=== PATIENT | male | born 1965 | race Hispanic/Latino ===

== ENCOUNTER 2018-01-07 04:36 | Emergency (ER) | payer OTHER ==
[2018-01-07] MEDS ORDERED: cloNIDine HCl 0.1 MG TAB ONE (05:15)
[2018-01-07 05:29] LABS: Absolute Monocytes 0.7 K/uL (0.1-1.3); Absolute Neutrophil 6.5 K/uL (1.8-8.0); Basophils % 0.4 % (0-1.3); Eosinophils % 0.8 % (0-4.4); Hematocrit 39.6 % (39.6-49.0); Lymphocytes % 29.4 % (15.3-44.8); MCH 31.1 pg (27.0-35.0); MPV 8.5 fL (7.6-11.3); Monocytes % 6.7 % (3.3-12.3); RBC Red Blood Cell Count 4.45 M/uL (4.33-5.43)
[2018-01-07 05:45] LABS: ALT/SGPT 35 U/L (12-78); AST/SGOT 26 U/L (15-37); Albumin 2.8 g/dL (3.4-5.0); Alkaline Phosphatase 91 U/L (45-117); BUN Blood Urea Nitrogen 24 mg/dL (7-18); Bicarbonate 29 mmol/L (21-32); Bilirubin Direct < 0.1 mg/dL (0-0.2); Bilirubin Total 0.2 mg/dL (0.2-1.0); CKMB Creatine Kinase MB < 1.0 ng/mL (0.3-3.6); Creatine Phosphokinase 56 U/L (39-308); Glucose Level 140 mg/dL (74-106); Magnesium 1.7 mg/dL (1.8-2.4); NT PRO-BNP 391 pg/mL (<125); Potassium 3.5 mmol/L (3.5-5.1); Protein, Total 7.1 g/dL (6.4-8.2); Sodium Level 140 mmol/L (136-145)
[2018-01-07] MEDS ORDERED: METOPROLOL TARTRATE 5 MG/5 ML INJ IV ONE (06:45)
--- NOTE | 2018-01-07 07:11 | EKG ---
Test Date: 2018-01-07 Test Time: 04:48:27 Whizzer Hand: MEASUREMENT RESULTS: Intervals: Rate: 103 PA: 158 QRSD: 72 QT: 342 QTc: 448 [place]: P: 40 PA: 158 QRS: 4 T: 115 INTERPRETIVE STATEMENTS: Sinus tachycardia Possible Left atrial enlargement T wave abnormality, consider lateral ischemia Abnormal ECG Compared to ECG 10/31/2016 04:30:15 T-wave abnormality now present Possible ischemia now present Sinus rhythm no longer present Electronically Signed On 01-07-18 07:11:11 CDT by Nino Gonzalez
[2018-01-07] MEDS ORDERED: ENALAPRILAT 1.25 MG/ML VIAL IV ONE (07:43)
[2018-01-07 08:23] LABS: Urine Blood TRACE (NEG); Urine Glucose 2+ (NEG); Urine Protein 3+ (NEG); Urine Specific Gravity >1.030 (1.005-1.030)
--- NOTE | 2018-01-07 08:48 | EDPHYS ---
Physician Documentation [facility] Name: Ben Muir Age: 52 yrs Sex: Male : 1965 Arrival Date: 01/07/2018 Time: 04:37 Bed 6 Private MD: ONIEL MALDONADO ED Physician Camilo Mccollum HPI: 01/07 06:58 This 52 yrs old Male presents to ER via Ambulatory with complaints of Chest kdr Pain, Headache. 06:58 The patient or guardian reports chest pain that is located primarily in the anterior kdr chest wall, left. Onset: suddenly, just prior to arrival, Awoke him from sleep. The pain radiates to the left arm. Associated signs and symptoms: Pertinent positives: diaphoresis, nausea, shortness of breath, Pertinent negatives: syncope, vomiting. The chest pain is described as aching, dull, a heaviness, a pressure. Duration: The patient or guardian reports a single episode, that is still ongoing, but improving. Modifying factors: The symptoms are alleviated by nothing. the symptoms are aggravated by emotionally stressful situations, movement. Severity of pain: At its worst the pain was moderate just prior to arrival, in the emergency department the pain has improved moderately. The patient has experienced similar episodes in the past, multiple times. The patient has not recently seen a physician. Historical: - Allergies: 04:51 No Known Allergies; tl2 - Home Meds: 04:51 pravastatin 20 mg oral tab 1 tab once daily [Active]; carvedilol 25 mg oral tab 1 tab 2 tl2 times per day [Active]; Cozaar 25 mg Oral tab 1 tab once daily [Active]; amitriptyline 25 mg Oral tab 1 tab once daily [Active]; tamsulosin 0.4 mg oral cp24 1 cap once daily [Active]; buspirone 10 mg Oral tab 1 tab 2 times per day [Active]; clonidine HCl 0.1 mg Oral tab 1 tab 2 times per day [Active]; Lantus 100 unit/mL Sub-Q soln [Active]; - PMHx: 04:51 Diabetes - IDDM; Hypertension; testicular cancer; stage 3 kidney disease; tl2 - Immunization history:: Adult Immunizations up to date. - Social history:: Smoking status: Patient uses tobacco products, smokes one-half pack cigarettes per day. - Ebola Screening: : No symptoms or risks identified at this time. ROS: 06:58 Constitutional: Negative for fever, chills, and weight loss, Eyes: Negative for injury, kdr pain, redness, and discharge, Neck: Negative for injury, pain, and swelling, Respiratory: Negative for shortness of breath, cough, wheezing, and pleuritic chest pain, Abdomen/GI: Negative for abdominal pain, nausea, vomiting, diarrhea, and constipation, Back: Negative for injury and pain, : Negative for injury, bleeding, discharge, and swelling, MS/Extremity: Negative for injury and deformity, Skin: Negative for injury, rash, and discoloration, Neuro: Negative for headache, weakness, numbness, tingling, and seizure activity. Psych: Negative for depression, anxiety, suicide ideation, homicidal ideation, and hallucinations, Allergy/Immunology: Negative for hives, rash, and allergies, Endocrine: Negative for neck swelling, polydipsia, polyuria, polyphagia, and marked weight changes, Hematologic/Lymphatic: Negative for swollen nodes, abnormal bleeding, and unusual bruising. 06:58 Cardiovascular: Positive for chest pain, Negative for edema, orthopnea, palpitations, paroxysmal nocturnal dyspnea. 06:58 Respiratory: Positive for shortness of breath, With chest pain. 06:58 Abdomen/GI: Positive for nausea, With chest pain. Exam: 04:53 ECG was reviewed by the Attending Physician. kdr 06:58 Constitutional: This is a well developed, well nourished patient who is awake, alert, kdr and in no acute distress. Head/Face: Normocephalic, atraumatic. Eyes: Pupils equal round and reactive to light, extra-ocular motions intact. Lids and lashes normal. Conjunctiva and sclera are non-icteric and not injected. Cornea within normal limits. Periorbital areas with no swelling, redness, or edema. Neck: Trachea midline, no thyromegaly or masses palpated, and no cervical lymphadenopathy. Supple, full range of motion without nuchal rigidity, or vertebral point tenderness. No Meningismus. Chest/axilla: Normal chest wall appearance and motion. Nontender with no deformity. No lesions are appreciated. Cardiovascular: Regular rate and rhythm with a normal S1 and S2. No gallops, murmurs, or rubs. Normal PMI, no JVD. No pulse deficits. Respiratory: Lungs have equal breath sounds bilaterally, clear to auscultation and percussion. No rales, rhonchi or wheezes noted. No increased work of breathing, no retractions or nasal flaring. Abdomen/GI: Soft, non-tender, with normal bowel sounds. No distension or tympany. No guarding or rebound. No evidence of tenderness throughout. Back: No spinal tenderness. No costovertebral tenderness. Full range of motion. Skin: Warm, dry with normal turgor. Normal color with no rashes, no lesions, and no evidence of cellulitis. MS/ Extremity: Pulses equal, no cyanosis. Neurovascular intact. Full, normal range of motion. Neuro: Awake and alert, GCS 15, oriented to person, place, time, and situation. Cranial nerves II-XII grossly intact. Motor strength 5/5 in all extremities. Sensory grossly intact. Cerebellar exam normal. Normal gait. Psych: Awake, alert, with orientation to person, place and time. Behavior, mood, and affect are within normal limits. Vital Signs: 04:53 BP 215 / 135; Pulse 100; Resp 20; Temp 97.6; Pulse Ox 97% on R/A; Weight 80.74 kg; tl2 Height 5 ft. 7 in. (170.18 cm); Pain 8/10; 05:15 BP 197 / 136; Pulse 100; Resp 16; Pulse Ox 100% on R/A; tl1 05:44 BP 182 / 123; Pulse 95; Resp 18; Pulse Ox 97% on R/A; tl1 05:58 BP 183 / 120; Pulse 93; Resp 20; Pulse Ox 98% on R/A; tl2 06:42 BP 184 / 123; Pulse 96; Resp 18; Pulse Ox 97% on R/A; tl2 06:48 BP 174 / 108; Pulse 92; Resp 16; Pulse Ox 99% ; tl1 06:58 BP 171 / 111; Pulse 97; Resp 18; Pulse Ox 98% on R/A; tl1 07:03 BP 165 / 106; Pulse 97; Resp 17; Pulse Ox 100% ; Pain 0/10; tl1 07:56 BP 212 / 126; Pulse 88; Resp 16; Pulse Ox 99% on R/A; ae1 08:05 BP 184 / 116; Pulse 89; Resp 16; Pulse Ox 99% on R/A; ae1 08:13 BP 175 / 113; Pulse 96; Resp 18; Pulse Ox 100% on R/A; ae1 08:31 BP 160 / 107; Pulse 81; Resp 16; Pulse Ox 99% on R/A; ae1 08:55 BP 164 / 107; Pulse 91; Resp 12; Pulse Ox 99% on R/A; tw2 04:53 Body Mass Index 27.88 (80.74 kg, 170.18 cm) tl2 MDM: 06:56 HEART Score: History: Slightly Suspicious (0), ECG: Non specific repolarization kdr disturbance / LBTB / PM (1), Age: > or = 65 years (2), Risk Factors: > or = 3 Risk factors for atherosclerotic disease (2), Troponin: < or = 1 x Normal Limit (0), Total Score =. The patient was given aspirin in the Emergency Department. BETH Risk Score: 1 - patient's age is greater or equal to 65 years, 1 - Three or more CAD risk factors, [Family Hx], [HTN], [Elevated Cholesterol], [Active Smoker], TOTAL SCORE = 2. Data reviewed: vital signs, nurses notes, lab test result(s), EKG, radiologic studies. 08:48 Patient medically screened. kdr 01/07 04:52 Order name: Basic Metabolic Panel; Complete Time: 06:22 tl2 01/07 04:52 Order name: CBC with Diff; Complete Time: 06:22 01/07 04:52 Order name: Ckmb; Complete Time: 06:22 tl2 01/07 04:52 Order name: CPK; Complete Time: 06:22 tl2 01/07 04:52 Order name: LFT's; Complete Time: 06:22 2 01/07 04:52 Order name: Magnesium; Complete Time: 06:22 tl2 01/07 04:52 Order name: NT PRO-BNP; Complete Time: 06:22 tl2 01/07 04:52 Order name: PT-INR; Complete Time: 06:22 tl2 01/07 04:52 Order name: Ptt, Activated; Complete Time: 06:22 tl2 01/07 04:52 Order name: Troponin (emerg Dept Use Only); Complete Time: 06:22 tl2 01/07 04:52 Order name: XRAY Chest (1 view); Complete Time: 10:05 tl2 01/07 05:09 Order name: Troponin (emerg Dept Use Only): 2 hrs from the first; Complete Time: 07:15 kdr 01/07 08:15 Order name: Urine Dipstick--Ancillary (enter results); Complete Time: 10:05 ag 01/07 04:52 Order name: EKG; Complete Time: 04:53 tl2 01/07 04:52 Order name: Cardiac monitoring; Complete Time: 04:56 tl2 01/07 04:52 Order name: EKG - Nurse/Tech; Complete Time: 04:56 tl2 01/07 04:52 Order name: IV Saline Lock; Complete Time: 04:56 tl2 01/07 04:52 Order name: Labs collected and sent; Complete Time: 04:56 tl2 01/07 04:52 Order name: O2 Per Protocol; Complete Time: 04:56 tl2 01/07 04:52 Order name: O2 Sat Monitoring; Complete Time: 04:56 tl2 01/07 04:52 Order name: Urine Dipstick-Ancillary (obtain specimen); Complete Time: 08:13 tl2 01/07 05:09 Order name: EKG Strip: 2 hrs from the first; Complete Time: 06:43 kdr EC:53 Rate is 103 beats/min. Rhythm is regular. QRS is positive in lead I and negative in kdr lead aVF. Q waves are Present in lead I. Clinical impression: NSR w/ Non-specific ST/T Changes. Administered Medications: 05:13 Drug: cloNIDine 0.2 mg Route: PO; tl2 06:43 Follow up: Response: Blood pressure is lowered tl2 06:44 Drug: Lopressor 5 mg Route: IVP; Site: right antecubital; tl2 06:48 Follow up: BP 174 / 108; Pulse 92 bpm; Resp 16 bpm; Pulse Ox 99% tl1 06:49 Drug: Lopressor 5 mg Route: IVP; Site: right antecubital; tl2 07:48 Follow up: Response: Blood pressure is lowered ae1 07:57 Drug: Enalaprilat 1.25 mg Route: IV; Rate: calculated rate; Site: right forearm; ae1 08:56 Follow up: IV Status: Completed infusion ae1 Disposition: 01/07/18 08:48 Discharged to Home. Impression: Chest pain on breathing, Hypertensive heart disease. - Condition is Stable. - Discharge Instructions: Nonspecific Chest Pain, [id number], Hypertension, Ztfc-in-[id number]. - Medication Reconciliation Form, Thank You Letter form. - Follow up: ONIEL MALDONADO; When: 2 - 3 days; Reason: If symptoms return, Further diagnostic work-up, Recheck today's complaints, Continuance of care, Re-evaluation by your physician. - Problem is an acute exacerbation. - Symptoms are resolved. Signatures: Dispatcher [employer] EDMS Camilo Mccollum MD MD kdr Shani Sapp RN RN tl2 Toby Friend RN RN ae1 Beronica Benitez RN tl1 Corrections: (The following items were deleted from the chart) 08:50 08:48 01/07/2018 08:48 Discharged to Home. Impression: Chest pain on breathing. kdr Condition is Stable. Forms are Medication Reconciliation Form, Thank You Letter, Antibiotic Education, Prescription Opioid Use. Follow up: ONIEL MALDONADO; When: 2 - 3 days; Reason: If symptoms return, Further diagnostic work-up, Recheck today's complaints, Continuance of care, Re-evaluation by your physician. Problem is an acute exacerbation. Symptoms are resolved. kdr 09:03 08:50 01/07/2018 08:48 Discharged to Home. Impression: Chest pain on breathing; ae1 Hypertensive heart disease. Condition is Stable. Discharge Instructions: Nonspecific Chest Pain, Yian-kq-Ahec, Hypertension, Zpeq-yl-Rdyk. Forms are Medication Reconciliation Form, Thank You Letter. Follow up: ONIEL MALDONADO; When: 2 - 3 days; Reason: If symptoms return, Further diagnostic work-up, Recheck today's complaints, Continuance of care, Re-evaluation by your physician. Problem is an acute exacerbation. Symptoms are resolved. kdr
--- NOTE | 2018-01-07 08:48 | ER ---
Nurse's Notes [facility] Name: Ben Muir Age: 52 yrs Sex: Male : 1965 Arrival Date: 01/07/2018 Time: 04:37 Bed 6 Private MD: ONIEL MALDONADO Diagnosis: Chest pain on breathing;Hypertensive heart disease Presentation: 01/07 04:45 Presenting complaint: Patient states: chest pain since 1700 yesterday. Intermittent on tl2 right and left side. Reports vomiting x 1. Elevated BP and headache. Transition of care: patient was not received from another setting of care. Onset of symptoms was January 06, 2018. Risk Assessment: Do you want to hurt yourself or someone else? Patient reports no desire to harm self or others. Initial Sepsis Screen: Does the patient meet any 2 criteria? No. Patient's initial sepsis screen is negative. Does the patient have a suspected source of infection? No. Patient's initial sepsis screen is negative. Care prior to arrival: None. 04:45 Method Of Arrival: Ambulatory tl2 04:45 Acuity: KUSUM 2 tl2 Triage Assessment: 04:51 General: Appears in no apparent distress. uncomfortable, Behavior is calm, cooperative, tl2 appropriate for age. Pain: Complains of pain in anterior aspect of left upper chest Pain does not radiate. Pain currently is 8 out of 10 on a pain scale. Quality of pain is described as sharp. Neuro: Level of Consciousness is awake, alert, obeys commands, Oriented to person, place, time, situation. Cardiovascular: Chest pain is described as diffuse, quality is sharp, is located in anterior episodes are intermittent. Respiratory: Airway is patent Respiratory effort is even, unlabored, Respiratory pattern is regular, symmetrical. GI: Reports vomiting. : No signs and/or symptoms were reported regarding the genitourinary system. Derm: Skin is normal. Historical: - Allergies: 04:51 No Known Allergies; tl2 - Home Meds: 04:51 pravastatin 20 mg oral tab 1 tab once daily [Active]; carvedilol 25 mg oral tab 1 tab 2 tl2 times per day [Active]; Cozaar 25 mg Oral tab 1 tab once daily [Active]; amitriptyline 25 mg Oral tab 1 tab once daily [Active]; tamsulosin 0.4 mg oral cp24 1 cap once daily [Active]; buspirone 10 mg Oral tab 1 tab 2 times per day [Active]; clonidine HCl 0.1 mg Oral tab 1 tab 2 times per day [Active]; Lantus 100 unit/mL Sub-Q soln [Active]; - PMHx: 04:51 Diabetes - IDDM; Hypertension; testicular cancer; stage 3 kidney disease; tl2 - Immunization history:: Adult Immunizations up to date. - Social history:: Smoking status: Patient uses tobacco products, smokes one-half pack cigarettes per day. - Ebola Screening: : No symptoms or risks identified at this time. Screenin:54 Abuse screen: Denies threats or abuse. Nutritional screening: No deficits noted. tl2 Tuberculosis screening: No symptoms or risk factors identified. Fall Risk None identified. Assessment: 04:55 Pain: Pain began 1 day ago. tl2 05:58 Reassessment: Patient appears in no apparent distress at this time. Patient and/or tl2 family updated on plan of care and expected duration. Pain level reassessed. Patient is alert, oriented x 3, equal unlabored respirations, skin warm/dry/pink. 06:42 Reassessment: Patient appears in no apparent distress at this time. Patient and/or tl2 family updated on plan of care and expected duration. Pain level reassessed. Patient is alert, oriented x 3, equal unlabored respirations, skin warm/dry/pink. Repeat troponin and EKG sent. notified of pt's continued elevated BP. New orders see SEP. 07:17 Reassessment: Patient appears in no apparent distress at this time. Patient is lying ae1 with eyes closed, respirations even and unlabored. at bedside. 09:02 Reassessment: Patient states feeling better. Patient states symptoms have improved. ae1 Vital Signs: 04:53 BP 215 / 135; Pulse 100; Resp 20; Temp 97.6; Pulse Ox 97% on R/A; Weight 80.74 kg; tl2 Height 5 ft. 7 in. (170.18 cm); Pain 8/10; 05:15 BP 197 / 136; Pulse 100; Resp 16; Pulse Ox 100% on R/A; tl1 05:44 BP 182 / 123; Pulse 95; Resp 18; Pulse Ox 97% on R/A; tl1 05:58 BP 183 / 120; Pulse 93; Resp 20; Pulse Ox 98% on R/A; tl2 06:42 BP 184 / 123; Pulse 96; Resp 18; Pulse Ox 97% on R/A; tl2 06:48 BP 174 / 108; Pulse 92; Resp 16; Pulse Ox 99% ; tl1 06:58 BP 171 / 111; Pulse 97; Resp 18; Pulse Ox 98% on R/A; tl1 07:03 BP 165 / 106; Pulse 97; Resp 17; Pulse Ox 100% ; Pain 0/10; tl1 07:56 BP 212 / 126; Pulse 88; Resp 16; Pulse Ox 99% on R/A; ae1 08:05 BP 184 / 116; Pulse 89; Resp 16; Pulse Ox 99% on R/A; ae1 08:13 BP 175 / 113; Pulse 96; Resp 18; Pulse Ox 100% on R/A; ae1 08:31 BP 160 / 107; Pulse 81; Resp 16; Pulse Ox 99% on R/A; ae1 08:55 BP 164 / 107; Pulse 91; Resp 12; Pulse Ox 99% on R/A; tw2 04:53 Body Mass Index 27.88 (80.74 kg, 170.18 cm) tl2 ED Course: 04:37 Patient arrived in ED. al2 04:37 ONIEL MALDONADO is Private Physician. al2 04:41 Camilo Mccollum MD is Attending Physician. kdr 04:46 Triage completed. tl2 04:53 Arm band placed on right wrist. tl2 04:54 Patient has correct armband on for positive identification. Bed in low position. Call tl2 light in reach. Side rails up X 1. Adult w/ patient. tile layer on. Pulse ox on. NIBP on. 04:54 Inserted saline lock: 20 gauge in right antecubital area, using aseptic technique. tl2 Blood collected. placed by JEIMY Loco. 04:55 Patient maintains SpO2 saturation greater than 95% on room air. tl2 04:58 X-ray completed. Portable x-ray completed in exam room. Patient tolerated procedure jw2 well. 04:59 XRAY Chest (1 view) In Process Unspecified. EDMS 05:14 Beronica Benitez RN is Primary Nurse. tl1 06:43 Troponin (emerg Dept Use Only): 2 hrs from the first Sent. tl2 08:14 Warm blanket given. ae1 08:48 ONIEL MALDONADO is Referral Physician. kdr 09:02 No provider procedures requiring assistance completed. IV discontinued, intact, ae1 bleeding controlled, No redness/swelling at site. Pressure dressing applied. Administered Medications: 05:13 Drug: cloNIDine 0.2 mg Route: PO; tl2 06:43 Follow up: Response: Blood pressure is lowered tl2 06:44 Drug: Lopressor 5 mg Route: IVP; Site: right antecubital; tl2 06:48 Follow up: BP 174 / 108; Pulse 92 bpm; Resp 16 bpm; Pulse Ox 99% tl1 06:49 Drug: Lopressor 5 mg Route: IVP; Site: right antecubital; tl2 07:48 Follow up: Response: Blood pressure is lowered ae1 07:57 Drug: Enalaprilat 1.25 mg Route: IV; Rate: calculated rate; Site: right forearm; ae1 08:56 Follow up: IV Status: Completed infusion ae1 Outcome: 08:48 Discharge ordered by . kdr 09:02 Discharged to home ambulatory, with significant other. ae1 09:02 Condition: stable 09:02 Discharge instructions given to patient, significant other, Instructed on discharge instructions, follow up and referral plans. Demonstrated understanding of instructions. 09:03 Patient left the ED. ae1 Signatures: Dispatcher [employer] EDMS Camilo Mccollum MD MD kdr Beronica Benitez RN RN tl1 Olya Cardona jw2 Hayley Willams RN RN tw2 Shani Sapp RN RN tl2 Toby Friend RN RN ae1 Roxanne Tolbert2 Corrections: (The following items were deleted from the chart) 08:03 08:03 Enalaprilat 1.25 mg IV at calculated rate in right forearm ae1 ae1
--- NOTE | 2018-01-07 08:52 | RAD REPORT ---
EXAM DESCRIPTION: Mary Kay Single View01/07/2018 4:59 am CLINICAL HISTORY: Chest pain COMPARISON: 2013 FINDINGS: The lungs appear clear of acute infiltrate. The heart is normal size IMPRESSION: No acute abnormalities displayed
[2018-01-07 09:22] VITALS: TEMP 97.6
[2018-01-07 09:34] VITALS: O2SAT 99
[2018-01-07 09:35] VITALS: BP 164/107
--- NOTE | 2018-01-08 10:57 | EKG ---
Test Date: 2018-01-07 Test Time: 06:40:12 Telescope Repairer: CARLOS EDUARDO MEASUREMENT RESULTS: Intervals: Rate: 94 MT: 162 QRSD: 74 QT: 346 QTc: 432 [place]: P: 23 MT: 162 QRS: -1 T: 133 INTERPRETIVE STATEMENTS: Normal sinus rhythm Possible Left atrial enlargement ST & T wave abnormality, consider lateral ischemia Abnormal ECG Compared to ECG 01/07/2018 04:48:27 ST (T wave) deviation now present Sinus tachycardia no longer present T-wave abnormality no longer present Possible ischemia still present Electronically Signed On 01-08-18 10:56:35 CDT by Nino Gonzalez
== END 2018-01-07 09:03 | disposition home or self-care (01) ==
LOC: ER 04:36
DX: I13.10 Hypertensive heart and chronic kidney disease without heart failure, with stage 1 through stage 4 chronic kidney disease, or unspecified chronic kidney disease (principal); N18.3 Chronic kidney disease, stage 3 (moderate); E11.9 Type 2 diabetes mellitus without complications; F17.210 Nicotine dependence, cigarettes, uncomplicated; Z79.4 Long term (current) use of insulin; Z85.47 Personal history of malignant neoplasm of testis
CPT/HCPCS: 36415; 71045; 80048; 80076; 81003; 82550; 82553; 83735; 83880; 84484; 85025; 85610; 85730; 93005; 96365; 96375; 99285

== ENCOUNTER 2020-01-28 09:22 | Inpatient (IN) | payer SELFPAY, OTHER ==
[2020-01-28] MEDS ORDERED: ONDANSETRON 4 MG/2 ML VIAL ONE (10:24)
[2020-01-28] MEDS ORDERED: NA CHLORIDE 0.9% 0 ML ONE (10:24)
[2020-01-28] MEDS ORDERED: MORPHINE 4 MG/ML SYR ONE (10:24)
[2020-01-28 10:45] LABS: Hematocrit 25.9 % (39.6-49.0); RBC Red Blood Cell Count 2.97 M/uL (4.33-5.43)
[2020-01-28 10:46] LABS: Absolute Lymphocytes (CBC) 1.2 K/uL (0.7-4.9); Basophils % 0.4 % (0-1.3); Lymphocytes % 8.9 % (15.3-44.8); MPV 8.3 fL (7.6-11.3)
[2020-01-28 10:51] LABS: Protime INR 1.01
--- OUTSIDE RECORDS SUMMARY | 2020-01-28 10:57 | XMS REPORT | Continuity of Care Document ---
:1965 Author Organization [facility] t Address [address] [place] [address] [address] [place] [address] Care Team Providers Name Role Phone Pob1, Acute Care Clinic Attending Clinician Unavailable Pattie Padilla Attending Clinician Jose Francisco RN, G Attending Clinician Unavailable Lab, Fam Pob I Attending Clinician Unavailable Problems This patient has no known problems. Allergies, Adverse Reactions, Alerts This patient has no known allergies or adverse reactions. Medications This patient has no known medications. Procedures This patient has no known procedures. Encounters Start End Encounter Admission Attending Care Care Encounter Source Date/Time Date/Time Type Type Clinicians Facility Department ID 2019-12-13 2019-12-13 Telephone Pojanette, Acute [facility] [id number] 00:00:00 00:00:00 [facility] [id number] [place] [id number] [facility] [id number] [place] [address] [address] 2019-12-09 2019-12-09 Telephone WILMAN Padilla [id number] 00:00:00 00:00:00 Shilpa MIRANDA [id number] 2019-12-08 2019-12-08 Telephone Eloina STOVALL [id number] 00:00:00 00:00:00 Anastasia jamison [id number] 2019-12-07 2019-12-07 Evaluator Lab, [facility] [id number] 15:00:09 15:10:09 Visit [facility] [id number] [place] [id number] Raf[place] [id number] [address] [address] Results This patient has no known results.
--- OUTSIDE RECORDS SUMMARY | 2020-01-28 10:58 | XMS REPORT | Summary of Care ---
:1965 Author Organization [facility] Address [address] [place] [address] Care Team Providers Name Role Phone Shilpa Padilla Primary Care Provider Reason for Visit Reason Comments LAB covid 19 Encounter Details Date Type Department Care Team Description 12/07/2019 Refinisher Visit [facility] Tejas Lopez, PA [address] [place] [address] Suspected 2019 [facility], Ad[facility] Fam Pob I Coronavirus [address] [place] [address] [place] [address] Allergies No Known Allergiesdocumented as of this encounter (statuses as of 12/07/2019) Medications Medication Sig Dispensed Refills Start Date End Date Status phenazopyridine (PYRIDIUM) Take 200 mg by 0 01/16/20 14 Active 200 mg tablet mouth 3 (three) times daily as needed. pravastatin (PRAVACHOL) 20 Take 20 mg by 0 4 Active mg tablet mouth daily. carvedilol (COREG) 12.5 mg Take 1 Tab by 60 Tab 2 4 Active tablet mouth 2 (two) times daily with meals. insulin glargine (LANTUS inject 20 10 mL 2 04/06/2014 Active U-100) 100 unit/mL Units under injection the skin daily. insulin regular human inject 10 10 mL 2 04/06/2014 Active (HUMULIN R) injection Units under the skin before meals. Insulin Syringe-Needle 0 04/06/2014 Active U-100 (SURE COMFORT INSULIN SYRINGE) 1/2 mL 30 x 5/16" Syrg ondansetron (ZOFRAN-ODT) 4 Take 1 Tab by 9 Tab 3 4 Active mg disintegrating tablet mouth every 8 (eight) hours as needed for Nausea and Vomiting (N/V). acetaminophen (TYLENOL) Take 2 Tabs by 60 Tab 0 05/19/2014 Active 325 mg tablet mouth every 6 (six) hours as needed for Pain (scale 1-3) or Temp > 38.5 C. hydrochlorothiazide 0 06/03/2014 Active (ESIDRIX) 25 mg tablet hydralAZINE (APRESOLINE) Take 10 mg by 0 Active 10 mg tabletIndications: mouth every 8 As needed if BP is over (eight) hours. 180/110 Indications: As needed if BP is over 180/110 LANTUS SOLOSTAR 100 0 12/11/2014 Active unit/mL (3 mL) InPn NOVOFINE 32 32 x 1/4 " 0 12/11/2014 Active Ndle tamsulosin (FLOMAX) 0.4 mg Take 1 Cap by 30 Cap 11 5 Active 24 hr capsule mouth daily. potassium citrate Take 1 Tab by 60 Tab 12 02/11/2015 Active (UROCIT-K 10) 10 mEq mouth 2 (two) (1,080 mg) SR tablet times daily with meals. citalopram (CELEXA) 20 mg 0 02/12/2015 Active tablet doxazosin (CARDURA) 4 mg 0 02/12/2015 Active tablet minocycline (MINOCIN) 100 0 02/12/2015 Active mg capsule documented as of this encounter (statuses as of 12/07/2019) Active Problems Problem Noted Date Febrile neutropenia 05/08/2014 Cancer 04/29/2014 Maintenance chemotherapy 04/01/2014 Abdominal pain 03/19/2014 Testicular cancer 03/05/2014 Edema of right lower extremity 03/05/2014 documented as of this encounter (statuses as of 12/07/2019) Immunizations Name Administration Dates Next Due Influenza Virus Vaccine Quad IM 3+ YRS 05/04/2014 documented as of this encounter Social History Tobacco Use Types Packs/Day Years Used Date Former Smoker Cigarettes 0.3 30 Quit: 07/31/19 14 Alcohol Use Drinks/Week oz/Week Comments No History of alcho lism Sex Assigned at Date Recorded Not on file Job Start Date Occupation Industry Not on file Not on file Not on file Travel History Travel Start Travel End No recent travel history available. COVID-19 Exposure Response Date Recorded In the last month, have you been in contact with Yes 12/07/2019 3:01 PM CDT someone who was confirmed or suspected to have Coronavirus / COVID-19? documented as of this encounter Last Filed Vital Signs Not on filedocumented in this encounter Plan of Treatment Date Type Specialty Care Team Description 12/08/2019 Urgent Care Family Medicine Pob1, Acute Care Clinic Name Type Priority Associated Diagnoses Order S brayden COVID-19 (PCR MOLECULAR LAB Routine Suspected 2019 No jermaine Ordered: 12/07/2019 TESTING) Coronavirus Infection documented as of this encounter Implants Implanted Type Area Evp Managing Director Device Shelf Model / Identifier Expiration Serial / Date Lot Stent, Ureteral Bard Inlay [place] 4.7fr 24cm #[id number] - [id number] STENT Right: Bard 07/14/2018 [id number] / Implanted: Qty: 1 on 02/11/2015 by Darinel Shipman MD at [facility] Ureter / [id number] Stent, Ureteral Polaris Ultra 5f X 26cm [employer] #192-123[[id number]] - [id number] Right: [place] 06/02/2017 192-123 / Implanted: Qty: 1 on 08/13/2014 by Darinel Shipman MD at [facility] [employer] / [id number] documented as of this encounter Results Not on filedocumented in this encounter Visit Diagnoses Diagnosis Suspected 2018 Novel Coronavirus Infecti on documented in this encounter
--- OUTSIDE RECORDS SUMMARY | 2020-01-28 10:58 | XMS REPORT | Summary of Care ---
:1965 Author Organization [facility] Address [address] [place] [address] Care Team Providers Name Role Phone Shilpa Padilla Primary Care Provider Reason for Visit Reason Comments Results Encounter Details Date Type Department Care Team Description 12/09/2019 Telephone ACCESS CENTER Shilpa Padilla Results [address] [place] [address] [place], [place] [phone] Allergies No Known Allergiesdocumented as of this encounter (statuses as of 12/09/2019) Medications Medication Sig Dispensed Refills Start Date [...] as of this encounter (statuses as of 12/09/2019) Active Problems Problem Noted Date Febrile neutropenia 05/08/2014 Cancer 04/29/2014 Maintenance chemotherapy 04/01/2014 Abdominal pain 03/19/2014 Testicular cancer 03/05/2014 Edema of right lower extremity 03/05/2014 documented as of this encounter (statuses as of 12/09/2019) Immunizations Name Administration Dates Next Due Influenza [...] filedocumented in this encounter Plan of Treatment Health Maintenance Due Date Last Done Comments PNEUMOCOCCAL 0-64 YEARS COMBINED SERIES (1 of 3 - 10/25/1971 PCV13) DTaP,Tdap,and Td Vaccines (1 - Tdap) 1976 Depression Screening 1977 COLONOSCOPY 10/25/2015 Zoster Recombinant Vaccine (SHINGRIX) (1 of 2) 10/25/2015 INFLUENZA VACCINE (Season Ended) 2020 05/04/2014 documented as of this encounter Implants Implanted Type Area Real Estate Appraiser Supervisor Device Shelf Model / Identifier Expiration Serial / Date Lot Stent, Ureteral Bard Inlay [place] 4.7fr 24cm #[id number] - [id number] STENT Right: Bard 07/14/2018 [id number] / Implanted: Qty: 1 on 02/11/2015 by Darinel Shipman MD at [facility] Ureter / [id number] Stent, Ureteral Polaris Ultra 5f X 26cm [place] [employer] #192-123[[id number]] - [id number] Right: [place] 06/02/2017 192-123 / Implanted: Qty: 1 on 08/13/2014 by Darinel Shipman MD at [facility] [employer] / [id number] documented as of this encounter Results Not on filedocumented in this encounter
--- OUTSIDE RECORDS SUMMARY | 2020-01-28 10:58 | XMS REPORT | Summary of Care ---
:1965 Author Organization [facility] Address [address] [place] [address] Care Team Providers Name Role Phone Shilpa Padilla Primary Care Provider Reason for Visit Reason Comments Results Encounter Details Date Type Department Care Team Description 12/08/2019 Telephone ACCESS CENTER Anastasia Felton RN Results [address] [phone] [place] [address] Allergies No Known Allergiesdocumented as of this encounter (statuses as of 12/08/2019) Medications Medication Sig Dispensed Refills Start Date [...] as of this encounter (statuses as of 12/08/2019) Active Problems Problem Noted Date Febrile neutropenia 05/08/2014 Cancer 04/29/2014 Maintenance chemotherapy 04/01/2014 Abdominal pain 03/19/2014 Testicular cancer 03/05/2014 Edema of right lower extremity 03/05/2014 documented as of this encounter (statuses as of 12/08/2019) Immunizations Name Administration Dates Next Due Influenza [...] of this encounter Implants Implanted Type Area Medical Researcher Device Shelf Model / Identifier Expiration Serial / Date Lot Stent, Ureteral Bard Inlay [place] 4.7fr 24cm #[id number] - [id number] STENT Right: Bard 07/14/2018 [id number] / Implanted: Qty: 1 on 02/11/2015 by Darinel Shipman MD at [facility] Ureter / [id number] Stent, Ureteral Polaris Ultra 5f X 26cm [place] [employer] #192-123[[id number]] - [id number] Right: [place] 06/02/2017 192-123 / Implanted: Qty: 1 on 08/13/2014 by Darinel Shipman MD at [facility] [employer]ter [employer] / [id number] documented as of this encounter Results Not on filedocumented in this encounter
--- OUTSIDE RECORDS SUMMARY | 2020-01-28 10:58 | XMS REPORT | Summary of Care ---
:1965 Author Organization [facility] Address [address] [place] [address] Care Team Providers Name Role Phone Shilpa Padilla Primary Care Provider Reason for Visit Reason Comments Results Encounter Details Date Type Department Care Team Description 12/13/2019 Telephone [facility] Pob1, Acute C are Clinic Results - [address] [place] [address] Allergies No Known Allergiesdocumented as of this encounter (statuses as of 12/14/2019) Medications Medication Sig Dispensed Refills Start Date [...] as of this encounter (statuses as of 12/14/2019) Active Problems Problem Noted Date Febrile neutropenia 05/08/2014 Cancer 04/29/2014 Maintenance chemotherapy 04/01/2014 Abdominal pain 03/19/2014 Testicular cancer 03/05/2014 Edema of right lower extremity 03/05/2014 documented as of this encounter (statuses as of 12/14/2019) Immunizations Name Administration Dates Next Due Influenza [...] Health Maintenance Due Date Last Done Comments DTaP,Tdap,and Td Vaccines (1 - 1976 Tdap) Depression Screening 1977 COLONOSCOPY 10/25/2015 Zoster Recombinant Vaccine 10/25/2015 (SHINGRIX) (1 of 2) INFLUENZA VACCINE (Season Ended) 2020 05/04/2014 PNEUMOCOCCAL 0-64 YEARS COMBINED Aged Out No longer eligible based on SERIES patient's age to complete this topic documented as of this encounter Implants Implanted Type Area Semiconductor Processor Device Shelf Model / Identifier Expiration Serial / Date Lot Stent, Ureteral Bard Inlay [place] 4.7fr 24cm #[id number] - [id number] STENT Right: Bard 07/14/2018 [id number] / Implanted: Qty: 1 on 02/11/2015 by Darinel Shipman MD at [facility] Ureter / [id number] Stent, Ureteral Polaris Ultra 5f X 26cm [place] [employer] #192-123[[id number]] - [id number] Right: [place] 06/02/2017 192-123 / Implanted: Qty: 1 on 08/13/2014 by Darinel Shipman MD at [facility] [employer] / [id number] documented as of this encounter Results Not on filedocumented in this encounter
[2020-01-28 11:15] LABS: Blood Morphology Comment NOT SEEN (NOT SEEN); Platelet Estimate ADEQ
[2020-01-28 11:21] LABS: Albumin 3.1 g/dL (3.4-5.0); Bilirubin Direct 0.1 mg/dL (0-0.2); Bilirubin Total 0.4 mg/dL (0.2-1.0); Magnesium 1.9 mg/dL (1.8-2.4); Potassium 3.6 mmol/L (3.5-5.1); Protein, Total 6.6 g/dL (6.4-8.2); Troponin (Emerg Dept Use Only) 0.29 ng/mL (0.0-0.045)
--- NOTE | 2020-01-28 11:35 | RAD REPORT ---
EXAM DESCRIPTION: CT - Chest Abd Pelvis Wo Con - 01/28/2020 11:10 am CLINICAL HISTORY: ABD PAIN COMPARISON: CT HEAD SPINE CAP W CONTRAST dated 05/07/2012 TECHNIQUE: During dynamic enhancement using 100 milliliters nonionic IV contrast, axial 5 millimeter thick images of the chest, abdomen and pelvis were obtained. Biphasic technique was utilized through the abdomen. No oral contrast was administered. All CT scans are performed using dose optimization technique as appropriate and may include automated exposure control or mA/KV adjustment according to patient size. FINDINGS: Small to moderate bilateral pleural effusions are present. A few small scattered areas margarita und-glass opacification are present in the right upper lobe and minimally in the bilateral lower lobe s. There is partial atelectasis of each lower lobe. The ground-glass opacities are more central than peripheral. No dense consolidation or worrisome mass. No endobronchial lesion. No pneumothorax. No ch est wall mass or abnormal axillary lymphadenopathy seen. Small nonspecific mediastinal and hilar lym ph nodes are present largest measuring 12 mm. No significant cardiac finding. No pericardial effusion . The liver, spleen and pancreas show no significant findings. A single 7 mm gallstone is present. No acute gallbladder finding. No biliary tree dilatation. No hydronephrosis. Renal function cannot be assessed on noncontrast imaging. Pyelonephritis and isode nse masses are not excluded. A 6.5 centimeter round low-density fluid attenuation mass is present upp er pole left kidney. This is almost certainly a benign cyst. No adrenal abnormalities. No bladder ca lculus seen. Guy of the urinary bladder are mildly prominent for the amount of distention. No focal area of greater bladder wall thickening or mass. No prostate gland abnormality. No dilated bowel. No stomach or small bowel acute finding. Moderate stool volume in the colon. Append ix is normal. Moderate diverticulosis. Hyperdense material in the left side colon is probably ingeste d medication. No free air, free fluid or inflammatory stranding. No mass or bulky lymphadenopathy. N o defined hernia. No significant bone or vascular finding. Prominent lower lumbar degenerative changes are present. IMPRESSION: Small to moderate bilateral pleural effusions with scattered ground-glass opacification in the lung moyer. Small nonspecific probable reactive mediastinal and hilar lymph nodes seen. Lung parenchymal findings are not in a typical pattern for COVID-19 pneumonia. This could be mild non specific alveolar pneumonia or edema. Guy of the urinary bladder are mildly prominent. The thickening is uniform with no defined mass or bladder calculus. This is nonspecific. Cystitis is doubtful given the provided clinical history. Remainder the CT abdomen and pelvis study, as detailed above, without acute or worrisome finding. .
[2020-01-28 11:43] LABS: Arterial Blood Carboxyhemoglob 1.8 % (0-1.5); Blood Gas Oxyhemoglobin 91.4 % (94-97); Blood O2 Saturation 94.4 % (92-98.5)
[2020-01-28] MEDS ORDERED: METOPROLOL TARTRATE 5 MG/5 ML INJ IV ONE (12:08)
[2020-01-28] MEDS ORDERED: HYDRALAZINE HCL 20 MG/ML VIAL ONE (12:08)
--- NOTE | 2020-01-28 12:22 | EDPHYS ---
Physician Documentation [facility] Name: Ben Muir Age: 54 yrs Sex: Male : 1965 Arrival Date: 01/28/2020 Time: 09:28 Bed 14 Private MD: ED Physician Delroy Mcintyre HPI: 01/27 09:59 This 54 yrs old Male presents to ER via Ambulatory with complaints of pm1 Vomiting, Breathing Difficulty. 09:59 The patient has shortness of breath at rest. Onset: The symptoms/episode began/occurred pm1 2 day(s) ago. Duration: The symptoms are continuous. The patient's shortness of breath is aggravated by Lying down, is alleviated by nothing. Associated signs and symptoms: Pertinent positives: Cough. Vomiting x 1 that resolved yesterday, Pertinent negatives: chest pain, fever. Severity of symptoms: in the emergency department the symptoms are worse. The patient has not recently seen a physician, Patient ran out of insulin 1 week ago and has stopped taking his blood pressure medications multiple months ago. Historical: - Allergies: 09:51 No Known Allergies; ss - PMHx: 09:51 Diabetes - IDDM; Hypertension; Stage 3 Kidney Disease; testicular cancer; ss - Immunization history:: Adult Immunizations unknown. - Social history:: Smoking status: Patient reports the use of cigarette tobacco products, denies chronic smoking, but will smoke occasionally. ROS: 09:59 Constitutional: Negative for fever, chills, and weight loss, Eyes: Negative for injury, pm1 pain, redness, and discharge, ENT: Negative for injury, pain, and discharge, Neck: Negative for injury, pain, and swelling, Cardiovascular: Negative for chest pain, palpitations, and edema. 09:59 Back: Negative for injury and pain, : Negative for injury, bleeding, discharge, and swelling, MS/Extremity: Negative for injury and deformity, Skin: Negative for injury, rash, and discoloration, Neuro: Negative for headache, weakness, numbness, tingling, and seizure. 09:59 Respiratory: Positive for cough, shortness of breath. 09:59 Abdomen/GI: Positive for abdominal pain, vomiting, Negative for diarrhea, constipation. Exam: 09:59 Constitutional: This is a well developed, well nourished patient who is awake, alert, pm1 and in no acute distress. Head/Face: Normocephalic, atraumatic. Chest/axilla: Normal chest wall appearance and motion. Nontender with no deformity. No lesions are appreciated. 09:59 Back: No spinal tenderness. No costovertebral tenderness. Full range of motion. 09:59 Skin: Warm, dry with normal turgor. Normal color with no rashes, no lesions, and no evidence of cellulitis. MS/ Extremity: Pulses equal, no cyanosis. Neurovascular intact. Full, normal range of motion. 09:59 Cardiovascular: Rate: tachycardic, Rhythm: regular, Pulses: no pulse deficits are appreciated. 09:59 Respiratory: Respirations: tachypnea. 09:59 Abdomen/GI: Inspection: abdomen appears normal, Palpation: soft, in all quadrants, mild abdominal tenderness, in the epigastric area. 09:59 : Male external genitalia: normal, right testicle absent. Spragger: Gwen MUNSON. 09:59 Neuro: Exam negative for acute changes, Orientation: is normal, Mentation: is normal, Motor: is normal, moves all fours. Vital Signs: 09:49 BP 239 / 141; Pulse 123; Resp 26; Temp 97.6(O); Pulse Ox 99% on R/A; Weight 63.5 kg; ss Height 5 ft. 6 in. (167.64 cm); Pain 0/10; 10:30 BP 234 / 138; Pulse 119; Resp 26; Pulse Ox 96% on R/A; jr10 11:00 BP 234 / 138; Pulse 120; Resp 26; Pulse Ox 97% on R/A; jr10 11:00 BP 223 / 135; Pulse 119; Resp 28; Pulse Ox 96% on R/A; jr10 11:15 BP 230 / 137; Pulse 120; Resp 28; Pulse Ox 97% on R/A; jr10 11:30 BP 229 / 135; Pulse 121; Resp 30; Pulse Ox 97% ; jr10 12:11 BP 235 / 151; Pulse 104; Resp 29; Pulse Ox 97% on R/A; jr10 12:25 BP 218 / 135; Pulse 108; Resp 27; Pulse Ox 96% on R/A; jr10 12:30 BP 209 / 133; Pulse 107; Resp 27; Pulse Ox 95% on R/A; jr10 12:40 BP 188 / 110; Pulse 106; Resp 24; Pulse Ox 97% on R/A; jr10 12:50 BP 173 / 100; Pulse 104; Resp 27; Pulse Ox 96% on R/A; jr10 13:00 BP 173 / 104; Pulse 105; Resp 27; Pulse Ox 96% on R/A; jr10 13:10 BP 169 / 98; Pulse 104; Resp 27; Pulse Ox 97% on R/A; jr10 13:45 BP 173 / 104; Pulse 106; Resp 28; Pulse Ox 97% on R/A; jr10 14:28 BP 187 / 108; Pulse 105; Resp 28; Pulse Ox 97% on R/A; jr10 14:50 BP 170 / 99; Pulse 102; Resp 23; Pulse Ox 97% on R/A; jr10 09:49 Body Mass Index 22.60 (63.50 kg, 167.64 cm) ss MDM: 09:46 Patient medically screened. pm1 11:50 Data reviewed: vital signs. Data interpreted: Pulse oximetry: on room air is 97 %. pm1 Interpretation: normal. Counseling: I had a detailed discussion with the patient and/or guardian regarding: the historical points, exam findings, and any diagnostic results supporting the discharge/admit diagnosis, lab results, radiology results, the need for further work-up and treatment in the hospital. 01/27 09:51 Order name: Basic Metabolic Panel; Complete Time: 11:25 pm01/27 09:51 Order name: CBC with Diff; Complete Time: 11:24 pm01/27 09:51 Order name: LFT's; Complete Time: 11:25 pm01/27 09:51 Order name: Magnesium; Complete Time: 11:25 pm01/27 09:51 Order name: NT PRO-BNP; Complete Time: 11:25 pm01/27 09:51 Order name: PT-INR; Complete Time: 10:56 pm1 01/27 09:51 Order name: Troponin (emerg Dept Use Only); Complete Time: 11:25 pm01/27 11:00 Order name: Chest Abd Pelvis Wo Con; Complete Time: 11:40 EDMS 01/27 11:15 Order name: Manual Differential; Complete Time: 11:24 EDMS 01/27 11:29 Order name: ABG; Complete Time: 12:03 pm1 01/27 13:44 Order name: CREATININE WHOLE BLOOD; Complete Time: 14:15 EDMS 01/27 14:13 Order name: Creatine Phosphokinase; Complete Time: 14:15 EDMS 01/27 09:51 Order name: EKG; Complete Time: 09:52 pm1 01/27 09:51 Order name: Cardiac monitoring; Complete Time: 10:52 pm1 01/27 09:51 Order name: EKG - Nurse/Tech; Complete Time: 10:52 pm01/27 09:51 Order name: IV Saline Lock; Complete Time: 10:53 pm01/27 09:51 Order name: Labs collected and sent; Complete Time: 10:53 pm01/27 09:51 Order name: O2 Per Protocol; Complete Time: 10:53 pm01/27 09:51 Order name: O2 Sat Monitoring; Complete Time: 10:53 pm1 01/27 11:37 Order name: [place]; Complete Time: 12:16 pm1 Administered Medications: 10:51 Drug: NS 0.9% 1000 ml Route: IV; Rate: 1000 ml; Site: right forearm; jr10 11:30 Follow up: Response: No adverse reaction; IV Status: Order to discontinue infusion; IV jr10 Intake: 500ml 10:51 Drug: Zofran (Ondansetron) 4 mg Route: IVP; Site: right forearm; jr10 12:00 Follow up: Response: No adverse reaction; Nausea is decreased jr10 10:52 Not Given (Patient Refused; pt denies any pain this time, does not want morphine for jr10 pain control): morphine 4 mg IVP once; RASS on ADMIN: Combtv4, Very Agttd3, Agttd2, Rstlss1, AlertClm0, Drwsy-1, Lt Sdtn-2, Mod Sdtn-3, Dp Sdtn-4, UnArsble-5 12:03 Drug: Lopressor 5 mg Route: IVP; Site: right forearm; jr10 12:25 Follow up: Response: No adverse reaction jr10 12:25 Drug: niCARdipine (25mg/250ml) 5 mg/hr Route: IV; Rate: 50 ml/hr; Site: right forearm; jr10 12:54 Follow up: Response: No adverse reaction; Blood pressure is lowered; Rate change 2.5 jr10 mg/hr 12:41 Not Given (hold, cardene drip ordered instead): hydrALAZINE 10 mg IV at calculated rate jr10 once Disposition: 16:19 Co-signature as Attending Physician, Delroy Mcintyre MD. rn Disposition: 01/28/20 12:21 Hospitalization ordered by Shelton Albrecht for Inpatient Admission. Preliminary diagnosis are Malignant Hypertension, Acute renal failure, Pulmonary edema. - Bed requested for Intensive Care Unit. - Status is Inpatient Admission. ss - Condition is Fair. - Problem is new. - Symptoms have improved. Signatures: Dispatcher [employer] EDMS Delroy Mcintyre MD MD rn Candace Wright RN RN ss Angel Recio, MANAGER COMPANY-[employer] Salas Foreman, RETAIL CLERK RETAIL CLERK pm1 Gwen Gil RN RN jr10 Corrections: (The following items were deleted from the chart) 10:59 09:52 Chest For PE Angio+CT.RAD.BRZ ordered. EDMS EDMS 11:00 09:52 Abdomen Pelvis W Con+CT.RAD.BRZ ordered. EDOH EDMS 15:15 12:21 Hospitalization Ordered by Shelton Albrecht MD for Inpatient Admission. Preliminary ss diagnosis is Malignant Hypertension; Acute renal failure; Pulmonary edema. Bed requested for Intensive Care Unit. Status is Inpatient Admission. Condition is Fair. Problem is new. Symptoms have improved. pm1 17:31 09:51 This 54 yrs old Male presents to ER via Ambulatory with complaints of pm1 Vomiting, Breathing Difficulty. pm1
--- NOTE | 2020-01-28 12:22 | ER ---
Nurse's Notes [facility] Name: Ben Muir Age: 54 yrs Sex: Male : 1965 Arrival Date: 01/28/2020 Time: 09:28 Bed 14 Private MD: Diagnosis: Malignant Hypertension;Acute renal failure;Pulmonary edema Presentation: 01/27 09:49 Chief complaint: Patient states: cough x 2 days, N/V and shortness of breath when ss laying down. Pt reports he has been out of his insulin and blood pressure medication for over a week now. Coronavirus screen: Patient reports a cough. Patient reports shortness of breath or difficulty breathing. Patient denies measured and/or subjective temperature greater than 100.4F prior to today's visit. Patient denies travel on a cruise ship or to a country the [facility] currently lists as an affected area. Patient denies contact with known and/or suspected case of COVID-19. Ebola Screen: Patient denies exposure to infectious person. Patient denies travel to an Ebola-affected area in the 21 days before illness onset. Initial Sepsis Screen: Does the patient meet any 2 criteria? No. Patient's initial sepsis screen is negative. Does the patient have a suspected source of infection? No. Patient's initial sepsis screen is negative. Risk Assessment: Do you want to hurt yourself or someone else? Patient reports no desire to harm self or others. Onset of symptoms is unknown. 09:49 Method Of Arrival: Ambulatory ss 09:49 Acuity: KUSUM 2 ss Historical: - Allergies: 09:51 No Known Allergies; ss - PMHx: 09:51 Diabetes - IDDM; Hypertension; Stage 3 Kidney Disease; testicular cancer; ss - Immunization history:: Adult Immunizations unknown. - Social history:: Smoking status: Patient reports the use of cigarette tobacco products, denies chronic smoking, but will smoke occasionally. Screenin:50 Abuse screen: Denies threats or abuse. Denies injuries from another. Nutritional jr10 screening: No deficits noted. Tuberculosis screening: No symptoms or risk factors identified. Fall Risk No fall in past 12 months (0 pts). No secondary diagnosis (0 pts). IV access (20 points). Ambulatory Aid- None/Bed Rest/Nurse Assist (0 pts). Gait- Normal/Bed Rest/Wheelchair (0 pts) Mental Status- Oriented to own ability (0 pts). Assessment: 09:50 General: Appears in no apparent distress. Behavior is calm, cooperative, appropriate jr10 for age. Pain: Complains of pain in c/o generalized RODGERS secondary to HTN Pain currently is 4 out of 10 on a pain scale. Quality of pain is described as aching. Neuro: No deficits noted. Level of Consciousness is awake, alert, obeys commands, Oriented to person, place, time, situation, Appropriate for age Plugger are equal bilaterally Moves all extremities. Gait is steady, Speech is normal, Facial symmetry appears normal, Pupils are PERRLA, Intact Reports headache "sometimes I see spots"; pt denies any visual changes at this time. Denies weakness dizziness, difficulty swallowing, paresthesias numbness. Cardiovascular: Denies chest pain, diaphoresis, lightheadedness, palpitations, Capillary refill < 3 seconds Pulses are all present. Edema is absent. Rhythm is sinus tachycardia Chest pain is denied. Respiratory: Reports shortness of breath at rest on exertion Airway is patent Respiratory effort is even, unlabored, Respiratory pattern is symmetrical, tachypnea Breath sounds are diminished in left posterior upper lobe, right posterior upper lobe, left posterior lower lobe, right posterior middle lobe and right posterior lower lobe the patient has moderate shortness of breath. GI: Abdomen is non-distended, Bowel sounds present X 4 quads. Abd is soft and non tender X 4 quads. Reports nausea, pt reports one episode of epigastric pain earlier today that was resolved after an episode of vomiting, denies any pain at present\\E\\. : No signs and/or symptoms were reported regarding the genitourinary system. EENT: No deficits noted. Derm: No deficits noted. Musculoskeletal: No deficits noted. 14:27 Reassessment: MD at bedside for catheter insertion for emergent dialysis. Consents jr10 signed and placed in chart. . Vital Signs: 09:49 BP 239 / 141; Pulse 123; Resp 26; Temp 97.6(O); Pulse Ox 99% on R/A; Weight 63.5 kg; ss Height 5 ft. 6 in. (167.64 cm); Pain 0/10; 10:30 BP 234 / 138; Pulse 119; Resp 26; Pulse Ox 96% on R/A; jr10 11:00 BP 234 / 138; Pulse 120; Resp 26; Pulse Ox 97% on R/A; jr10 11:00 BP 223 / 135; Pulse 119; Resp 28; Pulse Ox 96% on R/A; jr10 11:15 BP 230 / 137; Pulse 120; Resp 28; Pulse Ox 97% on R/A; jr10 11:30 BP 229 / 135; Pulse 121; Resp 30; Pulse Ox 97% ; jr10 12:11 BP 235 / 151; Pulse 104; Resp 29; Pulse Ox 97% on R/A; jr10 12:25 BP 218 / 135; Pulse 108; Resp 27; Pulse Ox 96% on R/A; jr10 12:30 BP 209 / 133; Pulse 107; Resp 27; Pulse Ox 95% on R/A; jr10 12:40 BP 188 / 110; Pulse 106; Resp 24; Pulse Ox 97% on R/A; jr10 12:50 BP 173 / 100; Pulse 104; Resp 27; Pulse Ox 96% on R/A; jr10 13:00 BP 173 / 104; Pulse 105; Resp 27; Pulse Ox 96% on R/A; jr10 13:10 BP 169 / 98; Pulse 104; Resp 27; Pulse Ox 97% on R/A; jr10 13:45 BP 173 / 104; Pulse 106; Resp 28; Pulse Ox 97% on R/A; jr10 14:28 BP 187 / 108; Pulse 105; Resp 28; Pulse Ox 97% on R/A; jr10 14:50 BP 170 / 99; Pulse 102; Resp 23; Pulse Ox 97% on R/A; jr10 09:49 Body Mass Index 22.60 (63.50 kg, 167.64 cm) ED Course: 09:28 Patient arrived in ED. mr 09:41 Salas Foreman NP is PHCP. pm1 09:41 Delroy Mcintyre MD is Attending Physician. pm1 09:50 Patient has correct armband on for positive identification. Placed in gown. Bed in low jr10 position. Call light in reach. Side rails up X2. athletic monitor on. Pulse ox on. NIBP on. 09:51 Triage completed. 09:51 Arm band placed on right wrist. ss 10:00 Inserted saline lock: 20 gauge in right forearm, using aseptic technique. IV is patent, jr10 is intact, Flushed. 10:12 Gil, Gwen, RN is Primary Nurse. jr10 11:10 Chest Abd Pelvis Wo Con In Process Unspecified. EDMS 11:22 Notified Nurse Practitioner and/or Physician Planner Intern of a critical lab result(s), sv CO2-12, Creatinine-11.2. 12:19 Shelton Albrecht MD is Hospitalizing Provider. pm1 12:30 Franklin cath inserted, using sterile technique, 16 Fr., by ri, balloon inflated, to jr10 gravity drainage, returned clear yellow urine. Patient tolerated well. 12:40 EKG done, by ED staff, reviewed by Delroy Mcintyre MD. mh5 12:40 Inserted saline lock: 20 gauge in left antecubital area, using aseptic technique. IV is jr10 patent, is intact, Flushed Converted IV to saline lock on. 12:53 witness for testicular exam. jr10 15:14 Patient admitted, IV remains in place. intact, No redness/swelling at site. jr10 Administered Medications: 10:51 Drug: NS 0.9% 1000 ml Route: IV; Rate: 1000 ml; Site: right forearm; jr10 11:30 Follow up: Response: No adverse reaction; IV Status: Order to discontinue infusion; IV jr10 Intake: 500ml 10:51 Drug: Zofran (Ondansetron) 4 mg Route: IVP; Site: right forearm; jr10 12:00 Follow up: Response: No adverse reaction; Nausea is decreased jr10 10:52 Not Given (Patient Refused; pt denies any pain this time, does not want morphine for jr10 pain control): morphine 4 mg IVP once; RASS on ADMIN: Combtv4, Very Agttd3, Agttd2, Rstlss1, AlertClm0, Drwsy-1, Lt Sdtn-2, Mod Sdtn-3, Dp Sdtn-4, UnArsble-5 12:03 Drug: Lopressor 5 mg Route: IVP; Site: right forearm; jr10 12:25 Follow up: Response: No adverse reaction jr10 12:25 Drug: niCARdipine (25mg/250ml) 5 mg/hr Route: IV; Rate: 50 ml/hr; Site: right forearm; jr10 12:54 Follow up: Response: No adverse reaction; Blood pressure is lowered; Rate change 2.5 jr10 mg/hr 12:41 Not Given (hold, cardene drip ordered instead): hydrALAZINE 10 mg IV at calculated rate jr10 once Intake: 11:30 IV: 500ml; Total: 500ml. jr10 Outcome: 12:21 Decision to Hospitalize by Provider. pm1 15:13 Admitted to ICU accompanied by nurse, via stretcher, on monitor, Report called to mackenzie Hall RN 15:13 Condition: improved 15:13 Instructed on the need for admit, Demonstrated understanding of instructions. 15:15 Patient left the ED. Signatures: Dispatcher [employer] EDMS Shilpa Montiel, JEIMY RN Eugenie Kerr Shelby, RN RN ss Salas Foreman, PARTS COORDINATOR PARTS COORDINATOR pm1 Sofya [address] [facility] Gwen Gil RN RN jr10
[2020-01-28] MEDS ORDERED: Nicardipine/NS 25 MG/250 ML KIT IV ONE (12:26)
--- NOTE | 2020-01-28 12:53 | P.HP ---
Certification for Inpatient Patient admitted to: Inpatient With expected LOS: >2 Midnights Patient will require the following post-hospital care: None Practitioner: I am a practitioner with admitting privileges, knowledge of patient current condition, hospital course, and medical plan of care. Services: Services provided to patient in accordance with Admission requirements found in Title 42 Section 412.3 of the Code of Federal Regulations <Angel Recio - Last Filed: 01/28/20 12:47> Patient History Date of Service: 01/28/20 Primary Care Provider: Randy Reason for admission: ARF, malignant HTN, volume overload History of Present Illness: 54-year-old male with medical history of chronic kidney disease, insulin-dependent diabetes, hypertension presents the emergency department for shortness of breath. Patient reports that he has not been taking any these medications for Awhile now. Patient reports that he has not been afford medications. Patient denies any recent antibiotic use but does admit to taking NSAIDs only for 1 day for headache last week. During his evaluation in the emergency department patient is found to be in acute renal failure with a creatinine of 11. Blood pressure was 230/130. Patient's potassium within normal limits. CO2 was 12, pH 7.33. ED provider wishes to admit patient for further evaluation management. When I saw the patient in the emergency department he was awake, alert, oriented x3. Patient denies any pain, reports shortness of breath. Patient was still hypertensive, tachycardic, bibasilar crackles. Called nephrology while patient was in the emergency department who recommended patient will need dialysis access placement and dialysis this evening. Will admit patient for further evaluation management. Patient patient on Cardene drip will be due to the ICU. - Past Medical/Surgical History Diabetic: Yes -: DM -: HTN -: high cholesterol -: Right ankle -: Left wrist - Social History Alcohol use: No CD- Drugs: No Caffeine use: No Place of Residence: Home <Angel Recio - Last Filed: 01/28/20 12:47> Date of Service: 01/28/20 <Merrick Albrecht - Last Filed: 01/28/20 15:18> Allergies No Known Drug Allergies Allergy (Verified 07/29/17 11:37) Unknown No Known Allergies Allergy (Uncoded 01/07/18 09:08) Unknown Home Medications: Carvedilol [Coreg] 1 tab PO BID 01/11/14 Pravastatin Sodium [Pravachol] 1 tab PO DAILY 01/11/14 Tamsulosin [Flomax*] 0.4 mg PO DAILY #30 cap 01/15/14 Amitriptyline [Elavil] 25 mg PO BEDTIME 07/29/17 Amlodipine [Norvasc] 10 mg PO DAILY 07/29/17 Buspirone HCl 15 mg PO BID 07/29/17 Insulin Glargine,Hum.rec.anlog [Lantus] 50 unit SQ BID 07/29/17 cloNIDine HCL [Catapres] 0.1 mg PO BID 07/29/17 Review of Systems Respiratory: Cough, Shortness of Breath <Angel Recio - Last Filed: 01/28/20 12:47> Physical Examination - Physical Exam General: Alert, In no apparent distress HEENT: Atraumatic, PERRLA, Mucous membr. moist/pink, EOMI, Sclerae nonicteric Neck: Supple, 2+ carotid pulse no bruit, No LAD, Without JVD or thyroid abnormality Respiratory: Normal air movement, Crackles/rales Cardiovascular: Regular rate/rhythm, Normal S1 S2 Gastrointestinal: Normal bowel sounds, No tenderness Musculoskeletal: No tenderness Integumentary: No rashes Neurological: Normal gait, Normal speech, Normal strength at 5/5 x4 extr, Normal tone, Normal affect - Studies Laboratory Data (last 24 hrs) 01/28/20 10:25: PT 11.9, INR 1.01 01/28/20 10:25: WBC 13.0 H, Hgb 8.8 L, Hct 25.9 L, Plt Count 150 L 01/28/20 10:25: Sodium 138, Potassium 3.6, BUN 123 H, Creatinine 11.20 H*, Glucose 194 H, Magnesium 1.9, Total Bilirubin 0.4, AST 36, ALT 56, Alkaline Phosphatase 92 <Angel Recio - Last Filed: 01/28/20 12:47> - Studies Laboratory Data (last 24 hrs) 01/28/20 10:25: PT 11.9, INR 1.01 01/28/20 10:25: WBC 13.0 H, Hgb 8.8 L, Hct 25.9 L, Plt Count 150 L 01/28/20 10:25: Sodium 138, Potassium 3.6, BUN 123 H, Creatinine 11.20 H*, Glucose 194 H, Magnesium 1.9, Total Bilirubin 0.4, AST 36, ALT 56, Alkaline Phosphatase 92 <Merrick Albrecht - Last Filed: 01/28/20 15:18> Assessment and Plan - Plan Assessment Acute on chronic kidney disease with shortness of breath, volume overload, will likely require the hemodialysis Malignant hypertension likely secondary to acute on chronic kidney disease, history of hypertension Diabetes mellitus type 2-insulin dependent The plan Acute on chronic kidney disease with volume overload, will likely require the hemodialysis: Discuss case with nephrology who recommended patient have dialysis catheter placement with General Surgery. Patient will likely get dialysis this evening. Discussed case with General Surgery, patient's last meal was early this morning at 7:00 a.m. just a small amount. Coags within normal. Patient amendable to plan for dialysis. Patient was started on Cardene drip due to refractory hypertension and volume overload. I have ordered renal ultrasound, CK levels. Appreciate further input from nephrology. Malignant hypertension with elevated troponin likely secondary to acute on chronic kidney disease with volume overload, history : Patient started on Cardene drip while in the emergency department. Patient be admitted to the ICU. Patient requiring dialysis, this will be the definitive treatment for his volume overload and hypertension. Patient unsure of home medications, await further recommendations from nephrology. Cardiology consult also in place as patient had elevated troponin and malignant hypertension. Diabetes mellitus type 2-insulin dependent: A.c. HS Accu-Cheks, sliding scale insulin therapy. Will adjust as needed. Discharge Plan: Home Plan to discharge in: 48 Hours - Advance Directives Does patient have a Living Will: No Does patient have a Durable POA for Healthcare: No - Code Status/Comfort Care Code Status Assessed: Yes (Patient is full code) Critical Care: No Time Spent Managing Pts Care (In Minutes): 55 <Angel Recio - Last Filed: 01/28/20 12:47> Physician Review Additional Text: Patient was seen and examined and findings were discussed Agree with the assessment and plan as documented by the TARIQ <Merrick Albrecht - Last Filed: 01/28/20 15:18>
[2020-01-28] MEDS ORDERED: NA CHLORIDE 0.9% IV PRN (13:23)
[2020-01-28] MEDS ORDERED: DILTIAZEM HCL IV PRN (13:23)
[2020-01-28] MEDS ORDERED: ONDANSETRON 4 MG/2 ML VIAL IV PRN (13:23)
[2020-01-28] MEDS: NACHLORIDE 0.45% 1,000 ML with NA BICARB 8.4% 100 MEQ IV SCH ×2 (14:00)
[2020-01-28] MEDS ORDERED: LIDOCAINE 2% MPF 5 ML VIAL ONE (14:29)
[2020-01-28] MEDS ORDERED: NA CHLORIDE 0.9% 1,000 ML ONE (14:40)
[2020-01-28] MEDS: FUROSEMIDE 40 MG/4 ML VIAL IV SCH ×2 (16:03→16:45)
[2020-01-28] MEDS ORDERED: FUROSEMIDE 40 MG/4 ML VIAL ONE (16:10)
[2020-01-28 16:22] VITALS: BMI 25.2
[2020-01-28] MEDS: INSULIN -REGULAR HUMAN 50 UNIT/0.5 ML ML SQ SCH ×2 (17:07→22:06)
[2020-01-28] MEDS ORDERED: INSULIN -REGULAR HUMAN 50 UNIT/0.5 ML ML ONE ×2 (17:11→22:14)
[2020-01-28] MEDS ORDERED: Nicardipine in Saline, Iso-Osm 20 MG/200 ML IV.SOLN. IV PRN (17:56)
[2020-01-28 20:25] LABS: Urine Appearance CLOUDY; Urine Bilirubin NEGATIVE (NEG); Urine Blood 3+ (NEG); Urine Color YELLOW; Urine Glucose 2+ (NEG); Urine Protein 3+ (NEG); Urine Specific Gravity 1.015 (1.005-1.030); Urine Urobilinogen 0.2 mg/dL (0.2-1.0)
[2020-01-28 20:33] LABS: Urine Bacteria <20 /HPF (NONE SEEN); Urine Culture Reflex Order NOT NEEDED; Urine Mucus 1+ /HPF (NONE SEEN)
[2020-01-28] MEDS ORDERED: cloNIDine HCL 0.1 MG TAB PO SCH (21:00)
[2020-01-28] MEDS ORDERED: INSULIN GLARGINE 100 UNITS/ML SQ SCH (21:00)
[2020-01-28] MEDS ORDERED: carvediloL 12.5 MG TAB PO SCH (21:00)
[2020-01-28] MEDS ORDERED: BUSPIRONE HCL 5 MG TABLET ONE (21:19)
[2020-01-28] MEDS ORDERED: CLONIDINE HCL 0.3 MG TAB ONE (21:19)
--- NOTE | 2020-01-28 22:48 | RAD REPORT ---
EXAM DESCRIPTION: RAD - Chest Single View - 01/28/2020 10:20 pm CLINICAL HISTORY: PORT PLACEMENT Chest pain. COMPARISON: Chest Single View dated 01/07/2018; CHEST SINGLE VIEW dated 01/10/2014; CHEST SINGLE VIEW d ated 08/29/2013; CHEST SINGLE VIEW dated 08/28/2013 FINDINGS: Portable technique limits examination quality. Left-sided port catheter has tip in the SVC. No pneumothorax present. Mild CHF/ volume overload patte rn is seen. No displaced fractures. IMPRESSION: No postprocedure pneumothorax.
[2020-01-29] MEDS ORDERED: TEMAZEPAM 15 MG CAP PO PRN (00:29)
--- NOTE | 2020-01-29 01:16 | CON ---
Date of Consultation: 01/28/2020 Chief Complaint: Severe acute on chronic kidney injury, hyperazotemia, fluid overload, hypertensive emergency. History Of Present Illness: The patient is a 54-year-old man with history of chronic kidney disease stage 3, advanced to stage 4. The patient has history of noncompliance, has not come to scheduled [facility] appointment in outpatient setting for at least several months. He has history of diabetes silvana litus and previous biopsy showed diabetic kidney disease. He presented to Emergency Department with shortness of breath. Systolic blood pressure was over 200. He was started on IV blood pressure medi cation and Cardene drip was started to gradually control blood pressure. The patient was found to benavides ve metabolic acidosis. His pCO2 was 12, pH 7.33, and bicarbonate drip was started to control metabol ic acidosis. The patient is to have dialysis as long as he has functioning dialysis catheter. Blood pressure is 230/130 and he will need to have gradual control of blood pressure, treatment for hypert ensive emergency. The patient will have diuretics to control volemia and dialysis will be started wh en his blood pressure is 180 systolic range. Review of Systems: Constitutional: The patient denies fever or chills. Eyes: Denies vision changes. Ears, Nose, Mouth, and Throat: Denies sore throat or earache. Respiratory: Complains of shortness of breath. Denies wheezing or hemoptysis. Cardiovascular: Denies palpitation or syncope. GI: Denies nausea or vomiting. : Denies dysuria or hematuria. Musculoskeletal: Denies muscle aches or joint swelling. No gout. All the other systems reviewed and all are negative. Past Medical History: Diabetes mellitus, hypertension, hypercholesterolemia, osteoarthritis of the r ight ankle, left wrist osteoarthritis, and history of biopsy and it showed diabetic kidney disease. Social History: Denies tobacco, alcohol, or illicit drugs. Family History: No kidney disease in the family. Physical Examination: General: Not in acute distress. Conversant. Eyes: Anicteric sclerae. EOMI. Ears, Nose, Mouth, and Throat: Oral mucosa moist. No pallor. Neck: Supple. No bruits. Lungs: Crackles bilaterally at bases. Heart: S1, S2. No pericardial friction rub. Abdomen: Soft, benign, nontender. No rebound. No guarding. Extremities: Some edema in both legs. No clubbing. No cyanosis. Neurologic: Moving extremities. Cranial nerves intact. Psychiatric: Normal. Follows commands. Blood Work: Hemoglobin is 8.8, WBC is 13,000, platelet count 150,000. PT 11.9, INR 1.01. Sodium 13 8, potassium 3.6, BUN 123, creatinine 11.2, glucose 194, magnesium 1.9, AP 92. Impression And Plan: 1.Acute on chronic kidney injury, severe; hyperazotemia; metabolic acidosis; fluid overload. The pa leticia will need dialysis in near future and the patient will have dialysis catheter and dialysis acce ss. 2.Malignant hypertension, likely secondary to fluid overload and accelerated acute on chronic kidney injury. Continue drip with Cardene and adjust medication accordingly. 3.Anemia. GWYN currently on hold. Plan is to start GWYN when blood pressure is stable. 4.Renal osteodystrophy. Monitor phosphorus level and advance binders. 5.Fluid overload. The patient will need to be admitted to ICU because of hypertensive emergency. 6.Acute on chronic kidney injury, likely due to advancement of underlying disease, although there is a possibility of superimposed disease. Plan is to check vasculitis panel and check renal ultrasound to rule out obstructive uropat hy. EB/MODL Voice ID: [id number] Report ID: [id number]
[2020-01-29] MEDS: FUROSEMIDE 40 MG/4 ML VIAL IV SCH ×3 (01:59→17:45)
[2020-01-29] MEDS ORDERED: FUROSEMIDE 40 MG/4 ML VIAL ONE ×3 (02:05→17:54)
[2020-01-29] MEDS: cloNIDine HCL 0.1 MG TAB PO SCH ×4 (03:28→20:43)
[2020-01-29] MEDS ORDERED: cloNIDine HCL 0.1 MG TAB ONE ×3 (03:35→20:16)
[2020-01-29] MEDS: NACHLORIDE 0.45% 1,000 ML with NA BICARB 8.4% 100 MEQ IV SCH ×4 (04:40→19:20)
[2020-01-29 05:00] LABS: Absolute Lymphocytes (CBC) 2.4 K/uL (0.7-4.9); Basophils % 0.3 % (0-1.3); Lymphocytes % 19.3 % (15.3-44.8); MPV 7.7 fL (7.6-11.3)
[2020-01-29 05:05] LABS: Hematocrit 19.2 % (39.6-49.0)
[2020-01-29 05:22] LABS: Magnesium 1.8 mg/dL (1.8-2.4); Potassium 3.6 mmol/L (3.5-5.1)
[2020-01-29 06:59] LABS: Hematocrit 20.1 % (39.6-49.0)
[2020-01-29] MEDS: INSULIN -REGULAR HUMAN 50 UNIT/0.5 ML ML SQ SCH ×4 (07:30→21:00)
[2020-01-29] MEDS ORDERED: D50W 25 GM/50 ML SYRINGE/VIAL IV ONE ×4 (07:39→14:33)
[2020-01-29] MEDS ORDERED: D50W 25 GM/50 ML SYRINGE/VIAL IV PRN (07:40)
[2020-01-29] MEDS ORDERED: NA CHLORIDE 0.9% 250 ML IV SCH (08:00)
[2020-01-29] MEDS ORDERED: CALCIUM GLUC 10% INJ 4.65 MEQ in NA CHLORIDE 0.9% 100 ML IV ONE (08:01)
--- NOTE | 2020-01-29 08:29 | RAD REPORT ---
EXAM DESCRIPTION: RAD - Chest Single View - 01/29/2020 6:58 am CLINICAL HISTORY: volums status Chest pain. COMPARISON: Chest Single View dated 01/28/2020; Chest Single View dated 01/07/2018; CHEST SINGLE VIEW d ated 01/10/2014; CHEST SINGLE VIEW dated 08/29/2013 FINDINGS: Portable technique limits examination quality. Mild interstitial pulmonary edema noted with small bilateral pleural effusions. This appears unchange d since comparative study. The heart is normal in size. No displaced fractures.Left-sided venous cath eter tip in the SVC. IMPRESSION: Mild CHF versus volume overload pattern, unchanged.
[2020-01-29] MEDS: BUSPIRONE HCL 5 MG TABLET PO SCH ×2 (08:57→23:08)
[2020-01-29] MEDS: TAMSULOSIN 0.4 MG SR CAP PO SCH (08:57)
[2020-01-29] MEDS: carvediloL 6.25 MG TAB PO SCH ×2 (08:57→20:44)
[2020-01-29] MEDS ORDERED: cloNIDine HCL 0.1 MG TAB PO SCH (09:00)
--- NOTE | 2020-01-29 09:02 | P.CNS ---
Date of Consult: 01/28/20 PC: I was asked to see this patient in regards to placement of a temporary dialysis catheter. HPC: Patient presented to the ER. It was felt he required emergent dialysis. He has lack of vascular access at the moment. PMH: Testicular cancer PSHx: Previous insertion of a Port-A-Cath on the right side SOC: No known drug allergies SYS REVIEW: No cough, wheeze, shortness of breath. No chest pain at the moment. Never had any fractured clavicles. O/E awake alert stable HEENT: Within normal limits Chest: Chest movement equal bilaterally ABD: NAD LOCO: Intact DATA: Reviewed IMPRESSION: Patient has need for a temporary dialysis catheter. PLAN: I will place a temporary dialysis catheter is is patient requires emergent dialysis for his renal failure and hypertension. The risks of procedure were explained. He understands and wants us to proceed.
[2020-01-29] MEDS ORDERED: carvediloL 6.25 MG TAB ONE ×2 (09:05→20:17)
[2020-01-29] MEDS ORDERED: TAMSULOSIN 0.4 MG SR CAP ONE (09:05)
--- NOTE | 2020-01-29 09:07 | P.OP ---
Date of Service: 01/28/20 Preoperative diagnosis: Acute renal failure Postoperative diagnosis: The same Procedure performed: Insertion of left subclavian dialysis catheter Findings and Operative Technique The patient was positioned on the ER stretcher with a IV bag between the shoulders. There of the left chest was now prepped with a chlorhexidine solution. He was then draped in usual manner. Adequate analgesia was provided by infiltrating the subclavicular area with 1% lidocaine. After placing the patient in kindra Trendelenburg position, a finder needle was used to cannulate the left subclavian vein. The guidewire was passed down through this. The needle was removed, and using the dilators we were able enter into subclavian vein. The dialysis catheter was then passed over our guidewire went easily. The guidewire was removed. Werner catheter was then flushed with saline, and sutured in place. At the end of the procedure the patient was in a stable condition. A chest x-ray is pending.
--- NOTE | 2020-01-29 09:46 | P.PN ---
Subjective Date of Service: 01/29/20 Primary Care Provider: Randy Chief Complaint: ARF, malignant HTN, volume overload Subjective: No new changes, Improving Review of Systems 10-point ROS is otherwise unremarkable Physical Examination - Vital Signs Temperature: 98.4 F Blood Pressure: 130/73 Pulse: 89 Respirations: 23 Pulse Ox (%): 98 - Physical Exam General: Alert, In no apparent distress HEENT: Atraumatic, Normocephalic Neck: Supple Respiratory: Diminished, Crackles/rales Cardiovascular: Regular rate/rhythm, Normal S1 S2 Capillary refill: <2 Seconds Gastrointestinal: Soft and benign, W/out hepatosplenomegaly Musculoskeletal: No clubbing, No swelling Integumentary: No rashes Neurological: Normal speech, Normal strength at 5/5 x4 extr Lymphatics: No axilla or inguinal lymphadenopathy - Studies Laboratory Data (last 24 hrs) 01/28/20 10:25: PT 11.9, INR 1.01 01/28/20 10:25: WBC 13.0 H, Hgb 8.8 L, Hct 25.9 L, Plt Count 150 L 01/28/20 10:25: Sodium 138, Potassium 3.6, BUN 123 H, Creatinine 11.20 H*, Glucose 194 H, Magnesium 1.9, Total Bilirubin 0.4, AST 36, ALT 56, Alkaline Phosphatase 92 Assessment & Plan Physician Review Additional Text: Assessment Acute on chronic kidney disease with shortness of breath, volume overload, will likely require the hemodialysis Malignant hypertension likely secondary to acute on chronic kidney disease, history of hypertension Diabetes mellitus type 2-insulin dependent Plan Acute on chronic kidney disease with volume overload, will likely require the hemodialysis: Appreciate help from nephrology Status post dialysis catheter placement with General Surgery. Getting dialysis today as well Will monitor renal parameters May need placement for outpatient dialysis chair time Malignant hypertension with elevated troponin likely secondary to acute on chronic kidney disease with volume overload, history : Patient was on Cardene drip Will try to wean off Cardene Continue home medications and titrate as needed NSTEMI versus type 2 Cardiac enzymes trended appreciate help from cardiology Recommended conservative management Will continue aspirin and statin Diabetes mellitus type 2-insulin dependent: A.c. HS Accu-Cheks, sliding scale insulin therapy. Anemia possibly due to chronic disease Will transfuse PRBCs Monitor CBC daily Transfuse p.r.n. No overt bleeding noted . Time Spent Managing Pts Care (In Minutes): 42
[2020-01-29] MEDS ORDERED: PNEUMOCOCCAL VACCINE 0.5 ML IMVAC ONE (10:00)
[2020-01-29] MEDS: ACETAMINOPHEN 500 MG TAB PO PRN (16:04)
[2020-01-29] MEDS ORDERED: ACETAMINOPHEN 500 MG TAB ONE (16:13)
[2020-01-29 20:53] LABS: Hematocrit 24.7 % (39.6-49.0)
[2020-01-29] MEDS ORDERED: BUSPIRONE HCL 5 MG TABLET ONE (23:06)
[2020-01-29] MEDS ORDERED: ATORVASTATIN 10 MG TAB ONE (23:07)
[2020-01-29] MEDS: ATORVASTATIN 10 MG TAB PO SCH (23:08)
--- NOTE | 2020-01-30 01:05 | PN ---
Date of Progress Note: 01/29/2020 Subjective: The patient was admitted with the progression of his kidney disease. The patient is nonoliguric. The patient had severe hyperkalemia and anemia with acidosis. The patient was initiated on dialysis. The patient today seen on dialysis. Physical Examination: Vital Signs: When I saw the patient, blood pressure of 145/77, pulse of 85, afebrile. Chest: Clear to auscultation. Heart: S1, S2 regular. Abdomen: Soft, nontender. Extremities: No edema. Neurological: Alert. Nonfocal. Laboratory Data: Hemoglobin 6.5, hematocrit 19.2. Sodium 142, potassium 3.6, bicarb 15, BUN 128, creatinine 11, calcium 6.9, magnesium 1.8. BNP 26,000. P/C ratio +3 protein. Serology still pending. Current Medications: The patient on include Flomax, carvedilol 6.25, clonidine, Lasix, bicarb drip, insulin. Assessment And Plan: 1. Chronic kidney disease, progression to end-stage renal disease, dialysis dependent. I am going to go ahead and continue dialysis. We will arrange for another session of dialysis tomorrow and we will monitor the patient. 2. Hypertension. We will follow up blood pressure after dialysis. 3. Over volume. We will continue to challenge the patient. 4. Hyperkalemia. The patient is going to be dialyzed on low-potassium bath. 5. Hypocalcemia secondary to secondary hyperparathyroidism. The patient is going to be dialyzed on high calcium bath. TOBIN Voice ID: [id number] Report ID: [id number] MTDD
[2020-01-30 01:37] LABS: Urine Protein/Creatinine Ratio 6.08 ratio (<0.15)
[2020-01-30] MEDS: FUROSEMIDE 40 MG/4 ML VIAL IV SCH ×3 (02:11→16:14)
[2020-01-30] MEDS ORDERED: FUROSEMIDE 40 MG/4 ML VIAL ONE ×3 (02:19→16:22)
--- NOTE | 2020-01-30 02:22 | CON ---
Date of Consultation: 01/29/2020 Reason For Consultation: Volume overload. History Of Present Illness: The patient is 54. He has a past medical history of diabetes, hypertens ion, stage 3 kidney disease, and testicular cancer. He came in basically with shortness of breath, n o chest pain, no nausea, no vomiting or diaphoresis, but he does have PND, orthopnea and pedal edema, was found to have a creatinine of 11.1. Now, he has a hemodialysis catheter in place and the plan i s to do a hemodialysis on him today. Past Medical History: As stated above. Allergies: NONE. Review of Systems: Negative. Social History: Negative. Family History: Noncontributory. Medications: Include Lipitor, BuSpar, Coreg, clonidine, Lasix 40 mg IV q.8 hours, he is also on insu thu and Flomax. Physical Examination: General: He was pleasant, no acute distress. Vital Signs: Stable. He was afebrile. He was in sinus rhythm. Blood pressure is 145/77. HEENT: Negative. Neck: Supple, with no bruit. Chest: Reveals rales bilaterally. Cardiac: Reveals regular rhythm and rate with an S4 gallops. No murmurs or rubs. Abdomen: Benign. Extremities: Revealed no clubbing, cyanosis, or edema. Diagnostic Data: His creatinine is 11, hemoglobin was 8.8, PO2 was 80 with a pH of 7.34, PCO2 was 23 , his carbon dioxide was 12, his calcium was 6.9, his glucose was 193, potassium was normal. His tro ponin was 0.28 and 0.29, with a BNP of 62,120. Impression And Plan: 1.Elevated troponin and BNP secondary to acute renal failure. 2.Volume overload secondary to acute renal failure. 3.Hypertension. 4.Diabetes. 5.Dyslipidemia. The patient is getting ready to be dialyzed today which I believe will help him. We will continue hi s other present regimen including the IV Lasix. I would like to have him get a 2D echocardiogram toyaquelin cardoso. We will re-evaluate his heart down the road with an outpatient stress test. I will continue to follow him along. KATHLEEN/RAE Voice ID: [id number] Report ID: [id number]
[2020-01-30 03:51] LABS: Absolute Lymphocytes (CBC) 1.5 K/uL (0.7-4.9); Basophils % 0.5 % (0-1.3); Hematocrit 24.2 % (39.6-49.0); Lymphocytes % 15.3 % (15.3-44.8); MPV 8.6 fL (7.6-11.3); RBC Red Blood Cell Count 2.75 M/uL (4.33-5.43)
[2020-01-30 04:56] LABS: Albumin 2.1 g/dL (3.4-5.0); Folic Acid, (Folate) 5.5 ng/mL (3.1-17.5); Magnesium 1.7 mg/dL (1.8-2.4); Phosphorus 6.6 mg/dL (2.5-4.9); Thyroid Stimulating Hormone 1.52 uIU/mL (0.360-3.740)
[2020-01-30] MEDS: INSULIN -REGULAR HUMAN 50 UNIT/0.5 ML ML SQ SCH ×4 (07:30→21:00)
[2020-01-30] MEDS: carvediloL 6.25 MG TAB PO SCH ×2 (09:00→20:47)
[2020-01-30] MEDS: cloNIDine HCL 0.1 MG TAB PO SCH ×3 (09:00→20:46)
[2020-01-30] MEDS: TAMSULOSIN 0.4 MG SR CAP PO SCH (09:58)
[2020-01-30] MEDS ORDERED: TAMSULOSIN 0.4 MG SR CAP ONE (10:03)
[2020-01-30] MEDS: BUSPIRONE HCL 5 MG TABLET PO SCH ×2 (10:12→20:47)
--- NOTE | 2020-01-30 12:12 | P.PN ---
Subjective Date of Service: 01/30/20 Primary Care Provider: Randy Chief Complaint: ARF, malignant HTN, volume overload Subjective: No new changes, Improving, Other (Feeling better Denies any chest pain or shortness of breath) Review of Systems 10-point ROS is otherwise unremarkable Physical Examination - Vital Signs Temperature: 98.8 F Blood Pressure: 137/81 Pulse: 87 Respirations: 21 Pulse Ox (%): 96 - Physical Exam General: Alert, In no apparent distress, Oriented x3 HEENT: Atraumatic, Normocephalic Neck: Supple, 2+ carotid pulse no bruit Respiratory: Normal air movement, Crackles/rales Cardiovascular: Regular rate/rhythm, Normal S1 S2 Capillary refill: <2 Seconds Gastrointestinal: Soft and benign, W/out hepatosplenomegaly Musculoskeletal: No clubbing, No swelling Integumentary: No rashes Neurological: Normal speech, Normal strength at 5/5 x4 extr Lymphatics: No axilla or inguinal lymphadenopathy Assessment & Plan Physician Review Additional Text: Assessment Acute on chronic kidney disease with shortness of breath, volume overload, will likely require the hemodialysis Malignant hypertension likely secondary to acute on chronic kidney disease, history of hypertension Diabetes mellitus type 2-insulin dependent Plan Acute on chronic kidney disease with volume overload, on hemodialysis: Appreciate help from nephrology & General Surgery. 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 HS Accu-Cheks, sliding scale insulin therapy. Anemia possibly due to chronic disease Will transfuse PRBCs Monitor CBC daily Transfuse p.r.n. No overt bleeding noted Disposition : Will transfer to [employer] railroad emergency services manager consult for outpatient dialysis Possible Dc in a.m. . Time Spent Managing Pts Care (In Minutes): 42
--- NOTE | 2020-01-30 12:18 | RAD REPORT ---
CLINICAL HISTORY: ARF Renal failure COMPARISON: Renal Ultrasound-Complete dated 08/24/2017 FINDINGS: Both kidneys are echogenic. The right kidney measures 7.3 x 4.4 x 3.0 cm . No hydronephrosis. The left kidney measures 10.1 x 4.8 x 4.1 cm . No hydronephrosis. 5 cm benign appearing renal cyst. The urinary bladder is incompletely distended without gross abnormality seen. IMPRESSION: Echogenic kidneys are seen bilaterally compatible with medical renal disease No hydronephrosis.
[2020-01-30] MEDS ORDERED: cloNIDine HCL 0.1 MG TAB ONE (15:09)
[2020-01-30] MEDS ORDERED: SOD FERRIC GLUC COMPLX/SUCROSE 250 MG in NA CHLORIDE 0.9% 250 ML IV SCH (18:00)
[2020-01-30] MEDS: ATORVASTATIN 10 MG TAB PO SCH (20:47)
[2020-01-30] MEDS: CALCITROL 0.25 MCG CAP PO SCH (20:47)
[2020-01-30] MEDS: SOD FERRIC GLUC COMPLX/SUCROSE 250 MG in NA CHLORIDE 0.9% 250 ML IV SCH (21:02)
--- NOTE | 2020-01-30 22:25 | PN ---
Date of Progress Note: 01/30/2020 Subjective: The patient was admitted with progression of disease. The patient was started on dialys is yesterday, tolerated dialysis very well today. Physical Examination: Vital Signs: Blood pressure 146/62, pulse of 84, afebrile. Chest: Clear to auscultation. Heart: S1, S2. Regular. Abdomen: Soft, nontender. Extremities: No edema. Neurologic: Alert, oriented x3. No focal. Laboratory Data: H and H 8.6/24.2. Sodium 141, potassium 4, bicarb 24, BUN 74, creatinine 7, calciu m 7.3, phos 6.6, iron saturation 14. Ferritin 327. Current Medications: Include: 1.Flomax. 2.Atorvastatin. 3.Carvedilol. 4.Clonidine 0.2 b.i.d. 5.Temazepam. 6.Lasix 40 t.i.d. 7.Insulin. 8.Normal saline. Assessment And Plan: 1.End-stage renal disease. We will continue the patient on dialysis Tuesday, Tuesday, Tuesday 3 claudette es a week. I am going to arrange for dialysis tomorrow. 2.Hypertension, controlled, optimal. Continue current medications. 3.Iron deficiency anemia. Start the patient on IV iron. 4.Secondary hyperparathyroidism. The patient was started on calcitriol and we will continue on Tums and we will follow up. TOBIN Voice ID: [id number] Report ID: [id number]
[2020-01-31] MEDS: FUROSEMIDE 40 MG/4 ML VIAL IV SCH ×3 (00:32→17:36)
[2020-01-31 05:15] LABS: Absolute Lymphocytes (CBC) 1.5 K/uL (0.7-4.9); Basophils % 0.5 % (0-1.3); Hematocrit 23.6 % (39.6-49.0); MPV 8.6 fL (7.6-11.3); RBC Red Blood Cell Count 2.66 M/uL (4.33-5.43)
[2020-01-31 05:41] LABS: Magnesium 1.8 mg/dL (1.8-2.4); Phosphorus 7.6 mg/dL (2.5-4.9); Potassium 3.9 mmol/L (3.5-5.1)
--- NOTE | 2020-01-31 06:54 | PN ---
Date of Progress Note: 01/30/2020 Mr. Muir was admitted on 01/28/2020. I saw him on 01/29/2020 for diabetes, hypertension, renal pranay lure that was acute, elevated troponin, and volume overload secondary to acute renal failure. He had an echocardiogram done today that is still pending. His blood pressure today was 152/89, remains in sinus rhythm. He is afebrile. Hemodialysis was performed. His O2 saturation is 99% on room air. His creatinine is 8.77 from 11.1. His hemoglobin is 8.1. He is presently on Lipitor, Lasix, insulin , carvedilol, and clonidine. We will see what the echocardiogram shows. Otherwise, I agree with his present regimen. KATHLEEN/MODL Voice ID: [id number] Report ID: [id number]
[2020-01-31] MEDS: INSULIN -REGULAR HUMAN 50 UNIT/0.5 ML ML SQ SCH ×4 (07:30→21:00)
[2020-01-31] MEDS: carvediloL 6.25 MG TAB PO SCH ×2 (09:00→21:58)
[2020-01-31] MEDS ORDERED: MAGNESIUM SULFATE 1 gm IVPB 1 GM/100 ML BAG IV ONE (09:00)
[2020-01-31] MEDS: cloNIDine HCL 0.1 MG TAB PO SCH ×3 (09:00→21:59)
[2020-01-31] MEDS: CALCIUM CARBONATE CHEW 500MG TAB PO SCH ×3 (09:28→17:36)
[2020-01-31] MEDS: TAMSULOSIN 0.4 MG SR CAP PO SCH (09:28)
[2020-01-31] MEDS: BUSPIRONE HCL 5 MG TABLET PO SCH ×2 (09:29→21:59)
--- NOTE | 2020-01-31 09:46 | P.PN ---
Subjective Date of Service: 01/31/20 Primary Care Provider: Randy Chief Complaint: ARF, malignant HTN, volume overload Subjective: No new changes, Improving Review of Systems 10-point ROS is otherwise unremarkable Physical Examination - Vital Signs Temperature: 97.7 F Blood Pressure: 152/86 Pulse: 85 Respirations: 16 Pulse Ox (%): 96 - Physical Exam General: Alert, In no apparent distress, Oriented x3 HEENT: Atraumatic, Normocephalic Neck: Supple Respiratory: Clear to auscultation bilaterally Cardiovascular: Regular rate/rhythm, Normal S1 S2 Capillary refill: <2 Seconds Gastrointestinal: Soft and benign, W/out hepatosplenomegaly Musculoskeletal: No clubbing, No swelling Integumentary: No rashes Neurological: Normal speech, Normal strength at 5/5 x4 extr Lymphatics: No axilla or inguinal lymphadenopathy Assessment & Plan - Problems (Diagnosis) (1) ESRD (end stage renal disease) on dialysis Current Visit: Yes Status: Acute (2) Malignant hypertension Current Visit: Yes Status: Acute Physician Review Additional Text: Assessment Acute on chronic kidney disease with shortness of breath, volume overload, on hemodialysis Malignant hypertension likely secondary to acute on chronic kidney disease, history of hypertension Diabetes mellitus type 2-insulin dependent Plan Acute on chronic kidney disease with volume overload, on hemodialysis: Appreciate help from nephrology & General Surgery. s/p Dialysis Monitor renal parameters agricultural services director consult for placement for outpatient dialysis chair time Malignant hypertension with elevated troponin likely secondary to acute on chronic kidney disease with volume overload, history : Patient was on Cardene drip Weaned off Cardene Continue home medications and titrate as needed NSTEMI versus type 2 Cardiac enzymes trended appreciate help from cardiology Recommended conservative management Will continue aspirin and statin Diabetes mellitus type 2-insulin dependent: A.c. HS Accu-Cheks, sliding scale insulin therapy. Anemia possibly due to chronic disease Will transfuse PRBCs Monitor CBC daily Transfuse p.r.n. No overt bleeding noted Disposition : agricultural services director consult for outpatient dialysis Possible Dc once dialysis is setup . Time Spent Managing Pts Care (In Minutes): 42
--- NOTE | 2020-01-31 10:20 | ECHO ---
HEIGHT: 5 ft 6 in WEIGHT: 156 lb 3.2 oz DATE OF STUDY: 01/29/[address]: Lloyd Perkins MD 2-DIMENSIONAL: YES M.MODE: YES DOPPLER: YES COLOR FLOW: YES TDS: NO PORTABLE: YES DEFINITY: NO BUBBLE STUDY: NO DIAGNOSIS: CHEST PAIN CARDIAC HISTORY: CATHERIZATION: NO SURGERY: NO PROSTHETIC VALVE: NO PACEMAKER: NO MEASUREMENTS (cm) DIASTOLIC (NORMALS) SYSTOLIC (NORMALS) IVSd 1.3 (0.6-1.2) LA Diam 3.0 (1.9-4.0) LVEF 51% LVIDd 4.0 (3.5-5.7) LVIDs 3.0 (2.0-3.5) %FS 25% LVPWd 1.4 (0.6-1.2) Ao Diam 2.8 (2.0-3.7) 2 DIMENSIONAL ASSESSMENT: RIGHT ATRIUM: NORMAL LEFT ATRIUM: NORMAL RIGHT VENTRICLE: NORMAL LEFT VENTRICLE: LEFT VENTRICULAR HYPERTROPHY TRICUSPID VALVE: NORMAL MITRAL VALVE: NORMAL PULMONIC VALVE: NORMAL AORTIC VALVE: NORMAL PERICARDIAL EFFUSION: NONE AORTIC ROOT: NORMAL LEFT VENTRICULAR WALL MOTION: NORMAL LEFT VENTRICULAR EJECTION FRACTION. DECREASED LEFT VENTRICULAR COMPLIANCE. DOPPLER/COLOR FLOW: MILD MITRAL AND TRICUSPID REGURGITATION. COMMENTS: MILD MITRAL AND TRICUSPID REGURGITATION. NORMAL LEFT VENTRICULAR EJECTION FRACTION. DECREASED LEFT VENTRICULAR COMPLIANCE, CONSISTENT WITH DIASTOLIC DYSFUNCTION. LEFT VENTRICULAR HYPERTROPHY. TECHNOLOGIST: Anton YIP
[2020-01-31] MEDS ORDERED: MANNITOL 25% 12.5 GM/50 ML VIAL IV SCH (13:00)
[2020-01-31] MEDS ORDERED: lisinopriL 20 MG TAB PO ONE (13:08)
[2020-01-31] MEDS: ALTEPLASE 2 MG/VIAL IV SCH ×4 (14:15→15:00)
[2020-01-31] MEDS ORDERED: WATER FOR INJ,STERILE 10 ML IV SCH ×2 (15:00)
[2020-01-31] MEDS ORDERED: ALTEPLASE 2 MG/VIAL IV SCH (15:00)
[2020-01-31] MEDS: ACETAMINOPHEN 500 MG TAB PO PRN (15:05)
--- NOTE | 2020-01-31 16:41 | PN ---
Date of Progress Note: 01/31/2020 Subjective: The patient was admitted with progression of chronic kidney disease to end-stage renal d isease. The patient was started on dialysis. The patient tolerated the dialysis through a temporary hemodialysis catheter. Objective: Vital signs: Blood pressure 152/86, pulse of 85, afebrile. Chest: Clear to auscultation. Heart: S1, S2, regular. Abdomen: Soft, nontender. Extremities: No edema. Neurological: Alert, oriented x3. No focal. Laboratory Data: H and H 8.1/23.6. Sodium 139, potassium 3.9, bicarb 22, BUN 88, creatinine 8.7, ca lcium 7.3, phosphorus 7.6, magnesium 1.8, albumin of 2. PTH of 917. Current Medications: Include: 1.Flomax. 2.IV iron. 3.Tums 500 q. meal. 4.Atorvastatin. 5.Carvedilol 6.25. 6.Clonidine 0.2 b.i.d. 7.Temazepam. 8.Lasix. 9.Zofran. Assessment And Plan: 1.End-stage renal disease. We will continue the patient on dialysis at 3 times a week. The patient is scheduled for dialysis today. We will follow up. We will consult the Surgery for placement of a tunneled dialysis catheter and we will follow up with older adult social work specialist for placement as outpatient. 2.Hypertension, controlled. Given the nephrotic range of proteinuria and the diabetes, I am going t o go ahead and start the patient on lisinopril. We will decrease clonidine to 0.1 and we will follow up. 3.Secondary hyperparathyroidism. I am going to go ahead and add Renvela and we will follow up the p atient. Continue calcitriol. 4.Anemia of chronic kidney disease, Iron-deficiency anemia. Continue GWYN. Continue IV iron. KELLIE/RAE Voice ID: [id number] Report ID: [id number]
[2020-01-31] MEDS: SEVELAMER CARBONATE 800 MG TABLET PO SCH (17:37)
[2020-01-31] MEDS: ATORVASTATIN 10 MG TAB PO SCH (21:59)
[2020-02-01] MEDS: FUROSEMIDE 40 MG/4 ML VIAL IV SCH ×3 (01:04→17:41)
--- NOTE | 2020-02-01 01:22 | CON ---
Date of Consultation: 01/31/2020 Reason For Service: Placement of a tunneled hemodialysis catheter. History Of Present Illness: This is the case of a 54 years old patient with history of renal failure , needing hemodialysis catheter. He had placed a temporary catheter recently by another surgeon on t he left side just temporary, now they want a tunneled catheter and they asked me to do that. The pat dana agreed with that. Review of Systems: No shortness of breath. No chest pain. No fever. Allergies: NONE. Past Medical History: Diabetes, hypertension, and osteoarthritis. Social History: He does not smoke. He does not drink alcohol. Family History: Noncontributory. Physical Examination: General: The patient is awake and alert. HEENT: Pupils are equal and reactive, anicteric. Neck: Supple. Chest: Clear. The patient has a left subclavian hemodialysis temporary catheter. Bilateral breath sounds. Abdomen: Soft and depressible. No guarding or rebound. Extremities: Good capillary refill. Laboratory Data: Blood work shows WBC count of 9.8, hemoglobin of 8.1. INR of 1.1 and chemistry jennifer ws creatinine is 8.77. Assessment: A 54 years old patient, needing hemodialysis catheter. The patient was fully explained placement of hemodialysis catheter with benefits, alternatives, and risks including, but not limited to infection, bleeding, damage to adjacent structures, anesthesia complication, hemothorax, pneumotho rax, cardiac arrhythmias, pulmonary emboli, endocarditis, [place] and even , that this may not reliev e any symptoms, he might need more than one surgical intervention. He understands that even though t his is tunneled catheter, it is still temporary. If he continues with hemodialysis treatment, we rec ommend him to go to vascular service where they provide a peripheral access. He understood and he wi ll sign a consent, the patient then will be placed n.p.o. after midnight. YVONNE/RAE Voice ID: [id number] Report ID: [id number]
[2020-02-01 05:36] LABS: Absolute Lymphocytes (CBC) 1.4 K/uL (0.7-4.9); Basophils % 0.4 % (0-1.3); Hematocrit 25.1 % (39.6-49.0); MPV 8.4 fL (7.6-11.3); RBC Red Blood Cell Count 2.78 M/uL (4.33-5.43)
[2020-02-01 05:55] LABS: Albumin 2.1 g/dL (3.4-5.0); Phosphorus 7.2 mg/dL (2.5-4.9); Potassium 4.3 mmol/L (3.5-5.1)
[2020-02-01] MEDS: INSULIN -REGULAR HUMAN 50 UNIT/0.5 ML ML SQ SCH ×4 (07:25→21:00)
[2020-02-01] MEDS: SEVELAMER CARBONATE 800 MG TABLET PO SCH ×3 (07:25→17:39)
[2020-02-01] MEDS: CALCIUM CARBONATE CHEW 500MG TAB PO SCH ×3 (07:30→17:40)
[2020-02-01] MEDS: BUSPIRONE HCL 5 MG TABLET PO SCH ×2 (07:51→21:44)
[2020-02-01] MEDS: cloNIDine HCL 0.1 MG TAB PO SCH ×4 (07:52→21:43)
[2020-02-01] MEDS: carvediloL 6.25 MG TAB PO SCH (07:52)
[2020-02-01] MEDS: TAMSULOSIN 0.4 MG SR CAP PO SCH (07:52)
[2020-02-01] MEDS ORDERED: METOPROLOL TARTRATE 5 MG/5 ML INJ IV STA (08:14)
[2020-02-01] MEDS: carvediloL 25 MG TAB PO SCH ×2 (09:00→21:44)
[2020-02-01] MEDS: ACETAMINOPHEN 500 MG TAB PO PRN ×2 (09:15→17:41)
[2020-02-01] MEDS ORDERED: METOPROLOL TARTRATE 5 MG/5 ML INJ IV SCH (10:00)
--- NOTE | 2020-02-01 10:42 | P.PN ---
Subjective Date of Service: 02/01/20 Primary Care Provider: Randy Chief Complaint: ARF, malignant HTN, volume overload Subjective: No new changes, Improving Review of Systems 10-point ROS is otherwise unremarkable Physical Examination - Vital Signs Temperature: 97.7 F Blood Pressure: 160/89 Pulse: 83 Respirations: 17 Pulse Ox (%): 97 - Physical Exam General: Alert, In no apparent distress HEENT: Atraumatic, Normocephalic Neck: Supple Respiratory: Clear to auscultation bilaterally Cardiovascular: Regular rate/rhythm, Normal S1 S2 Capillary refill: <2 Seconds Gastrointestinal: Soft and benign, W/out hepatosplenomegaly Musculoskeletal: No clubbing, No swelling Integumentary: No rashes, No breakdown Neurological: Normal speech, Normal strength at 5/5 x4 extr Lymphatics: No axilla or inguinal lymphadenopathy Assessment & Plan - Problems (Diagnosis) (1) ESRD (end stage renal disease) on dialysis Current Visit: Yes Status: Acute (2) Malignant hypertension Current Visit: Yes Status: Acute Physician Review Additional Text: Assessment Acute on chronic kidney disease with shortness of breath, volume overload, on hemodialysis Malignant hypertension likely secondary to acute on chronic kidney disease, history of hypertension Diabetes mellitus type 2-insulin dependent Plan Acute on chronic kidney disease with volume overload, on hemodialysis: Appreciate help from nephrology & General Surgery. s/p Dialysis Monitor renal parameters food services manager consult for placement for outpatient dialysis chair time Malignant hypertension Continue home medications and titrate as needed NSTEMI type 2 Cardiac enzymes trended Appreciate help from cardiology Recommended conservative management Will continue aspirin and statin Diabetes mellitus type 2-insulin dependent: A.c. HS Accu-Cheks, sliding scale insulin therapy. Anemia possibly due to chronic disease Monitor CBC daily Transfuse p.r.n. No overt bleeding noted Disposition : food services manager consult for outpatient dialysis Possible Dc once dialysis is setup . Time Spent Managing Pts Care (In Minutes): 42
[2020-02-01] MEDS ORDERED: NS 0.9% VIAL 10 ML ONE (12:12)
[2020-02-01] MEDS ORDERED: HEPARIN 5000 UNIT/ML 1 ML VIAL ONE (12:13)
[2020-02-01] MEDS ORDERED: LIDOCAINE 1% MPF 30 ML VIAL ONE (12:14)
[2020-02-01] MEDS ORDERED: NA CHLORIDE 0.9% 100 ML IV ONE (12:14)
[2020-02-01] MEDS ORDERED: NA CHLORIDE 0.9% 500 ML ONE (13:02)
[2020-02-01] MEDS ORDERED: CEFAZOLIN/SWI 1gm 1 GM/10 ML SYR ONE (13:30)
[2020-02-01] MEDS ORDERED: FENTANYL CITR 100 MCG/2 ML ONE (14:07)
[2020-02-01] MEDS ORDERED: propofoL 200 MG/20 ML VIAL IV ONE (14:08)
[2020-02-01] MEDS ORDERED: MIDAZOLAM HCL 2 MG/2 ML INJ ONE (14:08)
[2020-02-01] MEDS ORDERED: LIDOCAINE 1% MPF 5 ML VIAL ONE (14:08)
--- NOTE | 2020-02-01 16:01 | P.BOP ---
Preoperative diagnosis: ESRD, Postoperative diagnosis: same Primary procedure: 1. Placement of hemosplit HD tunneled catheter right IJ vein Secondary procedure: 2. Right neck ultrasound Other procedure(s): 3. removal of old left subclavian tamia catheter Paper Folding Machine Operator: 4, fluoroscopy Estimated blood loss: <10cc Specimen: old intact tamia Findings: as above Anesthesia: MAC Complications: None Transferred to: Recovery Room Condition: Good
--- NOTE | 2020-02-01 16:39 | RAD REPORT ---
EXAM DESCRIPTION: RAD - Chest Single View - 02/01/2020 4:29 pm CLINICAL HISTORY: s/p hemodialysis catheter COMPARISON: Portable January 28 TECHNIQUE: AP portable chest image was obtained 02/01/2020 4:29 pm . FINDINGS: Right jugular double-lumen hemodialysis catheter has been placed. Catheter is in the proxi mal SVC. There is no pneumothorax. Focal right upper lobe opacification is present similar or slightly worse than the January 28 comparison . Right upper lobe was previously partially obscured by cardiac leads. Lung volumes overall are decre ased from comparison. Retrocardiac medial left base assessment is substantially limited. Heart size normal for shallow inspiration portable imaging. Vasculature accentuated by exam limitatio ns. No new or enlarging pleural effusion. IMPRESSION: Right jugular hemodialysis catheter placement in good position. No pneumothorax. Right upper lobe airspace opacification suspicious for right upper lobe pneumonia.
--- NOTE | 2020-02-01 21:06 | RAD REPORT ---
EXAM DESCRIPTION: RAD - Fluoroscopy <1 Hour - 02/01/2020 5:56 pm FINDINGS: There were 8 portable C-arm view images obtained during fluoroscopic assisted placement of a vascular access catheter. No suspicious or unexpected finding. Fluoro time was 0.3 minutes. Cumulative dose was 8.65 mGy.
[2020-02-01] MEDS: CALCITROL 0.25 MCG CAP PO SCH (21:43)
[2020-02-01] MEDS: ATORVASTATIN 10 MG TAB PO SCH (21:44)
[2020-02-02] MEDS: FUROSEMIDE 40 MG/4 ML VIAL IV SCH ×2 (01:29→09:00)
--- NOTE | 2020-02-02 01:49 | PN ---
Date of Progress Note: 02/01/2020 Chief Complaint: End-stage renal disease. Subjective: The patient was initiated on dialysis. He received dialysis yesterday. The patient coreen cardoso is undergoing tunneled dialysis catheter placement. The patient has history of hypertension, diabetes mellitus, diabetic kidney disease, and nephrotic ra nge proteinuria. The patient was resumed on lisinopril for diabetic kidney disease with proteinuria. Review of Systems: Denies PND or orthopnea. Physical Examination: Lungs: Diminished breath sounds at bases. Heart: S1, S2. Abdomen: Soft, benign. Extremities: No edema. Laboratory Data: Sodium 139, potassium 3.9, bicarbonate 22, BUN 88, creatinine 8.7, calcium 7.3, delicia sphorus 7.6, albumin 2. PTH 917. Impression And Plan: 1.End-stage renal disease. Next dialysis tomorrow. The patient has tunneled dialysis catheter plac ed today and he had dialysis via the tunneled dialysis catheter tomorrow. 2.Hypertension. Continue medication and continue lisinopril for blood pressure control and antiprot einuric effect. 3.Secondary hyperparathyroidism. The patient was started on Renvela. Continue low phosphorus diet and binders. 4.Anemia due to chronic kidney disease, iron deficiency. The patient was started on IV iron. Continue GWYN and IV iron. Adjust treatment according to hemoglobin level an d iron test. ESTELITA/RAE Voice ID: [id number] Report ID: [id number]
--- NOTE | 2020-02-02 03:08 | OP ---
Date of Procedure: 02/01/2020 Surgeon: Almas Keenan MD Preoperative Diagnosis: End-stage renal disease, malfunctioning left subclavian hemodialysis cathete r. Postoperative Diagnosis: End-stage renal disease, malfunctioning left subclavian hemodialysis cathet er. Procedures: 1.Placement of a new HemoSplit hemodialysis tunneled catheter on the right internal jugular vein. 2.Right neck ultrasound. 3.Removal of old left subclavian Reagan catheter. 4.Interpretation of fluoroscopy. Estimated Blood Loss: Less than 10 cc. Specimen: Old Reagan catheter intact. Anesthesia: MAC plus local. Indications: This is a case of a 54-year-old patient in need of hemodialysis. He has a catheter bart kimberly in the opposite side, but they claimed that it is not working properly, so they called me to see if I can put a tunneled catheter on the right side. Benefits, alternatives, and risks fully explaine d to the patient which include, but not limited to infection, bleeding, damage to adjacent structures , anesthesia complication, pneumothorax, hemothorax, pericardiac tamponade, DVT, pulmonary emboli, pn eumothorax, VT, and even . He also understands this may not relieve symptoms. He might need mo re than one surgical intervention. He understands this is a temporary catheter, and if he is going t o continue dialysis, he has to look for a vascular surgeon, who has a peripheral access placed on him . He understood and signed a consent. Description Of Procedure: The patient was brought to the operating room, placed in supine position. Anesthesia was done without complication. The patient was placed in Trendelenburg position. Right neck and also right chest and left prepped. After that, I proceeded to do a right neck ultrasound id entifying the right carotid and right internal jugular vein, which is compressible, the vein. At jose t moment, I proceeded then to, after time-out, place an 18-gauge needle in the right internal jugular vein at the first attempt. Guidewire was passed through, got into superior vena cava using fluorosc opy. At that moment, I proceeded then to make an incision in the right upper chest, tunneled a HemoS plit hemodialysis catheter underneath the skin to meet the new incision in the right upper neck. Ser ial dilators were placed over the guidewire under direct visualization with fluoroscopy and also the introducer kit. Once we put the catheter on it, we proceeded to remove the guidewire and then placed the catheter through and the introducer catheter was peeled off. This was done under fluoroscopy. Excellent backflow and inflow. It looks well positioned. At that moment, I proceeded to heparinize the catheter. Then closed the subcutaneous tissue with 3-0 chromic and secured the catheter with 3-0 nylon. The patient tolerated the procedure well. The patient was brought back to normal position f rom Trendelenburg and sent in his way to recovery in stable condition. The patient will be having a chest x-ray stat in recovery. YVONNE/RAE Voice ID: [id number] Report ID: [id number]
[2020-02-02] MEDS: INSULIN -REGULAR HUMAN 50 UNIT/0.5 ML ML SQ SCH ×4 (07:30→21:00)
[2020-02-02] MEDS: SEVELAMER CARBONATE 800 MG TABLET PO SCH ×3 (08:58→16:35)
[2020-02-02] MEDS: TAMSULOSIN 0.4 MG SR CAP PO SCH (08:58)
[2020-02-02] MEDS: CALCIUM CARBONATE CHEW 500MG TAB PO SCH ×3 (08:58→16:35)
[2020-02-02] MEDS: BUSPIRONE HCL 5 MG TABLET PO SCH ×2 (08:58→21:33)
[2020-02-02] MEDS: carvediloL 25 MG TAB PO SCH ×3 (09:00→21:33)
[2020-02-02] MEDS: cloNIDine HCL 0.1 MG TAB PO SCH ×3 (09:00→21:32)
--- NOTE | 2020-02-02 14:44 | P.PN ---
Subjective Date of Service: 02/02/20 Primary Care Provider: Randy Chief Complaint: ARF, malignant HTN, volume overload Subjective: Doing well Physical Examination - Vital Signs Temperature: 97.3 F Blood Pressure: 187/106 Pulse: 86 Respirations: 17 Pulse Ox (%): 99 - Physical Exam General: Alert HEENT: Atraumatic Neck: Supple Respiratory: Clear to auscultation bilaterally, Normal air movement Cardiovascular: Normal pulses, Regular rate/rhythm Gastrointestinal: Normal bowel sounds Neurological: Normal speech, Normal strength at 5/5 x4 extr, Normal tone, Normal affect Assessment & Plan Discharge Plan: Home Plan to discharge in: 72 Hours Physician Review Additional Text: Assessment Acute on chronic kidney disease stage 5 now end-stage renal disease on hemodialysis Malignant hypertension likely secondary to acute on chronic kidney disease, history of hypertension Diabetes mellitus type 2-insulin dependent NSTEMI suspect underlying CAD Anemia likely of chronic disease Plan Acute on chronic kidney disease stage 5 now end-stage renal disease on hemodialysis: Patient had dialysis catheter placed. Continue dialysis as directed by nephrology. Continue to monitor and adjust. Medications reviewed. Social work working to provide an set up hemodialysis as an outpatient. Anticipate this will be arranged early next week. Malignant hypertension likely secondary to acute on chronic kidney disease, history of hypertension: Blood pressure still elevated. Will add hydralazine. Will continue to adjust appropriately. Diabetes mellitus type 2-insulin dependent: Continue to monitor closely. Accu- Cheks in place. Will check A1c. Will consider basal insulin. NSTEMI suspect underlying CAD: Continue to monitor closely. Will discuss with cardiology. Continue statin and aspirin medication. Continue conservative management at this time. This can be further addressed as an outpatient. Anemia likely of chronic disease: Continue monitor closely Time Spent Managing Pts Care (In Minutes): 55
[2020-02-02] MEDS: HYDRALAZINE HCL 25 MG TABLET PO SCH ×2 (15:57→21:32)
[2020-02-02] MEDS: FUROSEMIDE 40 MG TABLET PO SCH (16:35)
[2020-02-02] MEDS: ATORVASTATIN 10 MG TAB PO SCH (21:33)
[2020-02-02] MEDS: SOD FERRIC GLUC COMPLX/SUCROSE 250 MG in NA CHLORIDE 0.9% 250 ML IV SCH (21:34)
--- NOTE | 2020-02-02 23:49 | PN ---
Date of Progress Note: 02/02/2020 Chief Complaint: End-stage renal disease. History Of Present Illness: The patient is undergoing dialysis. He had tunneled dialysis catheter replaced yesterday. Procedure was well tolerated. Today, he underwent dialysis for metabolic clearance and to obtain ultrafiltration. The patient is feeling better after dialysis. Review of Systems: Denies PND or orthopnea. Physical Examination: Lungs: Few crackles at bases. Heart: S1, S2. Abdomen: Soft, benign. Extremities: No edema. Laboratory Data: Sodium 139, potassium 3.9, bicarbonate 22, BUN 88, creatinine 8.7, calcium 7.3. Impression And Plan: 1. End-stage renal disease. Next dialysis on Tuesday. The patient is awaiting placement of dialysis in [facility] unit. 2. Hypertension. Continue medication and continue lisinopril for blood pressure control and antiproteinuric effect. 3. Secondary hyperparathyroidism. The patient was started on Renvela. Continue to monitor phosphorus level and adjust treatment accordingly. Continue renal diet. 4. Anemia due to chronic kidney disease, iron deficiency anemia. The patient is started on IV iron along with GWYN. ESTELITA/RAE Voice ID: [id number] Report ID: [id number] LAI
[2020-02-03] MEDS: INSULIN -REGULAR HUMAN 50 UNIT/0.5 ML ML SQ SCH ×4 (07:30→20:26)
[2020-02-03] MEDS: CALCIUM CARBONATE CHEW 500MG TAB PO SCH ×3 (09:02→16:43)
[2020-02-03] MEDS: BUSPIRONE HCL 5 MG TABLET PO SCH ×2 (09:03→20:26)
[2020-02-03] MEDS: SEVELAMER CARBONATE 800 MG TABLET PO SCH ×3 (09:03→16:44)
[2020-02-03] MEDS: TAMSULOSIN 0.4 MG SR CAP PO SCH (09:03)
[2020-02-03] MEDS: ASPIRIN EC 81 MG TAB PO SCH (09:03)
[2020-02-03] MEDS: HYDRALAZINE HCL 25 MG TABLET PO SCH ×2 (09:04→20:26)
[2020-02-03] MEDS: cloNIDine HCL 0.1 MG TAB PO SCH ×3 (09:04→20:25)
[2020-02-03] MEDS: carvediloL 25 MG TAB PO SCH ×2 (09:04→20:26)
[2020-02-03] MEDS: FUROSEMIDE 40 MG TABLET PO SCH ×2 (09:05→16:44)
--- NOTE | 2020-02-03 12:47 | P.PN ---
Subjective Date of Service: 02/03/20 Primary Care Provider: Randy Chief Complaint: ARF, malignant HTN, volume overload Subjective: Improving, Doing well Physical Examination - Vital Signs Temperature: 97.4 F Blood Pressure: 131/71 Pulse: 81 Respirations: 18 Pulse Ox (%): 98 - Physical Exam General: Alert HEENT: Atraumatic Neck: Supple Respiratory: Clear to auscultation bilaterally, Normal air movement Cardiovascular: Normal pulses, Regular rate/rhythm Neurological: Normal speech, Normal strength at 5/5 x4 extr, Normal tone, Normal affect - Studies Medications List Reviewed: Yes Assessment & Plan Discharge Plan: Home Plan to discharge in: 24 Hours Physician Review Additional Text: Assessment Acute on chronic kidney disease stage 5 now end-stage renal disease on hemodialysis Malignant hypertension likely secondary to acute on chronic kidney disease, history of hypertension Diabetes mellitus type 2-insulin dependent NSTEMI suspect underlying CAD Anemia likely of chronic disease Plan Acute on chronic kidney disease stage 5 now end-stage renal disease on hemodialysis: Patient had dialysis catheter in place. Continue dialysis as directed by nephrology. Continue to monitor and adjust. Medications reviewed. Social work working to provide and set up hemodialysis as an outpatient. Hopefully this can be arranged as early as tomorrow. Possible discharge tomorrow if this is set up. I will turn the service over to the hospitalist team tomorrow. I will go over the plan of care with him. Malignant hypertension likely secondary to acute on chronic kidney disease, history of hypertension: Hydralazine added. Blood pressure better controlled. Will continue to monitor and adjust appropriately. Diabetes mellitus type 2-insulin dependent: Continue to monitor closely. Accu- Cheks in place. Will check A1c. Will consider basal insulin. NSTEMI suspect underlying CAD: Continue to monitor closely. Will discuss with cardiology. Continue statin and aspirin medication. Continue conservative management at this time. This can be further addressed as an outpatient. Anemia likely of chronic disease: Continue monitor closely Time Spent Managing Pts Care (In Minutes): 55
[2020-02-03 15:28] LABS: HIV AG/AB 4TH GEN Non-reactive (Non-reactive)
[2020-02-03] MEDS: ATORVASTATIN 10 MG TAB PO SCH (20:26)
[2020-02-03] MEDS: CALCITROL 0.25 MCG CAP PO SCH (23:04)
--- NOTE | 2020-02-04 00:06 | PN ---
Date of Progress Note: 02/03/2020 Chief Complaint: End-stage renal disease, on hemodialysis. Subjective: The patient is undergoing dialysis 3 times per week. The patient is initiated on dialys is during this admission. He presented to the hospital with fluid overload, severe azotemia. GFR wa s extremely diminished. BUN was up to 88, creatinine 8.7. The patient received dialysis yesterday a nd tolerated the procedure very well. The patient tolerated ultrafiltration. Volemia status is impr oving. Review of Systems: Denies PND or orthopnea. Physical Examination: Lungs: Clear to auscultation bilaterally. Heart: S1, S2. Abdomen: Soft, benign. Extremities: No edema. Laboratory Data: BUN 88, creatinine 8.7, calcium 7.3, sodium 139, potassium 3.9. Impression And Plan: 1.End-stage renal disease. Next dialysis will be done on Tuesday. The patient is awaiting placement for dialysis in [facility] unit. 2.Hypertension. Continue blood pressure medication. Lisinopril was started for blood pressure cont rol and to control proteinuria. The patient has diabetic kidney disease with proteinuria. 3.Secondary hyperparathyroidism. Renvela was started to control hyperphosphatemia. Monitor calcium level and add calcium based binders as needed. 4.Anemia due to chronic kidney disease and iron deficiency. Continue IV iron along with GWYN. EB/MODL Voice ID: [id number] Report ID: [id number]
[2020-02-04 06:05] LABS: Magnesium 2.1 mg/dL (1.8-2.4); Potassium 4.7 mmol/L (3.5-5.1)
[2020-02-04] MEDS: INSULIN -REGULAR HUMAN 50 UNIT/0.5 ML ML SQ SCH ×4 (07:30→21:00)
[2020-02-04] MEDS: HYDRALAZINE HCL 25 MG TABLET PO SCH ×2 (09:01→21:29)
[2020-02-04] MEDS: carvediloL 25 MG TAB PO SCH ×2 (09:01→21:30)
[2020-02-04] MEDS: cloNIDine HCL 0.1 MG TAB PO SCH ×3 (09:01→21:29)
[2020-02-04] MEDS: ASPIRIN EC 81 MG TAB PO SCH (09:01)
[2020-02-04] MEDS: CALCIUM CARBONATE CHEW 500MG TAB PO SCH ×3 (09:02→16:30)
[2020-02-04] MEDS: TAMSULOSIN 0.4 MG SR CAP PO SCH (09:03)
[2020-02-04] MEDS: SEVELAMER CARBONATE 800 MG TABLET PO SCH ×3 (09:03→17:21)
[2020-02-04] MEDS: FUROSEMIDE 40 MG TABLET PO SCH ×2 (09:04→17:22)
[2020-02-04] MEDS: BUSPIRONE HCL 5 MG TABLET PO SCH ×2 (09:04→21:30)
[2020-02-04 12:03] LABS: HBsAG Nonreactive (Nonreactive)
--- NOTE | 2020-02-04 15:32 | P.PN ---
Subjective Date of Service: 02/04/20 Primary Care Provider: Randy Chief Complaint: ARF, malignant HTN, volume overload Subjective: No new changes (No acute events Overnite. Patient has been medically cleared pending discharge after arrangements have been made for outpa tient hemodialysis.), Improving Physical Examination - Vital Signs Temperature: 97 F Blood Pressure: 142/77 Pulse: 78 Respirations: 18 Pulse Ox (%): 97 - Physical Exam General: Alert, In no apparent distress, Cooperative HEENT: Atraumatic, Normocephalic, EOMI Neck: Supple, Other (Right-sided tunneled hemodialysis catheter) Respiratory: Clear to auscultation bilaterally, Normal air movement Cardiovascular: No edema, Normal pulses, Regular rate/rhythm, Normal S1 S2 Musculoskeletal: No clubbing, No swelling, No contractures, No erythema, No tenderness, No warmth Integumentary: No rashes, No breakdown, No significant lesion, No tenderness/sw elling, No erythema, No warmth, No cyanosis Neurological: Normal speech, Sensation intact, Normal affect - Studies Medications List Reviewed: Yes Assessment & Plan Physician Review Additional Text: Assessment Patient is a 54-year-old male with a known past medical history of 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 Was found to have worsening renal function and required dialysis during this stay. He currently has a tunneled hemodialysis catheter Acute on chronic kidney disease stage 5 now end-stage renal disease on hemodialy sis Malignant hypertension likely secondary to acute on chronic kidney disease, history of hypertension Diabetes mellitus type 2-insulin dependent NSTEMI suspect underlying CAD Anemia likely of chronic disease Plan Acute on chronic kidney disease stage 5 now end-stage renal disease on hemodialysis: Social work working to provide and set up hemodialysis as an outpatient. Patient is pending a dialysis chair. Otherwise, medically cleared. Hepatitis panel negative Nephrology is on board Continue dialysis while in house. Avoid nephrotoxins such as NSAIDs and contrast dye Malignant hypertension likely secondary to acute on chronic kidney disease, history of hypertension: Vital signs are stable while on carvedilol, clonidine, hydralazine, and furosemide Diabetes mellitus type 2-insulin dependent: Patient has A1c of 6.0 Previously on Lantus 80 units b.i.d. I will not resumed the above regimen since his blood glucose is control and appropriate for inpatient stay Continue to monitor closely. Accu-Cheks in place. NSTEMI suspect underlying CAD: Echo during this hospitalization showed preserved EF with some diastolic dysfunction and LVH. He has been evaluated by Cardiology who agrees with current regimen of aspirin, atorvastatin, furosemide and carvedilol Anemia likely of chronic disease: H&H stable. Will repeat CBC
[2020-02-04 16:53] LABS: Absolute Lymphocytes (CBC) 1.5 K/uL (0.7-4.9); Basophils % 0.4 % (0-1.3); Hematocrit 24.5 % (39.6-49.0); Lymphocytes % 16.8 % (15.3-44.8); RBC Red Blood Cell Count 2.71 M/uL (4.33-5.43)
[2020-02-04] MEDS: ATORVASTATIN 10 MG TAB PO SCH (21:29)
[2020-02-04 22:23] VITALS: O2SAT 97
--- NOTE | 2020-02-05 01:55 | PN ---
Date of Progress Note: 02/04/2020 Chief Complaint: End-stage renal disease, on hemodialysis. Subjective: The patient is undergoing dialysis 3 times per week. The patient is initiated on dialys is during this admission. He presented to the hospital because of fluid overload, severe hyperazotem ia. He underwent tunneled dialysis catheter placement. He is feeling better. He is scheduled to benavides ve dialysis today. Review of Systems: Denies fever or chills. Physical Examination: Lungs: Diminished breath sounds at bases. Heart: S1, S2. Abdomen: Soft, benign. Extremities: No edema. Impression And Plan: 1.End-stage renal disease. Continue dialysis on Tuesday, Tuesday, Tuesday. The patient is awaiting dialysis unit assignment. 2.Hypertension. Continue blood pressure medication. Lisinopril was started for blood pressure cont rol and proteinuria control. The patient has diabetic kidney disease with proteinuria. Continue CHEKO inhibitor. 3.Secondary hyperparathyroidism. Renvela was started to control hyperphosphatemia. Monitor calcium level and adjust binders according to phosphorus level. 4.Anemia due to chronic kidney disease. Continue IV iron and GWYN. EB/MODL Voice ID: [id number] Report ID: [id number]
[2020-02-05] MEDS: INSULIN -REGULAR HUMAN 50 UNIT/0.5 ML ML SQ SCH (07:30)
[2020-02-05] MEDS: cloNIDine HCL 0.1 MG TAB PO SCH (09:04)
[2020-02-05] MEDS: SEVELAMER CARBONATE 800 MG TABLET PO SCH (09:05)
[2020-02-05] MEDS: CALCIUM CARBONATE CHEW 500MG TAB PO SCH (09:05)
[2020-02-05] MEDS: FUROSEMIDE 40 MG TABLET PO SCH (09:05)
[2020-02-05] MEDS: BUSPIRONE HCL 5 MG TABLET PO SCH (09:06)
[2020-02-05] MEDS: carvediloL 25 MG TAB PO SCH (09:06)
[2020-02-05] MEDS: ASPIRIN EC 81 MG TAB PO SCH (09:06)
[2020-02-05] MEDS: HYDRALAZINE HCL 25 MG TABLET PO SCH (09:07)
[2020-02-05] MEDS: TAMSULOSIN 0.4 MG SR CAP PO SCH (09:07)
[2020-02-05 09:08] VITALS: BP 161/89
--- NOTE | 2020-02-05 09:22 | P.DS ---
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 He was found to have worsening renal function and required dialysis during this stay. He currently has a tunneled hemodialysis catheter. Patient mentioned to me that he was having orthopnea as well. He is euvolemic, denies dyspnea at rest or on exertion. 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 Vital Signs/Physical Exam: Temp Pulse Resp BP Pulse Ox 97.9 F 80 16 161/89 H 96 02/05/20 04:00 02/05/20 09:06 02/05/20 04:00 02/05/20 09:06 02/05/20 04:00 General: Alert, In no apparent distress, Cooperative HEENT: Atraumatic, Normocephalic, EOMI Neck: Supple Respiratory: Clear to auscultation bilaterally, Normal air movement Cardiovascular: No edema, Normal pulses, Regular rate/rhythm, Normal S1 S2, Other (Right-sided tunneled hemodialysis catheter) Musculoskeletal: No clubbing, No swelling, No contractures, No erythema, No tenderness, No warmth Neurological: Normal speech, Sensation intact, Normal affect Laboratory Data at Discharge: WBC 8.7 K/uL (4.3-10.9) D 02/04/20 16:16 Hgb 8.1 g/dL (13.6-17.9) L 02/04/20 16:16 Hct 24.5 % (39.6-49.0) L 02/04/20 16:16 Plt Count 229 K/uL (152-406) D 02/04/20 16:16 PT 11.9 SECONDS (9.5-12.5) 01/28/20 10:25 INR 1.01 01/28/20 10:25 Sodium 141 mmol/L (136-145) 02/04/20 05:06 Potassium 4.7 mmol/L (3.5-5.1) 02/04/20 05:06 BUN 77 mg/dL (7-18) H 02/04/20 05:06 Creatinine 8.29 mg/dL (0.55-1.3) H* 02/04/20 05:06 Glucose 77 mg/dL (74-106) 02/04/20 05:06 Phosphorus 7.2 mg/dL (2.5-4.9) H 02/01/20 05:09 Magnesium 2.1 mg/dL (1.8-2.4) 02/04/20 05:06 Total Bilirubin 0.4 mg/dL (0.2-1.0) 01/28/20 10:25 AST 36 U/L (15-37) 01/28/20 10:25 ALT 56 U/L (12-78) 01/28/20 10:25 Alkaline Phosphatase 92 U/L (45-117) 01/28/20 10:25 Troponin I 0.28 ng/mL (0.0-0.045) H 01/28/20 15:53 Home Medications: Carvedilol [Coreg] 25 mg PO TID 01/11/14 Pravastatin Sodium [Pravachol] 40 tab PO DAILY 01/11/14 Tamsulosin [Flomax*] 0.4 mg PO DAILY #30 cap 01/15/14 Buspirone HCl 10 mg PO BID 07/29/17 Insulin Glargine,Hum.rec.anlog [Lantus] 80 unit SQ BID 07/29/17 cloNIDine HCL [Catapres] 0.3 mg PO TID 07/29/17
[2020-02-05 09:25] VITALS: TEMP 97.6
--- NOTE | 2020-02-06 02:20 | PN ---
Date of Progress Note: 02/05/2020 Chief Complaint: End-stage renal disease, new onset. Subjective: The patient was initiated on hemodialysis during this admission. He underwent dialysis yesterday. Procedure was well tolerated. The patient had tunneled dialysis catheter placed during t his admission. Review of Systems: Denies PND or orthopnea. Physical Examination: Lungs: Diminished breath sounds at bases. Heart: S1, S2. Abdomen: Soft, benign. Extremities: No edema. Impression And Plan: 1.The patient will continue outpatient dialysis on Tuesday, Tuesday, Tuesday. 2.Hypertension. Continue blood pressure medication. Continue CHEKO inhibitor for diabetic kidney dis ease, proteinuria control, and high blood pressure control. 3.Secondary hyperparathyroidism. Monitor phosphorus level and adjust binders according to phosphoru s level. 4.Anemia due to chronic kidney disease. Continue GWYN and IV iron. ESTELITA/MODL Voice ID: [id number] Report ID: [id number]
[2020-02-06 22:16] LABS: Albumin, (SPE) 2.2 g/dL (3.8-4.8); Alpha-1-Globulins 0.4 g/dL (0.2-0.3); Alpha-2-Globulins 0.6 g/dL (0.5-0.9); Gamma Globulins 0.4 g/dL (0.8-1.7); INTERPRETATION REPORT
[2020-02-07 00:16] LABS: Vitamin D 1,25-Dihydroxy Total 10 pg/mL (18-72); Vitamin D,1,25-OH2, D2 <8 pg/mL
== END 2020-02-05 11:36 | disposition home or self-care (01) | DRG 673 ==
LOC: ER 09:22 → ERHOLD 12:14 → 2ND 01-30 17:39
PROVIDERS: ADMIT Family Medicine; ATTEND Internal Medicine
PROC: 05H633Z Insertion of Infusion Device into Left Subclavian Vein, Percutaneous Approach (ICD-10-PCS; 2020-01-29)
PROC: 05PY33Z Removal of Infusion Device from Upper Vein, Percutaneous Approach (ICD-10-PCS; 2020-01-29)
PROC: 5A1D70Z Performance of Urinary Filtration, Intermittent, Less than 6 Hours Per Day (ICD-10-PCS; 2020-01-29)
PROC: 30243N1 Transfusion of Nonautologous Red Blood Cells into Central Vein, Percutaneous Approach (ICD-10-PCS; 2020-01-29)
PROC: 02HV33Z Insertion of Infusion Device into Superior Vena Cava, Percutaneous Approach (ICD-10-PCS; 2020-02-01)
PROC: 0JH60XZ Insertion of Tunneled Vascular Access Device into Chest Subcutaneous Tissue and Fascia, Open Approach (ICD-10-PCS; principal; 2020-02-01 14:45)
DX: N17.9 Acute kidney failure, unspecified (principal); I21.A1 Myocardial infarction type 2; E87.2 Acidosis; I12.0 Hypertensive chronic kidney disease with stage 5 chronic kidney disease or end stage renal disease; E11.22 Type 2 diabetes mellitus with diabetic chronic kidney disease; Z79.4 Long term (current) use of insulin; T38.3X6A Underdosing of insulin and oral hypoglycemic [antidiabetic] drugs, initial encounter; Z91.120 Patient's intentional underdosing of medication regimen due to financial hardship; Z79.899 Other long term (current) drug therapy; Z20.828 Contact with and (suspected) exposure to other viral communicable diseases; R05 Cough; R06.02 Shortness of breath; D63.8 Anemia in other chronic diseases classified elsewhere; Z91.19 Patient's noncompliance with other medical treatment and regimen; N25.0 Renal osteodystrophy; N18.6 End stage renal disease; N25.81 Secondary hyperparathyroidism of renal origin; D63.1 Anemia in chronic kidney disease; D50.9 Iron deficiency anemia, unspecified; E78.5 Hyperlipidemia, unspecified; E87.5 Hyperkalemia; E83.51 Hypocalcemia; I25.10 Atherosclerotic heart disease of native coronary artery without angina pectoris; Z85.47 Personal history of malignant neoplasm of testis
CPT/HCPCS: 36415; 51702; 71045; 71250; 74176; 76000; 76770; 80048; 80069; 80076; 81001; 82550; 82565; 82570; 82607; 82652; 82728; 82746; 82805; 82947; 83036; 83520; 83540; 83735; 83880; 83970; 84156; 84165; 84443; 84466; 84484; 85014; 85018; 85025; 85044; 85610; 86021; 86038; 86704; 86706; 86803; 86850; 86900; 86901; 87340; 87389; 88300; 90935; 93005; 93306; 96361; 96374; 96375; 99285; C1752; J0360; J0610; J0690; J1644; J1815; J1940; J2150; J2250; J2405; J2704; J2916; J2997; J3010; J7030; J7040; J7050; P9016; U0002

== ENCOUNTER 2020-04-09 13:13 | Emergency (ER) | payer OTHER, SELFPAY ==
--- NOTE | 2020-04-09 14:29 | EDPHYS ---
Physician Documentation [facility] Name: Ben Muir Age: 54 yrs Sex: Male : 1965 Arrival Date: 04/09/2020 Time: 13:16 Bed 6 Private MD: Rd Ochoa ED Physician Delroy Mcintyre HPI: 04/09 13:42 This 54 yrs old Male presents to ER via Ambulatory with complaints of Abnormal validation intern Results. 13:42 Reports told yesterday had high potassium, told to come to ER yesterday, "forgot to rn come", went to dialysis today, rechecked potassium and told "ok". Dialysis performed as normal, then told to still come to ER for evaluation of high potassium. Pt feels fine and doesn't know why he was told to come. . Onset: The symptoms/episode began/occurred yesterday. Severity of symptoms: At their worst the symptoms were mild in the emergency department the symptoms have improved. The patient has experienced similar episodes in the past. Historical: - Allergies: 13:29 No Known Allergies; ca1 - PMHx: 13:29 Diabetes - IDDM; Hypertension; Stage 3 Kidney Disease; testicular cancer; Dialysis MWF; ca1 - PSHx: 13:29 None; ca1 - Immunization history:: Adult Immunizations up to date, Flu vaccine is not up to date. - Social history:: Smoking status: Patient reports the use of cigarette tobacco products, denies chronic smoking, but will smoke occasionally. - Family history:: not pertinent. - Hospitalizations: : No recent hospitalization is reported. ROS: 13:42 Constitutional: Negative for fever, chills, and weight loss, Eyes: Negative for injury, rn pain, redness, and discharge, Neck: Negative for injury, pain, and swelling, Cardiovascular: Negative for chest pain, palpitations, and edema, Respiratory: Negative for shortness of breath, cough, wheezing, and pleuritic chest pain, Abdomen/GI: Negative for abdominal pain, nausea, vomiting, diarrhea, and constipation, MS/Extremity: Negative for injury and deformity, Skin: Negative for injury, rash, and discoloration, Neuro: Negative for headache, weakness, numbness, tingling, and seizure. Exam: 13:42 Constitutional: This is a well developed, well nourished patient who is awake, alert, rn and in no acute distress. Head/Face: Normocephalic, atraumatic. Cardiovascular: Regular rate and rhythm. No pulse deficits. Respiratory: Speaking full sentences. No increased work of breathing, no retractions or nasal flaring. MS/ Extremity: Pulses equal, no cyanosis. Neurovascular intact. Full, normal range of motion. Equal circumference. Neuro: Awake and alert, GCS 15, oriented to person, place, time, and situation. Cranial nerves II-XII grossly intact. Motor strength 5/5 in all extremities. Sensory grossly intact. Cerebellar exam normal. Normal gait. Vital Signs: 13:27 BP 140 / 90; Pulse 93; Resp 18 S; Temp 97.8(TE); Pulse Ox 98% on R/A; Weight 68.7 kg ca1 (R); Height 5 ft. 6 in. (167.64 cm) (R); Pain 0/10; 14:35 BP 137 / 89; Pulse 87; Resp 17; Temp 98; Pulse Ox 98% ; bp 13:27 Body Mass Index 24.45 (68.70 kg, 167.64 cm) ca1 MDM: 13:20 Patient medically screened. rn 14:27 Differential Diagnosis Normal potassium. Data reviewed: vital signs, nurses notes, lab support technician test result(s), EKG, and as a result, I will discharge patient. Counseling: I had a detailed discussion with the patient and/or guardian regarding: the historical points, exam findings, and any diagnostic results supporting the discharge/admit diagnosis, lab results, the need for outpatient follow up, to return to the emergency department if symptoms worsen or persist or if there are any questions or concerns that arise at home. Special discussion: I discussed with the patient/guardian in detail that at this point there is no indication for admission to the hospital. It is understood, however, that if the symptoms persist or worsen the patient needs to return immediately for re-evaluation. 04/09 13:42 Order name: Potassium; Complete Time: 14:27 rn 04/09 13:42 Order name: EKG; Complete Time: 13:43 rn 04/09 13:42 Order name: EKG - Nurse/Tech; Complete Time: 14:13 rn Administered Medications: 14:29 CANCELLED (Duplicate Order): Insulin Regular Human 10 units IVP once rn Disposition: 04/09/20 14:28 Discharged to Home. Impression: Person with feared health complaint in whom no diagnosis is made, End stage renal disease. - Condition is Stable. - Discharge Instructions: End-Stage Kidney Disease. - Medication Reconciliation Form, Thank You Letter, Antibiotic Education, Prescription Opioid Use form. - Follow up: Rd Ochoa MD; When: As needed; Reason: Recheck today's complaints, Re-evaluation by your physician. - Problem is new. - Symptoms have improved. Signatures: Dispatcher [employer] EDMS Delroy Mcintyre MD MD rn Peltier, Brian RN RN bp Acob, Halie RN RN ca1 Corrections: (The following items were deleted from the chart) 14:29 14:29 Insulin Regular Human 10 units IVP once ordered. rn rn 14:38 14:28 04/09/2020 14:28 Discharged to Home. Impression: Person with feared health bp complaint in whom no diagnosis is made; End stage renal disease. Condition is Stable. Forms are Medication Reconciliation Form, Thank You Letter, Antibiotic Education, Prescription Opioid Use. Follow up: Rd Ochoa; When: As needed; Reason: Recheck today's complaints, Re-evaluation by your physician. Problem is new. Symptoms have improved. rn
--- NOTE | 2020-04-09 14:29 | ER ---
Nurse's Notes [facility] Name: Ben Muir Age: 54 yrs Sex: Male : 1965 Arrival Date: 04/09/2020 Time: 13:16 Bed 6 Private MD: Rd Ochoa Diagnosis: Person with feared health complaint in whom no diagnosis is made;End stage renal disease Presentation: 04/09 13:16 Chief complaint: Patient states: Pt n MWF dialysis. Blood drawn Tuesday, received result ca1 yesterday and potassium was high. On dialysis today, they draw blood before dialysis and said my Potassium is normal but Dr. Madrid still wants me to come to the ER. Denies chest pain. Ebola Screen: Patient negative for fever greater than or equal to 101.5 degrees Fahrenheit, and additional compatible Ebola Virus Disease symptoms Patient denies exposure to infectious person. Patient denies travel to an Ebola-affected area in the 21 days before illness onset. No symptoms or risks identified at this time. Risk Assessment: Do you want to hurt yourself or someone else? Patient reports no desire to harm self or others. Onset of symptoms was April 09, 2020. 13:16 Method Of Arrival: Ambulatory ca1 13:27 Coronavirus screen: Client denies travel out of the [place] in the last 14 days. At this ca1 time, the client does not indicate any symptoms associated with coronavirus-19. The client reports previous COVID testing was negative. Date of collection: March 2020. Initial Sepsis Screen: Does the patient meet any 2 criteria? No. Patient's initial sepsis screen is negative. Does the patient have a suspected source of infection? No. Patient's initial sepsis screen is negative. 13:27 Acuity: KUSUM 3 ca1 Triage Assessment: 13:30 General: Appears in no apparent distress. comfortable, Behavior is calm, cooperative, bp appropriate for age. Pain: Denies pain. EENT: No deficits noted. Neuro: No deficits noted. Cardiovascular: No deficits noted. Respiratory: No deficits noted. GI: No signs and/or symptoms were reported involving the gastrointestinal system. : No signs and/or symptoms were reported regarding the genitourinary system. Derm: No deficits noted. Musculoskeletal: No deficits noted. Historical: - Allergies: 13:29 No Known Allergies; ca1 - PMHx: 13:29 Diabetes - IDDM; Hypertension; Stage 3 Kidney Disease; testicular cancer; Dialysis MWF; ca1 - PSHx: 13:29 None; ca1 - Immunization history:: Adult Immunizations up to date, Flu vaccine is not up to date. - Social history:: Smoking status: Patient reports the use of cigarette tobacco products, denies chronic smoking, but will smoke occasionally. - Family history:: not pertinent. - Hospitalizations: : No recent hospitalization is reported. Screenin:40 Abuse screen: Denies threats or abuse. Denies injuries from another. Nutritional bp screening: No deficits noted. Tuberculosis screening: No symptoms or risk factors identified. Fall Risk None identified. Assessment: 13:30 General: SEE TRIAGE NOTE. bp 14:37 Reassessment: PT D/C HOME AMBULATORY, DX WITH ESRD. bp Vital Signs: 13:27 BP 140 / 90; Pulse 93; Resp 18 S; Temp 97.8(TE); Pulse Ox 98% on R/A; Weight 68.7 kg ca1 (R); Height 5 ft. 6 in. (167.64 cm) (R); Pain 0/10; 14:35 BP 137 / 89; Pulse 87; Resp 17; Temp 98; Pulse Ox 98% ; bp 13:27 Body Mass Index 24.45 (68.70 kg, 167.64 cm) ca1 ED Course: 13:16 Patient arrived in ED. as 13:16 Rd Ochoa MD is Private Physician. as 13:16 Arm band placed on right wrist. ca1 13:20 Delroy Mcintyre MD is Attending Physician. rn 13:24 Andrade Madrigal RN is Primary Nurse. bp 13:27 Triage completed. ca1 13:40 Patient has correct armband on for positive identification. Bed in low position. Call bp light in reach. Side rails up X2. 13:52 Potassium Sent. bp 14:28 Rd Ochoa MD is Referral Physician. rn 14:37 No provider procedures requiring assistance completed. Patient did not have IV access bp during this emergency room visit. Administered Medications: 14:29 CANCELLED (Duplicate Order): Insulin Regular Human 10 units IVP once rn Outcome: 14:28 Discharge ordered by . rn 14:37 Discharged to home ambulatory. bp 14:37 Condition: stable 14:37 Discharge instructions given to patient, Instructed on discharge instructions, follow up and referral plans. Demonstrated understanding of instructions, follow-up care. 14:38 Patient left the ED. bp Signatures: Heather Keenan Roman, MD MD rn Andrade Madrigal RN RN bp Halie Haas RN RN ca1
[2020-04-09 15:00] VITALS: O2SAT 98
[2020-04-09 15:01] VITALS: BP 137/89; TEMP 98
--- OUTSIDE RECORDS SUMMARY | 2020-04-10 21:08 | XMS REPORT | Continuity of Care Document ---
:1965 Author Organization [facility] t Address [address] [place] [address] [address]. [address] [place] [address] Care Team Providers Name Role Phone Pob1, [...] Department ID 2019-12-13 2019-12-13 Telephone Pojanette, Acute [facility] [id number] 00:00:00 00:00:00 [facility] [id number] [place] [id number] [facility] [phone] [place] [address] [address] 2019-12-09 2019-12-09 Telephone WILMAN Padilla [id number] 00:00:00 00:00:00 Shilpa MIRANDA [id number] [phone] 019 2019-12-08 2019-12-08 Telephone Eloina STOVALL [id number] 00:00:00 00:00:00 Anastasia jamison [id number] [id number] 019 2019-12-07 2019-12-07 Post Commander Lab, [facility] [id number] 15:00:09 15:10:09 Visit [facility] [id number] [place] [id number] Rafita [phone] nal [address] Results This patient has no known results.
== END 2020-04-09 14:38 | disposition home or self-care (01) ==
LOC: ER 13:13
DX: Z71.1 Person with feared health complaint in whom no diagnosis is made (principal); E11.22 Type 2 diabetes mellitus with diabetic chronic kidney disease; I12.0 Hypertensive chronic kidney disease with stage 5 chronic kidney disease or end stage renal disease; N18.6 End stage renal disease; Z99.2 Dependence on renal dialysis; F17.210 Nicotine dependence, cigarettes, uncomplicated
CPT/HCPCS: 36415; 84132; 93005; 99283

== ENCOUNTER 2021-06-29 05:40 | Observation (INO) | payer OTHER ==
--- OUTSIDE RECORDS SUMMARY | 2021-06-29 05:45 | XMS REPORT | Continuity of Care Document ---
:1965 Author Organization [facility] t Address [address] [place] [address] Care Team Providers Name Role Phone TIFFANIE FUNEZ ALEXANDER Attending Clinician Unavailable Pob1, Care Clinic Attending Clinician Unavailable Pattie Padilla Attending Clinician SABRINA Attending Clinician Unavailable Jose Francisco MUNSON G Attending Clinician Unavailable Lab, Fam Pob I Attending Clinician Unavailable Andreina Alatorre Attending Clinician Andreina LOPEZ Attending Clinician Unavailable Payers Payer Name Policy Type Policy Number Effective Date Expiration Date S saurabh MEDICARE A B [id number] UNITED MEDICARE [id number] 2021 O 00:00:00 [place]ICAID OF [place] [id number] Problems Condition Condition Condition Status Onset Resolution Last Treating Co mments Source Name Details Category Date Date Treatment Clinician Date Febrile Febrile Disease Active 2013-07 Univers neutropeni neutropeni 1-05 it y of a a 00:00: [place] [facility] Cancer Cancer Disease Active 2013-07 Univers 0-27 ity of 00:: [place] [facility] Maintenanc Maintenanc Disease Active U [place] 9 ity of chemothera [place]othe[place] [facility] Abdominal Abdominal Disease Active Uni vers pain pain 9-16 ity of 00:: [address] Testicular Testicular Disease Active U nivers cancer cancer 9- ity of 00:00: [place] 00 Medical Branch Edema of Edema of Disease Active Unive rs right right 9 ity of lower lower 00:00: [place] extremity extremity 00 [facility] Allergies, Adverse Reactions, Alerts Allergy Allergy Status Severity Reaction(s) Onset Inactive Treating Comm ents Source Name Type Date Date Clinician NO KNOWN Allergy Active [facility] NO KNOWN Drug Active [facility] ALLERG Class ity of S [facility] Social History Social Habit Start Date Stop Date Quantity Comments Source Exposure to Yes [facility] SARS-CoV-2 (event) [facility] Cigarettes smoked 2015-12-24 2015-12-24 [facility] ity of current (pack per 00:00:00 00:00:00 ) - Reported Branch Cigarette 2015-12-24 2015-12-24 University of pack-years 00:00:00 00:00:00 [facility] Alcohol intake 2015-12-24 2015-12-24 University of 00:00:00 00:00:00 [facility] Alcohol Comment 2014-03-05 2014-03-05 History of Universit y of 00:00:00 00:00:00 alcholism [facility] History of tobacco 2013-07-31 Cigarette Smoker University of use 00:00:00 [facility] Smoking Status Start Date Stop Date Source Former smoker 2015-12-24 00:00:00 2015-12-24 [facility] Medications Ordered Filled Start Stop Current Ordering Indication Dosage Frequency Signature Comments Components Source Medication Medication Date Date Medication? Clinician (SIG) Name Name hydralAZINE 2014-07 Yes 10mg Take 10 mg Univers (APRESOLINE 1-13 by mouth ity of ) 10 mg 22:30: every 8 [place] tablet 21 (eight) Medical hours. Branch Indication s: As needed if BP is over 180/110 hydralAZINE 2014-07 Yes 10mg Take 10 mg Univers (APRESOLINE 1-13 by mouth ity of ) 10 mg 22:30: every 8 [place] tablet 21 (eight) Medical hours. Branch Indication s: As needed if BP is over 180/110 hydralAZINE 2014-07 Yes 10mg Take 10 mg Univers (APRESOLINE 1-13 by mouth ity of ) 10 mg 22:30: every 8 [place] tablet 21 (eight) Medical hours. Branch Indication s: As needed if BP is over 180/110 hydralAZINE 2014-07 Yes 10mg Take 10 mg Univers (APRESOLINE 1-13 by mouth ity of ) 10 mg 22:30: every 8 [place] tablet 21 (eight) Medical hours. Branch Indication s: As needed if BP is over 180/110 citalopram Yes Univers (CELEXA) 20 8-12 ity of mg tablet 00:00: [place] [facility] doxazosin Yes Univers (CARDURA) 4 8-12 ity of mg tablet 00:00: [place] [facility] minocycline Yes Univer s (MINOCIN) 8-12 ity of 100 mg 00:00: [place] capsule Medical Branch citalopram Yes Univers (CELEXA) 20 8-12 ity of mg tablet 00:00: [place] [facility] doxazosin Yes Univers (CARDURA) 4 8-12 ity of mg tablet 00:00: [place] [facility] minocycline Yes Univer s (MINOCIN) 8-12 ity of 100 mg 00:00: [place] capsule Medical Branch citalopram Yes Univers (CELEXA) 20 8-12 ity of mg tablet 00:00: [place] [facility] doxazosin Yes Univers (CARDURA) 4 8-12 ity of mg tablet 00:00: [place] [facility] minocycline Yes Univer s (MINOCIN) 8-12 ity of 100 mg 00:00: [place] capsule Medical Branch citalopram Yes Univers (CELEXA) 20 8-12 ity of mg tablet 00:00: [place] [facility] doxazosin Yes Univers (CARDURA) 4 8-12 ity of mg tablet 00:00: [place] [facility] minocycline Yes Univer s (MINOCIN) 8-12 ity of 100 mg 00:00: [place] capsule Medical Branch tamsulosin Yes .4mg Take 1 Cap U nivers (FLOMAX) 8-11 by mouth ity of 0.4 mg 24 00:00: daily. [place] hr capsule 00 Medical Branch potassium Yes 1080mg Take 1 Tab Univers citrate 8-11 by mouth 2 ity of (UROCIT-K 00:00: (two) [place] 10) 10 mEq 00 times Medical (1,080 mg) daily with Bra nch SR tablet meals. tamsulosin 2014-0 Yes .4mg Take 1 Cap U nivers (FLOMAX) 8-11 by mouth ity of 0.4 mg 24 00:00: daily. [place] hr capsule [facility] Branch potassium Yes 1080mg Take 1 Tab Univers citrate 8-11 by mouth 2 ity of (UROCIT-K 00:00: (two) [place] 10) 10 mEq 00 times Medical (1,080 mg) daily with Bra nch SR tablet meals. tamsulosin 0 Yes .4mg Take 1 Cap U nivers (FLOMAX) 8-11 by mouth ity of 0.4 mg 24 00:00: daily. [place] hr capsule [facility] Branch potassium Yes 1080mg Take 1 Tab Univers citrate 8-11 by mouth 2 ity of (UROCIT-K 00:00: (two) [place] 10) 10 mEq 00 times Medical (1,080 mg) daily with Bra nch SR tablet meals. tamsulosin 0 Yes .4mg Take 1 Cap U nivers (FLOMAX) 8-11 by mouth ity of 0.4 mg 24 00:00: daily. [place] hr capsule [facility] Branch potassium Yes 1080mg Take 1 Tab Univers citrate 8-11 by mouth 2 ity of (UROCIT-K 00:00: (two) [place] 10) 10 mEq 00 times Medical (1,080 mg) daily with Bra nch SR tablet meals. LANTUS Yes Univers SOLOSTAR 6-10 ity of 100 unit/mL 00:00: [place] (3 mL) In Medical Branch NOVOFINE 32 Yes Univer s 32 x 1/4 " 6-10 ity of Ndle 00:00: [place] 00 Medical Branch LANTUS Yes Univers SOLOSTAR 6-10 ity of 100 unit/mL 00:00: [place] (3 mL) In Medical Branch NOVOFINE 32 Yes Univer s 32 x 1/4 " 6-10 ity of Ndle 00:00: [place] 00 Medical Branch LANTUS Yes Univers SOLOSTAR 6-10 ity of 100 unit/mL 00:00: [place] (3 mL) In 00 Medical Branch NOVOFINE 32 Yes Univer s 32 x 1/4 " 6-10 ity of Ndle 00:00: [place] 00 Medical Branch LANTUS Yes Univers SOLOSTAR 6-10 ity of 100 unit/mL 00:00: [place] (3 mL) InPn 00 Medical Branch NOVOFINE 32 Yes Univer s 32 x 1/4 " 6-10 ity of Ndle 00:00: [place] 00 Medical Branch hydrochloro 2013-07 Yes Univer s thiazide 2-01 ity of (ESIDRIX) 00:00: [place] 25 mg 00 Medical tablet Branch hydrochloro 2013-07 Yes Univer s thiazide 2-01 ity of (ESIDRIX) 00:00: [place] 25 mg 00 Medical tablet Branch hydrochloro 2013-07 Yes Univer s thiazide 2-01 ity of (ESIDRIX) 00:00: [place] 25 mg 00 Medical tablet Branch hydrochloro 2013-07 Yes Univer s thiazide 2-01 ity of (ESIDRIX) 00:00: [place] 25 mg 00 Medical tablet Branch acetaminoph 2013-07 Yes 650mg Take 2 Uni vers en 1-16 Tabs by ity of (TYLENOL) 00:00: mouth [place] 325 mg 00 every 6 Medical tablet (six) Branch hours as needed for Pain (scale 1-3) or Temp > 38.5 C. acetaminoph 2013-07 Yes 650mg Take 2 Uni vers en 1-16 Tabs by ity of (TYLENOL) 00:00: mouth [place] 325 mg 00 every 6 Medical tablet (six) Branch hours as needed for Pain (scale 1-3) or Temp > 38.5 C. acetaminoph 2013-07 Yes 650mg Take 2 Uni vers en 1-16 Tabs by ity of (TYLENOL) 00:00: mouth [place] 325 mg 00 every 6 Medical tablet (six) Branch hours as needed for Pain (scale 1-3) or Temp > 38.5 C. acetaminoph 2013-07 Yes 650mg Take 2 Uni vers en 1-16 Tabs by ity of (TYLENOL) 00:00: mouth [place] 325 mg 00 every 6 Medical tablet (six) Branch hours as needed for Pain (scale 1-3) or Temp > 38.5 C. ondansetron 2013-07 Yes 4mg Take 1 Tab Univers (ZOFRAN-ODT 1-05 by mouth ity of ) 4 mg 00:00: every 8 [place] disintegrat 00 (eight) Medic al ing tablet hours as Branc h needed for Nausea and Vomiting (N/V). ondansetron 2013-07 Yes 4mg Take 1 Tab Univers (ZOFRAN-ODT 1-05 by mouth ity of ) 4 mg 00:00: every 8 [place] disintegrat 00 (eight) Medic al ing tablet hours as Branc h needed for Nausea and Vomiting (N/V). ondansetron 2013-07 Yes 4mg Take 1 Tab Univers (ZOFRAN-ODT 1-05 by mouth ity of ) 4 mg 00:00: every 8 [place] disintegrat 00 (eight) Medic al ing tablet hours as Branc h needed for Nausea and Vomiting (N/V). ondansetron 2013-07 Yes 4mg Take 1 Tab Univers (ZOFRAN-ODT 1-05 by mouth ity of ) 4 mg 00:00: every 8 [place] disintegrat 00 (eight) Medic al ing tablet hours as Branc h needed for Nausea and Vomiting (N/V). carvedilol 2013-07 Yes 12.5mg Take 1 Tab Univers (COREG) 0-04 by mouth 2 ity of 12.5 mg 00:00: (two) [place] tablet 00 times Medical daily with Branch meals. insulin 2013-07 Yes 20U inject 20 Unive rs glargine 0-04 Units ity of (LANTUS 00:00: under the [place] U-100) 100 00 skin Medical unit/mL daily. Branch injection insulin 2013-07 Yes 10U inject 10 Unive rs regular 0-04 Units ity of human 00:00: under the [place] (HUMULIN R) 00 skin Medical injection before Branch meals. Insulin 2013-07 Yes Univers Syringe-Nee 0-04 ity of dle U-100 00:00: [place] (SURE 00 Medical COMFORT Branch INSULIN SYRINGE) 1/2 mL 30 x 5/16" Syrg carvedilol 2013-07 Yes 12.5mg Take 1 Tab Univers (COREG) 0-04 by mouth 2 ity of 12.5 mg 00:00: (two) [place] tablet 00 times Medical daily with Branch meals. insulin 2013-07 Yes 20U inject 20 Unive rs glargine 0-04 Units ity of (LANTUS 00:00: under the [place] U-100) 100 00 skin Medical unit/mL daily. Branch injection insulin 2013-07 Yes 10U inject 10 Unive rs regular 0-04 Units ity of human 00:00: under the [place] (HUMULIN R) 00 skin Medical injection before Branch meals. Insulin 2013-07 Yes Univers Syringe-Nee 0-04 ity of dle U-100 00:00: [place] (SURE 00 Medical COMFORT Branch INSULIN SYRINGE) 1/2 mL 30 x 5/16" Syrg carvedilol 2013-07 Yes 12.5mg Take 1 Tab Univers (COREG) 0-04 by mouth 2 ity of 12.5 mg 00:00: (two) [place] tablet 00 times Medical daily with Branch meals. insulin 2013-07 Yes 20U inject 20 Unive rs glargine 0-04 Units ity of (LANTUS 00:00: under the [place] U-100) 100 00 skin Medical unit/mL daily. Branch injection insulin 2013-07 Yes 10U inject 10 Unive rs regular 0-04 Units ity of human 00:00: under the [place] (HUMULIN R) 00 skin Medical injection before Branch meals. Insulin 2013-07 Yes Univers Syringe-Nee 0-04 ity of dle U-100 00:00: [place] (SURE 00 Medical COMFORT Branch INSULIN SYRINGE) 1/2 mL 30 x 5/16" Syrg carvedilol 2013-07 Yes 12.5mg Take 1 Tab Univers (COREG) 0-04 by mouth 2 ity of 12.5 mg 00:00: (two) [place] tablet 00 times Medical daily with Branch meals. insulin 2013-07 Yes 20U inject 20 Unive rs glargine 0-04 Units ity of (LANTUS 00:00: under the [place] U-100) 100 00 skin Medical unit/mL daily. Branch injection insulin 2013-07 Yes 10U inject 10 Unive rs regular 0-04 Units ity of human 00:00: under the [place] (HUMULIN R) 00 skin Medical injection before Branch meals. Insulin 2013-07 Yes Univers Syringe-Nee 0-04 ity of dle U-100 00:00: [place] (SURE 00 Medical COMFORT Branch INSULIN SYRINGE) 1/2 mL 30 x 5/16" Syrg phenazopyri Yes 200mg Take 200 U nivers dine 7-15 mg by ity of (PYRIDIUM) 00:00: mouth 3 [place] 200 mg 00 (three) Medical tablet times Branch daily as needed. phenazopyri Yes 200mg Take 200 U nivers dine 7-15 mg by ity of (PYRIDIUM) 00:00: mouth 3 [place] 200 mg 00 (three) Medical tablet times Branch daily as needed. phenazopyri Yes 200mg Take 200 U nivers dine 7-15 mg by ity of (PYRIDIUM) 00:00: mouth 3 [place] 200 mg 00 (three) Medical tablet times Branch daily as needed. phenazopyri Yes 200mg Take 200 U nivers dine 7-15 mg by ity of (PYRIDIUM) 00:00: mouth 3 [place] 200 mg 00 (three) Medical tablet times Branch daily as needed. pravastatin Yes 20mg Take 20 mg Univers (PRAVACHOL) 7-03 by mouth ity of 20 mg 00:00: daily. [place] [facility] prav[facility] Yes 20mg Take 20 mg Univers (PRAVACHOL) 7-03 by mouth ity of 20 mg 00:00: daily. [place] tablet [facility] pravastatin Yes 20mg Take 20 mg Univers (PRAVACHOL) 7-03 by mouth ity of 20 mg 00:00: daily. [place] tablet 00 [facility] pravastatin Yes 20mg Take 20 mg Univers (PRAVACHOL) 7-03 by mouth ity of 20 mg 00:00: daily. [place] tablet [facility] Immunizations Ordered Filled Immunization Date Status Comments [facility] e Immunization Name Name Influenza Virus 2014-05-04 Completed Universit y of Vaccine Quad IM 3+ 00:00:[address] [facility] Influenza Virus 2014-05-04 Completed Universit y of Vaccine Quad IM 3+ 00:00:[address] [facility] Influenza Virus 2014-05-04 Completed Universit y of Vaccine Quad IM 3+ 00:00:[address] [facility] Influenza Virus 2014-05-04 Completed Universit y of Vaccine Quad IM 3+ 00:00:[address] [facility] Procedures This patient has no known procedures. Encounters Start End Encounter Admission Attending Care Care Encounter Source Date/Time Date/Time Type Type Clinicians Facility Department ID 2021-05-12 2021-05-12 Outpatient EL DEE DEE, [facility] [id number] [id number] 00:00:00 00:00:00 BHAMIDIPATI 2021-05-12 2021-05-12 Outpatient EL DEE DEE, [facility] [id number] [facility] 00:00:00 00:00:00 BHAMIDIPATI 2021-05-12 2021-05-12 Outpatient EL [facility] [id number] [facility] 00:00:00 00:00:00 2021-05-12 2021-05-12 Outpatient EL DEE DEE, [facility] [id number] [facility] 00:00:00 00:00:00 BHAMIDIPATI 2021-05-12 2021-05-12 Outpatient EL DEE DEE, [facility] [id number] [facility] 00:00:00 00:00:00 BHAMIDIPATI 2021-04-23 2021-04-23 Outpatient EL [facility] [id number] [facility] 00:00:00 00:00:00 2021-04-23 2021-04-23 Outpatient EL [facility] [id number] [facility] 00:00:00 00:00:00 2021-04-23 2021-04-23 Outpatient EL [facility] [id number] [facility] 00:00:00 00:00:00 2021-04-23 2021-04-23 Outpatient EL [facility] [id number] [facility] 00:00:00 00:00:00 2021-04-23 2021-04-23 Outpatient EL [facility] [id number] [facility] 00:00:00 00:00:00 2019-12-13 2019-12-13 Telephone Pob1, Acute [facility] [id number] Univers 00:00:00 00:00:00 [facility] [id number] carmencita calles [place] [id number] Sanjay as Rafita [phone] [address] 2019-12-13 2019-12-13 Telephone Pob1, Acute [facility] [id number] 00:00:00 00:00:00 [facility] [id number] [place] [id number] Professio [phone] nal 0[address] 2019-12-09 2019-12-09 Telephone WILMAN Padilla [id number] Univers 00:00:00 00:00:00 Shilpa Blankenship RUTH [id number] ity of [facility] [id number] Sanjay as [phone] [address] 2019-12-09 2019-12-09 Telephone WILMAN Padilla [id number] 00:00:00 00:00:00 Shilpa C RUTH [id number] [facility] [id number] [id number] [id number] 2019-12-08 2019-12-08 Outpatient R [facility] [id number] Univers 12:40:00 12:40:00 [id number] ity [facility] 2019-12-08 2019-12-08 Outpatient R SABRINA [facility] [id number] Univers 12:40:00 12:40:00 SVETA [facility] 2019-12-08 2019-12-08 Telephone [place] WILMAN [id number] [facility] 00:00:00 00:00:00 Anastasia jamisonY [id number] ity [facility] [id number] Sanjay as [phone] [address] 2019-12-08 2019-12-08 Telephone [place] WILMAN [id number] 00:00:00 00:00:00 Anastasia jamison RUTH [id number] HOSPITAL [id number] [id number] 019 2019-12-07 2019-12-07 Chief Service Dispatcher Lab, [facility]ob [facility] 1.2. [id number] Univers 15:00:09 15:10:09 Visit [facility] [id number] ity of [place] [id number] Sanjay as Professio [phone] La dical nal [address] 2019-12-07 2019-12-07 Chief Service Dispatcher Lab, [facility] [id number] 15:00:09 15:10:09 Visit Minor Courtney [id number] [place] [id number] Rafita [phone] nal 0[address] 2019-12-07 2019-12-07 Outpatient R TRISTIN, [facility] [id number] Univers 15:10:00 15:10:00 CLAUDETTE tse [facility] Results Test Description Test Time Test Comments Results Result Comments Source SARS-COV2/RT-PCR ([facility]) 2020-01-29 04:24:00 Test Item Value Reference Range Interpretation Comme nts SARS-COV2/RT-PCR (test code = [id number]) Negative Not Detected, N egative, See external report for linked test SARS-COV-2 PERFORMING LAB (test code = BSC [id number]) Negative results do not preclude SARS-CoV-2 infection and should not be used as the sole basis for patient management decisions. Negative results must be combined with clinical observations, patient history, and epidemiological information. A false negative result may occur if a specimen is improperly collected, transported or handled.The limit of detection for this assay is 250 copies/mL.This SARS CoV-2 test is a rapid, real-time RT-PCR test intended for the qualitative detection of nucleic acid from SARS-CoV-2 in a nasopharyngeal swab specimen collected from individuals suspected of COVID-19 by their healthcare provider.This test has not been Food and Drug Administration (FDA) cleared or approved and has been authorized by FDA under an Emergency Use Authorization (EUA). This EUA will be effective until the declaration that circumstances exist justifying the authorization of the emergency use of in vitro diagnostic tests for detection and/or diagnosis of COVID-19 is terminated under Section 564(b)(2) of the Act or the EUA is revoked under Section 564(g) of the Act.Fact Sheet for Healthcare Pro viders:https://www.Intraxio.com/Documents/Xpert%20Xpress%20SARS%20CoV-2/Fact%20Sh eets/3023802%84HXUI-VYR-9%20HEALTHCARE%20PROVIDERS%20FACT%20SHEET.pdfFact Sheet for Healthcare Patients:https://www.eCourier.co.uk.Reflex/Documents/Xpert%20Xpress%20SARS%20CoV-2/Fact%20Sheets/302-3099%20SARS-COV -2%20PATIENT%20FACT%20SHEET.pdfPerforming Laboratory:[facility] [place] [address]
[2021-06-29 06:31] LABS: Absolute Lymphocytes (CBC) 1.6 K/uL (0.7-4.9); Hematocrit 30.9 % (39.6-49.0); Lymphocytes % 12.7 % (15.3-44.8); MPV 7.2 fL (7.6-11.3); RBC Red Blood Cell Count 3.22 M/uL (4.33-5.43)
[2021-06-29 06:47] LABS: Albumin 3.5 g/dL (3.4-5.0); Bilirubin Direct 0.2 mg/dL (0-0.2); Bilirubin Total 0.6 mg/dL (0.2-1.0); Potassium 5.2 mmol/L (3.5-5.1)
[2021-06-29 07:23] LABS: SARS-COV-2 RT PCR NEGATIVE (NEGATIVE)
[2021-06-29] MEDS ORDERED: ONDANSETRON 4 MG/2 ML VIAL ONE (08:14)
[2021-06-29] MEDS ORDERED: MORPHINE 4 MG/ML SYR ONE (08:14)
--- NOTE | 2021-06-29 08:52 | RAD REPORT ---
EXAM DESCRIPTION: RAD - Chest Single View - 06/29/2021 8:43 am CLINICAL HISTORY: COUGH, fever, chills, right flank pain COMPARISON: January 2020 TECHNIQUE: AP portable chest image was obtained 06/29/2021 8:43 am . FINDINGS: Portable exam shows airspace opacities in the mid and lower right lung field. Interstitial pattern overall is mildly prominent. Heart size is normal. Pulmonary vasculature within normal range . Hilar regions are stable in size from the comparison examination. No pneumothorax is present. Small pleural effusions are suspected. Trachea is midline. No acute bony abnormality seen. No acute aortic findings suspected. IMPRESSION: Suspected right lung field pneumonia with small pleural effusion.
--- NOTE | 2021-06-29 09:09 | RAD REPORT ---
EXAM DESCRIPTION: CT - Abdomen Pelvis Wo Contrast - 06/29/2021 8:40 am CLINICAL HISTORY: FLANK PAIN COMPARISON: Renal Biopsy dated 07/29/2017; CT ABDOMEN PELVIS WO CONTRAST dated 07/06/2014; Chest Abd Pe lvis Wo Con dated 01/28/2020 TECHNIQUE: Axial [address] imaging of the abdomen and pelvis was performed without IV contrast. No IV contrast was given because of allergy, abnormal renal function, patient refusal or physician re quest. No oral contrast administered. All CT scans are performed using dose optimization technique as appropriate and may include automated exposure control or mA/KV adjustment according to patient size. FINDINGS: Small bilateral pleural effusions are present with minimal atelectasis in each lung base. The initial image shows some patchy alveolar opacities in the lower right lung field. Right lung fiel d pneumonia cannot be excluded and may need further imaging of the chest. No cardiomegaly or pericard ial effusion. The liver, spleen and pancreas show no suspicious findings on non-contrast imaging. A 7 millimeter si ze gallstone is present in a normal size gallbladder. This has not changed since the January 2020 CT juno dy. No biliary tree dilatation. No pericholecystic fluid. Gallbladder wall may be slightly thickened. No hydronephrosis or suspicious renal mass. Fullness of each collecting system is similar to the January 2020 imaging. No obstructing or nonobstructing calculi. A 6.3 centimeter cyst upper pole left kidney matches the comparison as well. No significant adrenal finding. Isodense renal masses and pyelonephr itis cannot be excluded in the absence of IV contrast. The urinary bladder is without significant fin ding. No dilated bowel loops or bowel wall thickening. Sigmoid diverticulosis without diverticulitis. No ap pendicitis findings. No free air, free fluid or inflammatory stranding. No hernia, mass or bulky lymp hadenopathy. No suspicious bony findings. IMPRESSION: No hydronephrosis, obstructing calculus or other acute GI finding to indicate etiolog y for the right flank pain history. Bilateral pleural effusions are present slightly smaller than January 2020. There is some patchy alveola r opacity in the lower right lung field. Correlation can be made with any right pneumonia clinical or laboratory findings. Patient has a single gallstone that has been previously detailed. Gallbladder wall does appear slight ly thickened. This is a subtle finding. If there are no other findings to explain right-sided pain, g allbladder ultrasound study could be performed if the patient has pain that could possibly be related to acute gallbladder process.
[2021-06-29 09:16] LABS: Urine Blood Trace-intact (Negative); Urine Glucose 1+ (Negative); Urine Protein 3+ (Negative); Urine pH 7.5 (5.0-7.0)
[2021-06-29] MEDS ORDERED: CEFTRIAXONE 1000 MG/VIAL ONE (09:24)
[2021-06-29] MEDS ORDERED: NA CHLORIDE 0.9% 250 ML ONE (09:24)
--- NOTE | 2021-06-29 09:57 | RAD REPORT ---
EXAM DESCRIPTION: US - Abdomen Exam Limited - 06/29/2021 9:41 am CLINICAL HISTORY: Flank pain;Abd pain COMPARISON: Abdomen Pelvis Wo Contrast dated 06/29/2021 FINDINGS: Small single mobile gallstones identified matching the prior CT study. There may be a slig ht amount of sludge in the fundus as well. No pericholecystic fluid identified. Gallbladder wall does not appear thickened at ultrasound which is more sensitive than CT for gallbladder wall assessment. No common duct stone or biliary tree dilatation identified. IMPRESSION: Gallbladder wall thickening is not identified. Sonography is more sensitive than CT imag ing in evaluating the wall thickness. Single gallstone again identified. There is a trace amount of sludge in the fundus as well. No biliary tree abnormality.
[2021-06-29 10:14] LABS: Urine Bacteria NONE SEEN /HPF (NONE SEEN); Urine RBC <5 /HPF (NONE SEEN); Urine Sperm PRESENT (NONE SEEN); Urine Urothelial Cells <5 /HPF (NONE SEEN)
--- NOTE | 2021-06-29 11:10 | EDPHYS ---
Physician Documentation [facility] Name: Ben Muir Age: 55 yrs Sex: Male : 1965 Arrival Date: 06/29/2021 Time: 05:44 Bed 6 Private MD: ED Physician Braulio Mendez HPI: 06/29 07:55 This 55 yrs old Male presents to ER via Ambulatory with complaints of pm1 Breathing Difficulty, CHILLS, Cough, Congestion. 07:55 The patient has shortness of breath at rest, with light activity. Onset: The pm1 symptoms/episode began/occurred 2 day(s) ago. Duration: The symptoms are continuous. The patient's shortness of breath is aggravated by light activity, walking, is alleviated by nothing. Associated signs and symptoms: Pertinent positives: non-productive cough, fever, Pertinent negatives: chest pain, vomiting, diarrhea, dysuria. Severity of symptoms: in the emergency department the symptoms are unchanged. Patient presented to ER due to having a fever when he attempted to have dialysis treatment at [facility]. Patient does report increased shortness of breath higher than his normal baseline between dialysis treatments on the weekend. 07:55 Patient reports onset of right flank pain 2 days ago. pm1 Historical: - Allergies: 06:11 No Known Allergies; iw - PMHx: 06:11 Diabetes - IDDM; DIALYSIS MWF; Hypertension; Stage 3 Kidney Disease; testicular cancer; iw - Immunization history:: Client reports receiving the 2nd dose of the Covid vaccine. - Social history:: Smoking status: Patient reports the use of cigarette tobacco products, denies chronic smoking, but will smoke occasionally. ROS: 07:55 ENT: Negative for injury, pain, and discharge, Cardiovascular: Negative for chest pain, pm1 palpitations, and edema. 07:55 Abdomen/GI: Negative for abdominal pain, nausea, vomiting, diarrhea, and constipation, : Negative for injury, bleeding, discharge, and swelling, MS/Extremity: Negative for injury and deformity, Skin: Negative for injury, rash, and discoloration, Neuro: Negative for headache, weakness, numbness, tingling, and seizure. 07:55 Constitutional: Positive for fever, Body aches yesterday, Negative for poor PO intake. 07:55 Respiratory: Positive for cough, shortness of breath, Negative for wheezing. 07:55 All other systems are negative. 16:59 Back: Positive for flank pain, on the right. pm1 Exam: 07:55 Constitutional: This is a well developed, well nourished patient who is awake, alert, pm1 and in no acute distress. Head/Face: Normocephalic, atraumatic. 07:55 Skin: Warm, dry with normal turgor. Normal color with no rashes, no lesions, and no evidence of cellulitis. MS/ Extremity: Pulses equal, no cyanosis. Neurovascular intact. Full, normal range of motion. 07:55 Cardiovascular: Exam negative for acute changes, Rate: normal, Rhythm: regular, Pulses: no pulse deficits are appreciated, Heart sounds: normal. 07:55 Respiratory: Exam negative for acute changes, respiratory distress, shortness of breath, Breath sounds: are clear throughout. 07:55 Abdomen/GI: Exam negative for acute changes, Inspection: abdomen appears normal, Palpation: abdomen is soft and non-tender, in all quadrants. 07:55 Back: pain, that is mild, of the right flank, vertebral tenderness, is not appreciated. 07:55 Neuro: Exam negative for acute changes, Orientation: is normal, Motor: is normal, moves all fours. Vital Signs: 06:11 BP 176 / 89; Pulse 105; Resp 18; Temp 99(TE); Pulse Ox 98% on R/A; Weight 79.83 kg; iw Height 5 ft. 7 in. (170.18 cm); 08:00 BP 177 / 89; Pulse 102; Resp 14 S; Pulse Ox 97% on R/A; jg9 10:00 BP 175 / 78; Pulse 95; Resp 14 S; Pulse Ox 99% on R/A; jg9 11:00 BP 179 / 87; Pulse 100; Resp 17 S; Pulse Ox 95% on R/A; jg9 12:00 BP 152 / 74; Pulse 98; Resp 17 S; Pulse Ox 93% on R/A; jg9 13:00 BP 152 / 88; Pulse 101; Resp 18 S; Pulse Ox 95% on R/A; jg9 14:00 BP 163 / 73; Pulse 112; Resp 20 S; Pulse Ox 95% ; jg9 06:11 Body Mass Index 27.57 (79.83 kg, 170.18 cm) iw MDM: 07:54 Patient medically screened. pm1 10:23 Data reviewed: vital signs. Data interpreted: Pulse oximetry: on room air is 95 %. pm1 Interpretation: normal. 10:55 Physician consultation: Rd Ochoa MD was called at 10:26, regarding pm1 consult, patient's condition, She would like the patient admitted to the hospitalist and to please contact Dr. Bang, he is covering for the nephrology group. 11:02 Physician consultation: Rhonda Bang MD regarding consult, patient's condition, will pm1 get dialysis treatment on the patient today. 11:08 Physician consultation: Penny Escobedo MD was called at 11:09, was contacted at 11:09, pm1 regarding admission, patient's condition. 06/29 06:11 Order name: Basic Metabolic Panel; Complete Time: 07:55 iw 06/29 06:11 Order name: CBC with Diff; Complete Time: 07:55 iw 06/29 06:11 Order name: Hepatic Function; Complete Time: 07:55 iw 06/29 06:11 Order name: Lipase; Complete Time: 07:55 iw 06/29 06:11 Order name: COVID-19/FLU A+B (Document "Date of Onset" if Symptomatic); Complete Time: iw 07:55 06/29 08:04 Order name: Urine Microscopic Only pm1 06/29 08:04 Order name: CT Abd/Pelvis - Without Contrast; Complete Time: 09:15 pm1 06/29 08:04 Order name: Urine Microscopic Only; Complete Time: 10:20 EDIA 06/29 09:05 Order name: Blood Culture Adult (2) pm1 06/29 09:16 Order name: Urine Dipstick-Ancillary; Complete Time: 09:20 EDMS 06/29 11:15 Order name: CBC with Automated Diff EDMS 06/29 11:15 Order name: CBC with Automated Diff EDMS 06/29 11:15 Order name: Comprehensive Metabolic Panel EDMS 06/29 11:15 Order name: Comprehensive Metabolic Panel EDIA 06/29 06:11 Order name: IV Saline Lock; Complete Time: 06:28 iw 06/29 06:11 Order name: Labs collected and sent; Complete Time: 06:28 iw 06/29 08:04 Order name: Urine Dipstick-Ancillary (obtain specimen); Complete Time: 09:31 pm1 06/29 08:04 Order name: Chest Single View XRAY; Complete Time: 09:05 pm1 06/29 09:21 Order name: US Abdomen Limited; Complete Time: 09:57 pm1 06/29 11:15 Order name: CONS Physician Consult EDMS 06/29 11:15 Order name: Renal EDMS Administered Medications: 08:10 Drug: Zofran (Ondansetron) 4 mg Route: IVP; Site: right antecubital; jg9 08:30 Follow up: Response: No adverse reaction jg9 08:17 Drug: morphine 4 mg Route: IVP; Site: right antecubital; jg9 08:35 Follow up: Response: No adverse reaction; Pain is decreased; RASS: Alert and Calm (0) jg9 09:55 Drug: Rocephin (cefTRIAXone) 1 grams Route: IV; Rate: calculated rate; Site: right jg9 antecubital; 10:14 Follow up: Response: No adverse reaction jg9 Disposition: 19:41 Co-signature as Attending Physician, Braulio Mendez MD. pkann Disposition Summary: 06/29/21 11:09 Hospitalization Ordered Hospitalization Status: Inpatient Admission pm1 Provider: Penny Escobedo pm1 Location: Telemetry/MedSurg (Inpatient) pm1 Condition: Stable pm1 Problem: new pm1 Symptoms: have improved pm1 Bed/Room Type: Standard 1 Room Assignment: 211(06/29/21 17:10) kb Diagnosis - Pneumonia, unspecified organism pm1 - End stage renal disease pm1 Forms: - Medication Reconciliation Form pm1 - SBAR form pm1 Signatures: Dispatcher [employer] EDIA Maame Jackson FNP-C FNP-Ckb Lam, Pin, MD MD pkStacey Delaney RN RN iw Marinas, Patrick, NP DIRECTOR PATIENT pm1 Farhana Roman jg9 Corrections: (The following items were deleted from the chart) 17:00 07:55 Abdomen/GI: Negative for abdominal pain, nausea, vomiting, diarrhea, and pm1 constipation, Back: Negative for injury and pain, : Negative for injury, bleeding, discharge, and swelling, MS/Extremity: Negative for injury and deformity, Skin: Negative for injury, rash, and discoloration, Neuro: Negative for headache, weakness, numbness, tingling, and seizure, pm1 17:10 11:09 pm1 kb
--- NOTE | 2021-06-29 11:10 | ER ---
Nurse's Notes [facility] Name: Ben Muir Age: 55 yrs Sex: Male : 1965 Arrival Date: 06/29/2021 Time: 05:44 Bed 6 Private MD: Diagnosis: Pneumonia, unspecified organism;End stage renal disease Presentation: 06/29 06:09 Chief complaint: Patient states: went to dialysis and had a fever so they sent him here iw , has been having right flank pain radiating to abd started Tuesday. Coronavirus screen: Client presents with at least one sign or symptom that may indicate coronavirus-19. Ebola Screen: Patient negative for fever greater than or equal to 101.5 degrees Fahrenheit, and additional compatible Ebola Virus Disease symptoms Patient denies exposure to infectious person. Patient denies travel to an Ebola-affected area in the 21 days before illness onset. No symptoms or risks identified at this time. Onset of symptoms was June 29, 2021. 06:09 Method Of Arrival: Ambulatory iw 06:09 Acuity: KUSUM 3 iw 08:00 Risk Assessment: Do you want to hurt yourself or someone else? Patient reports no jg9 desire to harm self or others. 08:00 Initial Sepsis Screen: Does the patient meet any 2 criteria? No. Patient's initial jg9 sepsis screen is negative. Does the patient have a suspected source of infection? No. Patient's initial sepsis screen is negative. Triage Assessment: 08:00 Respiratory: Onset: The symptoms/episode began/occurred gradually. jg9 08:00 Respiratory: the patient has mild shortness of breath. jg9 Historical: - Allergies: 06:11 No Known Allergies; iw - PMHx: 06:11 Diabetes - IDDM; DIALYSIS MWF; Hypertension; Stage 3 Kidney Disease; testicular cancer; iw - Immunization history:: Client reports receiving the 2nd dose of the Covid vaccine. - Social history:: Smoking status: Patient reports the use of cigarette tobacco products, denies chronic smoking, but will smoke occasionally. Screenin:16 Abuse screen: Denies threats or abuse. Denies injuries from another. Nutritional jg9 screening: No deficits noted. Tuberculosis screening: No symptoms or risk factors identified. Fall Risk None identified. Assessment: 08:00 General: Appears in no apparent distress. General: Behavior is calm, cooperative. Pain: jg9 Complains of pain in abdomen and back-kidney pain and abdominal pain Pain does not radiate. Pain currently is 7 out of 10 on a pain scale. Neuro: No deficits noted. Cardiovascular: No deficits noted. Pulses are all present. are 3+ in right radial artery and left radial artery. Respiratory: Reports shortness of breath since patient reports on Tuesday he started having r sided kidney pain that kind of progressed into abdominal pain, he also reports that Tuesday morning he developed a cough and sob that is getting worse, patient reports that he went to dialysis and they reported he had a fever so they sent him over to the ed to evaluated. cough that is since 06-28-21 Airway is patent Respiratory effort is even, unlabored, Breath sounds are diminished bilaterally. GI: No deficits noted. : No deficits noted. : No deficits noted. EENT: No deficits noted. Derm: No deficits noted. Musculoskeletal: No deficits noted. 08:00 Cardiovascular: Rhythm is sinus rhythm. jg9 09:00 Reassessment: No changes from previously documented assessment. Patient and/or family jg9 updated on plan of care and expected duration. Pain level reassessed. Patient is alert, oriented x 3, equal unlabored respirations, skin warm/dry/pink. 10:00 Reassessment: Patient and/or family updated on plan of care and expected duration. Pain jg9 level reassessed. 11:00 Reassessment: No changes from previously documented assessment. Patient and/or family jg9 updated on plan of care and expected duration. Pain level reassessed. Patient is alert, oriented x 3, equal unlabored respirations, skin warm/dry/pink. 12:00 Reassessment: Patient and/or family updated on plan of care and expected duration. Pain jg9 level reassessed. 13:12 Reassessment: Patient and/or family updated on plan of care and expected duration. Pain jg9 level reassessed. Patient is alert, oriented x 3, equal unlabored respirations, skin warm/dry/pink. 14:16 Reassessment: Patient admitted, see [facility] for additional info. jg9 17:34 Reassessment: Patient belongings taken to room 211, nurse advised to call when she was jg9 ready for report, patient is in dialysis and will be going from dialysis to room 211. Vital Signs: 06:11 BP 176 / 89; Pulse 105; Resp 18; Temp 99(TE); Pulse Ox 98% on R/A; Weight 79.83 kg; iw Height 5 ft. 7 in. (170.18 cm); 08:00 BP 177 / 89; Pulse 102; Resp 14 S; Pulse Ox 97% on R/A; jg9 10:00 BP 175 / 78; Pulse 95; Resp 14 S; Pulse Ox 99% on R/A; jg9 11:00 BP 179 / 87; Pulse 100; Resp 17 S; Pulse Ox 95% on R/A; jg9 12:00 BP 152 / 74; Pulse 98; Resp 17 S; Pulse Ox 93% on R/A; jg9 13:00 BP 152 / 88; Pulse 101; Resp 18 S; Pulse Ox 95% on R/A; jg9 14:00 BP 163 / 73; Pulse 112; Resp 20 S; Pulse Ox 95% ; jg9 06:11 Body Mass Index 27.57 (79.83 kg, 170.18 cm) iw ED Course: 05:44 Patient arrived in ED. ja2 06:10 Triage completed. iw 06:20 Initial lab(s) drawn, by me, sent to lab. Inserted saline lock: 20 gauge in right kj1 antecubital area, using aseptic technique. Blood collected. 06:28 COVID-19/FLU A+B (Document "Date of Onset" if Symptomatic) Sent. kj1 07:54 Salas Foreman NP is PHCP. pm1 07:54 Braulio Mendez MD is Attending Physician. pm1 08:00 Arm band placed on right wrist. jg9 08:00 Patient has correct armband on for positive identification. Bed in low position. Call jg9 light in reach. Side rails up X 1. 08:06 Farhana Roman is Primary Nurse. jg9 08:40 CT Abd/Pelvis - Without Contrast In Process Unspecified. EDMS 08:43 Chest Single View XRAY In Process Unspecified. EDMS 09:31 Urine Microscopic Only Sent. jg9 09:41 US Abdomen Limited In Process Unspecified. EDMS 11:09 Penny Escobedo MD is Hospitalizing Provider. pm1 14:16 No provider procedures requiring assistance completed. jg9 14:16 Patient admitted, IV remains in place. jg9 Administered Medications: 08:10 Drug: Zofran (Ondansetron) 4 mg Route: IVP; Site: right antecubital; jg9 08:30 Follow up: Response: No adverse reaction jg9 08:17 Drug: morphine 4 mg Route: IVP; Site: right antecubital; jg9 08:35 Follow up: Response: No adverse reaction; Pain is decreased; RASS: Alert and Calm (0) jg9 09:55 Drug: Rocephin (cefTRIAXone) 1 grams Route: IV; Rate: calculated rate; Site: right [facility] antecubital; 10:14 Follow up: Response: No adverse reaction jg9 Outcome: 11:09 Decision to Hospitalize by Provider. pm1 14:15 Admitted to Med/surg jg9 14:16 Condition: stable jg9 17:33 Patient left the ED. jg9 18:24 Admitted to Med/surg Report called to JEIMY Lazar jg9 Signatures: Dispatcher [employer] EDStacey Simmons RN RN iw Marinas, Patrick, NP [employer] pm1 Bridget Jackson1 Gwen Alcocer Jennifer jg9
[2021-06-29] MEDS ORDERED: ACETAMINOPHEN 500 MG TAB PO PRN (11:12)
[2021-06-29] MEDS ORDERED: ONDANSETRON 4 MG/2 ML VIAL IV PRN (11:12)
[2021-06-29] MEDS ORDERED: MORPHINE 2 MG/ML SYR IV PRN (11:12)
[2021-06-29] MEDS ORDERED: MANNITOL 20% 125 ML IV SCH (15:00)
[2021-06-29] MEDS ORDERED: MANNITOL IV SCH (15:00)
--- NOTE | 2021-06-29 15:07 | P.HP ---
Certification for Inpatient Patient admitted to: Observation With expected LOS: <2 Midnights Patient will require the following post-hospital care: None Practitioner: I am a practitioner with admitting privileges, knowledge of patient current condition, hospital course, and medical plan of care. Services: Services provided to patient in accordance with Admission requirements found in Title 42 Section 412.3 of the Code of Federal Regulations Patient History Date of Service: 06/29/21 Reason for admission: Shortness of breath History of Present Illness: Patient is a 55-year-old gentleman with a history of end-stage renal disease who comes into the hospital with shortness of breath. Patient is volume overloaded and will need hemodialysis. Nephrology has been notified. Patient will be dialyzed possible discharge home afterwards. Allergies No Known Drug Allergies Allergy (Verified 07/29/17 11:37) Unknown No Known Allergies Allergy (Uncoded 01/07/18 09:08) Unknown Home Medications: Pravastatin Sodium [Pravachol] 40 tab PO DAILY 01/11/14 Tamsulosin [Flomax*] 0.4 mg PO DAILY #30 cap 01/15/14 Buspirone HCl 10 mg PO BID 07/29/17 cloNIDine HCL [Catapres*] 0.3 mg PO TID 07/29/17 Calcitrol [Rocaltrol*] 0.5 mcg PO Q48H #30 cap 02/05/20 Furosemide [Lasix*] 40 mg PO BIDL #30 tab 02/05/20 Hydralazine [Apresoline*] 25 mg PO BID #90 tab 02/05/20 Sevelamer Carbonate [Renvela*] 1,600 mg PO TIDWM #60 tablet 02/05/20 carvediloL [Coreg*] 25 mg PO BID #60 tab 02/05/20 - Past Medical/Surgical History Diabetic: Yes -: DM -: HTN -: high cholesterol -: testicular cancer -: Right ankle -: Left wrist - Social History Alcohol use: No CD- Drugs: No Caffeine use: No Review of Systems 10-point ROS is otherwise unremarkable Physical Examination - Physical Exam General: Alert, In no apparent distress, Moderate distress HEENT: Atraumatic, PERRLA, Mucous membr. moist/pink, EOMI, Sclerae nonicteric Neck: Supple, 2+ carotid pulse no bruit, No LAD, Without JVD or thyroid abnormality Respiratory: Diminished, Crackles/rales Cardiovascular: Regular rate/rhythm, Normal S1 S2, Systolic murmur Gastrointestinal: Normal bowel sounds, Soft and benign, Non-distended, No tenderness Musculoskeletal: No tenderness Integumentary: No rashes Neurological: Normal gait, Normal speech, Normal strength at 5/5 x4 extr, Normal tone, Normal affect Lymphatics: No axilla or inguinal lymphadenopathy - Studies Laboratory Data (last 24 hrs) 06/29/21 06:15: WBC 12.40 H, Hgb 10.2 L, Hct 30.9 L, Plt Count 246 06/29/21 06:15: Sodium 137, Potassium 5.2 H, BUN 112 H, Creatinine 14.00 H*, Glucose 109 H, Total Bilirubin 0.6, AST 7 L, ALT 22, Alkaline Phosphatase 71, Lipase 202 Assessment & Plan - Problems (Diagnosis) (1) Fluid overload Current Visit: Yes Status: Acute (2) ESRD (end stage renal disease) on dialysis Current Visit: No Status: Acute (3) Malignant hypertension Current Visit: No Status: Acute - Plan Plan: 1. Emergent hemodialysis 2. Monitor volume status 3. Strict blood pressure control 4. Possible discharge home if volume status is stable and respiratory distress has improved 5. Strict blood sugar control 6. GI and DVT prophylaxis - Advance Directives Does patient have a Living Will: No Does patient have a Durable POA for Healthcare: No
[2021-06-29 17:45] VITALS: O2SAT 95
[2021-06-30 00:21] VITALS: BMI 27.6
--- NOTE | 2021-06-30 01:34 | P.CNS ---
Date of Consult: 06/29/21 Reason for Consult: ESRD Requesting Physician: Penny Escobedo Chief Complaint: Shortness of breath History of Present Illness: 55M w/ PMHx of ESRD on HD MWF, anemia, & renal osteodystrophy, who p/w SOB, admitted for volume overload & received HD today. he also complains of having right flank pain and chills at home. Abdominopelvic imaging is unremarkable. Allergies No Known Drug Allergies Allergy (Verified 07/29/17 11:37) Unknown No Known Allergies Allergy (Uncoded 01/07/18 09:08) Unknown Home Medications: Amitriptyline HCl 10 mg PO BEDTIME 06/29/21 Amlodipine [Norvasc] 10 mg PO DAILY 06/29/21 Losartan Potassium 100 mg PO DAILY 06/29/21 Tamsulosin [Flomax*] 0.4 mg PO DAILY 06/29/21 Carvedilol [Coreg] 25 mg PO BID 06/30/21 Insulin Glargine,Hum.rec.anlog [Lantus Solostar] 20 units SQ TID 06/30/21 Sevelamer Carbonate 4 tab PO TIDWM 06/30/21 Sucroferric Oxyhydroxide [Velphoro] 1 tab PO TIDWM 06/30/21 - Past Medical/Surgical History Diabetic: Yes -: DM -: HTN -: high cholesterol -: testicular cancer -: Right ankle -: Left wrist - Social History Smoking Status: Current some day smoker Alcohol use: No CD- Drugs: No Caffeine use: No Place of Residence: Home Review of Systems General: Weakness Eyes: Unremarkable ENT: Unremarkable Respiratory: Shortness of Breath, SOB with Excertion Cardiovascular: Unremarkable Gastrointestinal: Unremarkable Genitourinary: Unremarkable Musculoskeletal: Unremarkable Integumentary: Unremarkable Neurological: Unremarkable Lymphatics: Unremarkable Physical Examination Temp Pulse Resp BP Pulse Ox 97.7 F 118 H 17 183/83 H 97 06/29/21 20:00 06/29/21 20:00 06/29/21 20:00 06/29/21 20:00 06/29/21 20:00 General: Other (patient chronically ill) HEENT: Atraumatic, Normocephalic Neck: Supple, JVD not distended Respiratory: Other (symmetric chest expansion) Cardiovascular: No rubs, No murmurs Gastrointestinal: Soft and benign, No guarding Musculoskeletal: No clubbing Integumentary: No warmth Neurological: Normal speech, Normal tone Lymphatics: No axilla or inguinal lymphadenopathy Urinary: Other (no bladder distention) External genitalia: Deferred Rectal: Deferred Laboratory Data (last 24 hrs) 06/29/21 06:15: WBC 12.40 H, Hgb 10.2 L, Hct 30.9 L, Plt Count 246 06/29/21 06:15: Sodium 137, Potassium 5.2 H, BUN 112 H, Creatinine 14.00 H*, Glucose 109 H, Total Bilirubin 0.6, AST 7 L, ALT 22, Alkaline Phosphatase 71, Lipase 202 Conclusions/Impression: # ESRD on outpt HD qMWF at [facility] Received HD today. received IV mannitol during dialysis due to high BUN. EDW 79 kg HD access: Left arm AV fistula Renal vitamin by mouth daily Monitor renal panel # Acutes respiratory failure / volume overload HD as above # R flank pain He reports having chills at home +Mild leukocytosis CT imaging unrevealing Monitor # Anemia H&H at goal, monitor # Renal osteodystrophy Monitor serum calcium and phosphorus Continue sevelamer
[2021-06-30 06:11] LABS: Absolute Lymphocytes (CBC) 1.9 K/uL (0.7-4.9); Hematocrit 28.7 % (39.6-49.0); Lymphocytes % 20.8 % (15.3-44.8); MPV 7.2 fL (7.6-11.3); RBC Red Blood Cell Count 2.99 M/uL (4.33-5.43)
[2021-06-30 06:23] LABS: Albumin 2.9 g/dL (3.4-5.0); Bilirubin Total 0.6 mg/dL (0.2-1.0); Potassium 4.5 mmol/L (3.5-5.1); Protein, Total 7.3 g/dL (6.4-8.2)
--- NOTE | 2021-06-30 06:48 | P.PN ---
Subjective Date of Service: 06/30/21 Chief Complaint: Shortness of breath Subjective: Other (reports right flank pain is much less today.) Physical Examination - Vital Signs Temperature: 99.0 F Blood Pressure: 114/59 Pulse: 101 Respirations: 19 Pulse Ox (%): 97 - Physical Exam General: In no apparent distress HEENT: Atraumatic, Normocephalic Neck: Supple Respiratory: Other (symmetric chest expansion) Cardiovascular: No rubs, No murmurs Gastrointestinal: Soft and benign, No guarding Musculoskeletal: No clubbing Integumentary: No warmth Neurological: Normal speech, Normal tone Urinary: Other (no bladder distention) External genitalia: Deferred Rectal: Deferred - Studies Laboratory Data (last 24 hrs) 06/29/21 06:15: Sodium 137, Potassium 5.2 H, BUN 112 H, Creatinine 14.00 H*, Glucose 109 H, Total Bilirubin 0.6, AST 7 L, ALT 22, Alkaline Phosphatase 71, Lipase 202 Assessment And Plan - Plan # ESRD on outpt HD qMWF at [facility] Received HD yesterday Next HD tomorrow EDW 79 kg HD access: Left arm AV fistula Renal vitamin by mouth daily Monitor renal panel # Acutes respiratory failure / volume overload HD as above # R flank pain Less pain today He reports having chills at home +Mild leukocytosis CT imaging unrevealing Monitor # Anemia H&H at goal, monitor # Renal osteodystrophy Monitor serum calcium and phosphorus Continue sevelamer
[2021-06-30] MEDS: SEVELAMER CARBONATE 800 MG TABLET PO SCH ×3 (08:00→16:51)
[2021-07-01 00:21] VITALS: BP 114/59; TEMP 99
--- NOTE | 2021-07-06 00:54 | P.DS ---
Discharge Date: 06/30/21 Disposition: ROUTINE DISCHARGE Discharge Condition: GOOD Reason for Admission: Shortness of breath - Problems (1) Fluid overload Status: Acute (2) ESRD (end stage renal disease) on dialysis Status: Acute (3) Malignant hypertension Status: Acute Brief History of Present Illness: Patient is a 55-year-old gentleman with a history of end-stage renal disease who comes into the hospital with shortness of breath. Patient is volume overloaded and will need hemodialysis. Nephrology has been notified. Patient will be dialyzed possible discharge home afterwards. Hospital Course: Patient done well during hemodialysis. Patient volume status has improved. At this time, patient is stable for discharge. Vital Signs/Physical Exam: Temp Pulse Resp BP Pulse Ox 99.0 F 101 H 19 114/59 L 97 07/01/21 00:21 07/01/21 00:21 07/01/21 00:21 07/01/21 00:21 07/01/21 00:21 General: Alert, In no apparent distress, Oriented x3 Laboratory Data at Discharge: WBC 9.00 K/uL (4.3-10.9) D 06/30/21 05:45 Hgb 9.6 g/dL (13.6-17.9) L 06/30/21 05:45 Hct 28.7 % (39.6-49.0) L 06/30/21 05:45 Plt Count 215 K/uL (152-406) 06/30/21 05:45 Sodium 138 mmol/L (136-145) 06/30/21 05:45 Potassium 4.5 mmol/L (3.5-5.1) 06/30/21 05:45 BUN 61 mg/dL (7-18) H D 06/30/21 05:45 Creatinine 10.60 mg/dL (0.55-1.3) H* D 06/30/21 05:45 Glucose 95 mg/dL (74-106) 06/30/21 05:45 Total Bilirubin 0.6 mg/dL (0.2-1.0) 06/30/21 05:45 AST 9 U/L (15-37) L 06/30/21 05:45 ALT 17 U/L (12-78) 06/30/21 05:45 Alkaline Phosphatase 64 U/L (45-117) 06/30/21 05:45 Lipase 202 U/L (73-393) 06/29/21 06:15 Home Medications: Amitriptyline HCl 10 mg PO BEDTIME 06/29/21 Amlodipine [Norvasc*] 10 mg PO DAILY 06/29/21 Losartan Potassium 100 mg PO DAILY 06/29/21 Tamsulosin [Flomax*] 0.4 mg PO DAILY 06/29/21 Carvedilol [Coreg] 25 mg PO BID 06/30/21 Insulin Glargine,Hum.rec.anlog [Lantus Solostar] 20 units SQ TID 06/30/21 Sevelamer Carbonate 4 tab PO TIDWM 06/30/21 Sucroferric Oxyhydroxide [Velphoro] 1 tab PO TIDWM 06/30/21 Physician Discharge Instructions: OK TO DC IV AND DC HOME FOLLOW-UP WITH PRIMARY CARE PROVIDER IN 1-2 WEEKS RETURN TO THE ER IF symptoms worsens Follow-up with Nephrology for HD CALL or TEXT DR. PARIKH AT [phone] IF ANY QUESTIONS REGARDING HOSPITAL STAY. PLEASE CALL THE FLOOR AT [phone] IF ANY MEDICATION OR NURSING QUESTIONS. Diet: Renal Activity: Fall precautions Followup: Amaya Ochoa MD [COURTESY - CAN ADMIT] - 1-2 Weeks ONIEL MALDONADO [Primary Care Provider] - 1-2 Weeks Time spent managing pt's care (in minutes): 35
== END 2021-06-30 21:33 | disposition home or self-care (01) ==
LOC: ER 05:40 → ERHOLD 11:40 → 2ND 18:27
PROVIDERS: ADMIT Hospitalist; ATTEND Hospitalist
DX: I12.0 Hypertensive chronic kidney disease with stage 5 chronic kidney disease or end stage renal disease (principal); E11.22 Type 2 diabetes mellitus with diabetic chronic kidney disease; N18.6 End stage renal disease; Z99.2 Dependence on renal dialysis; J96.00 Acute respiratory failure, unspecified whether with hypoxia or hypercapnia; N25.0 Renal osteodystrophy; D64.9 Anemia, unspecified; R10.9 Unspecified abdominal pain; E78.00 Pure hypercholesterolemia, unspecified; F17.210 Nicotine dependence, cigarettes, uncomplicated; Z85.47 Personal history of malignant neoplasm of testis; Z20.822 Contact with and (suspected) exposure to COVID-19; Z79.4 Long term (current) use of insulin
CPT/HCPCS: 87040 ×2; 85025 ×2; 80048; 36415; 82947; 80076; 83690; 80053; 0240U; 74176; 71045; 90935; 76705; 96375; 96374; 99285; J1644; J7050; J2405; G0378 ×3; 81003; 81015

== ENCOUNTER 2021-07-25 03:56 | Inpatient (IN) | payer OTHER ==
--- OUTSIDE RECORDS SUMMARY | 2021-07-25 04:00 | XMS REPORT | Continuity of Care Document ---
:1965 Author Organization [facility] t Address [address] [place] [address] [address] [place] [address] Care Team Providers Name Role Phone LULA FUNEZJENNA MEJIAA Attending Clinician Unavailable Pob1, Care Clinic Attending Clinician Unavailable Pattie Padilla Attending Clinician SABRINA Attending Clinician Unavailable Jose Francisco MUNSON G Attending Clinician Unavailable Lab, Fam Pob I Attending Clinician Unavailable Andreina Alatorre Attending Clinician Andreina CROW Attending Clinician Unavailable Payers Payer Name Policy Type Policy Number Effective Date Expiration Date S saurabh MEDICARE A B [id number] UNITED MEDICARE [id number] 2021 O 00:00:00 [place] [id number] Problems Condition Condition Condition Status Onset Resolution Last Treating Co mments Source Name Details Category Date Date Treatment Clinician Date Febrile Febrile Disease Active 2013-07 Univers neutropeni neutropeni 1-05 it y of a a 00:00: [place] [facility] Cancer Cancer Disease Active 2013-07 Univers 0-27 ity of 00:: [place] [facility] Maintenanc Maintenanc Disease Active U [place] 9 [place]y [place] chemothe[place] [facility] Abdominal Abdominal Disease Active Uni vers pain pain 9-16 ity of 00:: [address] Testicular Testicular Disease Active U nivers cancer cancer 9- ity of 00:00: [address] Edema of Edema of Disease Active Unive rs right right 9 ity of lower lower 00:00: [place] extremity extremity 00 [facility] Allergies, Adverse Reactions, Alerts Allergy Allergy Status Severity Reaction(s) Onset Inactive Treating Comm ents Source Name Type Date Date Clinician NO KNOWN Allergy Active [facility] NO KNOWN Drug Active [facility] ALLERG Class ity of S [facility] Social History Social Habit Start Date Stop Date Quantity Comments Source [facility] Exposure to Yes [facility] SARS-CoV-2 (event) [facility] Cigarettes smoked 2015-12-24 2015-12-24 [facility] ity of current (pack per 00:00:00 00:00:00 [place] ) - Reported Branch Cigarette 2015-12-24 2015-12-24 University of pack-years 00:00:00 00:00:00 [facility] Alcohol intake 2015-12-24 2015-12-24 University of 00:00:00 00:00:00 [facility] Alcohol Comment 2014-03-05 2014-03-05 History of Universit y of 00:00:00 00:00:00 alcholism [facility] History of tobacco 2013-07-31 Cigarette Smoker University of use 00:00:00 [facility] Smoking Status Start Date Stop Date Source Former smoker 2015-12-24 00:00:00 2015-12-24 00:00:00 [facility] ty [facility] Medications Ordered Filled Start Stop Current Ordering [...] mg 24 00:00: daily. [place] hr capsule [facility] Branch potassium Yes 1080mg Take 1 Tab Univers citrate 8-11 by mouth 2 ity of (UROCIT-K 00:00: (two) [place] 10) 10 mEq 00 times Medical (1,080 mg) daily with Bra nch SR tablet meals. tamsulosin 0 Yes .4mg Take 1 Cap U nivers (FLOMAX) 8-11 by mouth ity of 0.4 mg 24 00:00: daily. [place] hr capsule [facility] Branch potassium Yes 1080mg Take 1 Tab Univers citrate 8-11 by mouth 2 ity of (UROCIT-K 00:00: (two) [place] 10) 10 mEq 00 times Medical (1,080 mg) daily with Bra nch SR tablet meals. tamsulosin 0 Yes .4mg Take 1 Cap U nivers (FLOMAX) 8-11 by mouth ity of 0.4 mg 24 00:00: daily. [place] hr capsule [facility] Branch potassium Yes 1080mg Take 1 Tab Univers citrate 8-11 by mouth 2 ity of (UROCIT-K 00:00: (two) [place] 10) 10 mEq 00 times Medical (1,080 [...] h needed for Nausea and Vomiting (N/V). insulin 2013-07 Yes 10U inject 10 Unive [...] 00 skin Medical unit/mL daily. Branch injection phenazopyri Yes 200mg Take 200 U nivers [...] of 20 mg 00:00: daily. [place] tablet [facility] pravastatin Yes 20mg Take 20 mg Univers (PRAVACHOL) 7-03 by mouth ity of 20 mg 00:00: daily. [place] tablet [facility] pravastatin Yes 20mg Take 20 mg Univers (PRAVACHOL) 7-03 by mouth ity of 20 mg 00:00: daily. [place] tablet 00 [facility] pravastatin Yes 20mg Take 20 mg Univers (PRAVACHOL) 7-03 by mouth ity of 20 mg 00:00: daily. [facility] Immunizations Ordered Filled Immunization Date Status Comments [facility] e Immunization Name Name Influenza Virus 2014-05-04 Completed Universit y of Vaccine Quad IM 3+ 00:00:00 [facility] Influenza Virus 2014-05-04 Completed Universit y of Vaccine Quad IM 3+ 00:00:00 [facility] Influenza Virus 2014-05-04 Completed Universit y of Vaccine Quad IM 3+ 00:00:00 [facility] Influenza Virus 2014-05-04 Completed Universit y of Vaccine Quad IM 3+ 00:00:00 [facility] Procedures This patient has no known procedures. Encounters Start End Encounter Admission Attending Care Care Encounter Source Date/Time Date/Time Type Type Clinicians Facility Department ID 2021-05-12 2021-05-12 Outpatient EL DEE DEE, [facility] [id number] [facility] 00:00:00 00:00:00 BHAMIDIPATI 2021-05-12 2021-05-12 Outpatient EL DEE DEE, [facility] [id number] [facility] 00:00:00 00:00:00 BHAMIDIPATI 2021-05-12 2021-05-12 Outpatient EL [facility] [id number] [facility] 00:00:00 00:00:00 2021-05-12 2021-05-12 Outpatient EL DEE DEE, [facility]H [facility] [id number] [facility] 00:00:00 00:00:00 BHAMIDIPATI 2021-05-12 2021-05-12 Outpatient EL DEE DEE, [facility] [id number] [facility] 00:00:00 00:00:00 BHAMIDIPATI 2021-04-23 2021-04-23 Outpatient EL [facility] [id number] [facility] 00:00:00 00:00:00 2021-04-23 2021-04-23 Outpatient EL [facility] [id number] [facility] 00:00:00 00:00:00 2021-04-23 2021-04-23 Outpatient EL [facility] [id number] [facility] 00:00:00 00:00:00 2021-04-23 2021-04-23 Outpatient EL [facility] [id number] [facility] 00:00:00 00:00:00 2021-04-23 2021-04-23 Outpatient EL [facility] [id number] [facility] 00:00:00 00:00:00 2019-12-13 2019-12-13 Telephone Pob1, Acute [place] [id number] 00:00:00 00:00:00 [facility] [id number] [place] [id number] Rafita [phone] nal [address] 2019-12-13 2019-12-13 Telephone Pob1, Acute [facility] [id number] [facility] 00:00:00 00:00:00 [facility] [id number] ity of [place] [id number] Sanjay as Professio [phone] Nj dical nal [address] 2019-12-09 2019-12-09 Telephone RandyWILMAN [id number] 00:00:00 00:00:00 Shilpa Blankenship RUTH [id number] [facility] [id number] [id number] 2019-12-09 2019-12-09 Telephone RandyWILMAN [id number] [facility] 00:00:00 00:00:00 Shilpa Blankenship RUTH [id number] ity [facility] [id number] Sanjay as [phone] [address] 2019-12-08 2019-12-08 Outpatient R [facility] [id number] Univers 12:40:00 12:40:00 [id number] [facility] 2019-12-08 2019-12-08 [facility] [id number] Univers 12:40:00 12:40:00 SVETA [facility] 2019-12-08 2019-12-08 Telephone [place] WILMAN [id number] 00:00:00 00:00:00 Anastasia jamisonY [id number] [facility] [id number] 2019-12-08 2019-12-08 Telephone [place] WILMAN [id number] [facility] 00:00:00 00:00:00 Anastasia jamison RUTH [id number] ity of [facility] [id number] Sanjay as [phone] [address] 2019-12-07 2019-12-07 [facility], [facility] [id number] 15:00:09 15:10:09 Visit [facility] Pob I Health [id number] [place] [id number] Professio [phone] nal 044 Office [facility] One 2019-12-07 2019-12-07 [facility], [email or web address]] [id number]. [id number] Univers 15:00:09 15:10:09 Visit TristinClaudette boggs [facility] [id number] silviatheresa calles [place] [id number] Sanjay as Profmanjeet [phone] [address] Office [address] One 2019-12-07 2019-12-07 Outpatient R TRISTIN [facility] [id number] Univers 15:10:00 15:10:00 CLAUDETTE tse [facility] Results Test Description Test Time Test Comments Results Result Comments Source SARS-COV2/RT-PCR ([facility]) 2020-01-29 04:24:00 Test Item Value Reference Range Interpretation Comme nts SARS-COV2/RT-PCR (test code = 1222640) Negative Not Detected, N egative, See external report for linked test SARS-COV-2 PERFORMING LAB (test code = [facility] [id number]) Negative results do not preclude SARS-CoV-2 infection [...] of the Act.Fact Sheet for Healthcare Pro viders:https://www.Queralt.com/Documents/Xpert%20Xpress%20SARS%20CoV-2/Fact%20Sh eets/302-6712%00JOUN-IBU-1%20HEALTHCARE%20PROVIDERS%20FACT%20SHEET.pdfFact Sheet for Healthcare Patients:https://www.DataCrowd.Kno/Documents/Xpert%20Xpress%20SARS%20CoV-2/Fact%20Sheets/302-1003%20SARS-COV -2%20PATIENT%20FACT%20SHEET.pdfPerforming Laboratory:[facility] [place] [address]
[2021-07-25 05:40] LABS: Absolute Lymphocytes (CBC) 1.3 K/uL (0.7-4.9); Lymphocytes % 11.9 % (15.3-44.8); MPV 7.2 fL (7.6-11.3); RBC Red Blood Cell Count 2.76 M/uL (4.33-5.43)
[2021-07-25 05:41] LABS: Protime INR 0.97
[2021-07-25 06:03] LABS: Albumin 3.2 g/dL (3.4-5.0); Bilirubin Direct 0.1 mg/dL (0-0.2); Bilirubin Total 0.7 mg/dL (0.2-1.0); Magnesium 2.5 mg/dL (1.8-2.4); Protein, Total 7.7 g/dL (6.4-8.2); Troponin High Sensitivity 18.1 pg/mL (<58.9)
[2021-07-25 06:14] LABS: SARS-COV-2 RT PCR POSITIVE (NEGATIVE)
--- NOTE | 2021-07-25 06:44 | ER ---
Nurse's Notes [facility] Name: Ben Muir Age: 55 yrs Sex: Male : 1965 Arrival Date: 07/25/2021 Time: 04:00 Bed 15 Private MD: Diagnosis: End-stage renal disease on hemodialysis, pulmonary edema;Dyspnea;Coronavirus infection, unspecified Presentation: 07/25 04:13 Chief complaint: Patient states: pt has only had dialysis once this week and is feeling as6 short of breath. Coronavirus screen: Client presents with at least one sign or symptom that may indicate coronavirus-19. Provider contacted for isolation considerations. Ebola Screen: No symptoms or risks identified at this time. Initial Sepsis Screen: Does the patient meet any 2 criteria? No. Patient's initial sepsis screen is negative. Does the patient have a suspected source of infection? No. Patient's initial sepsis screen is negative. Risk Assessment: Do you want to hurt yourself or someone else? Patient reports no desire to harm self or others. Onset of symptoms was July 24, 2021. 04:13 Method Of Arrival: Ambulatory as6 04:13 Acuity: KSUUM 3 as6 Historical: - Allergies: 04:16 No Known Allergies; as6 - Home Meds: 04:16 hydralazine 25 mg Oral tab 1 tab three times a day [Active]; Velphoro 500 mg oral chew as6 1 tab 3 times per day [Active]; amlodipine 10 mg tab 1 tab once daily [Active]; Hina-Andrew Rx 1-60-300 mg-mg-mcg oral tab [Active]; amitriptyline 10 mg Oral tab 1 tab once daily [Active]; tamsulosin 0.4 mg oral cap 1 cap once daily [Active]; losartan 100 mg oral tab 1 tab once daily [Active]; carvedilol 25 mg oral tab 1 tab 2 times per day [Active]; sevelamer carbonate 800 mg oral tab 4 tab 3 times per day [Active]; Lantus U-100 Insulin 100 unit/mL Sub-Q crtg 100 unit/mL three times a day [Active]; - PMHx: 04:16 Diabetes - IDDM; DIALYSIS MWF; Hypertension; Stage 3 Kidney Disease; testicular cancer; as6 - PSHx: 04:16 None; as6 - Immunization history:: Client reports receiving the 2nd dose of the Covid vaccine, pfizer . - Social history:: Smoking status: Patient reports the use of cigarette tobacco products, denies chronic smoking, but will smoke occasionally. Assessment: 04:45 General: Appears in no apparent distress. well groomed, well developed, well nourished, tk1 Behavior is calm, cooperative, appropriate for age. Pain: Denies pain. Neuro: No deficits noted. Level of Consciousness is awake, alert, obeys commands, Oriented to person, place, time, situation, Appropriate for age [place] Expedition Guide are equal bilaterally Moves all extremities. Gait is steady, Speech is normal, Facial symmetry appears normal, Pupils are PERRLA. Cardiovascular: No deficits noted. Heart tones S1 S2 Rhythm is sinus rhythm. Respiratory: Reports shortness of breath cough that is non-productive, Airway is patent Breath sounds with crackles. GI: No deficits noted. : Reports anuric. EENT: No deficits noted. Derm: No deficits noted. Musculoskeletal: No deficits noted. 06:33 Reassessment: No changes from previously documented assessment. Dr. Ewing in for tk1 discussion of diagnostic findings. Respiratory: Airway is patent the patient has mild shortness of breath. 06:55 Reassessment: Hospitalist in room with patient for exam. tk1 Vital Signs: 04:13 BP 177 / 82; Pulse 93; Resp 24 S; Temp 97.6(TE); Pulse Ox 100% on R/A; Weight 80.74 kg as6 (R); Height 5 ft. 6 in. (167.64 cm) (R); Pain 2/10; 05:24 BP 156 / 83 RA Sitting (auto/reg); Pulse 98 MON; Resp 16 S; Temp 98(O); Pulse Ox 97% on tk1 R/A; Pain 0/10; 06:14 BP 172 / 82 RA Sitting (auto/reg); Pulse 95 MON; Resp 18 S; Pulse Ox 95% on R/A; Pain tk1 0/10; 04:13 Body Mass Index 28.73 (80.74 kg, 167.64 cm) as6 ED Course: 04:00 Patient arrived in ED. ja2 04:16 Triage completed. as6 04:23 Arm band placed on. as6 04:45 Inga Egan is Primary Nurse. tk1 04:58 Magdy Ewing MD is Attending Physician. [facility] 05:21 No provider procedures requiring assistance completed. Inserted saline lock: 20 gauge tk1 in right hand, using aseptic technique. Blood collected. Missed attempt(s): 20 gauge in right forearm. 05:26 COVID-19/FLU A+B (Document "Date of Onset" if Symptomatic) Sent. tk1 05:26 Basic Metabolic Panel Sent. tk1 05:26 CBC with Diff Sent. tk1 05:26 LFT's Sent. tk1 05:26 Magnesium Sent. tk1 05:26 NT PRO-BNP Sent. tk1 05:26 PT-INR Sent. tk1 05:26 Troponin HS Sent. tk1 06:08 XRAY Chest (1 view) In Process Unspecified. EDRI 06:15 Notified ED physician of a critical lab result(s). Covid +. tw5 06:30 called and left message with Dr. Madrid's answering service/ Dr. Waite is litigation claim representative and eb will call back. 06:[address] Madrid with Dr. Ewing for patient admission consultation. eb 06:42 Bird Wild MD is Hospitalizing Provider. [facility] 06:57 Primary Nurse role handed off by Inga Egan 08:50 Vickie Reed, JEIMY is Primary Nurse. [facility] 22:58 Patient admitted, IV remains in place. vc1 Administered Medications: 06:54 Drug: Lasix (furosemide) 80 mg Route: IVP; Site: right hand; tk1 Outcome: 06:43 Decision to Hospitalize by Provider. [facility] 22:58 Admitted to Tele accompanied by nurse, via wheelchair, room 407, Report called to 1 JEIMY Bond 22:58 Condition: good 22:58 Discharge instructions given to Instructed on the need for admit. 23:00 Patient left the ED. [facility] Signatures: Dispatcher [employer] EDRI Kiara Wall Magdy Ewing MD MD 7 Gwen Alcocer Tiffany tw5 Will Carvalho RN RN as6 Inga Egan tk1 Vickie Reed, RN RN cb5 Maryann Fabian RN RN vc1
--- NOTE | 2021-07-25 06:44 | EDPHYS ---
Physician Documentation [facility] Name: Ben Muir Age: 55 yrs Sex: Male : 1965 Arrival Date: 07/25/2021 Time: 04:00 Bed 15 Private MD: ED Physician Magdy Ewing HPI: 07/25 05:07 This 55 yrs old Male presents to ER via Ambulatory with complaints of mh7 Shortness Of Breath, MISSED D.TREATMENT. 05:07 The patient has shortness of breath at rest, with light activity. Onset: The mh7 symptoms/episode began/occurred 2 day(s) ago. Duration: The symptoms are intermittent, with no pattern. The patient's shortness of breath is aggravated by coughing, light activity, is alleviated by nothing. Associated signs and symptoms: Pertinent positives: non-productive cough, Pertinent negatives: chest pain, productive cough, diaphoresis, dizziness, fever, hemoptysis, loss of consciousness, nausea, numbness in extremities, visual changes, vomiting. Severity of symptoms: At their worst the symptoms were moderate 2 day(s) ago, in the emergency department the symptoms have improved moderately. Historical: - Allergies: 04:16 No Known Allergies; as6 - Home Meds: 04:16 hydralazine 25 mg Oral tab 1 tab three times a day [Active]; Velphoro 500 mg oral chew as6 1 tab 3 times per day [Active]; amlodipine 10 mg tab 1 tab once daily [Active]; Hina-Andrew Rx 1-60-300 mg-mg-mcg oral tab [Active]; amitriptyline 10 mg Oral tab 1 tab once daily [Active]; tamsulosin 0.4 mg oral cap 1 cap once daily [Active]; losartan 100 mg oral tab 1 tab once daily [Active]; carvedilol 25 mg oral tab 1 tab 2 times per day [Active]; sevelamer carbonate 800 mg oral tab 4 tab 3 times per day [Active]; Lantus U-100 Insulin 100 unit/mL Sub-Q crtg 100 unit/mL three times a day [Active]; - PMHx: 04:16 Diabetes - IDDM; DIALYSIS MWF; Hypertension; Stage 3 Kidney Disease; testicular cancer; as6 - PSHx: 04:16 None; as6 - Immunization history:: Client reports receiving the 2nd dose of the Covid vaccine, pfizer . - Social history:: Smoking status: Patient reports the use of cigarette tobacco products, denies chronic smoking, but will smoke occasionally. ROS: 05:07 Constitutional: Negative for fever, chills, and weight loss, Eyes: Negative for injury, mh7 pain, redness, and discharge, ENT: Negative for injury, pain, and discharge, Neck: Negative for injury, pain, and swelling, Cardiovascular: Negative for chest pain, palpitations, and edema, Abdomen/GI: Negative for abdominal pain, nausea, vomiting, diarrhea, and constipation, Back: Negative for injury and pain, : Negative for injury, bleeding, discharge, and swelling, MS/Extremity: Negative for injury and deformity, Skin: Negative for injury, rash, and discoloration, Neuro: Negative for headache, weakness, numbness, tingling, and seizure, Psych: Negative for depression, anxiety, suicide ideation, homicidal ideation, and hallucinations, Allergy/Immunology: Negative for hives, rash, and allergies, Endocrine: Negative for neck swelling, polydipsia, polyuria, polyphagia, and marked weight changes, Hematologic/Lymphatic: Negative for swollen nodes, abnormal bleeding, and unusual bruising. Exam: 05:07 Constitutional: This is a well developed, well nourished patient who is awake, alert, mh7 and in no acute distress. Head/Face: Normocephalic, atraumatic. Eyes: Pupils equal round and reactive to light, extra-ocular motions intact. Lids and lashes normal. Conjunctiva and sclera are non-icteric and not injected. Cornea within normal limits. Periorbital areas with no swelling, redness, or edema. Neck: Trachea midline, no thyromegaly or masses palpated, and no cervical lymphadenopathy. Supple, full range of motion without nuchal rigidity, or vertebral point tenderness. No Meningismus. Chest/axilla: Normal chest wall appearance and motion. Nontender with no deformity. No lesions are appreciated. Cardiovascular: Regular rate and rhythm with a normal S1 and S2. No gallops, murmurs, or rubs. Normal PMI, no JVD. No pulse deficits. Respiratory: Lungs have equal breath sounds bilaterally, clear to auscultation and percussion. No rales, rhonchi or wheezes noted. No increased work of breathing, no retractions or nasal flaring. Abdomen/GI: Soft, non-tender, with normal bowel sounds. No distension or tympany. No guarding or rebound. No evidence of tenderness throughout. Back: No spinal tenderness. No costovertebral tenderness. Full range of motion. Skin: Warm, dry with normal turgor. Normal color with no rashes, no lesions, and no evidence of cellulitis. MS/ Extremity: Pulses equal, no cyanosis. Neurovascular intact. Full, normal range of motion. Neuro: Awake and alert, GCS 15, oriented to person, place, time, and situation. Cranial nerves II-XII grossly intact. Motor strength 5/5 in all extremities. Sensory grossly intact. Cerebellar exam normal. Normal gait. Psych: Awake, alert, with orientation to person, place and time. Behavior, mood, and affect are within normal limits. Vital Signs: 04:13 BP 177 / 82; Pulse 93; Resp 24 S; Temp 97.6(TE); Pulse Ox 100% on R/A; Weight 80.74 kg as6 (R); Height 5 ft. 6 in. (167.64 cm) (R); Pain 2/10; 05:24 BP 156 / 83 RA Sitting (auto/reg); Pulse 98 MON; Resp 16 S; Temp 98(O); Pulse Ox 97% on tk1 R/A; Pain 0/10; 06:14 BP 172 / 82 RA Sitting (auto/reg); Pulse 95 MON; Resp 18 S; Pulse Ox 95% on R/A; Pain tk1 0/10; 04:13 Body Mass Index 28.73 (80.74 kg, 167.64 cm) as6 MDM: 06:40 Differential diagnosis: Anemia Anxiety Reaction asthma, Bronchitis CHF exacerbation, mh7 Chronic Obstructive Pulmonary Disease Myocardial Infarction pneumonia, Pneumothorax Psychogenic pulmonary edema, reactive airway disease. Data reviewed: vital signs, nurses notes, old medical records, lab test result(s), cardiac enzymes, CBC, electrolytes, EKG, radiologic studies, plain films. Data interpreted: Pulse oximetry: on room air is 94 %. Interpretation: acceptable. Counseling: I had a detailed discussion with the patient and/or guardian regarding: the historical points, exam findings, and any diagnostic results supporting the discharge/admit diagnosis, the presence of at least one elevated blood pressure reading (>120/80) during this emergency department visit, lab results, radiology results, the need for further work-up and treatment in the hospital. Response to treatment: the patient's symptoms have mildly improved after treatment. 06:43 Patient medically screened. 06:43 ED course: Discussed with Dr. Madrid who wants patient to be admitted disease [facility] hemodialysis. Patient admitted to hospitalist service.. 07/25 05:07 Order name: Basic Metabolic Panel; Complete Time: 06:17 07/25 05:07 Order name: CBC with Diff; Complete Time: 05:54 07/25 05:07 Order name: LFT's; Complete Time: 06:17 07/25 05:07 Order name: Magnesium; Complete Time: 06:17 07/25 05:07 Order name: NT PRO-BNP; Complete Time: 06:17 07/25 05:07 Order name: PT-INR; Complete Time: 05:54 07/25 05:07 Order name: Troponin HS; Complete Time: 06:17 07/25 05:07 Order name: COVID-19/FLU A+B (Document "Date of Onset" if Symptomatic); Complete Time: 06:07/25 06:32 Order name: Arterial Blood Gas; Complete Time: 17:54 07/25 06:45 Order name: Lactate; Complete Time: 17:54 07/25 06:45 Order name: Procalcitonin; Complete Time: 17:54 07/25 07:35 Order name: CBC with Automated Diff EDMS 07/25 07:35 Order name: CBC with Automated Diff EDMS 07/25 07:35 Order name: Comprehensive Metabolic Panel EDMS 07/25 05:07 Order name: XRAY Chest (1 view); Complete Time: 17:54 07/25 05:07 Order name: EKG; Complete Time: 05:13 07/25 05:07 Order name: Cardiac monitoring; Complete Time: 05:26 07/25 05:07 Order name: EKG - Nurse/Tech; Complete Time: 05:43 07/25 05:07 Order name: IV Saline Lock; Complete Time: 05:07/25 05:07 Order name: Labs collected and sent; Complete Time: 05:26 7 07/25 05:07 Order name: O2 Per Protocol; Complete Time: 06:54 7 07/25 05:07 Order name: O2 Sat Monitoring; Complete Time: 06:54 [facility] 07/25 07:35 Order name: CONS Physician Consult [facility] 07/25 07:35 Order name: Renal EDMS 07/25 07:35 Order name: Comprehensive Metabolic Panel [facility]SC 07/25 09:55 Order name: Glucose, Ancillary Testing; Complete Time: 17:54 EDMS 07/25 14:56 Order name: Glucose, Ancillary Testing; Complete Time: 17:54 EDMS Administered Medications: 06:54 Drug: Lasix (furosemide) 80 mg Route: IVP; Site: right hand; tk1 Disposition Summary: 07/25/21 06:43 Hospitalization Ordered Hospitalization Status: Inpatient Admission [facility] Provider: Bird Wild Condition: Stable [facility] Problem: an acute exacerbation [facility] Symptoms: have improved [facility] Bed/Room Type: Standard [facility] Location: Telemetry/MedSurg (Inpatient)(07/25/21 16:49) Room Assignment: 407(07/25/21 16:49) eb Diagnosis - End-stage renal disease on hemodialysis, pulmonary edema [facility] - Dyspnea [facility] - Coronavirus infection, unspecified [facility] Forms: - Medication Reconciliation Form [facility] - SBAR form [facility] Signatures: Dispatcher [employer] [facility] Candace Wright RN RN ss Angel Recio, ACCOUNTS PAYABLE COORDINATOR-C ACCOUNTS PAYABLE COORDINATOR-Cla1 Kiara Wall Maurice, MD MD 7 Will Carvalho RN RN as6 Inga Egan tk1 Corrections: (The following items were deleted from the chart) 09:23 06:43 Telemetry/MedSurg (Inpatient) [facility] 09:23 06:43 [facility] ss 16:49 09:23 [facility] ER HOLD eb 16:49 09:23 [facility]
[2021-07-25] MEDS ORDERED: FUROSEMIDE 100 MG/10 ML VIAL IV ONE (06:50)
[2021-07-25 07:03] LABS: Arterial Blood Carboxyhemoglob 2.2 % (0-1.5); Blood Gas Oxyhemoglobin 89.7 % (94-97)
--- NOTE | 2021-07-25 07:16 | RAD REPORT ---
EXAM DESCRIPTION: Mary Kay Single View07/25/2021 6:08 am CLINICAL HISTORY: Shortness of breath COMPARISON: June 2021 FINDINGS: The pleural effusions appear resolved. Bilateral pulmonary opacities have either mostly or completely resolved. Heart is normal size.
[2021-07-25] MEDS ORDERED: ALBUTEROL 2.5 MG/3 ML NEB SOL NEB PRN (07:31)
[2021-07-25] MEDS ORDERED: ONDANSETRON 4 MG/2 ML VIAL IV PRN (07:31)
[2021-07-25] MEDS ORDERED: GUAIFENESIN/DM 5 ML UCUP PO PRN (07:32)
[2021-07-25] MEDS ORDERED: HYDRALAZINE HCL 20 MG/ML VIAL IV PRN (07:32)
[2021-07-25] MEDS ORDERED: MORPHINE 2 MG/ML SYR IV PRN (07:32)
[2021-07-25] MEDS: SEVELAMER CARBONATE 800 MG TABLET PO SCH ×3 (08:00→17:00)
[2021-07-25] MEDS: HOME MED 1 EA UNK (Sucroferric Oxyhydroxide [Velphoro] 500 MG Tab.Chew) PO SCH ×3 (08:00→17:00)
[2021-07-25] MEDS: ZINC SULFATE 220 MG CAP PO SCH (09:00)
[2021-07-25] MEDS: TAMSULOSIN 0.4 MG SR CAP PO SCH (09:00)
[2021-07-25] MEDS: dexAMETHasone 4 MG TAB PO SCH (09:00)
[2021-07-25] MEDS: HEPARIN 5000 UNIT/ML 1 ML VIAL SQ SCH (09:00)
[2021-07-25] MEDS: AMLODIPINE 10 MG TAB PO SCH (09:00)
[2021-07-25] MEDS ORDERED: carvediloL 6.25 MG TAB ONE (09:18)
[2021-07-25] MEDS ORDERED: LOSARTAN POTASSIUM 50 MG TABLET ONE (09:26)
[2021-07-25] MEDS: carvediloL 25 MG TAB PO SCH (09:30)
[2021-07-25 10:12] VITALS: BMI 29.0
[2021-07-25] MEDS: INSULIN -REGULAR HUMAN 50 UNIT/0.5 ML ML SQ SCH ×3 (11:30→21:00)
[2021-07-25] MEDS ORDERED: EPOETIN ALFA 10,000 UNIT/ML VIAL IV SCH (16:45)
--- NOTE | 2021-07-25 21:53 | CON ---
Date of Consultation: 07/25/2021 Chief Complaint: End-stage renal disease; pulmonary edema; dyspnea; coronavirus infection, unspecifi ed. History Of Present Illness: Patient came to emergency room because of shortness of breath. Patient was found to have COVID positive test. He has history of end-stage renal disease and has been dialyz ed 3 times per week. He was found to have pulmonary edema and urgent dialysis was ordered to treat f luid overload, provide management for congestive heart failure. Patient was found to have borderline hyperkalemia and potassium level was evaluated. Patient is to have dialysis with 2 potassium dialys ate. Review of Systems: General: Patient denies syncope. He has low grade fever. Eyes: Denies vision changes. Ears, Nose, and Throat: Denies sore throat, earache. Respiratory: Denies shortness of breath with activity and at rest. Denies wheezing, hemoptysis. GI: Denies nausea or vomiting. : Denies dysuria, hematuria. All other systems reviewed and all are negative. Past Medical History: End-stage renal disease, hypertension, hypertensive heart and kidney disease, renal osteodystrophy, anemia, CKD, secondary hyperparathyroid, diabetes mellitus with renal manifesta tion, peripheral neuropathy. Social History: Denies tobacco, alcohol, illicit drugs. Family History: Hypertension. Physical Examination: General: Patient is awake, alert, follows commands. Eyes: Anicteric sclerae. EOMI. Ears, Nose, Mouth, and Throat: Oral mucosa moist. No pallor. Lungs: Equal chest expansion. Heart: S1, S2. No pericardial friction rub. Lungs: Breath sound present bilaterally. There are some crackles at bases. Abdomen: Soft, benign. Extremities: No edema. Vital Signs: Blood pressure 172/82, SpO2 of 95%, respiratory rate 18, heart rate 98 and 95. Impression And Plan: 1.COVID infection. Patient is undergoing workup to rule out flu and currently he is on isolation. For COVID, continue oxygen therapy as needed. Monitor pulse oximetry. 2.End-stage renal disease. Chest x-ray showed pulmonary edema. Patient will have urgent dialysis f or metabolic clearance and to obtain negative fluid balance. Continue p.o. fluid restriction. Monit or electrolytes. Patient will need a workup to rule out acute coronary syndrome. Further recommenda tion from primary team. 3.Hypertension. Continue current medication. Adjust medication as needed. Continue angiotensin re ceptor rosibel as before. 4.Anemia and chronic kidney disease. Monitor hemoglobin level. Currently, patient has adequate con trol of chronic anemia. Hemoglobin although is 8.7, continue GWYN. EB/MODL Voice ID: [id number] Report ID: [id number]
[2021-07-26] MEDS: HEPARIN 5000 UNIT/ML 1 ML VIAL SQ SCH ×2 (01:02→08:40)
[2021-07-26] MEDS: SODIUM BICARB 325 MG TAB PO SCH ×2 (01:03→09:59)
[2021-07-26] MEDS: carvediloL 25 MG TAB PO SCH ×2 (01:03→06:39)
[2021-07-26] MEDS: dexAMETHasone 4 MG TAB PO SCH ×2 (01:09→08:39)
[2021-07-26 03:30] LABS: Absolute Lymphocytes (CBC) 0.4 K/uL (0.7-4.9); Hematocrit 24.5 % (39.6-49.0); Lymphocytes % 5.9 % (15.3-44.8); RBC Red Blood Cell Count 2.61 M/uL (4.33-5.43)
[2021-07-26 04:08] LABS: Albumin 3.1 g/dL (3.4-5.0); Bilirubin Total 0.5 mg/dL (0.2-1.0); Potassium 4.3 mmol/L (3.5-5.1); Protein, Total 7.4 g/dL (6.4-8.2)
[2021-07-26] MEDS: HOME MED 1 EA UNK (Sucroferric Oxyhydroxide [Velphoro] 500 MG Tab.Chew) PO SCH (08:00)
[2021-07-26] MEDS: SEVELAMER CARBONATE 800 MG TABLET PO SCH (08:38)
[2021-07-26] MEDS: INSULIN -REGULAR HUMAN 50 UNIT/0.5 ML ML SQ SCH (08:38)
[2021-07-26] MEDS: AMLODIPINE 10 MG TAB PO SCH (08:38)
[2021-07-26] MEDS: ZINC SULFATE 220 MG CAP PO SCH (08:39)
[2021-07-26] MEDS: TAMSULOSIN 0.4 MG SR CAP PO SCH (08:40)
[2021-07-26 08:48] VITALS: BP 160/81
[2021-07-26] MEDS ORDERED: FOLIC ACID 1 MG TABLET PO SCH (09:00)
[2021-07-26] MEDS ORDERED: LOSARTAN POTASSIUM 50 MG TABLET PO SCH ×2 (09:00→10:00)
[2021-07-26 09:22] VITALS: TEMP 98.6
[2021-07-26 09:42] VITALS: O2SAT 93
--- NOTE | 2021-07-26 10:02 | P.DS ---
Admission Date: 07/25/21 Discharge Date: 07/26/21 Disposition: ROUTINE DISCHARGE Discharge Condition: FAIR Reason for Admission: Shortness of breath and cough - Problems (1) Lab test positive for detection of COVID-19 virus Current Visit: Yes Status: Acute (2) Chronic anemia Current Visit: No Status: Acute (3) ESRD (end stage renal disease) on dialysis Current Visit: No Status: Acute (4) Fluid overload Current Visit: No Status: Acute Brief History of Present Illness: 55-year-old male with past medical history of HTN, diabetes mellitus, ESRD on HD at [facility] follows with Dr. Colin developed intermittent fever and chills since the last 10 days after dialysis. He states he is vaccinated for COVID. He received a booster dose 4 days ago but continued to feel unwell including new onset cough since the last 3 days. Due to his symptoms he has missed dialysis 5 days ago and had told he had dialysis 1 session since the last 1 week which was 3 days ago. He presented to his dialysis clinic yesterday but was told because of his symptoms he probably have COVID and was not allowed into the dialysis unit. He was swabbed and sent home. He came to the hospital today because of new onset shortness of breath which is mainly on exertion. COVID screen in the emergency room today is positive. His chest x-ray shows mild pul monary edema with few interstitial changes. He is saturating well on room air. He denies any nausea or vomiting. Nephrology has been discussed with and will arrange for dialysis while inpatient. He has been admitted for dialysis and for self-reported shortness of breath ABG now shows PO2 of 73 on room air Hospital Course: Patient admitted for missed dialysis also noted with COVID-positive status. He was complaining of chest congestion and chest tightness. He was ruled out with cardiac enzymes that were negative. He underwent dialysis with 4 L ultrafiltration and his symptoms are significantly improved. He was monitored overnight with no recurrence of his symptoms. His blood pressure was elevated and remained elevated even postdialysis hydralazine has been added to his regimen. His COVID test was positive and he was started on low-dose Decadron. He is dialysis has been arranged as TTS fourth shift now at [facility] which she has been informed. He will be discharged home today to continue his dialysis on Tuesday. Vital Signs/Physical Exam: Temp Pulse Resp BP Pulse Ox 98.6 F 97 H 20 160/81 H 91 07/26/21 08:00 07/26/21 08:38 07/26/21 08:00 07/26/21 08:38 07/26/21 08:00 General: Alert, In no apparent distress, Oriented x3 HEENT: Atraumatic, Normocephalic, PERRLA Neck: Supple, 2+ carotid pulse no bruit, JVD not distended Respiratory: Clear to auscultation bilaterally, Normal air movement Cardiovascular: No edema, Regular rate/rhythm, Normal S1 S2 Gastrointestinal: Normal bowel sounds, Soft and benign, Non-distended Musculoskeletal: No clubbing, No swelling Integumentary: No rashes, No breakdown Neurological: Normal gait, Normal speech, Normal strength at 5/5 x4 extr External genitalia: No edema, No lesions Laboratory Data at Discharge: WBC 7.10 K/uL (4.3-10.9) D 07/26/21 03:08 Hgb 8.4 g/dL (13.6-17.9) L 07/26/21 03:08 Hct 24.5 % (39.6-49.0) L 07/26/21 03:08 Plt Count 230 K/uL (152-406) 07/26/21 03:08 PT 11.1 SECONDS (9.5-12.5) 07/25/21 05:00 INR 0.97 07/25/21 05:00 Sodium 136 mmol/L (136-145) 07/26/21 03:08 Potassium 4.3 mmol/L (3.5-5.1) 07/26/21 03:08 BUN 49 mg/dL (7-18) H D 07/26/21 03:08 Creatinine 10.80 mg/dL (0.55-1.3) H* D 07/26/21 03:08 Glucose 176 mg/dL (74-106) H 07/26/21 03:08 Magnesium 2.5 mg/dL (1.8-2.4) H 07/25/21 05:00 Total Bilirubin 0.5 mg/dL (0.2-1.0) 07/26/21 03:08 AST 14 U/L (15-37) L 07/26/21 03:08 ALT 21 U/L (12-78) 07/26/21 03:08 Alkaline Phosphatase 79 U/L (45-117) 07/26/21 03:08 Home Medications: Amitriptyline HCl 10 mg PO BEDTIME 06/29/21 Amlodipine [Norvasc*] 10 mg PO DAILY 06/29/21 Losartan Potassium 100 mg PO DAILY 06/29/21 Tamsulosin [Flomax*] 0.4 mg PO DAILY 06/29/21 Carvedilol [Coreg] 25 mg PO BID 06/30/21 Insulin Glargine,Hum.rec.anlog [Lantus Solostar] 20 units SQ TID 06/30/21 Sevelamer Carbonate 4 tab PO TIDWM 06/30/21 Sucroferric Oxyhydroxide [Velphoro] 1 tab PO TIDWM 06/30/21 Hydralazine [Apresoline*] 25 mg PO BID #60 tab 07/26/21 dexAMETHasone [Decadron*] 4 mg PO BID #10 tab 07/26/21 New Medications: Hydralazine [Apresoline*] 25 mg PO BID #60 tab dexAMETHasone [Decadron*] 4 mg PO BID #10 tab Diet: Renal Activity: Ad kaykay Followup: ONIEL MALDONADO [Primary Care Provider] - Time spent managing pt's care (in minutes): 35
--- NOTE | 2021-07-27 08:06 | EKG ---
Test Date: 2021-07-25 Test Time: 05:35:47 Talent Sourcer: WARD MEASUREMENT RESULTS: Intervals: Rate: 92 ID: [id number] QRSD: 82 QT: 352 QTc: 435 [place]: P: 44 ID: [id number] QRS: 17 T: 94 INTERPRETIVE STATEMENTS: Normal sinus rhythm Possible Left atrial enlargement Abnormal QRS-T angle, consider primary T wave abnormality Abnormal ECG Compared to ECG 04/09/2020 14:13:12 Possible ischemia no longer present T-wave abnormality still present Electronically Signed On 07-27-21 08:03:16 STEEL [employer]IE [employer] by Lloyd Perkins
== END 2021-07-26 10:25 | disposition home or self-care (01) | DRG 177 ==
LOC: ER 03:56 → ERHOLD 08:50 → 4TH 21:26
PROVIDERS: ADMIT Internal Medicine; ATTEND Internal Medicine
PROC: 5A1D70Z Performance of Urinary Filtration, Intermittent, Less than 6 Hours Per Day (ICD-10-PCS; principal; 2021-07-25)
DX: U07.1 COVID-19 (principal); N18.6 End stage renal disease; I12.0 Hypertensive chronic kidney disease with stage 5 chronic kidney disease or end stage renal disease; E87.70 Fluid overload, unspecified; E11.22 Type 2 diabetes mellitus with diabetic chronic kidney disease; E11.42 Type 2 diabetes mellitus with diabetic polyneuropathy; D63.1 Anemia in chronic kidney disease; E87.5 Hyperkalemia; F17.210 Nicotine dependence, cigarettes, uncomplicated; Z79.4 Long term (current) use of insulin; Z79.899 Other long term (current) drug therapy; Z99.2 Dependence on renal dialysis; Z85.47 Personal history of malignant neoplasm of testis; Z91.15 Patient's noncompliance with renal dialysis
CPT/HCPCS: 0240U; 36415; 71045; 80048; 80053; 80076; 82805; 82947; 83605; 83735; 83880; 84145; 84484; 85025; 85610; 93005; 94760; 96374; 99285; J1644; J8540

== ENCOUNTER 2021-08-06 16:57 | Observation (INO) | payer OTHER ==
--- OUTSIDE RECORDS SUMMARY | 2021-08-06 17:01 | XMS REPORT | Continuity of Care Document ---
:1965 Author Organization [facility] t Address [address] [place] [address] [address]. [address] [place] [address] Care Team Providers Name Role Phone LULA FUNEZBRIDGETTEBOBBI ALEXANDER Attending Clinician Unavailable Kiah MUNSON Attending Clinician Unavailable Philipp Attending Clinician Unavailable Shlomo Attending Clinician Unavailable Luis Alberto Attending Clinician Unavailable [facility] Attending Clinician Unavailable Pattie Padilla Attending Clinician SABRINA Attending Clinician Unavailable Jose Francisco MUNSON G Attending Clinician Unavailable Lab, Fam Pob I Attending Clinician Unavailable Andreina Alatorre Attending Clinician Andreina CROW Attending Clinician Unavailable Payers Payer Name Policy Type Policy Number Effective Date Expiration Date S saurabh MEDICARE A B [id number] UNITED MEDICARE [id number] 2021 O 00:00:00 [place] [id number] Problems Condition Condition Condition Status Onset Resolution Last Treating Co mments Source Name Details Category Date Date Treatment Clinician Date ESRD (end ESRD (end Disease Active [facility] stage stage 02-05 [facility] - renal renal 00:00: Medical disease) disease) 00 Center on on dialysis dialysis Secondary Secondary Disease Active [facility] hypertensi hypertensi 02-05 Sujata kes - on on 00:00: Medical 00 Center Other Other Disease Active [facility] hyperlipid hyperlipid 02-05 Sujata whites - emia emia 00:00: Medical 00 Center Type 2 Type [address] [facility] diabetes diabetes 02-05 [place] - mellitus mellitus 00:00: Medica l with with Center chronic chronic kidney kidney disease, disease, with with long-term long-term current current use of use of insulin insulin Febrile Febrile Disease Active 2013-07 Univers neutropeni neutropeni 1-05 it y of a a 00:00: [place] 00 [facility] Cancer Cancer Disease Active 2013-07 Univers 0-27 ity of 00:00: [place] 00 [facility] Branch Maintenanc Maintenanc Disease Active U nivers e e 04-01 ity of chemothera chemothera [place] 00 [facility] Abdominal Abdominal Disease Active Uni vers pain pain 03-19 ity of 00:00: [place] [facility] Testicular Testicular Disease Active U nivers cancer cancer 03-05 ity of 00:00: [place] 00 [facility] Edema of Edema of Disease Active Unive rs right right 03-05 ity of lower lower 00:00: [place] extremity extremity 00 [facility] hayder Branch Allergies, Adverse Reactions, Alerts Allergy Allergy Status Severity Reaction(s) Onset Inactive Treating Comm ents Source Name Type Date Date Clinician NO KNOWN Allergy Active [facility] BARTOLO [facility] NO KNOWN Drug Active [facility] ALLERGIE Class ity of S [facility] Social History Social Habit Start Date Stop Date Quantity Comments Source Exposure to Yes [place] of SARS-CoV-2 (event) [facility] Cigarettes smoked 2015-12-24 2015-12-24 Univers ity of current (pack per 00:00:00 00:00:00 ) - Reported Branch Cigarette 2015-12-24 2015-12-24 University of pack-years 00:00:00 00:00:00 [facility] Alcohol intake 2015-12-24 2015-12-24 University of 00:00:00 00:00:00 [facility] Alcohol Comment 2014-03-05 2014-03-05 History of Universit y of 00:00:00 00:00:00 alcholism [facility] History of tobacco 2013-07-31 Cigarette Smoker University of use 00:00:00 [facility] Sex [birth year] At [birth year] LORIE Mcmahon kes - 00:00:00 00:00:00 [facility] Smoking Status Start Date Stop Date Source Former smoker 2015-12-24 00:00:00 2015-12-24 00:00:00 [facility] Medications Ordered Filled Start Stop [...] 8-12 ity of mg tablet 00:00: [place] 00 [facility] Branch doxazosin Yes Univers (CARDURA) 4 8-12 ity of mg tablet 00:00: [place] 00 [facility] Branch minocycline 0 Yes Univer s (MINOCIN) 8-12 ity of 100 mg 00:00: [place] capsule 00 Medical Branch citalopram Yes Univers (CELEXA) 20 8-12 ity of mg tablet 00:00: [place] 00 [facility] Branch doxazosin Yes Univers (CARDURA) 4 8-12 ity of mg tablet 00:00: [place] 00 [facility] Branch minocycline 0 Yes Univer s (MINOCIN) 8-12 ity of 100 mg 00:00: [place] capsule 00 [facility] Branch citalopram Yes Univers (CELEXA) 20 8-12 ity of mg tablet 00:00: [place] 00 [facility] Branch doxazosin Yes Univers (CARDURA) 4 8-12 ity of mg tablet 00:00: [facility] minocycline Yes Univer s (MINOCIN) 8-12 ity of 100 mg 00:00: capsule [facility] Branch citalopram Yes Univers (CELEXA) 20 8-12 ity of mg tablet 00:00: [facility] Branch doxazosin Yes Univers (CARDURA) 4 8-12 ity of mg tablet 00:00: [facility] minocycline Yes Univer s (MINOCIN) 8-12 ity of 100 mg 00:00: [place] capsule [facility] Branch tamsulosin Yes .4mg Take 1 Cap U nivers (FLOMAX) 8-11 by mouth ity of 0.4 mg 24 00:00: daily. [facility] capsule [facility] potassium Yes 1080mg Take 1 Tab Univers citrate 8-11 by mouth 2 ity of (UROCIT-K 00:00: () 10) 10 mEq 00 times Medical (1,080 mg) daily with Bra nch SR tablet meals. tamsulosin Yes .4mg Take 1 Cap U nivers (FLOMAX) 8-11 by mouth ity of 0.4 mg 24 00:00: daily. [facility] capsule [facility] potassium Yes 1080mg Take 1 Tab Univers citrate 8-11 by mouth 2 ity of (UROCIT-K 00:00: () [place] 10) 10 mEq 00 times Medical (1,080 mg) daily with Bra nch SR tablet meals. tamsulosin Yes .4mg Take 1 Cap U nivers (FLOMAX) 8-11 by mouth ity of 0.4 mg 24 00:00: daily. [facility] capsule [facility] potassium Yes 1080mg Take 1 Tab Univers citrate 8-11 by mouth 2 ity of (UROCIT-K 00:00: () 10) 10 mEq 00 times Medical (1,080 mg) daily with Bra nch SR tablet meals. tamsulosin Yes .4mg Take 1 Cap U nivers (FLOMAX) 8-11 by mouth ity of 0.4 mg 24 00:00: daily. [place] capsule [facility] potassium Yes 1080mg Take 1 Tab Univers citrate 8-11 by mouth 2 ity of (UROCIT-K 00:00: (two) [place] 10) 10 mEq 00 times Medical (1,080 mg) daily with Bra nch SR tablet meals. LANTUS Yes Univers SOLOSTAR 6-10 ity of 100 unit/mL 00:00: [place] (3 mL) InPn 00 Medical Branch [place] [id number] Yes Univer s 32 x 1/4 " 6-10 ity of Ndle 00:00: [place] [facility] LANTUS Yes Univers SOLOSTAR 6-10 ity of 100 unit/mL 00:00: [place] (3 mL) InPn 00 Medical Branch [place] [address] Yes Univer s 32 x 1/4 " 6-10 ity of Ndle 00:00: [place] 00 Medical Branch LANTUS Yes Univers SOLOSTAR 6-10 ity of 100 unit/mL 00:00: [place] (3 mL) InPn 00 Medical Branch [place] [address] Yes Univer s 32 x 1/4 " 6-10 ity of Ndle 00:00: [place] 00 Medical Branch LANTUS Yes Univers SOLOSTAR 6-10 ity of 100 unit/mL 00:00: [place] (3 mL) InPn 00 Medical Branch [place] [address] Yes Univer s 32 x 1/4 " 6-10 ity of Ndle 00:00: [place] 00 Medical Branch hydrochloro 2013-07 Yes Angelia s thiazide 2-01 ity of (ESIDRIX) 00:00: [...] Units ity of human 00:00: under the [place] (HUMULIN R) 00 skin Medical injection before Branch meals. Insulin 2013-07 Yes Univers Syringe-Nee 0-04 ity of dle U-100 00:00: [place] (SURE 00 Medical COMFORT Branch INSULIN SYRINGE) [...] 20 mg 00:00: daily. [place] tablet 00 Medical Branch pravastatin Yes 20mg Take 20 mg Univers (PRAVACHOL) 7-03 by mouth ity of 20 mg 00:00: daily. [place] tablet 00 Medical Branch pravastatin Yes 20mg Take 20 mg Univers (PRAVACHOL) 7-03 by mouth ity of 20 mg 00:00: daily. [place] tablet [address] [place] [address] pravastatin 2014-0 Yes 20mg Take 20 mg Univers (PRAVACHOL) 7-03 by mouth ity of 20 mg 00:00: daily. [place] tablet [address] [place] [address] Immunizations Ordered Filled Immunization Date Status Comments Sour e Immunization Name Name Influenza Virus 2014-05-04 Completed Universit y of Vaccine Quad IM 3+ 00:00:00 [facility] Influenza Virus 2014-05-04 Completed Universit y of Vaccine Quad IM 3+ 00:00:00 [facility] Influenza Virus 2014-05-04 Completed Universit y of Vaccine Quad IM 3+ 00:00:00 [facility] Influenza Virus 2014-05-04 Completed Universit y of Vaccine Quad IM 3+ 00:00:00 [facility] Vital Signs Vital Name Observation Time Observation Value Comments Source Body height 2020 12:50:00 170.2 cm [facility] Body weight 2020 12:50:00 70.308 kg [facility] BMI 2020 12:50:00 24.28 kg/m2 [facility] Procedures This patient has no known procedures. Encounters Start End Encounter Admission Attending Care Care Encounter Source Date/Time Date/Time Type Type Clinicians Facility Department ID 2021-05-12 2021-05-12 Outpatient URIEL REDDY [facility] [id number] SLE 00:00:00 00:00:00 ZACHERY 2021-05-12 2021-05-12 Outpatient URIEL REDDY [facility] [id number] SLE 00:00:00 00:00:00 BHAMIDIPABOBBI 2021-05-12 2021-05-12 Outpatient COLLIN TREVINO [facility] [id number] SLE 00:00:00 00:00:00 2021-05-12 2021-05-12 Outpatient URIEL REDDY [facility] [id number] SLE 00:00:00 00:00:00 BHAMIDIPABOBBI 2021-05-12 2021-05-12 [id number] [facility] 00:00:00 00:00:00 BHAMIDIPABOBBI 2021-04-23 2021-04-23 Outpatient EL [facility] [id number] [facility] 00:00:00 00:00:00 2021-04-23 2021-04-23 Outpatient EL [facility] [id number] [facility] 00:00:00 00:00:00 2021-04-23 2021-04-23 Outpatient EL [facility] [id number] [facility] 00:00:00 00:00:00 2021-04-23 2021-04-23 Outpatient EL [facility] [id number] [facility] 00:00:00 00:00:00 2021-04-23 2021-04-23 Outpatient EL [facility] 113 [facility] 00:00:00 00:00:00 2021-04-23 2021-04-23 [id number] [facility] 00:[facility]00 00:00:00 ion [facility] 2021-04-23 2021-04-[address] [facility] [id number] 00:00[facility]00 00:00:00 [facility] 2021-04-23 2021-04-23 Telephone [facility] [id number] [facility]00 00:00:00 [facility] 2021-04-13 2021-04-13 Telephone [facility] [id number] 00:00[facility]00 00:00:00 [facility] 2021-04-10 2021-04-10 Telephone [facility] [id number] 00:[facility]00 00:00:00 [facility] 2021-04-10 2021-04-10 Telephone [facility] [id number] 00:00[facility]00 00:00:00 [facility] 2021-02-05 2021-02-[address] [facility] [id number] 00:00:00 00:00:00 [facility] 2021-02-05 2021-02-[address] [facility] [id number] 00:00:00 00:00:00 Only [facility] 2020-11-13 2020-11-13 Documentmaikel Sahu, [facility] [id number] 00:00[facility]00 00:00:00 ion [facility] 2020-11-06 2020-11-06 Enedelia Sahu, [facility] [id number] 00:00:00 00:00:00 [facility] 2020-11-06 2020-11-[address] [facility] [id number] [address] 00:00[facility]00 00:00:00 ion [facility] 2020-11-05 2020-11-[address] [facility] [id number] [address] 00:00[facility]00 00:00:00 [facility] [place] [facility] 2020-11-05 2020-11-05 Enedelia Sahu, [facility] [id number] 00:00:00 00:00:00 [facility] 2020-11-05 2020-11-[address] [facility] [id number] 00:00:00 00:00:00 ion [facility] 2020-11-05 2020-11-[address] [facility] [id number] 00:00:00 00:00:00 [facility] 2020-11-05 2020-11-[address] [facility] [id number] 00:00[facility]00 00:00:00 [facility] [place] [facility] 2020-10-27 2020-10-[address] [facility] [id number] 00:00:00 00:00:00 [facility] [address] [facility] [id number] [facility] 00:00:00 00:00:00 [facility] 2019-12-13 2019-12-13 Telephone Pob1, Acute [facility] [id number] Univers 00:00:00 00:00:[address] [facility] Health [id number] ity of [place] [id number] Sanjay as Professio [phone] Mn dical [address] Office [address] 2019-12-13 2019-12-13 Telephone Pob1, Acute [facility] [id number] 00:00:00 00:00:00 [facility] Health [id number] [place] [id number] Professio [phone] [place] [address] [address] 2019-12-09 2019-12-09 Telephone WILMAN Padilla [id number] Univers 00:00:00 00:00:00 Shilpa MIRANDA [id number] ity [facility] [id number] Sanjay as [phone] [address] 2019-12-09 2019-12-09 Telephone WILMAN Padilla [id number] 00:00:00 00:00:00 Shilpa MIRANDA [id number] [facility] [id number] 2019-12-08 2019-12-08 Outpatient R [facility] [id number] Univers 12:40:00 12:40:00 [id number] ity [facility] 2019-12-08 2019-12-08 [facility] [id number] Univers 12:40:00 12:40:00 SVETA ity [facility] 2019-12-08 2019-12-08 Telephone Stenstadcyndi [place] [id number] Univers 00:00:00 00:00:00 Anastasia jamison [id number] ity of [facility] [id number] Sanjay as [phone] [address] 2019-12-08 2019-12-08 Telephone Stenstadcyndi [place] [id number] 00:00:00 00:00:00 yaquelin Anastasia MIRANDA [id number] [facility] [id number] 2019-12-07 2019-12-07 [facility] Lab, [facility] [id number] [facility] 15:00:09 15:10:09 Visit [facility] [id number] [facility] [id number] Sanjay as Professio [phone] [address] Office [address] 2019-12-07 2019-12-07 Senior Education Specialist Lab, [facility] [id number] 15:00:09 15:10:09 Visit [facility] [id number] [place] [id number] Professio [phone] [place] [address] Office Building [facility] 2019-12-07 2019-12-07 Outpatient [facility] [id number] [facility] 15:10:00 15:10:00 [facility] Results Test Description Test Time Test Comments Results Result Comments Source SARS-COV2/RT-PCR ([facility]) 2020-01-29 04:24:00 Test Item Value Reference Range Interpretation Comme nts SARS-COV2/RT-PCR (test code = [id number]) Negative Not Detected, N egative, See external report for linked test SARS-COV-2 PERFORMING LAB (test [facility] = [facility] [id number]) Negative results do not preclude SARS-CoV-2 infection [...] of the Act.Fact Sheet for Healthcare Pro viders:https://www.[employer]/Documents/Xpert%20Xpress%20SARS%20CoV-2/Fact%20Sh eets/543-1402%13LLGY-XHW-3%20HEALTHCARE%20PROVIDERS%20FACT%20SHEET.pdfFact Sheet for Healthcare Patients:https://www.[employer]/Documents/Xpert%20Xpress%20SARS%20CoV-2/Fact%20Sheets/302-6470%20SARS-COV -2%20PATIENT%20FACT%20SHEET.pdfPerforming Laboratory:[facility] [place] [address]
[2021-08-06] MEDS ORDERED: NA CHLORIDE 0.9% 1,000 ML ONE (17:39)
[2021-08-06 17:48] LABS: Absolute Lymphocytes (CBC) 0.9 K/uL (0.7-4.9); Hematocrit 25.9 % (39.6-49.0); Lymphocytes % 5.2 % (15.3-44.8); MPV 7.1 fL (7.6-11.3); RBC Red Blood Cell Count 2.69 M/uL (4.33-5.43)
[2021-08-06 17:49] LABS: Protime INR 1.06
--- NOTE | 2021-08-06 18:18 | RAD REPORT ---
EXAM DESCRIPTION: RAD - Chest Single View - 08/06/2021 6:06 pm CLINICAL HISTORY: CHEST PAIN Chest pain. COMPARISON: Chest Single View dated 07/25/2021; Chest Single View dated 06/29/2021; Chest Single View dated 02/01/2020; Chest Single View dated 01/29/2020 FINDINGS: Portable technique limits examination quality. Mild pulmonary edema is seen. The heart is mildly enlarged in size. No displaced fractures. IMPRESSION: Mild CHF.
[2021-08-06 18:23] LABS: Albumin 2.7 g/dL (3.4-5.0); Bilirubin Direct 0.2 mg/dL (0-0.2); Bilirubin Total 0.7 mg/dL (0.2-1.0); Potassium 5.2 mmol/L (3.5-5.1); Protein, Total 6.6 g/dL (6.4-8.2); Troponin High Sensitivity 42.6 pg/mL (<58.9)
--- NOTE | 2021-08-06 18:35 | EDPHYS ---
Physician Documentation [facility] Name: Ben Muir Age: 55 yrs Sex: Male : 1965 Arrival Date: 08/06/2021 Time: 16:58 Bed 7 Private MD: ED Physician Camilo Mccollum HPI: 08/06 18:24 This 55 yrs old Male presents to ER via Wheelchair with complaints of kdr Dehydration, Breathing Difficulty. 18:24 The patient has shortness of breath at rest, with light activity. Onset: The kdr symptoms/episode began/occurred gradually, 10 day(s) ago. Duration: The symptoms are continuous, and are steadily getting worse. The patient's shortness of breath is aggravated by exertion. Severity of symptoms: At their worst the symptoms were in the emergency department the symptoms. The patient has experienced similar episodes in the past. Historical: - Allergies: 17:06 No Known Allergies; vg1 - Home Meds: 17:06 amitriptyline 10 mg Oral tab 1 tab once daily [Active]; amlodipine 10 mg tab 1 tab once vg1 daily [Active]; carvedilol 25 mg Oral tab 1 tab 2 times per day [Active]; hydralazine 25 mg Oral tab 1 tab three times a day [Active]; Lantus U-100 Insulin 100 unit/mL Sub-Q crtg 100 unit/mL three times a day [Active]; losartan 100 mg Oral tab 1 tab once daily [Active]; Hina-Andrew Rx 1-60-300 mg-mg-mcg Oral tab [Active]; sevelamer carbonate 800 mg Oral tab 4 tab 3 times per day [Active]; tamsulosin 0.4 mg Oral cap 1 cap once daily [Active]; Velphoro 500 mg Oral chew 1 tab 3 times per day [Active]; - PMHx: 17:06 Diabetes - IDDM; DIALYSIS MWF; Hypertension; Stage 3 Kidney Disease; testicular cancer; vg1 - Immunization history:: Client reports receiving the 2nd dose of the Covid vaccine. - Social history:: Smoking status: Patient reports the use of cigarette tobacco products, denies chronic smoking, but will smoke occasionally. ROS: 18:24 Constitutional: Negative for fever, chills, and weight loss, Eyes: Negative for injury, kdr pain, redness, and discharge, Neck: Negative for injury, pain, and swelling, Cardiovascular: Negative for chest pain, palpitations, and edema, Abdomen/GI: Negative for abdominal pain, nausea, vomiting, diarrhea, and constipation, Back: Negative for injury and pain, : Negative for injury, bleeding, discharge, and swelling, MS/Extremity: Negative for injury and deformity, Skin: Negative for injury, rash, and discoloration, Neuro: Negative for headache, weakness, numbness, tingling, and seizure activity. Psych: Negative for depression, anxiety, suicide ideation, homicidal ideation, and hallucinations, Allergy/Immunology: Negative for hives, rash, and allergies, Endocrine: Negative for neck swelling, polydipsia, polyuria, polyphagia, and marked weight changes, Hematologic/Lymphatic: Negative for swollen nodes, abnormal bleeding, and unusual bruising. 18:24 Respiratory: Positive for cough, with yellow sputum, dyspnea on exertion, shortness of breath, on exertion. Exam: 17:38 ECG was reviewed by the Attending Physician. kdr 18:24 Constitutional: This is a well developed, well nourished patient who is awake, alert, kdr and in no acute distress. Head/Face: Normocephalic, atraumatic. Eyes: Pupils equal round and reactive to light, extra-ocular motions intact. Lids and lashes normal. Conjunctiva and sclera are non-icteric and not injected. Cornea within normal limits. Periorbital areas with no swelling, redness, or edema. Neck: Trachea midline, no thyromegaly or masses palpated, and no cervical lymphadenopathy. Supple, full range of motion without nuchal rigidity, or vertebral point tenderness. No Meningismus. Chest/axilla: Normal chest wall appearance and motion. Nontender with no deformity. No lesions are appreciated. Cardiovascular: Regular rate and rhythm with a normal S1 and S2. No gallops, murmurs, or rubs. Normal PMI, no JVD. No pulse deficits. Abdomen/GI: Soft, non-tender, with normal bowel sounds. No distension or tympany. No guarding or rebound. No evidence of tenderness throughout. Back: No spinal tenderness. No costovertebral tenderness. Full range of motion. Skin: Warm, dry with normal turgor. Normal color with no rashes, no lesions, and no evidence of cellulitis. MS/ Extremity: Pulses equal, no cyanosis. Neurovascular intact. Full, normal range of motion. Neuro: Awake and alert, GCS 15, oriented to person, place, time, and situation. Cranial nerves II-XII grossly intact. Motor strength 5/5 in all extremities. Sensory grossly intact. Cerebellar exam normal. Normal gait. Psych: Awake, alert, with orientation to person, place and time. Behavior, mood, and affect are within normal limits. 18:24 Respiratory: mild respiratory distress is noted, Respirations: shallow respirations, that is mild, Patient has wheezing with coughing. Vital Signs: 17:02 BP 174 / 82; Pulse 113; Resp 20; Temp 98.8; Pulse Ox 95% ; Weight 79.38 kg; Height 5 vg1 ft. 6 in. (167.64 cm); Pain 5/10; 18:41 BP 156 / 75; Pulse 95; Resp 20; Pulse Ox 100% on R/A; benavides 20:33 BP 187 / 95; Pulse 117; Resp 21; Pulse Ox 94% ; vc1 17:02 Body Mass Index 28.25 (79.38 kg, 167.64 cm) vg1 MDM: 18:34 Patient medically screened. kdr 18:34 Data reviewed: vital signs, nurses notes, lab test result(s), radiologic studies. kdr Counseling: I had a detailed discussion with the patient and/or guardian regarding: the historical points, exam findings, and any diagnostic results supporting the discharge/admit diagnosis, lab results, radiology results, the need for further work-up and treatment in the hospital. 08/06 17:25 Order name: Basic Metabolic Panel [facility] 08/06 17:25 Order name: CBC with Diff [facility] 08/06 17:25 Order name: LFT's [facility] 08/06 17:25 Order name: Magnesium [facility] 08/06 17:25 Order name: NT PRO-BNP [facility] 08/06 17:25 Order name: PT-INR; Complete Time: 18:37 [facility] 08/06 17:25 Order name: Troponin HS [facility] 08/06 17:25 Order name: XRAY Chest (1 view); Complete Time: 18:37 [facility] 08/06 17:33 Order name: COVID-19 SARS RT PCR (Document "Date of Onset" if Symptomatic) kj1 08/06 18:37 Order name: CRP la1 08/06 18:37 Order name: Procalcitonin la1 08/06 18:38 Order name: C-Reactive Protein EDIN 08/06 18:50 Order name: Urine Microscopic Only la1 08/06 20:07 Order name: CBC Smear Scan EDIN 08/06 17:15 Order name: EKG - Nurse/Tech; Complete Time: 17:15 benavides 08/06 17:25 Order name: EKG; Complete Time: 17:26 kdr 08/06 17:25 Order name: Cardiac monitoring; Complete Time: 17:32 kdr 08/06 17:25 Order name: IV Saline Lock; Complete Time: 17:32 kdr 08/06 17:25 Order name: Labs collected and sent; Complete Time: 17:32 kdr 08/06 17:25 Order name: O2 Per Protocol; Complete Time: 17:32 kdr 08/06 17:25 Order name: O2 Sat Monitoring; Complete Time: 17:32 kdr EC:38 Rate is 114 beats/min. Rhythm is regular, Sinus tachycardia with No ectopy. QRS [place] is kdr Normal. TN interval is normal. QRS interval is normal. QT interval is normal. Clinical impression: Sinus tachycardia. Administered Medications: 18:30 Drug: Albuterol 2.5 mg Route: Inhalation; benavides 19:10 Follow up: Response: No adverse reaction; Marked relief of symptoms jg9 18:31 CANCELLED (Patient Refused): NS 0.9% 1000 ml IV at 1 bolus Per protocol; 1000 mL bolus benavides 18:31 Drug: NS 0.9% 250 ml Route: IV; Rate: bolus; Site: right hand; benavides 20:31 Follow up: Response: No adverse reaction; IV Status: Completed infusion; IV Intake: vc1 150ml 19:05 Drug: Lasix (furosemide) 40 mg {Note: Administered by previous shift.} Route: IVP; vc1 Site: right hand; 20:30 Follow up: Response: No adverse reaction vc1 19:05 Drug: Rocephin - (cefTRIAXone) 1 grams {Note: Administered by previous nurse.} Route: vc1 IVPB; Infused Over: 30 mins; Site: right hand; 20:30 Follow up: IV Status: Completed infusion; IV Intake: 50ml vc1 19:05 Drug: Zithromax (azithromycin) 500 mg {Note: Administered by previous nurse.} Route: vc1 IVPB; Infused Over: 1 hrs; Site: right hand; 20:30 Follow up: Response: No adverse reaction; IV Status: Completed infusion; IV Intake: [id number] 20:16 Drug: Zofran (Ondansetron) 4 mg Route: IVP; Site: right hand; vc1 20:29 Follow up: Response: No adverse reaction; Nausea is decreased vc1 20:30 Drug: SOLU-Medrol (methylPrednisoLONE) 125 mg {Note: Not administered by previous vc1 shift.} Route: IVP; Site: right hand; 20:31 Follow up: Response: No adverse reaction; Pain is decreased vc1 Disposition Summary: 08/06/21 18:34 Hospitalization Ordered Hospitalization Status: Observation kdr Provider: Asif Mcintyre kdr Location: Telemetry/MedSurg (observation) kdr Condition: Fair kdr Problem: an acute exacerbation kdr Symptoms: have improved kdr Bed/Room Type: Standard kdr Room Assignment: 407(08/06/21 19:53) cg Diagnosis - Shortness of breath kdr - SARS-associated coronavirus as the cause of diseases classified elsewhere kdr - End stage renal disease kdr Forms: - Medication Reconciliation Form kdr - SBAR form kdr Signatures: Dispatcher [employer] EDMS Camilo Mccollum MD MD kdr Angel Recio, TOBACCO STEMMER MACHINE-C TOBACCO STEMMER MACHINE-Cla1 Fany Conklin RN RN cg Garcia, Victoria, RN RN vg1 Ngoc Singh RN RN ha Calcote, Vanessa, RN RN vc1 Farhana Roman RN jg9 Corrections: (The following items were deleted from the chart) 18:31 17:25 NS 0.9% 1000 ml IV at 1 bolus Per protocol; 1000 mL bolus ordered. kdr benavides 18:31 18:31 NS 0.9% 1000 ml IV at 1 bolus Per protocol; 1000 mL bolus ordered. benavides benavides 19:53 18:34 kdr cg
--- NOTE | 2021-08-06 18:35 | ER ---
Nurse's Notes [facility] Name: Ben Muir Age: 55 yrs Sex: Male : 1965 Arrival Date: 08/06/2021 Time: 16:58 Bed 7 Private MD: Diagnosis: Shortness of breath;SARS-associated coronavirus as the cause of diseases classified elsewhere;End stage renal disease Presentation: 08/06 17:02 Chief complaint: Patient states: SOB x1 week; states was in ED for the same thing last vg1 time; states cough is 'getting worse'. Pt received dialysis MWF. Coronavirus screen: Vaccine status: Patient reports receiving the 2nd dose of the covid vaccine. Client indicates they have traveled out of the [place] in the last 14 days. Client presents with at least one sign or symptom that may indicate coronavirus-19. Standard/surgical mask placed on the client. Ebola Screen: Patient negative for fever greater than or equal to 101.5 degrees Fahrenheit, and additional compatible Ebola Virus Disease symptoms. Initial Sepsis Screen: Does the patient meet any 2 criteria? HR > 90 bpm. Yes Does the patient have a suspected source of infection? No. Patient's initial sepsis screen is negative. Risk Assessment: Do you want to hurt yourself or someone else? Patient reports no desire to harm self or others. Onset of symptoms was July 30, 2021. 17:02 Method Of Arrival: Wheelchair vg1 17:02 Acuity: KUSUM 3 vg1 Triage Assessment: 17:06 General: Appears uncomfortable, Behavior is calm, cooperative. Pain: Complains of pain vg1 in chest. Respiratory: Reports shortness of breath at rest Onset: The symptoms/episode began/occurred x 1 week, the patient has moderate shortness of breath. Historical: - Allergies: 17:06 No Known Allergies; vg1 - Home Meds: 17:06 amitriptyline 10 mg Oral tab 1 tab once daily [Active]; amlodipine 10 mg tab 1 tab once vg1 daily [Active]; carvedilol 25 mg Oral tab 1 tab 2 times per day [Active]; hydralazine 25 mg Oral tab 1 tab three times a day [Active]; Lantus U-100 Insulin 100 unit/mL Sub-Q crtg 100 unit/mL three times a day [Active]; losartan 100 mg Oral tab 1 tab once daily [Active]; Hina-Andrew Rx 1-60-300 mg-mg-mcg Oral tab [Active]; sevelamer carbonate 800 mg Oral tab 4 tab 3 times per day [Active]; tamsulosin 0.4 mg Oral cap 1 cap once daily [Active]; Velphoro 500 mg Oral chew 1 tab 3 times per day [Active]; - PMHx: 17:06 Diabetes - IDDM; DIALYSIS MWF; Hypertension; Stage 3 Kidney Disease; testicular cancer; vg1 - Immunization history:: Client reports receiving the 2nd dose of the Covid vaccine. - Social history:: Smoking status: Patient reports the use of cigarette tobacco products, denies chronic smoking, but will smoke occasionally. Screenin:14 Abuse screen: Denies threats or abuse. Denies injuries from another. Nutritional benavides screening: No deficits noted. Tuberculosis screening: No symptoms or risk factors identified. Fall Risk IV access (20 points). Assessment: 17:13 Cardiovascular: Rhythm is sinus tachycardia. Respiratory: Airway is patent Respiratory benavides effort is even, shallow, Breath sounds are clear bilaterally. Parent/caregiver reports the patient having shortness of breath cough that is labored breathing. 20:18 Reassessment: Patient and/or family updated on plan of care and expected duration. Pain vc1 level reassessed. Patient is alert, oriented x 3, equal unlabored respirations, skin warm/dry/pink. Patient denies pain at this time. Patient states feeling better. 20:32 Reassessment: Patient oxygen saturation dropped to 87% on room air while sleeping. vc1 Placed on 2L NC oxygen increased to 94%. 20:38 Reassessment: Attempted to call report to fourth floor. Nurse will call back. vc1 Vital Signs: 17:02 BP 174 / 82; Pulse 113; Resp 20; Temp 98.8; Pulse Ox 95% ; Weight 79.38 kg; Height 5 vg1 ft. 6 in. (167.64 cm); Pain 5/10; 18:41 BP 156 / 75; Pulse 95; Resp 20; Pulse Ox 100% on R/A; benavides 20:33 BP 187 / 95; Pulse 117; Resp 21; Pulse Ox 94% ; vc1 17:02 Body Mass Index 28.25 (79.38 kg, 167.64 cm) vg1 ED Course: 16:58 Patient arrived in ED. rg4 17:06 Triage completed. vg1 17:06 Arm band placed on. vg1 17:14 Patient has correct armband on for positive identification. Placed in gown. benavides 17:14 No provider procedures requiring assistance completed. Inserted saline lock: 20 gauge benavides in right hand, using aseptic technique. 17:20 Camilo Mccollum MD is Attending Physician. kdr 17:32 Basic Metabolic Panel Sent. benavides 17:32 CBC with Diff Sent. benavides 17:32 LFT's Sent. benavides 17:32 Magnesium Sent. benavides 17:32 NT PRO-BNP Sent. benavides 17:32 PT-INR Sent. benavides 17:32 Troponin HS Sent. benavides 18:07 XRAY Chest (1 view) In Process Unspecified. EDMS 18:32 Asif Mcintyre MD is Hospitalizing Provider. kdr 20:57 Patient admitted, IV remains in place. tw5 Administered Medications: 18:30 Drug: Albuterol 2.5 mg Route: Inhalation; benavides 19:10 Follow up: Response: No adverse reaction; Marked relief of symptoms jg9 18:31 CANCELLED (Patient Refused): NS 0.9% 1000 ml IV at 1 bolus Per protocol; 1000 mL bolus benavides 18:31 Drug: NS 0.9% 250 ml Route: IV; Rate: bolus; Site: right hand; benavides 20:31 Follow up: Response: No adverse reaction; IV Status: Completed infusion; IV Intake: vc1 150ml 19:05 Drug: Lasix (furosemide) 40 mg {Note: Administered by previous shift.} Route: IVP; vc1 Site: right hand; 20:30 Follow up: Response: No adverse reaction vc1 19:05 Drug: Rocephin - (cefTRIAXone) 1 grams {Note: Administered by previous nurse.} Route: vc1 IVPB; Infused Over: 30 mins; Site: right hand; 20:30 Follow up: IV Status: Completed infusion; IV Intake: 50ml vc1 19:05 Drug: Zithromax (azithromycin) 500 mg {Note: Administered by previous nurse.} Route: vc1 IVPB; Infused Over: 1 hrs; Site: right hand; 20:30 Follow up: Response: No adverse reaction; IV Status: Completed infusion; IV Intake: [id number] 20:16 Drug: Zofran (Ondansetron) 4 mg Route: IVP; Site: right hand; vc1 20:29 Follow up: Response: No adverse reaction; Nausea is decreased vc1 20:30 Drug: SOLU-Medrol (methylPrednisoLONE) 125 mg {Note: Not administered by previous vc1 shift.} Route: IVP; Site: right hand; 20:31 Follow up: Response: No adverse reaction; Pain is decreased vc1 Intake: 20:30 IV: 50ml; Total: 50ml. vc1 20:30 IV: 50ml; Total: 100ml. vc1 20:31 IV: 150ml; Total: 250ml. vc1 Outcome: 18:34 Decision to Hospitalize by Provider. kdr 20:21 Admitted to Med/surg Report called to Attempted to call report to 4th floor. No tw5 answer, let the phone ring for 3 min. 20:28 Admitted to Med/surg Report called to Spoke to Zenia, she stated she would get a tw5 nurse on the line. Placed on hold. Was told the sunil would be the receiving nurse and they would call back to get report. 20:46 Admitted to Med/surg Report called to attempted to call report again. Gómez bains the tw5 receiving nurse. Was placed on hold while he was paged. Was placed on hold for over 3 min. 20:57 Admitted to Med/surg accompanied by nurse, via wheelchair, room 407, with chart. tw5 20:57 Condition: good 20:57 Patient left the ED. tw5 Signatures: Dispatcher [employer] EDMS Camilo Mccollum MD MD kdr Garcia, Rubi rg4 Lisset Conklin, RN RN 1 Patria Giles tw5 Farhana Roman RN RN jg9 Ngoc Singh RN RN ha Calcote, Vanessa, RN RN vc1 Corrections: (The following items were deleted from the chart) 19:22 19:05 Rocephin - (cefTRIAXone) 1 grams IVPB in right forearm over 30 mins vc1 vc1 20:50 20:46 Admitted to Med/surg Report called to attempted to call report again. Gómez bains the receiving nurse. Was placed on hold while he was paged. tw5
[2021-08-06] MEDS ORDERED: ALBUTEROL 2.5 MG/3 ML NEB SOL ONE (18:38)
[2021-08-06] MEDS ORDERED: CEFTRIAXONE 1000 MG/VIAL ONE (19:02)
[2021-08-06] MEDS ORDERED: AZITHROMYCIN 500 MG INJ IVPB ONE (19:02)
[2021-08-06] MEDS ORDERED: FUROSEMIDE 40 MG/4 ML VIAL ONE (19:02)
[2021-08-06] MEDS ORDERED: NA CHLORIDE 0.9% 50 ML ONE (19:02)
--- NOTE | 2021-08-06 19:42 | P.HP ---
Certification for Inpatient Patient admitted to: Observation With expected LOS: <2 Midnights Patient will require the following post-hospital care: None Practitioner: I am a practitioner with admitting privileges, knowledge of patient current condition, hospital course, and medical plan of care. Services: Services provided to patient in accordance with Admission requirements found in Title 42 Section 412.3 of the Code of Federal Regulations Patient History Date of Service: 08/06/21 Primary Care Provider: Shilpa Padilla Reason for admission: Dyspnea, volume overload History of Present Illness: 55-year-old male with history of diabetes metas type IIinsulin- dependent, ESRD on HD, hypertension, hyperlipidemia presents the emergency department for shortness of breath. Patient reports testing positive for Covid approximately 2 weeks ago, reports increasing shortness of breath over the course the last 24 hours. Patient reports that he did receive dialysis yesterday and completed his full course. Patient was evaluated here in the emergency department labs were significant for white blood cell count 16.6 he moglobin 8.5 had a creatinine 5.9 sodium 139 potassium 5.2 chloride 108 creatinine 10 GFR 5 glucose 195 BUN 73 BNP 23,459 urinalysis pending Covid positive chest x-ray demonstrates mild CHF pattern. Patient with expiratory wheezing on exam, no diagnosed history of COPD or asthma although he does smoke. ED provider wishes to admit under observation for dyspnea. Allergies No Known Drug Allergies Allergy (Verified 07/29/17 11:37) Unknown No Known Allergies Allergy (Uncoded 01/07/18 09:08) Unknown Home Medications: Amitriptyline HCl 10 mg PO BEDTIME 06/29/21 Amlodipine [Norvasc*] 10 mg PO DAILY 06/29/21 Losartan Potassium 100 mg PO DAILY 06/29/21 Tamsulosin [Flomax*] 0.4 mg PO DAILY 06/29/21 Carvedilol [Coreg] 25 mg PO BID 06/30/21 Insulin Glargine,Hum.rec.anlog [Lantus Solostar] 20 units SQ TID 06/30/21 Sevelamer Carbonate 4 tab PO TIDWM 06/30/21 Sucroferric Oxyhydroxide [Velphoro] 1 tab PO TIDWM 06/30/21 Hydralazine [Apresoline*] 25 mg PO BID #60 tab 07/26/21 dexAMETHasone [Decadron*] 4 mg PO BID #10 tab 07/26/21 - Past Medical/Surgical History Diabetic: Yes -: Diabetes mellitus type 2insulin-dependent -: HTN -: high cholesterol -: testicular cancer -: ESRD on HD MWF -: Right ankle -: Left wrist Psychosocial/ Personal History: Patient lives at home with his family - Family History Father -: Diabetes Mother -: Heart disease - Social History Smoking Status: Current some day smoker Counseled patient to stop smoking for: less than 10 minutes Smoking therapy provided: No (Patient declined) Alcohol use: No CD- Drugs: No Caffeine use: No Place of Residence: Home Review of Systems 10-point ROS is otherwise unremarkable Respiratory: Shortness of Breath, Wheezing, As per HPI Physical Examination - Physical Exam General: Alert, In no apparent distress, Oriented x3 HEENT: Atraumatic, PERRLA, Mucous membr. moist/pink, EOMI, Sclerae nonicteric Neck: Supple, 2+ carotid pulse no bruit, No LAD, Without JVD or thyroid abnormality Respiratory: Crackles/rales, Expiratory wheezes Cardiovascular: Regular rate/rhythm, Normal S1 S2 Gastrointestinal: Normal bowel sounds, No tenderness Musculoskeletal: No tenderness Integumentary: No rashes Neurological: Normal speech, Normal strength at 5/5 x4 extr, Normal tone, Normal affect - Studies Laboratory Data (last 24 hrs) 08/06/21 17:30: PT 12.2, INR 1.06 08/06/21 17:30: WBC 16.60 H D, Hgb 8.5 L, Hct 25.9 L, Plt Count 181 D 08/06/21 17:30: Sodium 139, Potassium 5.2 H, BUN 73 H D, Creatinine 10.00 H*, Glucose 195 H, Total Bilirubin 0.7, AST 14 L, ALT 73, Alkaline Phosphatase 78 Assessment and Plan - Plan Assessment: Dyspnea ESRD on HD Diabetes mellitus type 2insulin-dependent Hypertension Hyperlipidemia Plan: Dyspnea: Patient has been Covid positive for last 2 weeks, chest x-ray demonstrates mild CHF pattern, patient also with expiratory wheezing. Nephrology is consulted for volume management with dialysis, was given dose of Lasix in the emergency department, CRP level pending chest x-ray does not appear to show a multifocal Covid pattern. Patient does admit to smoking does have expiratory wheezing possible COPD exacerbation as well was given IV steroids. Likely multifactorial. Pulmonology/nephrology consulted. ESRD on HD: Nephrology consulted for dialysis/volume management. Diabetes mellitus type 2insulin-dependent: A [facility] Accu-Chek, sliding scale insulin. Hypertension: Obtain an continue home medications. Hyperlipidemia:Obtain an continue home medications. DVT PPX: Heparin Code status: Full Discharge Plan: Home Plan to discharge in: 24 Hours - Advance Directives Does patient have a Living Will: No Does patient have a Durable POA for Healthcare: No - Code Status/Comfort Care Code Status Assessed: Yes (Full code) Critical Care: No Time Spent Managing Pts Care (In Minutes): 55
[2021-08-06 20:07] LABS: Blood Morphology Comment NOT SEEN (NOT SEEN); Platelet Estimate ADEQ; White Blood Cell Scan OK (OK)
[2021-08-06] MEDS ORDERED: ONDANSETRON 4 MG/2 ML VIAL ONE (20:14)
[2021-08-06] MEDS ORDERED: METHYLPREDNISOLONE 125 MG INJ ONE (20:24)
[2021-08-06] MEDS ORDERED: ALBUTEROL 2.5 MG/3 ML NEB SOL NEB PRN (20:45)
[2021-08-06] MEDS ORDERED: ONDANSETRON 4 MG/2 ML VIAL IV PRN (20:45)
[2021-08-06] MEDS: IPRATROPIUM BROM 0.5MG/2.5ML NEB SCH (20:45)
[2021-08-06] MEDS: INSULIN -REGULAR HUMAN 50 UNIT/0.5 ML ML SQ SCH (21:00)
[2021-08-06] MEDS: HEPARIN 5000 UNIT/ML 1 ML VIAL SQ SCH (21:46)
[2021-08-06] MEDS: ACETAMINOPHEN 500 MG TAB PO PRN (21:46)
[2021-08-06] MEDS: HYDRALAZINE HCL 20 MG/ML VIAL IV PRN (21:47)
[2021-08-06 22:17] LABS: Urine Bacteria <20 /HPF (NONE SEEN); Urine RBC <5 /HPF (NONE SEEN); Urine Sperm PRESENT (NONE SEEN)
[2021-08-07 00:11] VITALS: BMI 27.8
[2021-08-07] MEDS: IPRATROPIUM BROM 0.5MG/2.5ML NEB SCH ×2 (03:20→08:15)
[2021-08-07 03:44] LABS: Absolute Lymphocytes (CBC) 0.2 K/uL (0.7-4.9); Hematocrit 24.6 % (39.6-49.0); Lymphocytes % 1.4 % (15.3-44.8); MPV 7.7 fL (7.6-11.3); RBC Red Blood Cell Count 2.54 M/uL (4.33-5.43)
[2021-08-07 04:32] LABS: Albumin 2.4 g/dL (3.4-5.0); Bilirubin Total 0.6 mg/dL (0.2-1.0); Protein, Total 6.1 g/dL (6.4-8.2)
[2021-08-07 04:33] LABS: Potassium 6.6 mmol/L (3.5-5.1)
[2021-08-07] MEDS ORDERED: D50W 25 GM/50 ML SYRINGE IV ONE (04:34)
[2021-08-07] MEDS ORDERED: ALBUTEROL 2.5 MG/3 ML NEB SOL NEB ONE (04:34)
[2021-08-07] MEDS ORDERED: GLUCAGON 1 MG/VIAL IM PRN (04:34)
[2021-08-07] MEDS ORDERED: D50W 25 GM/50 ML SYRINGE IV PRN (04:34)
[2021-08-07] MEDS ORDERED: FUROSEMIDE 40 MG/4 ML VIAL IV ONE (04:34)
[2021-08-07] MEDS ORDERED: INSULIN -REGULAR HUMAN 50 UNIT/0.5 ML ML IV ONE (04:35)
[2021-08-07] MEDS ORDERED: CALCIUM GLUCONATE 1 GM IVPB 1 GM/100 ML BAG IV ONE (04:58)
[2021-08-07] MEDS ORDERED: POTASSIUM CL SA 10 MEQ TAB PO ONE (05:45)
--- NOTE | 2021-08-07 05:45 | P.CNS ---
Date of Consult: 08/07/21 Reason for Consult: ESRD on HD Requesting Physician: Asif Mcintyre Primary Care Provider: Shilpa Padilla Chief Complaint: Dyspnea, volume overload History of Present Illness: 55M w/ PMHx of ESRD presumed to be 2/2 DN on HD qMWF at [facility], EDW 79 kgs, HD access [place] AVF, DM2, Htn, HLD, anemia, renal osteodystrophy, chronic smoker, & recent covid infection, who p/w SOB, admitted for acute respi failure 2/2 volume overload w/ pulmo edema +/- covid pna +/- copd exacerbation. CXR + congestion. Allergies No Known Drug Allergies Allergy (Verified 07/29/17 11:37) Unknown No Known Allergies Allergy (Uncoded 01/07/18 09:08) Unknown Home Medications: Amitriptyline HCl 10 mg PO BEDTIME 06/29/21 Amlodipine [Norvasc*] 10 mg PO DAILY 06/29/21 Losartan Potassium 100 mg PO DAILY 06/29/21 Tamsulosin [Flomax*] 0.4 mg PO DAILY 06/29/21 Carvedilol [Coreg] 25 mg PO BID 06/30/21 Insulin Glargine,Hum.rec.anlog [Lantus Solostar] 20 units SQ TID 06/30/21 Sevelamer Carbonate 4 tab PO TIDWM 06/30/21 Sucroferric Oxyhydroxide [Velphoro] 1 tab PO TIDWM 06/30/21 Hydralazine [Apresoline*] 25 mg PO BID #60 tab 07/26/21 dexAMETHasone [Decadron*] 4 mg PO BID #10 tab 07/26/21 - Past Medical/Surgical History Diabetic: Yes -: Diabetes mellitus type 2insulin-dependent -: HTN -: high cholesterol -: testicular cancer -: ESRD on HD MWF -: Right ankle -: Left wrist Psychosocial/ Personal History: Patient lives at home with his family - Family History Father Medical History: Diabetes Mother Medical History: Heart disease - Social History Smoking Status: Current some day smoker Alcohol use: No CD- Drugs: No Caffeine use: No Place of Residence: Home Review of Systems General: Weakness Eyes: Unremarkable ENT: Unremarkable Respiratory: Shortness of Breath Cardiovascular: Unremarkable Gastrointestinal: Unremarkable Genitourinary: Unremarkable Musculoskeletal: Unremarkable Integumentary: Unremarkable Neurological: Unremarkable Lymphatics: Unremarkable Physical Examination Temp Pulse Resp BP Pulse Ox 97.9 F 97 H 20 140/78 99 08/07/21 03:55 08/07/21 05:10 08/07/21 03:55 08/07/21 05:10 08/07/21 03:55 General: Other (appears as his stated age) HEENT: Atraumatic, Normocephalic Neck: Supple, JVD not distended Respiratory: Other (symmetric chest expansion) Cardiovascular: No rubs, No murmurs Gastrointestinal: Soft and benign, No guarding Musculoskeletal: No clubbing, No erythema Integumentary: No warmth Neurological: Normal speech, Normal tone Lymphatics: No axilla or inguinal lymphadenopathy Urinary: Other (no bladder distention) External genitalia: Deferred Rectal: Deferred Laboratory Data (last 24 hrs) 08/06/21 17:30: PT 12.2, INR 1.06 08/06/21 17:30: WBC 16.60 H D, Hgb 8.5 L, Hct 25.9 L, Plt Count 181 D 08/06/21 17:30: Sodium 139, Potassium 5.2 H, BUN 73 H D, Creatinine 10.00 H*, Glucose 195 H, Total Bilirubin 0.7, AST 14 L, ALT 73, Alkaline Phosphatase 78 Conclusions/Impression: # ESRD on outpt HD MWF at [facility] EDW 79 kgs HD access: [place] AVF HD today Nephro-Andrew by mouth daily Monitor renal panel # Volume overload w/ pulmo edema HD today # Acute respi failure 2/2 volume overload w/ pulmo edema +/- covid pna +/- copd exacerbation Recent covid infxn CXR + congestion HD as above # Htn Cont current regimen # Anemia Monitor H/H GWYN qMWF # Renal osteodystrophy Monitor Ca & Phos # DM2 Mngt per primary team
--- NOTE | 2021-08-07 06:43 | P.PN ---
Date of Service: 08/07/21 Subjective: Feeling better Breathing more comfortably Down to 1 L nasal cannula Plan for hemodialysis today ROS: 10 point ROS as noted above, otherwise negative Physical exam GEN: Alert, oriented, NAD HEENT: Normal conjunctiva, sclera anicteric CV: Regular rate and rhythm, no edema Pulm: nonlabored on 1L NC, b/l crackles at bases ABD: Soft, nontender, nondistended MSK: No joint tenderness Neuro: Normal speech, normal affect Problem List Acute hypoxemic respiratory failure secondary to COVID-19 pneumonia ESRD on HD Diabetes mellitus type 2insulin-dependent Hypertension Hyperlipidemia Acute hypoxemic respiratory failure secondary to COVID-19 pneumonia Steroids, trend inflammatory markers Pulmonology consulted Symptoms mild CHF pattern on x-ray, will patient denies missing dialysis With moderate improvement already Nephrology consulted, dialysis today Wean oxygen as tolerated ESRD on HD: Nephrology consulted for dialysis/volume management. Diabetes mellitus type 2insulin-dependent: A [facility] Accu-Chek, sliding scale insulin. Hypertension: Obtain an continue home medications. Hyperlipidemia:Obtain an continue home medications. Code: Full Dispo: Anticipate DC home tomorrow, pending further improvement, wean oxygen Time Spent Managing Pts Care (In Minutes): 35
[2021-08-07] MEDS: HEPARIN 5000 UNIT/ML 1 ML VIAL SQ SCH ×2 (08:01→23:50)
[2021-08-07] MEDS: INSULIN -REGULAR HUMAN 50 UNIT/0.5 ML ML SQ SCH ×4 (08:43→21:00)
[2021-08-07] MEDS ORDERED: CEFTRIAXONE 1,000 MG in NA CHLORIDE 0.9% 50 ML IVPB SCH (09:00)
[2021-08-07] MEDS ORDERED: CALCIUM GLUC 10% INJ 4.65 MEQ in NA CHLORIDE 0.9% 100 ML IV ONE (09:00)
[2021-08-07] MEDS ORDERED: AZITHROMYCIN IV 500 MG in NA CHLORIDE 0.9% 250 ML IVPB SCH (09:00)
[2021-08-07] MEDS ORDERED: INFLUENZA VACCINE (for 6+ mo) 0.5 ML DOSE IMVAC ONE (10:00)
[2021-08-07] MEDS: dexAMETHasone 4 MG TAB PO SCH ×2 (12:17→21:00)
--- NOTE | 2021-08-07 12:19 | P.CNS ---
Date of Consult: 08/07/21 Reason for Consult: COVID-19 positive test (U07.1, COVID-19) with Acute Pneumonia (J12.89, Ot Primary Care Provider: Shilpa Padilla Chief Complaint: Coronavirus pneumonia History of Present Illness: Patient is 55 years of age metabolic syndrome end-stage renal disease on hemodialysis mated with shortness of breath diagnosed to have coronavirus pneumonia he is doing well improved significantly since admission Allergies No Known Drug Allergies Allergy (Verified 07/29/17 11:37) Unknown No Known Allergies Allergy (Uncoded 01/07/18 09:08) Unknown Home Medications: Amitriptyline HCl 10 mg PO BEDTIME 06/29/21 Amlodipine [Norvasc*] 10 mg PO DAILY 06/29/21 Losartan Potassium 100 mg PO DAILY 06/29/21 Tamsulosin [Flomax*] 0.4 mg PO DAILY 06/29/21 Carvedilol [Coreg] 25 mg PO BID 06/30/21 Insulin Glargine,Hum.rec.anlog [Lantus Solostar] 20 units SQ TID 06/30/21 Sevelamer Carbonate 4 tab PO TIDWM 06/30/21 Sucroferric Oxyhydroxide [Velphoro] 1 tab PO TIDWM 06/30/21 Hydralazine [Apresoline*] 25 mg PO BID #60 tab 07/26/21 dexAMETHasone [Decadron*] 4 mg PO BID #10 tab 07/26/21 - Past Medical/Surgical History Diabetic: Yes -: Diabetes mellitus type 2insulin-dependent -: HTN -: high cholesterol -: testicular cancer -: ESRD on HD MWF -: Right ankle -: Left wrist Psychosocial/ Personal History: Patient lives at home with his family - Family History Father Medical History: Diabetes Mother Medical History: Heart disease - Social History Smoking Status: Current some day smoker Alcohol use: No CD- Drugs: No Caffeine use: No Place of Residence: Home Review of Systems 10-point ROS is otherwise unremarkable Physical Examination Temp Pulse Resp BP Pulse Ox 98.7 F 107 H 16 156/80 H 99 08/07/21 08:00 08/07/21 09:30 08/07/21 08:00 08/07/21 09:30 08/07/21 08:00 General: Alert, In no apparent distress, Oriented x3 Respiratory: Clear to auscultation bilaterally Cardiovascular: No edema, Regular rate/rhythm Gastrointestinal: Normal bowel sounds, Soft and benign Laboratory Data (last 24 hrs) 08/06/21 17:30: PT 12.2, INR 1.06 08/06/21 17:30: WBC 16.60 H D, Hgb 8.5 L, Hct 25.9 L, Plt Count 181 D 08/06/21 17:30: Sodium 139, Potassium 5.2 H, BUN 73 H D, Creatinine 10.00 H*, Glucose 195 H, Total Bilirubin 0.7, AST 14 L, ALT 73, Alkaline Phosphatase 78 - Problems (1) 2019 novel coronavirus-infected pneumonia (NCIP) Current Visit: Yes Status: Acute Plan: Patient is 55 years of age admitted with coronavirus pneumonia he is doing well saturations satisfactory end-stage renal disease on hemodialysis labs reviewed mildly elevated white count patient was also hyperkalemic add p.o. Decadron DC nebulizers and antibiotics Daily room air pulse ox possible discharge tomorrow
--- NOTE | 2021-08-07 14:41 | EKG ---
Test Date: 2021-08-06 Test Time: 17:10:00 Industrial Controls Technician: MEASUREMENT RESULTS: Intervals: Rate: 114 OR: 126 QRSD: 80 QT: 298 QTc: 410 [place]: P: 63 OR: 126 QRS: 54 T: 92 INTERPRETIVE STATEMENTS: Sinus tachycardia Otherwise normal ECG Compared to ECG 07/25/2021 05:35:47 Sinus rhythm no longer present T-wave abnormality no longer present Electronically Signed On 08-07-21 14:39:57 RESIDENTIAL SUPPORT WORKER by Lloyd Perkins
[2021-08-07 16:10] LABS: Magnesium 1.8 mg/dL (1.8-2.4)
[2021-08-07] MEDS ORDERED: ALBUTEROL 2.5 MG/3 ML NEB SOL NEB PRN (19:00)
[2021-08-07] MEDS: INSULIN GLARGINE 100 UNIT/ML SQ SCH (19:10)
[2021-08-07] MEDS ORDERED: D5.45NS W/KCL 20MEQ 1,000 ML IV ONE (21:55)
[2021-08-07] MEDS ORDERED: EPOETIN ALFA 10,000 UNIT/ML VIAL SQ SCH (22:00)
[2021-08-08] MEDS: HYDRALAZINE HCL 20 MG/ML VIAL IV PRN ×2 (03:35→10:56)
[2021-08-08] MEDS: ACETAMINOPHEN 500 MG TAB PO PRN (03:35)
--- NOTE | 2021-08-08 05:36 | P.PN ---
Subjective Date of Service: 08/08/21 Primary Care Provider: Shilpa Padilla Chief Complaint: Dyspnea, volume overload Subjective: No new changes, Other (Received HD yesterday.) Physical Examination - Vital Signs Temperature: 99.1 F Blood Pressure: 182/84 Pulse: 103 Respirations: 18 Pulse Ox (%): 93 - Physical Exam General: Alert, In no apparent distress HEENT: Atraumatic, Normocephalic Neck: Supple, JVD not distended Respiratory: Other (symmetric chest expansion) Cardiovascular: No rubs, No murmurs Gastrointestinal: Soft and benign, No guarding Musculoskeletal: No clubbing Integumentary: No warmth Neurological: Normal speech, Normal tone Urinary: Other (no bladder distention) External genitalia: Deferred Rectal: Deferred - Studies Laboratory Data (last 24 hrs) 08/06/21 17:30: Magnesium 1.8 D Assessment And Plan - Plan # ESRD on outpt HD MWF at [facility] Received HD yesterday EDW 79 kgs HD access: [place] AVF Nephro-Andrew by mouth daily Monitor renal panel # Volume overload w/ pulmo edema Improved HD received yesterday # Acute respi failure 2/2 volume overload w/ pulmo edema +/- covid pna +/- copd exacerbation Recent covid infxn CXR + congestion Improved w/ HD # Htn Cont current regimen # Anemia Monitor H/H GWYN qMWF # Renal osteodystrophy Monitor Ca & Phos # DM2 Mngt per primary team # Dispo November dc today
[2021-08-08 06:00] LABS: Absolute Lymphocytes (CBC) 0.4 K/uL (0.7-4.9); Hematocrit 23.6 % (39.6-49.0); Lymphocytes % 2.5 % (15.3-44.8); MPV 7.3 fL (7.6-11.3); RBC Red Blood Cell Count 2.45 M/uL (4.33-5.43)
[2021-08-08 06:21] LABS: Albumin 2.6 g/dL (3.4-5.0); Bilirubin Total 0.5 mg/dL (0.2-1.0); Potassium 5.4 mmol/L (3.5-5.1); Protein, Total 6.5 g/dL (6.4-8.2)
[2021-08-08 06:33] LABS: Phosphorus 6.7 mg/dL (2.5-4.9)
--- NOTE | 2021-08-08 06:37 | P.PN ---
Date of Service: 08/08/21 Subjective: Feeling better Breathing more comfortably ROS: 10 point ROS as noted above, otherwise negative Physical exam GEN: Alert, oriented, NAD HEENT: Normal conjunctiva, sclera anicteric CV: Regular rate and rhythm, no edema Pulm: nonlabored on 1L NC, b/l crackles at bases ABD: Soft, nontender, nondistended MSK: No joint tenderness Neuro: Normal speech, normal affect Problem List Acute hypoxemic respiratory failure secondary to COVID-19 pneumonia ESRD on HD Diabetes mellitus type 2insulin-dependent Hypertension Hyperlipidemia Acute hypoxemic respiratory failure secondary to COVID-19 pneumonia Steroids, trend inflammatory markers Pulmonology consulted Symptoms mild CHF pattern on x-ray, will patient denies missing dialysis With moderate improvement already Nephrology consulted, dialysis today Wean oxygen as tolerated ESRD on HD: Nephrology consulted for dialysis/volume management. Diabetes mellitus type 2insulin-dependent: A [facility] Accu-Chek, sliding scale insulin. Hypertension: Obtain an continue home medications. Hyperlipidemia:Obtain an continue home medications. Code: Full Dispo: Anticipate DC home tomorrow, pending further improvement, wean oxygen Time Spent Managing Pts Care (In Minutes): 35
[2021-08-08] MEDS: INSULIN -REGULAR HUMAN 50 UNIT/0.5 ML ML SQ SCH ×2 (07:50→13:01)
[2021-08-08] MEDS: INSULIN GLARGINE 100 UNIT/ML SQ SCH (07:50)
[2021-08-08] MEDS: dexAMETHasone 4 MG TAB PO SCH (07:54)
[2021-08-08] MEDS: HEPARIN 5000 UNIT/ML 1 ML VIAL SQ SCH (07:54)
[2021-08-08] MEDS ORDERED: EPOETIN 4,000 UNIT/ML VIAL SQ SCH (08:00)
[2021-08-08] MEDS ORDERED: EPOETIN 4,000 UNIT/ML VIAL SQ ONE (08:00)
--- NOTE | 2021-08-08 08:41 | P.DS ---
Admission Date: 08/06/21 Discharge Date: 08/08/21 Primary Care Provider: Shilpa Padilla Disposition: ROUTINE DISCHARGE Discharge Condition: GOOD Reason for Admission: Dyspnea, volume overload Consultations: Nephrology - Dr. Bang Pulmonology - Dr. Watts Procedures: Problem List Acute hypoxemic respiratory failure secondary to COVID-19 pneumonia with some slight volume overload ESRD on HD Diabetes mellitus type 2insulin-dependent Hypertension Hyperlipidemia Brief History of Present Illness: 55-year-old male with history of diabetes metas type IIinsulin- dependent, ESRD on HD, hypertension, hyperlipidemia presents the emergency department for shortness of breath. Patient reports testing positive for Covid approximately 2 weeks ago, reports increasing shortness of breath over the course the last 24 hours. Patient reports that he did receive dialysis yesterday and completed his full course. Patient was evaluated here in the emergency department labs were significant for white blood cell count 16.6 hemoglobin 8.5 had a creatinine 5.9 sodium 139 potassium 5.2 chloride 108 creatinine 10 GFR 5 glucose 195 BUN 73 BNP 23,459 urinalysis pending Covid positive chest x-ray demonstrates mild CHF pattern. Patient with expiratory wheezing on exam, no diagnosed history of COPD or asthma although he does smoke. ED provider wishes to admit under observation for dyspnea. Hospital Course: Patient was found to have mild COVID-19 pneumonia with some increased pulmonary edema. He had quick improvement of his symptoms, initially with steroids/nebs, then more improvement after 4L removed with hemodialysis. Pulmonology and Nephrology were consulted. Patient was breathing comfortably on room air with oxygen saturations > 95%. He was feeling better and wanting to go home. Discharged home to continue home meds as prescribed. Resume dialysis as scheduled - this coming Tuesday. Dexamethasone prescribed for short 7 day taper. Follow up with PCP within 1 week. Vital Signs/Physical Exam: Physical exam GEN: Alert, oriented, NAD HEENT: Normal conjunctiva, sclera anicteric CV: Regular rate and rhythm, no edema Pulm: nonlabored on RA ABD: Soft, nontender, nondistended MSK: No joint tenderness Neuro: Normal speech, normal affect Temp Pulse Resp BP Pulse Ox 99.1 F 103 H 18 182/84 H 93 08/08/21 05:36 08/08/21 05:36 08/08/21 05:36 08/08/21 05:36 08/08/21 05:36 Laboratory Data at Discharge: WBC 15.30 K/uL (4.3-10.9) H 08/08/21 05:41 Hgb 7.6 g/dL (13.6-17.9) L 08/08/21 05:41 Hct 23.6 % (39.6-49.0) L 08/08/21 05:41 Plt Count 163 K/uL (152-406) 08/08/21 05:41 PT 12.2 SECONDS (9.5-12.5) 08/06/21 17:30 INR 1.06 08/06/21 17:30 Sodium 136 mmol/L (136-145) 08/08/21 05:41 Potassium 5.4 mmol/L (3.5-5.1) H 08/08/21 05:41 BUN 70 mg/dL (7-18) H D 08/08/21 05:41 Creatinine 8.58 mg/dL (0.55-1.3) H* D 08/08/21 05:41 Glucose 296 mg/dL (74-106) H 08/08/21 05:41 Phosphorus 6.7 mg/dL (2.5-4.9) H 08/08/21 05:41 Magnesium 1.8 mg/dL (1.8-2.4) D 08/06/21 17:30 Total Bilirubin 0.5 mg/dL (0.2-1.0) 08/08/21 05:41 AST 35 U/L (15-37) 08/08/21 05:41 ALT 70 U/L (12-78) 08/08/21 05:41 Alkaline Phosphatase 78 U/L (45-117) 08/08/21 05:41 Home Medications: Amitriptyline HCl 10 mg PO BEDTIME 06/29/21 Amlodipine [Norvasc*] 10 mg PO DAILY 06/29/21 Tamsulosin [Flomax*] 0.4 mg PO DAILY 06/29/21 Carvedilol [Coreg] 25 mg PO BID 06/30/21 Insulin Glargine,Hum.rec.anlog [Lantus Solostar] 5 units SQ TID 06/30/21 Sevelamer Carbonate 4 tab PO TIDWM 06/30/21 Sucroferric Oxyhydroxide [Velphoro] 1 tab PO TIDWM 06/30/21 Folic Acid/Vit B Complex and C [Renal-Andrew Tablet] 1 tab PO SEECOM 08/08/21 Hydralazine HCl 1 tab PO TID 08/08/21 dexAMETHasone [Decadron*] 4 mg PO SEECOM 7 Days #10 tab 08/08/21 New Medications: dexAMETHasone [Decadron*] 4 mg PO SEECOM 7 Days #10 tab Physician Discharge Instructions: Patient was found to have mild COVID-19 pneumonia with some increased pulmonary edema. He had quick improvement of his symptoms, initially with steroids/nebs, then more improvement after 4L removed with hemodialysis. Pulmonology and Nephrology were consulted. Patient was breathing comfortably on room air with oxygen saturations > 95%. He was feeling better and wanting to go home. Discharged home to continue home meds as prescribed. Resume dialysis as scheduled - this coming Tuesday. Dexamethasone prescribed for short 7 day taper. Follow up with PCP within 1 week. Diet: Renal Activity: Ad kaykay Followup: NONE,NONE [Primary Care Provider] - 1 Week (CAll to schedule an appointment) Time spent managing pt's care (in minutes): 45
[2021-08-08] MEDS ORDERED: HYDRALAZINE HCL 25 MG TABLET PO SCH (09:00)
[2021-08-08] MEDS ORDERED: MULTIVITAMINS,THERAPEUT 1 TAB PO SCH (09:00)
[2021-08-08] MEDS ORDERED: TAMSULOSIN 0.4 MG SR CAP PO SCH (09:00)
[2021-08-08] MEDS ORDERED: AMLODIPINE 10 MG TAB PO SCH (09:00)
[2021-08-08] MEDS ORDERED: LOSARTAN POTASSIUM 50 MG TABLET PO ONE (12:30)
[2021-08-08 13:53] VITALS: O2SAT 97
[2021-08-08 14:21] LABS: Magnesium 1.9
[2021-08-08 22:31] VITALS: BP 182/84; TEMP 99.1
== END 2021-08-08 15:00 | disposition home or self-care (01) ==
LOC: ER 16:57 → ERHOLD 19:00 → 4TH 20:36
PROVIDERS: ADMIT Hospitalist; ATTEND Hospitalist
DX: U07.1 COVID-19 (principal); J12.82 Pneumonia due to coronavirus disease 2019; J96.01 Acute respiratory failure with hypoxia; I12.0 Hypertensive chronic kidney disease with stage 5 chronic kidney disease or end stage renal disease; E11.22 Type 2 diabetes mellitus with diabetic chronic kidney disease; N18.6 End stage renal disease; Z99.2 Dependence on renal dialysis; E78.5 Hyperlipidemia, unspecified; E78.00 Pure hypercholesterolemia, unspecified; D64.9 Anemia, unspecified; N25.0 Renal osteodystrophy; E87.5 Hyperkalemia; F17.210 Nicotine dependence, cigarettes, uncomplicated; Z71.6 Tobacco abuse counseling; Z79.4 Long term (current) use of insulin; Z85.47 Personal history of malignant neoplasm of testis; Z82.49 Family history of ischemic heart disease and other diseases of the circulatory system; Z83.3 Family history of diabetes mellitus
CPT/HCPCS: 96365; 96367; 93005; 87040 ×2; 85025 ×3; 80048 ×2; 36415 ×2; 83735 ×2; 84100; 85610; 82947 ×6; 80076; 81015; 84484; 80053 ×2; 84145; 83880; 86140 ×3; 71045; 90935; 94010 ×2; 94640; 96375; 99285; U0003; J0360 ×3; J1940 ×2; J1644 ×4; J0456 ×2; J0610; Q5105; J7050; J7030; J2930; J2405; G0257; G0378 ×4; J8540

== ENCOUNTER 2021-09-08 06:58 | Day surgery (SDC) | payer OTHER ==
[2021-09-08 08:12] VITALS: BMI 27.6
[2021-09-08] MEDS ORDERED: DIPHENHYDRAMINE 50 MG/ML VIAL ONE (08:33)
[2021-09-08] MEDS ORDERED: ACETAMINOPHEN 325 MG TABLET ONE (08:33)
[2021-09-08] MEDS ORDERED: NA CHLORIDE 0.9% 250 ML ONE ×2 (08:34→10:51)
[2021-09-08 14:06] VITALS: BP 172/83; TEMP 98.3; O2SAT 96
== END 2021-09-08 13:30 | disposition home or self-care (01) ==
LOC: DS 06:58
PROVIDERS: ATTEND Internal Medicine
DX: D64.9 Anemia, unspecified (principal)
CPT/HCPCS: 36415; 86900; 86850; 86901; 85018; 36430; J1200; P9016 ×2; J7050 ×2

== ENCOUNTER 2022-04-19 05:32 | Observation (INO) | payer OTHER ==
--- OUTSIDE RECORDS SUMMARY | 2022-04-19 05:36 | XMS REPORT | Continuity of Care Document ---
:1965 Author Organization [facility] t Address [address] [place] [address] [address]. [address] [place] [address] Care Team Providers Name Role Phone DEBBY Attending Clinician Unavailable TIFFANIE FUNEZ Attending Clinician Unavailable Amy Dupont RN Attending Clinician Unavailable Maryann Segal Attending Clinician Unavailable Kiara Keenan Attending Clinician Unavailable Esperanza Sahu Attending Clinician Unavailable [facility] Attending Clinician Unavailable Shilpa Padilla Attending Clinician SVETA BENNETT Attending Clinician Unavailable Anastasia Felton RN Attending Clinician Unavailable Lab, Adc Fam Pob I Attending Clinician Unavailable Claudette Alatorre Attending Clinician CLAUDETTE CROW Attending Clinician Unavailable DEBBY Admitting Clinician Unavailable Payers Payer Name Policy Type Policy Number Effective Date Expiration Date Lara wiley MEDICARE A B [id number] [place] MEDICARE [id number] 2021 O 00:00:00 [place]ICAID OF [place] [id number] Problems Condition Condition Condition Status Onset Resolution Last Treating Co mments Source Name Details Category Date Date Treatment Clinician Date ESRD (end ESRD (end Disease Active [facility] stage stage 8 [place] renal renal 00:00: Medical disease) disease) 00 Center on on dialysis dialysis Secondary Secondary Disease Active [facility] hypertensi hypertensi 8 Sujata kes on on 00:00: Medical 00 Center Other Other Disease Active [facility] hyperlipid hyperlipid 02-05 kes emia emia 00:00: Medical Center Type 2 Type 2 Disease Active [facility] diabetes diabetes 02-05 [facility] mellitus mellitus 00:00: Medica l with with Center chronic chronic kidney kidney disease, disease, with with long-term long-term current current use of use of insulin insulin Febrile Febrile Disease Active 2013-07 Univers neutropeni neutropeni 07-08 it y of a a 00:00: [place] 00 [facility] Cancer Cancer Disease Active 2013-07 Univers 0- ity of 00:00: [place] 00 [facility] Maintenanc Maintenanc Disease Active U nivers e e 04-01 ity of chemothera [place]othera [place] 00 [facility] Abdominal Abdominal Disease Active Uni vers pain pain 03-19 ity of 00:00: [place] 00 [facility] Testicular Testicular Disease Active U nivers cancer cancer 03-05 ity of 00:00: [address] Edema of Edema of Disease Active Unive rs right right 03-05 ity of lower lower 00:00: [place] extremity extremity 00 [facility] Branch Allergies, Adverse Reactions, Alerts Allergy Allergy Status Severity Reaction(s) Onset Inactive Treating Comm ents Source Name Type Date Date Clinician NO KNOWN Allergy Active [facility] BARTOLO [facility] NO KNOWN Drug Active [facility] ALLERGIE Class ity of S [facility] Social History Social Habit Start Date Stop Date Quantity Comments Source Exposure to Yes [facility] SARS-CoV-2 (event) [facility] Cigarettes smoked 2015-12-24 2015-12-24 Univers ity of current (pack per 00:00:00 00:00:00 ) - Reported Branch Cigarette 2015-12-24 2015-12-24 University of pack-years 00:00:00 00:00:00 [facility] Alcohol intake 2015-12-24 2015-12-24 University of 00:00:00 00:00:00 [facility] Alcohol Comment 2014-03-05 2014-03-05 History of Universit y of 00:00:00 00:00:00 alcholism [facility] History of tobacco 2013-07-31 Cigarette Smoker University of use 00:00:00 [facility] Sex Ass[birth year] At [birth year] LORIE Ceja 00:00:00 00:00:00 [facility] Smoking Status Start Date Stop Date Source Former smoker 2015-12-24 00:00:00 2015-12-24 [facility] Medications Ordered Filled Start Stop Current Ordering [...] 8-12 ity of mg tablet 00:00: [place] [facility] doxazosin Yes Univers (CARDURA) 4 8-12 ity of mg tablet 00:00: [place] 00 [facility] minocycline 0 Yes Univer s (MINOCIN) 8-12 ity of 100 mg 00:00: [place] capsule 00 Medical Branch citalopram 0 Yes Univers (CELEXA) 20 8-12 ity of mg tablet 00:00: [place] [facility] doxazosin 0 Yes Univers (CARDURA) 4 8-12 ity of mg tablet 00:00: [place] 00 [facility] minocycline 0 Yes Univer s (MINOCIN) 8-12 ity of 100 mg 00:00: [place] capsule 00 Medical Branch citalopram 0 Yes Univers (CELEXA) 20 8-12 ity of mg tablet 00:00: [place] [facility] doxazosin 0 Yes Univers (CARDURA) 4 8-12 ity of mg tablet 00:00: Medical Branch minocycline 0 Yes Univer s (MINOCIN) 8-12 ity of 100 mg 00:00: [place] capsule Medical Branch citalopram 0 Yes Univers (CELEXA) 20 8-12 ity of mg tablet 00:00: Medical Branch doxazosin 0 Yes Univers (CARDURA) 4 8-12 ity of mg tablet 00:00: Medical Branch minocycline 0 Yes Univer s (MINOCIN) 8-12 ity of 100 mg 00:00: [place] capsule Medical Branch tamsulosin Yes .4mg Take 1 Cap U nivers (FLOMAX) 8-11 by mouth ity of 0.4 mg 24 00:00: daily. [facility] capsule [facility] potassium Yes 1080mg Take 1 Tab Univers citrate 8-11 by mouth 2 ity of (UROCIT-K 00:00: () 10) 10 mEq 00 times Medical (1,080 mg) daily with Bra nch SR tablet meals. tamsulosin Yes .4mg Take 1 Cap U nivers (FLOMAX) 8-11 by mouth ity of 0.4 mg 24 00:00: daily. [facility] capsule [facility] potassium Yes 1080mg Take 1 Tab Univers citrate 8-11 by mouth 2 ity of (UROCIT-K 00:00: () 10) 10 mEq 00 times Medical (1,080 mg) daily with Bra nch SR tablet meals. tamsulosin Yes .4mg Take 1 Cap U nivers (FLOMAX) 8-11 by mouth ity of 0.4 mg 24 00:00: daily. [facility] capsule [facility] potassium Yes 1080mg Take 1 Tab Univers citrate 8-11 by mouth 2 ity of (UROCIT-K 00:00: () 10) 10 mEq 00 times Medical (1,080 mg) daily with Bra nch SR tablet meals. tamsulosin 0 Yes .4mg Take 1 Cap U nivers (FLOMAX) 8-11 by mouth ity of 0.4 mg 24 00:00: daily. [place] hr capsule 00 Medical Branch potassium 2014-0 Yes 1080mg Take 1 Tab Univers citrate 8-11 by mouth 2 ity of (UROCIT-K 00:00: (two) [place] 10) 10 mEq 00 times Medical (1,080 mg) daily with Bra nch SR tablet meals. LANTUS Yes Univers SOLOSTAR 6-10 ity of 100 unit/mL 00:00: [place] (3 mL) InPn 00 Medical Branch [place] [id number] Yes Univer s 32 x 1/4 " 6-10 ity of Ndle 00:00: [place] 00 Medical Branch LANTUS Yes Univers SOLOSTAR 6-10 ity of 100 unit/mL 00:00: [place] (3 mL) InPn 00 Medical Branch [place] [id number] Yes Univer s 32 x 1/4 " 6-10 ity of Ndle 00:00: [place] 00 Medical Branch LANTUS Yes Univers SOLOSTAR 6-10 ity of 100 unit/mL 00:00: [place] (3 mL) InPn 00 Medical Branch [place] [id number] Yes Univer s 32 x 1/4 " 6-10 ity of Ndle 00:00: [place] 00 Medical Branch LANTUS Yes Univers SOLOSTAR 6-10 ity of 100 unit/mL 00:00: [place] (3 mL) InPn 00 Medical Branch [place] [id number] Yes Univer s 32 x 1/4 " [...] Syringe-Nee 0-04 ity of dle U-100 00:00: [place] (SURE 00 Medical COMFORT Branch INSULIN SYRINGE) [...] Units ity of human 00:00: under the [place] (HUMULIN R) 00 skin Medical injection before Branch meals. Insulin 2013-07 Yes Univers Syringe-Nee 0-04 ity of dle U-100 00:00: [place] (SURE 00 Medical COMFORT Branch INSULIN SYRINGE) [...] Yes 20mg Take 20 mg Univers (PRAVACHOL) 7- by mouth ity of 20 mg 00:00: daily. [place] tablet 00 [facility] pravastatin Yes 20mg Take 20 mg Univers (PRAVACHOL) 7-03 by mouth ity of 20 mg 00:00: daily. [place] tablet [address] [place] [address] pravastatin Yes 20mg Take 20 mg Univers (PRAVACHOL) 7-03 by mouth ity of 20 mg 00:00: daily. [place] tablet [address] [place] [address] Immunizations Ordered Filled Immunization Date Status Comments [facility] Immunization Name Name Influenza Virus 2014-05-04 Completed Universit y of Vaccine Quad IM 3+ 00:00:00 [facility] Influenza Virus 2014-05-04 Completed Universit y of Vaccine Quad IM 3+ 00:00:00 [facility] Influenza Virus 2014-05-04 Completed Universit y of Vaccine Quad IM 3+ 00:00:00 [facility] Influenza Virus 2014-05-04 Completed Universit y of Vaccine Quad IM 3+ 00:00:00 [facility] Vital Signs Vital Name Observation Time Observation Value Comments Source Body height 2020 12:50:00 170.2 cm [facility] Body weight 2020 12:50:00 70.308 kg [facility] BMI 2020 12:50:00 24.28 kg/m2 [facility] Procedures This patient has no known procedures. Encounters Start End Encounter Admission Attending Care Care Encounter Source Date/Time Date/Time Type Type Clinicians Facility Department ID 2022-01-16 2022-01-16 Outpatient NISHI PUGA [id number] [place] 01:00:00 01:00:00 KATHRYN 0716 [facility] Outre h Program 2021-05-12 2021-05-12 Outpatient COLLIN FUNEZ [facility] [id number] [facility] 00:00:00 00:00:00 BHAMIDIPATI 2021-05-12 2021-05-12 [facility] [id number] [facility] 00:00:00 00:00:00 BHAMIDIPATI 2021-05-12 2021-05-12 [facility] [id number] [facility] 00:00:00 00:00:00 2021-05-12 2021-05-12 Outpatient EL DEE DEE, [facility] [id number] [facility] 00:00:00 00:00:00 BHAMIDIPATI 2021-05-12 2021-05-12 Outpatient EL DEE DEE, [facility] [id number] [facility] 00:00:00 00:00:00 BHAMIDIPATI 2021-04-23 2021-04-23 Outpatient EL [facility]H [facility] [id number] [facility] 00:00:00 00:00:00 2021-04-23 2021-04-23 Outpatient EL SLEH [facility] [id number] [facility] 00:00:00 00:00:00 2021-04-23 2021-04-23 Outpatient EL [facility]H [facility] [id number] [facility] 00:00:00 00:00:00 2021-04-23 2021-04-23 Outpatient EL [facility]H [facility] [id number] [facility] 00:00:00 00:00:00 2021-04-23 2021-04-23 Outpatient EL [facility]H [facility] [id number] [facility] 00:00:00 00:00:00 2021-04-23 2021-04-23 Documentat [facility] [id number] [facility] 00:00[facility]00 00:00:00 [facility] 2021-04-23 2021-04-23 Abstract Kiah [facility] [id number] [facility]00 00:00:00 [facility] 2021-04-23 2021-04-23 Telephone [facility] [id number] [facility] 00:[facility]00 00:00:00 [facility] 2021-04-13 2021-04-13 [id number] [facility] 00:[facility]00 00[facility]00[facility]00 [facility] 2021-04-10 2021-04-10 [facility] [id number] [facility] 00:[facility]00 00:00[facility]00 [facility] 2021-04-10 2021-04-10 Telephone Luis Alberto, [facility] [id number] [facility] 00:00[facility]00 00:00:00 [facility] 2021-02-05 2021-02-05 Enedelia Dupont [facility] [id number] 00:00[facility]00 00:00:00 [facility] 2021-02-05 2021-02-05 Orders Kiah [facility] [id number] 00:00:00 00:00:[address] [facility] 2020-11-13 2020-11-13 Documentmaikel Sahu, [facility] [id number] [facility] 00:00:00 00:00:00 ion [facility] 2020-11-06 2020-11-06 Abstract Luis Alberto [facility] [id number] 00:00:00 00:00:00 [facility] 2020-11-06 2020-11-06 Documentmaikel Sahu [facility] [id number] [facility] 00:00:00 00:00:00 ion [facility] 2020-11-05 2020-11-05 Documentmaikel Sahu, [facility] [id number] [facility] 00:00:00 00:00:00 ion [facility] 2020-11-05 2020-11-05 Abstract Sahu [facility] [id number] 00:00:00 00:00:00 [facility] 2020-11-05 2020-11-05 Documentmaikel Sahu [facility] [id number] 00:00:00 00:00:00 ion [facility] 2020-11-05 2020-11-05 Telephone Luis Alberto, [facility] [id number] 00:00:00 00:00:00 [facility] 2020-11-05 2020-11-05 Documentmaikel Sahu [facility] [id number] 00:00:00 00:00:00 ion [facility] 2020-10-27 2020-10-27 Abstract [facility] [id number] 00:00:00 00:00:00 [facility] 2020 2020 Enedelia Sahu [facility] [id number] 00:00:00 00:00:00 [facility] 2019-12-13 2019-12-13 Telephone Pob1, Acute [facility] [id number] 00:00:00 00:00:00 [facility] [id number] [place] [id number] Professio [phone] [place] [address] [address] 2019-12-13 2019-12-13 Telephone Pob1, Acute [facility] [id number] [facility] 00:00:00 00:00:00 [facility] [id number] ity [facility] [id number] Sanjay as Professio [phone] [address] Office [facility] 2019-12-09 2019-12-09 Telephone WILMAN Padilla [id number] 00:00:00 00:00:00 Shilpa MIRANDA [id number] [facility] [phone] [facility] 2019-12-09 2019-12-09 Telephone WILMAN Padilla [id number] [facility] 00:00:00 00:00:00 [facility]il[facility]ANDA [id number] [facility] [id number] Sanjay as [phone] [address] 2019-12-08 2019-12-08 Outpatient Bell [facility] [id number] Univers 12:40:00 12:40:00 SVETA ity [facility] 2019-12-08 2019-12-08 Telephone Eloina STOVALL [id number] 00:00:00 00:00:00 Anastasia jamison [phone] [id number] 2019-12-08 2019-12-08 Telephone Eloina STOVALL [id number] Univers 00:00:00 00:00:00 yaquelin Anastasia MIRANDA [id number] ity of [facility] [id number] Sanjay as [phone] [address] 2019-12-07 2019-12-07 Leasing Manager Lab, [facility] [id number] 15:00:09 15:10:09 Visit [facility] [id number] [place] [id number] Professio [phone] [place] [address] Office [facility] 2019-12-07 2019-12-07 Leasing Manager Lab, [facility] [id number]. [id number] [facility] 15:00:09 15:10:09 Visit Claudette Crow [facility] [id number] ity [facility] [id number] Sanjay as Professio [phone] Il dical [address] Office Building [facility] 2019-12-07 2019-12-07 Outpatient R TRISTIN [facility] [id number] Univers 15:10:00 15:10:00 CLAUDTETE tse [facility] Results Test Description Test Time Test Comments Results Result Comments Source SARS-COV2/RT-PCR ([facility]) 2020-01-29 04:24:00 Test Item Value Reference Range Interpretation Comme nts SARS-COV2/RT-PCR (test code = [id number]) Negative Not Detected, N egative, See external report for linked test SARS-COV-2 PERFORMING LAB (test code = [facility] [id number][facility] Negative results do not preclude SARS-CoV-2 infection [...] of the Act.Fact Sheet for Healthcare Pro viders:https://www.GroovinAds/Documents/Xpert%20Xpress%20SARS%20CoV-2/Fact%20Sh eets/3023802%99PVBH-FBB-5%20HEALTHCARE%20PROVIDERS%20FACT%20SHEET.pdfFact Sheet for Healthcare Patients:https://www.Carestream/Documents/Xpert%20Xpress%20SARS%20CoV-2/Fact%20Sheets/3023801%20SARS-COV -2%20PATIENT%20FACT%20SHEET.pdfPerforming Laboratory:[facility] [place] [address]
[2022-04-19 06:52] LABS: Absolute Lymphocytes (CBC) 1.6 K/uL (0.7-4.9); Hematocrit 36.6 % (39.6-49.0); Lymphocytes % 13.6 % (15.3-44.8); MCV 99.2 fL (80-100); MPV 6.8 fL (7.6-11.3); RBC Red Blood Cell Count 3.69 M/uL (4.33-5.43)
[2022-04-19] MEDS ORDERED: HYDROCODONE/APAP 5/325 MG TAB PO PRN (08:45)
[2022-04-19] MEDS ORDERED: ACETAMINOPHEN 500 MG TAB PO PRN (08:49)
[2022-04-19] MEDS ORDERED: ONDANSETRON 4 MG/2 ML VIAL IV PRN (08:49)
[2022-04-19] MEDS ORDERED: guaiFENesin 100 MG/5 ML UCUP PO PRN (08:51)
--- NOTE | 2022-04-19 08:51 | ER ---
Nurse's Notes [facility] Name: Ben Muir Age: 56 yrs Sex: Male : 1965 Arrival Date: 04/19/2022 Time: 05:35 Bed 7 Private MD: Diagnosis: Hyperkalemia;Fluid overload;ESRD needing emergent dialysis Presentation: 04/19 05:53 Chief complaint: Patient states: I started having shortness of breath yesterday jb4 morning. I went to dialysis this morning for treatment and they said I had a fever. They did not want me to go home due to my shortness of breath. I feel like I am short of breath because of not getting my treatment. Coronavirus screen: Client presents with at least one sign or symptom that may indicate coronavirus-19. Standard/surgical mask placed on the client. Ebola Screen: No symptoms or risks identified at this time. Initial Sepsis Screen: Does the patient meet any 2 criteria? RR > 20 per min. Yes Does the patient have a suspected source of infection? No. Patient's initial sepsis screen is negative. Risk Assessment: Do you want to hurt yourself or someone else? Patient reports no desire to harm self or others. Onset of symptoms was April 18, 2022. Transition of care: patient was not received from another setting of care. 05:53 Method Of Arrival: Ambulatory jb4 05:53 Acuity: KUSUM 3 jb4 Triage Assessment: 07:24 General: Appears uncomfortable. Respiratory: Reports shortness of breath Onset: The ll1 symptoms/episode began/occurred at an unknown time. Historical: - Allergies: 05:56 NKDA; jb4 - Home Meds: 05:56 amitriptyline 10 mg Oral tab 1 tab once daily [Active]; amlodipine 10 mg tab 1 tab once jb4 daily [Active]; Lantus U-100 Insulin 100 unit/mL Sub-Q crtg 100 unit/mL three times a day [Active]; Hina-Andrew Rx 1-60-300 mg-mg-mcg Oral tab [Active]; carvedilol 25 mg Oral tab 1 tab 2 times per day [Active]; hydralazine 25 mg Oral tab 1 tab three times a day [Active]; losartan 100 mg Oral tab 1 tab once daily [Active]; sevelamer carbonate 800 mg Oral tab 4 tab 3 times per day [Active]; Velphoro 500 mg Oral chew 1 tab 3 times per day [Active]; tamsulosin 0.4 mg Oral cap 1 cap once daily [Active]; - PMHx: 05:56 Diabetes - IDDM; DIALYSIS MWF; Hypertension; Stage 3 Kidney Disease; testicular cancer; jb4 - Immunization history:: Adult Immunizations up to date. - Social history:: Smoking status: Patient reports the use of cigarette tobacco products, 1-2 cigarettes per day. Screenin:24 Abuse screen: Denies threats or abuse. Nutritional screening: No deficits noted. ll1 Tuberculosis screening: No symptoms or risk factors identified. Fall Risk IV access (20 points). Total Cintron Fall Scale indicates No Risk (0-24 pts). Assessment: 06:00 General: Appears in no apparent distress. uncomfortable, Behavior is calm, cooperative, jb4 appropriate for age. Pain: Denies pain. Neuro: Level of Consciousness is awake, alert, obeys commands, Oriented to person, place, time, situation. Cardiovascular: Patient's skin is warm and dry. Rhythm is sinus rhythm. Respiratory: Airway is patent Respiratory effort is even, labored, Respiratory pattern is symmetrical, tachypnea Breath sounds are clear in right upper lobe, left upper lobe, right middle lobe, left lower lobe, left posterior upper lobe, right posterior upper lobe and right posterior middle lobe Breath sounds with crackles in left posterior lower lobe Breath sounds are diminished in right lower lobe and right posterior lower lobe. GI: No signs and/or symptoms were reported involving the gastrointestinal system. : No signs and/or symptoms were reported regarding the genitourinary system. EENT: No signs and/or symptoms were reported regarding the EENT system. Derm: Skin is intact, Skin is dry, Skin is normal, Skin temperature is warm. Musculoskeletal: Circulation, motion, and sensation intact. Range of motion: intact in all extremities. 07:00 Reassessment: No changes from previously documented assessment. Report received from ll1 shift supervisor rn RN. 08:00 Reassessment: No changes from previously documented assessment. Patient and/or family ll1 updated on plan of care and expected duration. Pain level reassessed. 09:00 Reassessment: No changes from previously documented assessment. Patient and/or family ll1 updated on plan of care and expected duration. Pain level reassessed. 10:00 Reassessment: No changes from previously documented assessment. Patient and/or family ll1 updated on plan of care and expected duration. Pain level reassessed. to dialysis via stretcher. Vital Signs: 05:53 BP 144 / 69; Pulse 89; Resp 24; Temp 98.8(O); Pulse Ox 98% on R/A; Weight 77.11 kg (R); jb4 Height 5 ft. 6 in. (167.64 cm); Pain 0/10; 07:24 BP 169 / 97; Pulse 87; Resp 26; Pulse Ox 96% ; ll1 08:31 BP 177 / 96; Pulse 89; Resp 26; Pulse Ox 91% ; ll1 09:30 BP 171 / 89; Pulse 85; Resp 22; Pulse Ox 95% ; ll1 05:53 Body Mass Index 27.44 (77.11 kg, 167.64 cm) jb4 ED Course: 05:35 Patient arrived in ED. ag3 05:38 Fazal Castaneda DO is Attending Physician. ms3 05:53 Loco Mack, RN is Primary Nurse. jb4 05:56 Triage completed. jb4 05:56 Arm band placed on right wrist. jb4 06:35 Initial lab(s) drawn, by me, sent to lab. Inserted saline lock: 18 gauge in right jb4 antecubital area, using aseptic technique. Blood collected. 06:48 Basic Metabolic Panel Sent. tw5 06:48 CBC with Diff Sent. tw5 06:48 NT PRO-BNP Sent. tw5 06:48 Troponin HS Sent. tw5 07:24 Patient has correct armband on for positive identification. Bed in low position. Call ll1 light in reach. Side rails up X 1. Client placed on continuous cardiac and pulse oximetry monitoring. NIBP monitoring applied. compliance monitor on. 07:36 Repeat lab(s) drawn. by me, sent to lab. ll1 07:50 Notified ED physician of a critical lab result(s). K 6.3, Dr. Castaneda informed. ll1 08:11 Shilpa Gomez MD is Attending Physician. ms3 08:50 Penny Escobedo MD is Hospitalizing Provider. sd2 10:13 XRAY Chest (1 view) In Process Unspecified. EDMS 10:14 No provider procedures requiring assistance completed. Patient admitted, IV remains in ll1 place. Administered Medications: 10:12 Not Given (went to dialysis): Calcium Gluconate 1 grams IVPB once over 60 mins; (mix in ll1 NS 100 mL) 10:12 Not Given (went to dialysiss): Sodium Bicarbonate 50 mEq IVP once ll1 10:12 Not Given (went to dialysiss): Albuterol 5 mg Inhalation once ll1 10:12 Not Given (went to dialysiss): D50W 50 ml IVP once; (1 amp) ll1 10:12 Not Given (went to dialysiss): Insulin Regular Human 10 units IVP once ll1 Medication: 07:24 VIS not applicable for this client. ll1 Outcome: 08:50 Decision to Hospitalize by Provider. sd2 10:14 Admitted to Med/surg accompanied by nurse, via stretcher, room dialysis first, then ll1 414. 10:14 Condition: stable 10:14 Instructed on the need for admit. 10:23 Admitted to Report called to Pushpa Peguero RN on 4th ll1 10:24 Patient left the ED. 1 Signatures: Dispatcher [employer] EDMS Loco Mack, RN RN jb4 Anastasia Moncada ag3 Ludivina Bartholomew RN RN ll1 Fazal Castaneda DO DO ms3 Patria Giles tw5 Shilpa Gomez MD MD sd2
--- NOTE | 2022-04-19 08:51 | EDPHYS ---
Physician Documentation [facility] Name: Ben Muri Age: 56 yrs Sex: Male : 1965 Arrival Date: 04/19/2022 Time: 05:35 Bed 7 Private MD: ED Physician Shilpa Gomez HPI: 04/19 08:08 This 56 yrs old Male presents to ER via Ambulatory with complaints of Fever, ms3 Shortness Of Breath. 08:08 With past medical history of diabetes, and end-stage renal disease with dialysis on ms3 Tuesday presents for temperature of 99.8. Patient states he arrived at dialysis today and was told he cannot have dialysis secondary to his temperature. Patient states he is also had some shortness of breath began yesterday. Patient states he feels full of fluid. Patient denies fevers, chills, nausea, vomiting, chest pain. Patient endorses head pressure.. Historical: - Allergies: 05:56 NKDA; jb4 - Home Meds: 05:56 amitriptyline 10 mg Oral tab 1 tab once daily [Active]; amlodipine 10 mg tab 1 tab once jb4 daily [Active]; Lantus U-100 Insulin 100 unit/mL Sub-Q crtg 100 unit/mL three times a day [Active]; Hina-Andrew Rx 1-60-300 mg-mg-mcg Oral tab [Active]; carvedilol 25 mg Oral tab 1 tab 2 times per day [Active]; hydralazine 25 mg Oral tab 1 tab three times a day [Active]; losartan 100 mg Oral tab 1 tab once daily [Active]; sevelamer carbonate 800 mg Oral tab 4 tab 3 times per day [Active]; Velphoro 500 mg Oral chew 1 tab 3 times per day [Active]; tamsulosin 0.4 mg Oral cap 1 cap once daily [Active]; - PMHx: 05:56 Diabetes - IDDM; DIALYSIS MWF; Hypertension; Stage 3 Kidney Disease; testicular cancer; jb4 - Immunization history:: Adult Immunizations up to date. - Social history:: Smoking status: Patient reports the use of cigarette tobacco products, 1-2 cigarettes per day. ROS: 08:08 Constitutional: Negative for fever, and chills. Neck: Negative for injury, pain, and ms3 swelling, Cardiovascular: Negative for chest pain, and palpitations. 08:08 Abdomen/GI: Negative for abdominal pain, nausea, vomiting, diarrhea, and constipation, MS/Extremity: Negative for injury and deformity, Skin: Negative for injury, rash, and discoloration. 08:08 Respiratory: Positive for shortness of breath. 08:08 Neuro: Positive for headache. 08:08 All other systems are negative. Exam: 06:35 ECG was reviewed by the Attending Physician. ms3 08:08 Constitutional: This is a well developed, well nourished patient who is awake, alert, ms3 and in no acute distress. Head/Face: Normocephalic, atraumatic. Neck: Trachea midline, no cervical lymphadenopathy. Supple, full range of motion without nuchal rigidity, or vertebral point tenderness. No Meningismus. Chest/axilla: Normal chest wall appearance and motion. Nontender with no deformity. Cardiovascular: Regular rate and rhythm with a normal S1 and S2. No gallops, murmurs, or rubs. Normal PMI, no JVD. No pulse deficits. Respiratory: Lungs have equal breath sounds bilaterally, clear to auscultation and percussion. No rales, rhonchi or wheezes noted. No increased work of breathing, no retractions or nasal flaring. Abdomen/GI: Soft, non-tender, with normal bowel sounds. No distension or tympany. No guarding or rebound. No evidence of tenderness throughout. Skin: Warm, dry with normal turgor. Normal color with no rashes, no lesions, and no evidence of cellulitis. MS/ Extremity: Pulses equal, no cyanosis. Neurovascular intact. Full, normal range of motion. Psych: Awake, alert, with orientation to person, place and time. Behavior, mood, and affect are within normal limits. Vital Signs: 05:53 BP 144 / 69; Pulse 89; Resp 24; Temp 98.8(O); Pulse Ox 98% on R/A; Weight 77.11 kg (R); jb4 Height 5 ft. 6 in. (167.64 cm); Pain 0/10; 07:24 BP 169 / 97; Pulse 87; Resp 26; Pulse Ox 96% ; ll1 08:31 BP 177 / 96; Pulse 89; Resp 26; Pulse Ox 91% ; ll1 09:30 BP 171 / 89; Pulse 85; Resp 22; Pulse Ox 95% ; ll1 05:53 Body Mass Index 27.44 (77.11 kg, 167.64 cm) jb4 MDM: 06:10 Patient medically screened. ms3 06:35 Differential diagnosis: viral Infection, URI, Hyperkalemia. ms3 08:10 Transition of care: After a detail discussion of the patient's case, care is ms3 transferred to Shilpa Gomez MD. 08:48 Physician consultation:. ED course: Consulted Dr. Guidry with Nephrology. sd2 Would like patient admitted for fluid overload and hyperkalemia. Will order hyperkalemia bundle with plan for dialysis due to EKG changes. Will admit to hospitalist service at this time. . 04/19 06:11 Order name: Basic Metabolic Panel ms3 04/19 06:11 Order name: CBC with Diff ms3 04/19 06:11 Order name: NT PRO-BNP ms3 04/19 06:11 Order name: Troponin HS ms3 04/19 06:11 Order name: Flu ms3 04/19 06:19 Order name: SARS-COV-2 RT PCR (Document "Date of Onset" if Symptomatic) jb4 04/19 06:53 Order name: CBC with Automated Diff EDMS 04/19 08:25 Interpretation: Abnormal. sd2 04/19 07:16 Order name: Basic Metabolic Panel EDMS 04/19 07:16 Order name: Troponin High Sensitivity EDMS 04/19 07:16 Order name: NT PRO-BNP EDMS 04/19 07:17 Order name: Influenza Screen (A EDMS 04/19 07:21 Order name: Potassium sd2 04/19 07:50 Order name: Potassium EDMS 04/19 06:11 Order name: XRAY Chest (1 view) ms3 04/19 06:11 Order name: EKG; Complete Time: 06:12 ms3 04/19 06:11 Order name: Cardiac monitoring; Complete Time: 06:20 ms3 04/19 06:11 Order name: EKG - Nurse/Tech; Complete Time: 06:42 ms3 04/19 06:11 Order name: IV Saline Lock; Complete Time: 06:42 ms3 04/19 07:59 Order name: SARS-COV-2 RT PCR EDMS 04/19 09:38 Order name: Phosphorus EDMS 04/19 09:38 Order name: NT PRO-BNP EDMS 04/19 09:38 Order name: T4 Free EDMS 04/19 09:38 Order name: Magnesium EDMS 04/19 09:38 Order name: Thyroid Stimulating Hormone EDMS 04/19 06:11 Order name: Labs collected and sent; Complete Time: 06:42 ms3 04/19 06:11 Order name: O2 Per Protocol; Complete Time: 06:20 ms3 04/19 06:11 Order name: O2 Sat Monitoring; Complete Time: 06:20 ms3 EC:35 Rate is 90 beats/min. Rhythm is regular. QRS [place] is Normal. LA interval is normal. QRS ms3 interval is normal. Clinical impression: NSR w/ Non-specific ST/T Changes. Interpreted by me. Reviewed by me. Administered Medications: 10:12 Not Given (went to dialysis): Calcium Gluconate 1 grams IVPB once over 60 mins; (mix in ll1 NS 100 mL) 10:12 Not Given (went to dialysiss): Sodium Bicarbonate 50 mEq IVP once ll1 10:12 Not Given (went to dialysiss): Albuterol 5 mg Inhalation once ll1 10:12 Not Given (went to dialysiss): D50W 50 ml IVP once; (1 amp) ll1 10:12 Not Given (went to dialysiss): Insulin Regular Human 10 units IVP once ll1 Disposition Summary: 04/19/22 08:50 Hospitalization Ordered Hospitalization Status: Observation sd2 Provider: Penny Escobedo sd2 Location: Telemetry/MedSurg (observation) sd2 Condition: Stable sd2 Problem: new sd2 Symptoms: have improved sd2 Bed/Room Type: Standard sd2 Room Assignment: [id number](04/19/22 09:55) bd Diagnosis - Hyperkalemia sd2 - Fluid overload sd2 - ESRD needing emergent dialysis sd2 Forms: - Medication Reconciliation Form sd2 - SBAR form sd2 Signatures: Dispatcher [employer] EDMS Clemencia Stone James, RN RN jb4 Fazal Castaneda DO DO ms3 Shilpa Gomez MD MD sd2 Ludivina Barthoolmew RN ll1 Corrections: (The following items were deleted from the chart) 09:55 08:50 sd2 bd
--- NOTE | 2022-04-19 08:53 | P.HP ---
Certification for Inpatient Patient admitted to: Observation With expected LOS: <2 Midnights Patient will require the following post-hospital care: None Practitioner: I am a practitioner with admitting privileges, knowledge of patient current condition, hospital course, and medical plan of care. Services: Services provided to patient in accordance with Admission requirements found in Title 42 Section 412.3 of the Code of Federal Regulations Patient History Date of Service: 04/19/22 Reason for admission: Fever and zsob History of Present Illness: Patient is a 56-year-old male with a past medical history significant for ESRD, DM 2, hypertension, testicular cancer, BPH who presents with complaint of fever and shortness of breath. Patient reported that he went to dialysis today and his temperature was noted to be elevated. Patient was instructed to come to the ER. Patient reported associated signs and symptoms of shortness cough, heada saeed, dizziness, bilateral lower extremity edema, and chest pain. Patient stated that chest pain is located in the substernal chest area, rated pain as 6/10 in severity and described pain as aching quality. Patient denies any other signs or symptoms. Symptoms are aggravated or relieved by nothing. Patient decided to present to the hospital as directed. Allergies No Known Drug Allergies Allergy (Verified 09/08/21 07:53) Unknown No Known Allergies Allergy (Uncoded 09/08/21 07:53) Unknown Home Medications: Amitriptyline HCl 10 mg PO BEDTIME 06/29/21 Amlodipine [Norvasc*] 10 mg PO DAILY 06/29/21 Tamsulosin [Flomax*] 0.4 mg PO DAILY 06/29/21 Carvedilol [Coreg] 25 mg PO BID 06/30/21 Sevelamer Carbonate 800 mg PO DAILY 06/30/21 Hydralazine HCl 1 tab PO TID 08/08/21 Albuterol 2 puff IH Q4HR 09/08/21 Budesonide/Formoterol Fumarate [Symbicort 160-4.5 Mcg Inhaler] 1 puff IH BID 09/08/21 Fluticasone [Flonase 50MCG Nasal [place]*] 2 sprays IN BID 09/08/21 Losartan Potassium 1 tab PO DAILY 09/08/21 Sucroferric Oxyhydroxide [Velphoro] 3 tab PO TID 09/08/21 - Past Medical/Surgical History Diabetic: Yes -: Diabetes mellitus type 2insulin-dependent -: HTN -: high cholesterol -: testicular cancer -: ESRD on HD MWF -: Right ankle -: Left wrist Psychosocial/ Personal History: Patient lives at home with his family - Family History Father -: Diabetes Mother -: Heart disease - Social History Smoking Status: Current every day smoker Counseled patient to stop smoking for: less than 10 minutes Smoking therapy provided: Yes Patient receptive to therapy: Yes Alcohol use: No CD- Drugs: No Caffeine use: No Review of Systems General: Fever Eyes: Unremarkable ENT: Unremarkable Respiratory: Cough, Shortness of Breath, SOB with Excertion Cardiovascular: Chest Pain Gastrointestinal: Unremarkable Genitourinary: Unremarkable Musculoskeletal: Shoulder Pain, Pedal edema, Unremarkable Integumentary: Unremarkable Neurological: Other (Headache, dizziness ) Physical Examination - Physical Exam General: Alert, Oriented x3, Mild distress HEENT: Atraumatic, PERRLA, Mucous membr. moist/pink, EOMI, Sclerae nonicteric Neck: Supple, 2+ carotid pulse no bruit, No LAD, Without JVD or thyroid abnormality Respiratory: Clear to auscultation bilaterally, Diminished Cardiovascular: Regular rate/rhythm, Normal S1 S2 Capillary refill: <2 Seconds Gastrointestinal: Normal bowel sounds, No tenderness Musculoskeletal: No tenderness Integumentary: No rashes Neurological: Normal gait, Normal speech, Normal tone, Normal affect Lymphatics: No axilla or inguinal lymphadenopathy - Studies Laboratory Data (last 24 hrs) 04/19/22 07:30: Potassium 6.3 H* 04/19/22 06:35: WBC 11.60 H, Hgb 11.9 L, Hct 36.6 L, Plt Count 209 04/19/22 06:35: Sodium 137, Potassium 6.0 H*, BUN 68 H, Creatinine 13.90 H*, Glucose 147 H Microbiology Data (last 24 hrs): 04/19/22 06:30 Nasopharnyx Influenza Type A Antigen Screen - Final 04/19/22 06:30 Nasopharnyx Influenza Type B Antigen Screen - Final Assessment and Plan - Plan --Volume overload. Nephrology consulted. Patient currently scheduled to have dialysis today. Continue supportive care --ESRD. Further management per indirect fire infantryman. --Hyperkalemia. Patient scheduled to have dialysis. Further management per indirect fire infantryman. --Chest pain. Likely atypical. Will trend serial troponins-- Currently negative. Telemetry to monitor for any significant arrhythmia --DM2. BS monitoring with sliding scale insulin. --Hypertension. Poorly controlled. Continue home medications and labetalol as needed. --History of testicular cancer. Status unknown. Continue supportive care. --BPH. Continue home medication. --Headache. Tylenol as needed. --Nicotine dependence. Patient counseled on tobacco cessation. Refused tobacco patch. --DVT prophylaxis with heparin subQ Discharge Plan: Home Plan to discharge in: 48 Hours - Advance Directives Does patient have a Living Will: No Does patient have a Durable POA for Healthcare: No - Code Status/Comfort Care Code Status Assessed: Yes Code Status: Full Code Physician Review: Patient Assessed, Agree with Above Assessment and Plan Critical Care: No
[2022-04-19] MEDS: TAMSULOSIN 0.4 MG SR CAP PO SCH (09:00)
[2022-04-19] MEDS ORDERED: HOME MED 1 EA UNK (Insulin Glargine,Hum.Rec.Anlog [Lantus Solostar] 100 UNIT/ML Insuln.Pen SQ SCH (09:00)
[2022-04-19] MEDS: ALBUTEROL IH SCH ×4 (09:00→21:00)
[2022-04-19] MEDS: AMLODIPINE 10 MG TAB PO SCH (09:00)
[2022-04-19] MEDS: HOME MED 1 EA UNK (Budesonide/Formoterol Fumarate [Symbicort 160-4.5 Mcg Inhaler] 10.2 GM IH SCH ×2 (09:00→21:00)
[2022-04-19] MEDS: carvediloL 25 MG TAB PO SCH ×2 (09:00→22:03)
[2022-04-19] MEDS: HEPARIN 5000 UNIT/ML 1 ML VIAL SQ SCH ×2 (09:00→16:19)
[2022-04-19] MEDS ORDERED: HOME MED 1 EA UNK (Losartan Potassium [Losartan Potassium] 100 MG Tablet) PO SCH (09:00)
[2022-04-19] MEDS: HYDRALAZINE HCL 25 MG TABLET PO SCH ×4 (09:00→22:03)
[2022-04-19] MEDS: ASPIRIN EC 81 MG TAB PO SCH (09:00)
[2022-04-19] MEDS: HOME MED 1 EA UNK (Sucroferric Oxyhydroxide [Velphoro] 500 MG Tab.Chew) PO SCH ×3 (09:00→21:00)
[2022-04-19 09:38] LABS: Magnesium 2.4 mg/dL (1.8-2.4); Phosphorus 3.4 mg/dL (2.5-4.9); Thyroid Stimulating Hormone 0.853 uIU/mL (0.360-3.740)
--- NOTE | 2022-04-19 11:13 | RAD REPORT ---
EXAM DESCRIPTION: RAD - Chest Single View - 04/19/2022 6:27 am CLINICAL HISTORY: The patient is 56 years old and is Male; sob TECHNIQUE: Single view of the chest. COMPARISON: No relevant prior studies available. FINDINGS: Lungs: No pulmonary vascular congestion or consolidation. Pleural space: Unremarkable. No pneumothorax. Heart: Unremarkable. No cardiomegaly. Mediastinum: Unremarkable. Bones/joints: No acute fracture visualized. Upper abdomen: No free air in the visualized upper abdomen. IMPRESSION: No acute cardiopulmonary process identified. Electronically signed by: Shilpa Rios MD 04/19/2022 6:35 AM CDT Due to temporary technical issues with the PACS/Fluency reporting system, reports are being signed by the in house radiologists without review as a courtesy to insure prompt reporting. The interpreting radiologist is fully responsible for the content of the report.
[2022-04-19] MEDS: INSULIN -REGULAR HUMAN 50 UNIT/0.5 ML ML SQ SCH ×3 (11:30→21:00)
[2022-04-19] MEDS: SEVELAMER CARBONATE 800 MG TABLET PO SCH (12:00)
[2022-04-19 16:43] VITALS: BMI 27.4
[2022-04-19] MEDS ORDERED: LABETALOL 20 MG/4ML SYRINGE IV PRN (17:41)
[2022-04-19 20:23] LABS: Specific Gravity 1.008 (1.005-1.030); Urine Bacteria <20 /HPF (<20); Urine Bilirubin NEGATIVE (Negative); Urine Blood Trace (Negative); Urine Clarity Turbid (Clear); Urine Color Light-Yellow (Yellow); Urine Glucose 3+ (Negative); Urine Mucus Slight /HPF (None Seen); Urine Protein 3+ (Negative); Urine RBC <5 /HPF (None Seen); Urine Urobilinogen Normal (Normal)
[2022-04-19] MEDS ORDERED: AMITRIPTYLINE 10 MG TAB PO SCH (21:00)
[2022-04-19] MEDS: HOME MED 1 EA UNK [FLUTICASONE 50MCG NASAL SPRAY] NAS SCH (21:00)
--- NOTE | 2022-04-19 23:12 | CON ---
Date of Consultation: 04/19/2022 Chief Complaint: End-stage renal disease, congestive heart failure, fever, fluid overload, shortness of breath. History Of Present Illness: Patient is a 56-year-old man with history of end- stage renal disease and has been dialyzed on Tuesday, Tuesday, and Tuesday. Today, he was referred from Dialysis Center to emergency room because he was found to have fever. Chest x-ray showed pulmonary edema. Patient required emergent dialysis for treatment of fluid overload and hyperkalemia. Potassium was elevated up to 6.2. The patient was dialyzed with 2 potassium dialysate. Patient has history of diabetes mellitus, diabetic kidney disease, hypertension, testicular cancer, and BPH. He presented with shortness of breath and fever. He had test done to screen for COVID, COVID test was negative. Patient stated that he developed some shivering and malaise yesterday. He denies productive cough. Denies wheezing and denies syncope, chest pain, and GI symptoms. Review of Systems: General: Denies fever or chills today. He was already treated for fever and currently he denies complaints. He is feeling better. Lungs: Few rhonchi. Heart: S1, S2. Abdomen soft. Extremities: Slight edema. Past Medical History: Diabetes mellitus, hypertension, hyperlipidemia, testicular cancer, right ankle surgery, and left wrist injury. Family History: Father with diabetes. Mother with heart disease. Social History: Current everyday smoker. Alcohol, denies. Physical Examination: General: Patient is awake, alert, follows commands. Eyes: Anicteric sclerae. EOMI. Ears, Nose, Mouth and Throat: Oral mucosa moist. No pallor. Neck: Supple. No bruits. Lungs: Few rhonchi and crackles present. Heart: S1, S2. No pericardial friction or rub. Abdomen: Soft, benign. Extremities: Slight edema. Impression And Plan: 1. Fever. Blood cultures were obtained. Patient is currently asymptomatic. The patient is negative for COVID. Re-evaluate chest x-ray after dialysis. Patient has fluid overload and interstitial pulmonary edema. Ultrafiltration will be advanced as tolerated. Plan is to aim for ultrafiltration of 2.5 L as tolerated. 2. Diabetes mellitus. Continue insulin sliding scale. 3. Hypertension, poorly controlled. Patient will continue blood pressure medication. Advance hydralazine. Dose was increased from 25 three times per day to 50 three times per day. Continue beta-rosibel and angiotensin receptor rosibel. 4. BPH. Continue home medication. 5. Anemia with chronic kidney disease. Hold GWYN for hemoglobin greater than 11. 6. Renal osteodystrophy. Continue renal diet and binders. 7. Fever. Workup was initiated. Recommend to consult Infectious Disease and continue broad-spectrum antibiotics. ESTELITA/RAE Voice ID: [id number] Report ID: [id number] MTDD
[2022-04-20] MEDS: ALBUTEROL IH SCH ×3 (01:00→09:00)
[2022-04-20] MEDS: HEPARIN 5000 UNIT/ML 1 ML VIAL SQ SCH ×2 (02:39→09:17)
[2022-04-20 03:42] LABS: Absolute Lymphocytes (CBC) 1.8 K/uL (0.7-4.9); Hematocrit 31.6 % (39.6-49.0); MCV 97.7 fL (80-100); MPV 6.9 fL (7.6-11.3); RBC Red Blood Cell Count 3.23 M/uL (4.33-5.43)
[2022-04-20 03:57] LABS: Potassium 4.5 mmol/L (3.5-5.1)
[2022-04-20] MEDS: INSULIN -REGULAR HUMAN 50 UNIT/0.5 ML ML SQ SCH (07:30)
[2022-04-20] MEDS ORDERED: INFLUENZA VACCINE (for 6+ mo) 0.5 ML DOSE IMVAC ONE (08:00)
[2022-04-20] MEDS: SEVELAMER CARBONATE 800 MG TABLET PO SCH (08:00)
[2022-04-20] MEDS ORDERED: LOSARTAN POTASSIUM 50 MG TABLET PO SCH (09:00)
[2022-04-20] MEDS ORDERED: FOLIC ACID 1 MG TABLET PO SCH (09:00)
[2022-04-20] MEDS: HOME MED 1 EA UNK (Sucroferric Oxyhydroxide [Velphoro] 500 MG Tab.Chew) PO SCH (09:00)
[2022-04-20] MEDS: HOME MED 1 EA UNK [FLUTICASONE 50MCG NASAL SPRAY] NAS SCH (09:00)
[2022-04-20] MEDS: HOME MED 1 EA UNK (Budesonide/Formoterol Fumarate [Symbicort 160-4.5 Mcg Inhaler] 10.2 GM IH SCH (09:00)
[2022-04-20] MEDS: TAMSULOSIN 0.4 MG SR CAP PO SCH (09:13)
[2022-04-20] MEDS: HYDRALAZINE HCL 25 MG TABLET PO SCH (09:14)
[2022-04-20] MEDS: carvediloL 25 MG TAB PO SCH (09:14)
[2022-04-20] MEDS: ASPIRIN EC 81 MG TAB PO SCH (09:15)
[2022-04-20] MEDS: AMLODIPINE 10 MG TAB PO SCH (09:15)
[2022-04-20 09:19] VITALS: BP 176/80; TEMP 97.6
--- NOTE | 2022-04-20 09:44 | RAD REPORT ---
EXAM DESCRIPTION: RAD - Chest Pa And Lat (2 Views) - 04/20/2022 8:08 am CLINICAL HISTORY: chf , fever Chest pain. COMPARISON: Chest Single View dated 04/19/2022; Chest Pa And Lat (2 Views) dated 02/16/2022; Chest Si ngle View dated 08/06/2021; Chest Single View dated 07/25/2021 FINDINGS: Mild pulmonary edema is seen. The heart is mildly enlarged in size. No displaced fractures . IMPRESSION: Mild CHF.
[2022-04-20 10:08] VITALS: O2SAT 97
--- NOTE | 2022-04-20 14:07 | EKG ---
Test Date: 2022-04-19 Test Time: 06:35:44 Risk Engineer: JOSELINE MEASUREMENT RESULTS: Intervals: Rate: 90 ID: [id number] QRSD: 80 QT: 326 QTc: 398 [place]: P: 57 ID: [id number] QRS: 32 T: 93 INTERPRETIVE STATEMENTS: Normal sinus rhythm T wave abnormality, consider lateral ischemia Abnormal ECG Compared to ECG 08/06/2021 17:10:00 T-wave abnormality now present Possible ischemia now present Sinus tachycardia no longer present Electronically Signed On 04-20-22 14:02:47 CDT by Reynaldo Manzo
[2022-04-22 18:32] LABS: HBsAG Nonreactive (Nonreactive)
== END 2022-04-20 11:10 | disposition home or self-care (01) ==
LOC: ER 05:32 → ERHOLD 08:42 → 4TH 14:37
PROVIDERS: ADMIT Hospitalist; ATTEND Hospitalist
DX: R50.9 Fever, unspecified (principal); E87.70 Fluid overload, unspecified; E11.22 Type 2 diabetes mellitus with diabetic chronic kidney disease; I12.0 Hypertensive chronic kidney disease with stage 5 chronic kidney disease or end stage renal disease; N18.6 End stage renal disease; Z99.2 Dependence on renal dialysis; E87.5 Hyperkalemia; R07.9 Chest pain, unspecified; Z85.47 Personal history of malignant neoplasm of testis; N40.0 Benign prostatic hyperplasia without lower urinary tract symptoms; F17.210 Nicotine dependence, cigarettes, uncomplicated; Z71.6 Tobacco abuse counseling; Z20.822 Contact with and (suspected) exposure to COVID-19
CPT/HCPCS: 36415; 71045; 71046; 80048; 81001; 82947; 83735; 83880; 84100; 84132; 84439; 84443; 84484; 85025; 86317; 87040; 87086; 87088; 87340; 87804; 90471; 90935; 93005; 99285; G0378; J1644; Q2035; U0003

== ENCOUNTER 2023-02-23 08:07 | Emergency (ER) | payer OTHER ==
--- OUTSIDE RECORDS SUMMARY | 2023-02-23 08:12 | XMS REPORT | Continuity of Care Document ---
:1965 Author Organization [facility] t Address [address] [place] [address]. [address] [place] [address] Care Team Providers Name Role Phone Shilpa Padilla Primary Care Physician Parker Sequeira MD Attending Clinician OBDULIO OSHEA Attending Clinician Unavailable Obdulio Oshea MD Attending Clinician Khoi GIL, Mary Ellen Amaya Attending Clinician [phone] Doctor Unassigned, [place] Attending Clinician Unavailable PARKER SEQUEIRA Attending Clinician Unavailable DEBBY Attending Clinician Unavailable TIFFANIE FUNEZ Attending [...] Policy Number Effective Date Expiration Date S ource MEDICARE A B [id number] [place] MEDICARE [id number] 2021 HMO 00:00:00 MEDICAID OF [place] [id number] Problems Condition Condition Condition Status Onset Resolution Last Treating Co mments Source Name Details Category Date Date Treatment Clinician Date ESRD (end ESRD (end Disease [facility]re [facility] stage ute 02-05 [facility] renal renal 00:00: Medical disease) disease) 00 Center on on dialysis dialysis Type 2 Type 2 Disease Recurre [facility] diabetes diabetes [facility] 02-05 [facility] mellitus mellitus 00:00: Medica l with with 00 Center chronic chronic kidney kidney disease, disease, with with long-term long-term current current use of use of insulin insulin Secondary Secondary Disease Active [facility] hypert[facility]i hypertensi 02-05 [facility] on on 00:00: Medical 00 Center Other Other Disease Active [facility] hyperlipid hyperlipid 02-05 Sujata kes emia emia 00:00: Medical 00 Center Febrile Febrile Disease Active 2013-07 Univers neutropeni neutropeni 1-05 it y of a a 00:00: [place] 00 Medical Branch Cancer Cancer Disease Active 2013-07 Univers 0-27 ity of 00:00: [place] 00 Medical Branch Maintenanc Maintenanc Disease Active U nivers e e 9-29 ity of chemothera chemothera [place] 00 [place] Abdominal Abdominal Disease Active Uni vers pain pain 9-16 ity of 00:00: [place] 00 [facility] Branch Testicular Testicular Disease Active U nivers cancer cancer 9-02 ity of 00:00: [place] 00 Medical Branch Edema of Edema of Disease Active Unive rs right right 9 ity of lower lower 00:00: [place] extremity extremity 00 [facility] [place] Branch Edema of Edema of Disease Active Unive rs right right 9- ity of lower lower 00:00: [place] extremity extremity 00 Medi hay[place] Branch Allergies, Adverse Reactions, Alerts Allergy Allergy Status Severity Reaction(s) Onset Inactive Treating Comm ents Source Name Type Date Date Clinician NO KNOWN Allergy Active [facility] NO KNOWN Drug Active Univers ALLERGIE Class ity of S [facility] Social History Social Habit Start Date Stop Date Quantity Comments Source Exposure to 2022-09-18 2022-09-28 Not sure University of SARS-CoV-2 (event) 00:00:00 08:14:00 [facility] Tobacco use and 2022-09-28 2022-09-28 User of Universit y of exposure 00:00:00 00:00:00 smokeless [facility] tobacco Branch Tobacco Comment 2022-09-28 2022-09-28 States smokes 1 Univ ersity of 00:00:00 00:00:00 cigarette per [place] [facility] day Branch Cigarettes smoked 2022-09-28 2022-09-28 Univers ity of current (pack per 00:00:00 00:00:00 [facility] ed) - Reported Branch Cigarette 2022-09-28 2022-09-28 University of pack-years 00:00:00 00:00:00 [facility] Alcohol intake 2022-09-28 2022-09-28 Current University of 00:00:00 00:00:00 non-drinker of [facility] alcohol Branch (finding) Alcohol Comment 2014-03-05 2014-03-05 History of Universit y of 00:00:00 00:00:00 alcholism [facility] History of tobacco 2013-07-31 Cigarette Smoker University of use 00:00:00 [facility] Sex Assigned At [address] [facility] kes 00:00:00 00:00:00 [facility] Smoking Status Start Date Stop Date Source Smokes tobacco daily 2022-09-28 00:00:00 Univers ity of [facility] Ex-smoker 2014-02-05 00:00:00 2014-02-05 00:00:00 Universi ty of [facility] Medications Ordered Filled Start Stop Current Ordering Indication Dosage Frequency Signature Comments Components Source Medication Medication Date Date Medication? Clinician (SIG) Name Name budesonide- Yes 2{puff} Inhale 2 Univers formoteroL 3-28 Puffs in ity o f (SYMBICORT) 09:26: the [place] 160-4.5 36 morning Medical mcg/actuati and 2 Branch on inhaler Puffs in the evening. ALBUTEROL Yes 1{puff} Inhale 1-2 Univers INHALE 3-28 Puffs ity of 09:26: every 4 [place] 36 (four) Medical hours as Branch needed (prn SOB). levocetiriz 2023-0 Yes 5mg Take 1 Univ ers ine (XYZAL) 3-28 tablet by ity of 5 mg tablet 09:26: mouth [place] 36 every Medical evening. Branch budesonide- 2023-0 Yes 2{puff} Inhale 2 Univers formoteroL 3-28 Puffs in ity o f (SYMBICORT) 09:26: the [place] 160-4.5 36 morning Medical mcg/actuati and 2 Branch on inhaler Puffs in the evening. ALBUTEROL 2023-0 Yes 1{puff} Inhale 1-2 Univers INHALE 3-28 Puffs ity of 09:26: every 4 [place] 36 (four) Medical hours as Branch needed (prn SOB). levocetiriz 2023-0 Yes 5mg Take 1 Univ ers ine (XYZAL) 3-28 tablet by ity of 5 mg tablet 09:26: mouth [place] 36 every Medical evening. Branch budesonide- 2023-0 Yes 2{puff} Inhale 2 Univers formoteroL 3-28 Puffs in ity o f (SYMBICORT) 09:26: the [place] 160-4.5 36 morning Medical mcg/actuati and 2 Branch on inhaler Puffs in the evening. ALBUTEROL 2023-0 Yes 1{puff} Inhale 1-2 Univers INHALE 3-28 Puffs ity of 09:26: every 4 [place] 36 (four) Medical hours as Branch needed (prn SOB). levocetiriz 2023-0 Yes 5mg Take 1 Univ ers ine (XYZAL) 3-28 tablet by ity of 5 mg tablet 09:26: mouth [place] 36 every Medical evening. Branch hydrALAZINE 2023-0 Yes 50mg Take 2 Univ ers 25 mg 3-28 tablets by ity of tablet 09:23: mouth in [place] 21 the Medical morning Branch and 2 tablets in the evening. losartan 2023-0 Yes 100mg Take 1 Univer s 100 mg 3-28 tablet by ity of tablet 09:23: mouth in [place] 21 the Medical morning. Branch carvediloL 2023-0 Yes 25mg Take 1 Unive rs 25 mg 3-28 tablet by ity of tablet 09:23: mouth in [place] 21 the Medical morning Branch and 1 tablet in the evening. Take with meals. busPIRone 2023-0 Yes 10mg Take 1 Univer s 10 mg 3-28 tablet by ity of tablet 09:23: mouth in [place] [address] the Medical morning. Branch amLODIPine 2023-0 Yes 10mg Take 1 Unive rs 10 mg 3-28 tablet by ity of tablet 09:23: mouth in [place] [address] the Medical morning. Branch sevelamer 2023-0 Yes 3200mg Take 4 Univ ers 800 mg 3-28 tablets by ity of tablet 09:23: mouth 4 [place] [address] (four) Medical times [place] daily. sucroferric 2023-0 Yes 500mg Take 500 U nivers oxyhydroxid 3-28 mg by ity of e 09:23: mouth 4 [place] ([facility]) (four) Medical 500 mg Chew times [place] daily. furosemide 2023-0 Yes 80mg Take 1 Unive rs 80 mg 3-28 tablet by ity of tablet 09:23: mouth in [place] [address] the Medical morning. Branch hydrALAZINE 2023-0 Yes 50mg Take 2 Univ ers 25 mg 3-28 tablets by ity of tablet 09:23: mouth in [place] [address] the Medical morning Branch and 2 tablets in the evening. losartan 2023-0 Yes 100mg Take 1 Univer s 100 mg 3-28 tablet by ity of tablet 09:23: mouth in [place] [address] the Medical morning. Branch carvediloL 2023-0 Yes 25mg Take 1 Unive rs 25 mg 3-28 tablet by ity of tablet 09:23: mouth in [place] [address] the Medical morning Branch and 1 tablet in the evening. Take with meals. busPIRone 2023-0 Yes 10mg Take 1 Univer s 10 mg 3-28 tablet by ity of tablet 09:23: mouth in [place] [address] the Medical morning. Branch amLODIPine 2023-0 Yes 10mg Take 1 Unive rs 10 mg 3-28 tablet by ity of tablet 09:23: mouth in [place] [address] the Medical morning. Branch sevelamer 2023-0 Yes 3200mg Take 4 Univ ers 800 mg 3-28 tablets by ity of tablet 09:23: mouth 4 [place] [address] (four) Medical times [place] daily. sucroferric 2023-0 Yes 500mg Take 500 U nivers oxyhydroxid 3-28 mg by ity of e 09:23: mouth 4 [place] [address] (four) Medical 500 mg Chew times Branch daily. furosemide 2023-0 Yes 80mg Take 1 Unive rs 80 mg 3-28 tablet by ity of tablet 09:23: mouth in [place] [address] the Medical morning. Branch hydrALAZINE 2023-0 Yes 50mg Take 2 Univ ers 25 mg 3-28 tablets by ity of tablet 09:23: mouth in [place] [address] the Medical morning Branch and 2 tablets in the evening. losartan 2023-0 Yes 100mg Take 1 Univer s 100 mg 3-28 tablet by ity of tablet 09:23: mouth in [place] [address] the Medical morning. Branch carvediloL 2023-0 Yes 25mg Take 1 Unive rs 25 mg 3-28 tablet by ity of tablet 09:23: mouth in [place] [address] the Medical morning Branch and 1 tablet in the evening. Take with meals. busPIRone 2023-0 Yes 10mg Take 1 Univer s 10 mg 3-28 tablet by ity of tablet 09:23: mouth in [place] [address] the Medical morning. Branch amLODIPine 2023-0 Yes 10mg Take 1 Unive rs 10 mg 3-28 tablet by ity of tablet 09:23: mouth in [place] [address] the Medical morning. Branch sevelamer 2023-0 Yes 3200mg Take 4 Univ ers 800 mg 3-28 tablets by ity of tablet 09:23: mouth 4 [place] [address] ([facility]) Medical times Branch daily. sucroferric 2023-0 Yes 500mg Take 500 U nivers oxyhydroxid 3-28 mg by ity of e 09:23: mouth 4 [place] [address] ([facility]) Medical 500 mg Chew times [place] daily. furosemide 2023-0 Yes 80mg Take 1 Unive rs 80 mg 3-28 tablet by ity of tablet 09:23: mouth in [place] [address] the Medical morning. Branch hydralAZINE 2023-0 2023- No 50mg Take 5 Uni vers (APRESOLINE 3-28 03-28 tablets by i ty of ) 10 mg 09:23: 00:00 mouth in [place] tablet 21 :00 the Medical morning Branch and 5 tablets in the evening. Indication s: As needed if BP is over 180/110 hydralAZINE 2023-0 2023- No 50mg Take 5 Uni vers (APRESOLINE 3-28 03-28 tablets by i ty of ) 10 mg 09:23: 00:00 mouth in [place] tablet 21 :00 the Medical morning Branch and 5 tablets in the evening. Indication s: As needed if BP is [...] by mouth ity of ) 10 mg 16:30: every 8 [place] tablet 21 (eight) Medical hours. Branch Indication s: As needed if BP is over 180/110 hydralAZINE 2014-07 Yes 10mg Take 10 mg Univers (APRESOLINE 1-13 by mouth ity of ) 10 mg 16:30: every 8 [place] tablet 21 (eight) Medical hours. Branch Indication s: As needed if BP is over 180/110 hydralAZINE 2014-07 Yes 10mg Take 10 mg Univers (APRESOLINE 1-13 by mouth ity of ) 10 mg 16:30: every 8 [place] tablet 21 (eight) Medical hours. Branch Indication s: As needed if BP is over 180/110 hydralAZINE 2014-07 Yes 10mg Take 10 mg Univers (APRESOLINE 1-13 by mouth ity of ) 10 mg 16:30: every 8 [place] tablet 21 (eight) Medical hours. Branch Indication s: As needed if BP is over 180/110 hydralAZINE 2014-07 Yes 10mg Take 10 mg Univers (APRESOLINE 1-13 by mouth ity of ) 10 mg 16:30: every 8 [place] tablet 21 (eight) Medical hours. Branch Indication s: As needed if BP is over 180/110 hydralAZINE 2014-07 Yes 10mg Take 10 mg Univers (APRESOLINE 1-13 by mouth ity of ) 10 mg 16:30: every 8 [place] tablet 21 (eight) Medical hours. Branch Indication s: As needed if BP is over 180/110 citalopram Yes Univers (CELEXA) 20 8-12 ity of mg tablet 00:00: [place] 00 Medical Branch doxazosin Yes Univers (CARDURA) 4 8-12 ity of mg tablet 00:00: [place] [facility] minocycline Yes Univer s (MINOCIN) 8-12 ity of 100 mg 00:00: [place] capsule 00 Medical Branch citalopram Yes Univers (CELEXA) 20 8-12 ity of mg tablet 00:00: [place] [facility] Branch doxazosin Yes Univers (CARDURA) 4 8-12 ity of mg tablet 00:00: [place] [facility] minocycline 0 Yes Univer s (MINOCIN) 8-12 ity of 100 mg 00:00: [place] capsule 00 Medical Branch citalopram 0 Yes Univers (CELEXA) 20 8-12 ity of mg tablet 00:00: [place] [facility] Branch doxazosin 0 Yes Univers (CARDURA) 4 8-12 ity of mg tablet 00:00: [place] [facility] minocycline 0 Yes Univer s (MINOCIN) 8-12 ity of 100 mg 00:00: [place] capsule 00 Medical Branch citalopram 0 Yes Univers (CELEXA) 20 8-12 ity of mg tablet 00:00: [place] [facility] doxazosin 0 Yes Univers (CARDURA) 4 8-12 ity of mg tablet 00:00: [place] [facility] minocycline 0 Yes Univer s (MINOCIN) 8-12 ity of 100 mg 00:00: [place] capsule 00 Medical Branch citalopram 0 Yes Univers (CELEXA) 20 8-12 ity of mg tablet 00:00: [place] [facility] Branch doxazosin [address] Yes Univers (CARDURA) 4 8-12 ity of mg tablet 00:00: [place] 00 Medical Branch minocycline 2015-0 Yes Univer s (MINOCIN) 8-12 ity of 100 mg 00:00: [place] capsule 00 Medical Branch citalopram 0 Yes Univers (CELEXA) 20 8-12 ity of mg tablet 00:00: [place] 00 Medical Branch doxazosin 2014-0 Yes Univers (CARDURA) 4 8-12 ity of mg tablet 00:00: [place] 00 Medical Branch minocycline 2015-0 Yes Univer s (MINOCIN) 8-12 ity of 100 mg 00:00: [place] capsule 00 Medical Branch citalopram 0 Yes Univers (CELEXA) 20 8-12 ity of mg tablet 00:00: [place] [facility] doxazosin 2014-0 Yes Univers (CARDURA) 4 8-12 ity of mg tablet 00:00: [place] 00 Medical Branch minocycline 2014-0 Yes Univer s (MINOCIN) 8-12 ity of 100 mg 00:00: [place] capsule 00 Medical Branch citalopram 0 Yes Univers (CELEXA) 20 8-12 ity of mg tablet 00:00: [place] 00 Medical Branch doxazosin 2014-0 Yes Univers (CARDURA) 4 8-12 ity of mg tablet 00:00: [place] 00 Medical Branch minocycline 2015-0 Yes Univer s (MINOCIN) 8-12 ity of 100 mg 00:00: [place] capsule 00 Medical Branch citalopram 2014-0 Yes Univers (CELEXA) 20 8-12 ity of mg tablet 00:00: [place] 00 Medical Branch doxazosin 2015-0 Yes Univers (CARDURA) 4 8-12 ity of mg tablet 00:00: [place] 00 Medical Branch minocycline 2015-0 Yes Univer s (MINOCIN) 8-12 ity of 100 mg 00:00: [place] capsule 00 Medical Branch citalopram 2015-0 Yes Univers (CELEXA) 20 8-12 ity of mg tablet 00:00: [place] 00 Medical Branch doxazosin 2014-0 Yes Univers (CARDURA) 4 8-12 ity of mg tablet 00:00: [place] 00 Medical Branch minocycline 2015-0 Yes Univer s (MINOCIN) 8-12 ity of 100 mg 00:00: [place] capsule 00 Medical Branch citalopram Yes Univers (CELEXA) 20 8-12 ity of mg tablet 00:00: [place] [facility] doxazosin Yes Univers (CARDURA) 4 8-12 ity of mg tablet 00:00: [place] [facility] minocycline 0 Yes Univer s [...] mg tablet 00:00: [place] [facility] minocycline 0 Yes Univer s (MINOCIN) 8-12 ity of 100 mg 00:00: [place] capsule Medical Branch citalopram Yes Univers (CELEXA) 20 8-12 ity of mg tablet 00:00: [place] [facility] doxazosin Yes Univers (CARDURA) 4 8-12 ity of mg tablet 00:00: [place] [facility] minocycline 0 Yes Univer s (MINOCIN) 8-12 ity of 100 mg 00:00: [place] capsule Medical Branch tamsulosin Yes .4mg Take 1 Cap U nivers (FLOMAX) 8-11 by mouth ity of 0.4 mg 24 00:00: daily. [place] hr capsule Medical Branch potassium Yes 1080mg Take 1 Tab Univers citrate 8-11 by mouth 2 ity of (UROCIT-K 00:00: (two) 10) 10 mEq 00 times Medical (1,080 mg) daily with Bra nch SR tablet meals. tamsulosin Yes .4mg Take 1 Cap U nivers (FLOMAX) 8-11 by mouth ity of 0.4 mg 24 00:00: daily. [place] hr capsule Medical Branch potassium 2014-0 Yes 1080mg Take 1 Tab Univers citrate 8-11 by mouth 2 ity of (UROCIT-K 00:00: () [place] 10) 10 mEq 00 times Medical (1,080 mg) daily with Bra nch SR tablet meals. tamsulosin 2014-0 Yes .4mg Take 1 Cap U nivers (FLOMAX) 8-11 by mouth ity of 0.4 mg 24 00:00: daily. [address] potassium 0 Yes 1080mg Take 1 Tab Univers citrate 8-11 by mouth 2 ity of (UROCIT-K 00:00: () [place] 10) 10 mEq 00 times Medical (1,080 mg) daily with Bra nch SR tablet meals. tamsulosin 2014-0 Yes .4mg Take 1 Cap U nivers (FLOMAX) 8-11 by mouth ity of 0.4 mg 24 00:00: daily. [address] potassium Yes 1080mg Take 1 Tab Univers citrate 8-11 by mouth 2 ity of (UROCIT-K 00:00: () [place] 10) 10 mEq 00 times Medical (1,080 mg) daily with Bra nch SR tablet meals. tamsulosin 2014-0 Yes .4mg Take 1 Cap U nivers (FLOMAX) 8-11 by mouth ity of 0.4 mg 24 00:00: daily. [address] potassium Yes 1080mg Take 1 Tab Univers citrate 8-11 by mouth 2 ity of (UROCIT-K 00:00: () [place] 10) 10 mEq 00 times Medical (1,080 mg) daily with Bra nch SR tablet meals. tamsulosin 2014-0 Yes .4mg Take 1 Cap U nivers (FLOMAX) 8-11 by mouth ity of 0.4 mg 24 00:00: daily. [address] potassium 2014-0 Yes 1080mg Take 1 Tab Univers citrate 8-11 by mouth 2 ity of (UROCIT-K 00:00: () [place] 10) 10 mEq 00 times Medical (1,080 mg) daily with Bra nch SR tablet meals. tamsulosin 2014-0 Yes .4mg Take 1 Cap U nivers (FLOMAX) 8-11 by mouth ity of 0.4 mg 24 00:00: daily. [address] tamsulosin 2015-0 Yes .4mg Take 1 Cap U nivers (FLOMAX) 8-11 by mouth ity of 0.4 mg 24 00:00: daily. [address] potassium 2015-0 Yes 1080mg Take 1 Tab Univers citrate 8-11 by mouth 2 ity of (UROCIT-K 00:00: (two) [place] 10) 10 mEq 00 times Medical (1,080 mg) daily with Bra nch SR tablet meals. tamsulosin 2015-0 Yes .4mg Take 1 Cap U nivers (FLOMAX) 8-11 by mouth ity of 0.4 mg 24 00:00: daily. [facility] tamsulosin 2015-0 Yes .4mg Take 1 Cap U nivers (FLOMAX) 8-11 by mouth ity of 0.4 mg 24 00:00: daily. [address] tamsulosin 2015-0 Yes .4mg Take 1 Cap U nivers (FLOMAX) 8-11 by mouth ity of 0.4 mg 24 00:00: daily. [facility] tamsulosin 2015-0 Yes .4mg Take 1 Cap U nivers (FLOMAX) 8-11 by mouth ity of 0.4 mg 24 00:00: daily. [address] potassium 2014-0 Yes 1080mg Take 1 Tab Univers citrate 8-11 by mouth 2 ity of (UROCIT-K 00:00: (two) [place] 10) 10 mEq 00 times Medical (1,080 mg) daily with Bra nch SR tablet meals. tamsulosin 2015-0 Yes .4mg Take 1 Cap U nivers (FLOMAX) 8-11 by mouth ity of 0.4 mg 24 00:00: daily. [address] potassium 2015-0 Yes 1080mg Take 1 Tab Univers citrate 8-11 by mouth 2 ity of (UROCIT-K 00:00: (two) [place] 10) 10 mEq 00 times Medical (1,080 mg) daily with Bra nch SR tablet meals. tamsulosin 2015-0 Yes .4mg Take 1 Cap U nivers (FLOMAX) 8-11 by mouth ity of 0.4 mg 24 00:00: daily. [place] hr capsule 00 Medical Branch potassium Yes 1080mg Take 1 Tab Univers citrate 8-11 by mouth 2 ity of (UROCIT-K 00:00: (two) [place] 10) 10 mEq 00 times Medical (1,080 mg) daily with Bra nch SR tablet meals. potassium 2022- No 1080mg Take 1 Tab Univers citrate 8-11 -28 by mouth 2 ity o f (UROCIT-K 00:00: 00:00 (two) [place] 10) 10 mEq 00 :00 times Medical (1,080 mg) daily with Bra nch SR tablet meals. potassium 2022- No 1080mg Take 1 Tab Univers citrate 8-05 06-28 by mouth 2 ity o f (UROCIT-K 00:00: 00:00 (two) [place] 10) 10 mEq 00 :00 times Medical (1,080 mg) daily with Bra nch SR tablet meals. LANTUS Yes Univers SOLOSTAR 6-10 ity of 100 unit/mL 00:00: [place] (3 mL) In 00 Medical Branch [place] [address] Yes Univer s 32 x 1/4 " 6-10 ity of Ndle 00:00: [place] 00 Medical Branch LANTUS Yes Univers SOLOSTAR 6-10 ity of 100 unit/mL 00:00: [place] (3 mL) In 00 Medical Branch [place] [address] Yes Univer s 32 x 1/4 " 6-10 ity of Ndle 00:00: [place] 00 Medical Branch LANTUS Yes Univers SOLOSTAR 6-10 ity of 100 unit/mL 00:00: [place] (3 mL) In 00 Medical Branch [place] [address] Yes Univer s 32 x 1/4 " 6-10 ity of Ndle 00:00: [place] 00 Medical Branch LANTUS Yes Univers SOLOSTAR 6-10 ity of 100 unit/mL 00:00: [place] (3 mL) In 00 Medical Branch [place] [address] Yes Univer s 32 x 1/4 " 6-10 ity of Ndle 00:00: [place] 00 Medical Branch LANTUS Yes Univers SOLOSTAR 6-10 ity of 100 unit/mL 00:00: [place] (3 mL) InPn 00 Medical Branch [place] [address] Yes Univer s 32 x 1/4 " 6-10 ity of Ndle 00:00: [place] Medical Branch LANTUS Yes Univers SOLOSTAR 6-10 ity of 100 unit/mL 00:00: [place] (3 mL) InPn 00 Medical Branch [place] [address] Yes Univer s 32 x 1/4 " 6-10 ity of Ndle 00:00: [place] Medical Branch LANTUS Yes Univers SOLOSTAR 6-10 ity of 100 unit/mL 00:00: [place] (3 mL) InPn 00 Medical Branch [place] [address] Yes Univer s 32 x 1/4 " 6-10 ity of Ndle 00:00: [place] Medical Branch LANTUS Yes Univers SOLOSTAR 6-10 ity of 100 unit/mL 00:00: [place] (3 mL) InPn 00 Medical Branch [place] [address] Yes Univer s 32 x 1/4 " 6-10 ity of Ndle 00:00: [place] [facility] LANTUS Yes Univers SOLOSTAR 6-10 ity of 100 unit/mL 00:00: [place] (3 mL) InPn 00 Medical Branch [place] [address] Yes Univer s 32 x 1/4 " 6-10 ity of Ndle 00:00: [place] [facility] Branch LANTUS Yes Univers SOLOSTAR 6-10 ity of 100 unit/mL 00:00: [place] (3 mL) InPn 00 Medical Branch [place] [address] Yes Univer s 32 x 1/4 " 6-10 ity of Ndle 00:00: [place] [facility] LANTUS Yes Univers SOLOSTAR 6-10 ity of 100 unit/mL 00:00: [place] (3 mL) InPn 00 Medical Branch [place] [address] Yes Univer s 32 x 1/4 " 6-10 ity of Ndle 00:00: [place] [facility] Branch LANTUS Yes Univers SOLOSTAR 6-10 ity of 100 unit/mL 00:00: [place] (3 mL) InPn 00 Medical Branch [place] [address] Yes Univer s 32 x 1/4 " 6-10 ity of Ndle 00:00: [place] 00 Medical Branch LANTUS Yes Univers SOLOSTAR 6-10 ity of 100 unit/mL 00:00: [place] (3 mL) InPn 00 Medical Branch [facility] 32 Yes Univer s 32 x 1/4 " 6-10 ity of Ndle 00:00: [place] 00 Medical Branch LANTUS Yes Univers SOLOSTAR 6-10 ity of 100 unit/mL 00:00: [place] (3 mL) InPn 00 Medical Branch [facility] 32 Yes Univer s 32 x 1/4 [...] 1-3) or Temp > 38.5 C. acetaminoph 2013-07- No 650mg Take 2 Un mar[place] en -16 03-28 Tabs by ity of (TYLENOL) 00:00: 00:00 mouth [place] 325 mg 00 :00 every 6 Medical tablet (six) Branch hours as needed for Pain (scale 1-3) or Temp > 38.5 C. acetaminoph 2013-07- No 650mg Take 2 Un [place] en -16 03-28 Tabs by ity of (TYLENOL) 00:00: 00:00 mouth [place] 325 mg 00 :00 every 6 Medical tablet (six) Branch hours [...] needed for Nausea and Vomiting (N/V). ondansetron 2013- Yes 4mg Take 1 Tab Univers (ZOFRAN-ODT [...] needed for Nausea and Vomiting (N/V). ondansetron 2013- Yes 4mg Take 1 Tab Univers (ZOFRAN-ODT [...] for Nausea and Vomiting (N/V). ondansetron 2013-07 No 4mg Take 1 Tab Univers (ZOFRAN-ODT 1-05 03-28 by mouth ity of ) 4 mg 00:00: 00:00 every 8 [place] disintegrat 00 :00 (eight) Medic al ing tablet hours as Branc h needed for Nausea and Vomiting (N/V). ondansetron 2013-07 No 4mg Take 1 Tab Univers (ZOFRAN-ODT 1-05 03-28 by mouth ity of ) 4 mg 00:00: 00:00 every 8 [place] disintegrat 00 :00 (eight) Medic al ing tablet hours as [...] 00 times Medical daily with Branch meals. carvedilol 2013-07 Yes 12.5mg Take 1 Tab [...] SYRINGE) 1/2 mL 30 x 5/16" Syrg insulin 2013-07 Yes 20U inject 20 Unive rs glargine 0-04 Units ity of (LANTUS 00:00: under the [place] U-100) 100 00 skin Medical unit/mL daily. Branch injection insulin 2013-07 Yes 10U inject 10 Unive rs regular 0-04 Units ity of human 00:00: under the [place] (HUMULIN R) 00 skin Medical injection before Branch meals. carvedilol 2013-07 Yes 12.5mg Take 1 Tab [...] SYRINGE) 1/2 mL 30 x 5/16" Syrg Insulin 2013-07 Yes Univers Syringe-Nee 0-04 ity of dle U-100 00:00: [place] (SURE 00 Medical COMFORT Branch INSULIN SYRINGE) 1/2 mL 30 x 5/16" Syrg insulin 2013-07 Yes 20U inject 20 Unive [...] SYRINGE) 1/2 mL 30 x 5/16" Syrg insulin 2013-07 Yes 20U inject 20 Unive [...] SYRINGE) 1/2 mL 30 x 5/16" Syrg insulin 2013-07 Yes 20U inject 20 Unive [...] SYRINGE) 1/2 mL 30 x 5/16" Syrg insulin 2013-07 Yes 20U inject 20 Unive [...] 1/2 mL 30 x 5/16" Syrg carvedilol 2013-07- No 12.5mg Take 1 Tab Univers (COREG) 0-04 03-28 by mouth 2 ity o f 12.5 mg 00:00: 00:00 (two) [place] tablet 00 :00 times Medical daily with Branch meals. carvedilol 2013-07- No 12.5mg Take 1 Tab Univers (COREG) 0-04 03-28 by mouth 2 ity o f 12.5 mg 00:00: 00:00 (two) [place] tablet 00 :00 times Medical daily with Branch meals. phenazopyri Yes 200mg Take 200 U nivers [...] tablet times Branch daily as needed. phenazopyri 2022- No 200mg Take 1 Un maribel dine 7-15 03-28 tablet by ity of (PYRIDIUM) 00:00: 00:00 mouth 3 [place] 200 mg 00 :00 (three) Medical tablet times Branch daily as needed. phenazopyri 2022- No 200mg Take 1 Un [place] dine 7-15 03-28 tablet by ity of (PYRIDIUM) 00:00: 00:00 mouth 3 [place] as 200 mg 00 :00 (three) Medical tablet times Branch daily as needed. pravastatin Yes 20mg Take 20 mg Univers (PRAVACHOL) 7-03 by mouth ity of 20 mg 00:00: daily. [place] tablet [facility] pravastatin Yes 20mg Take 20 mg Univers (PRAVACHOL) 7-03 by mouth ity of 20 mg 00:00: daily. [place] tablet [facility] pravastatin Yes 20mg Take 20 mg Univers (PRAVACHOL) 7-03 by mouth ity of 20 mg 00:00: daily. [place] tablet [facility] pravastatin Yes 20mg Take 20 mg Univers (PRAVACHOL) 7-03 by mouth ity of 20 mg 00:00: daily. [place] tablet 00 [facility] pravastatin Yes 20mg Take 20 mg Univers (PRAVACHOL) 7-03 by mouth ity of 20 mg 00:00: daily. [place] tablet 00 [facility] pravastatin Yes 20mg Take 20 mg Univers (PRAVACHOL) 7-03 by mouth ity of 20 mg 00:00: daily. [place] tablet 00 [facility] pravastatin Yes 20mg Take 20 mg Univers (PRAVACHOL) 7-03 by mouth ity of 20 mg 00:00: daily. [place] tablet 00 [facility] pravastatin Yes 20mg Take 20 mg Univers (PRAVACHOL) 7-03 by mouth ity of 20 mg 00:00: daily. [place] tablet 00 [facility] pravastatin Yes 20mg Take 20 mg Univers (PRAVACHOL) 7-03 by mouth ity of 20 mg 00:00: daily. [place] tablet 00 [facility] pravastatin Yes 20mg Take 20 mg Univers (PRAVACHOL) 7-03 by mouth ity of 20 mg 00:00: daily. [place] tablet 00 [facility] pravastatin 2022- No 20mg Take 1 Uni vers (PRAVACHOL) 7- 03-28 tablet by it y of 20 mg 00:00: 00:00 mouth in [place] tablet 00 :00 the Medical morning. Branch pravastatin 2022- No 20mg Take 1 Uni vers (PRAVACHOL) 7- 03-28 tablet by it y of 20 mg 00:00: 00:00 mouth in [place] tablet 00 :00 the Medical morning. Branch Immunizations Ordered Filled Immunization Date Status Comments [facility] e Immunization Name Name Influenza Virus 2014-05-04 Completed Universit y of Vaccine Quad IM 3+ 00:00:00 [facility] Influenza Virus 2014-05-04 Completed Universit y of Vaccine Quad IM 3+ 00:00:00 [facility] Influenza Virus 2014-05-04 Completed Universit y of Vaccine Quad IM 3+ 00:00:00 [facility] Influenza Virus 2014-05-04 Completed Universit y of Vaccine Quad IM 3+ 00:00:00 [facility] Influenza Virus 2014-05-04 Completed Universit y of Vaccine Quad IM 3+ 00:00:00 [facility] Influenza Virus 2014-05-04 Completed Universit y of Vaccine Quad IM 3+ 00:00:00 [facility] Influenza Virus 2014-05-04 Completed Universit y of Vaccine Quad IM 3+ 00:00:00 [facility] Influenza Virus 2014-05-04 Completed Universit y of Vaccine Quad IM 3+ 00:00:00 [facility] Influenza Virus 2014-05-04 Completed Universit y of Vaccine Quad IM 3+ 00:00:00 [facility] Influenza Virus 2014-05-04 Completed Universit y of Vaccine Quad IM 3+ 00:00:00 [facility] Influenza Virus 2014-05-04 Completed Universit y of Vaccine Quad IM 3+ 00:00:00 [facility] Influenza Virus 2014-05-04 Completed Universit y of Vaccine Quad IM 3+ 00:00:00 [facility] Influenza Virus 2014-05-04 Completed Universit y of Vaccine Quad IM 3+ 00:00:00 [facility] Influenza Virus 2014-05-04 Completed Universit y of Vaccine Quad IM 3+ 00:00:00 [facility] Vital Signs Vital Name Observation Time Observation Value Comments Source Systolic blood 2022-09-28 13:27:00 183 mm[Hg] Univer sity of pressure [facility] Diastolic blood 2022-09-28 13:27:00 80 mm[Hg] Unive rsity of pressure [facility] Heart rate 2022-09-28 13:27:00 81 /min [facility] Oxygen saturation in 2022-09-28 13:27:00 98 /min [facility] Arterial blood by [facility] Pulse oximetry Branch Body temperature 2022-09-28 13:26:00 36.06 [facility] ersity of [facility] Body height 2022-09-28 13:26:00 170.2 cm Universi ty [facility] Body weight 2022-09-28 13:26:00 79.379 kg [facility] BMI 2022-09-28 13:26:00 27.41 kg/m2 Universi [facility] Body height 2020 12:50:00 170.2 cm [facility] Body weight 2020 12:50:00 70.308 kg [facility] BMI 2020 12:50:00 24.28 kg/m2 [facility] Procedures Procedure Date / Time Performed Performing Clinician Sour e ASSIGNMENT OF BENEFITS 2022-09-28 13:12:29 Doctor Unassigned, No [facility] Name Medical Branch TRANSPLANT/EXT 2022-08-13 06:01:00 Doctor Unassigned, No [facility] Name Medical Branch TRANSPLANT/EXT 2020-02-06 05:01:00 Doctor Unassigned, No [facility] Name Medical Branch Encounters Start End Encounter Admission Attending Care Care Encounter Source Date/Time Date/Time Type Type Clinicians Facility Department ID 2022-11-09 2022-11-09 Outpatient SFA [facility] [id number] 09:19:53 09:19:53 [id number] Adrian 2022-11-03 2022-11-03 Letter Ruslan [facility] 1.2.840.114 [id number] Univers 00:00:00 00:00:00 (Out) Parker Hdz MULTISPEC 350.1.13.10 ity of IALTY 4.2.7.2.686 [facility] [id number] [address] [facility] 2022-10-12 2022-10-12 Outpatient SFA [facility] [id number] 09:33:50 09:33:50 [id number] F Adrian 2022-09-28 2022-09-28 Outpatient R OBDULIO OSHEA [facility] [id number] Univers 08:00:00 12:02:30 ity of [facility] 2022-09-28 2022-09-28 Office Obdulio Oshea [facility] 1.2.840.114 [id number] [facility] 08:00:00 12:02:30 Visit Mary Ellen Westfall MULTISPEC 350.1 .13.10 ity of IALTY 4.2.7.2.686 [facility] [id number] [address] [facility] 2022-09-28 2022-09-28 Orders Doctor STOVALL 1.2.840.114 [id number] [facility] 00:00:00 00:00:00 Only Unassigned, RUTH 350.1.13.10 ity of [place] [facility] 4.2.7.2.686 Sanjay as [id number] [facility] 009 Branch 2022-09-01 2022-09-01 Telephone [facility] 1.2.840.114 [id number] Univers 00:00:00 00:00:00 [place] A MULTISPEC 350.1.13.10 it[place] of [place] 4[place]2.7.2.686 [place] [id number] [address] [facility]IC 2022-08-20 2022-08-20 [facility] WILMAN Sequeira [id number] Univers 15:04:00 23:59:00 Encounter [place] A RUTH 350.1.13.10 ity of HOSPITAL 4.2.7.2.686 Sanjay as [id number] [facility] 040 Branch 2022-08-20 2022-08-20 Outpatient R [facility] ACO [id number] Univers 00:00:00 23:59:00 CANALES ity o f [facility] 2022-08-20 2022-08-20 Letter [facility] 1.2.840.114 [id number] Univers 00:00:00 00:00:00 (Out) [place] A MULTISPEC 350.1.13.10 ity of [place]2.7.2.686 [place] [id number] [facility] [address] [facility] 2022-08-19 2022-08-19 Telephone [facility] 1.2.840.114 [id number] Univers 00:00:00 00:00:00 [place] A MULTISPEC 350.1.13.10 ity of [place]2.7.2.686 [place] [id number] [facility] [address] [facility] 2022-08-13 2022-08-13 Orders Doctor STOVALL 1.2.840.114 [id number] Univers 00:00:00 00:00:00 Only Unassigned, RUTH 350.1.13.10 ity of [place] [facility] 4.2.7.2.686 Sanjay as [id number] [place] [id number] Branch 2022-01-16 2022-01-16 Outpatient NISHI EDD PUGA 763 Kristen 01:00:00 01:00:00 HN [id number] [facility] Program 2021-05-12 2021-05-12 Outpatient EL DEE DEE, [facility]H [facility] [id number] [facility] 00:00:00 00:00:00 BHAMIDIPATI 2021-05-12 2021-05-12 Outpatient EL DEE DEE, SLEH SLEH [id number] [facility] 00:00:00 00:00:00 BHAMIDIPATI 2021-05-12 2021-05-12 Outpatient EL SLEH SLEH [id number] [facility] 00:00:00 00:00:00 2021-05-12 2021-05-12 Outpatient EL DEE DEE, SLEH SLEH [id number] [facility] 00:00:00 00:00:00 BHAMIDIPATI 2021-05-12 2021-05-12 Outpatient EL DEE DEE, SLEH SLEH [id number] [facility] 00:00:00 00:00:00 BHAMIDIPATI 2021-04-23 2021-04-23 Outpatient EL SLEH [facility]H [id number] [facility] 00:00:00 00:00:00 2021-04-23 2021-04-23 Outpatient EL SLEH SLEH [id number] [facility] 00:00:00 00:00:00 2021-04-23 2021-04-23 Outpatient EL SLEH SLEH [id number] [facility]H 00:00:00 00:00:00 2021-04-23 2021-04-23 Outpatient EL SLEH [facility]H [id number] [facility]H 00:00:00 00:00:00 2021-04-23 2021-04-23 Outpatient EL SLEH SLEH [id number] [facility]H 00:00:00 00:00:00 2021-04-23 2021-04-[address] [facility] [id number] [facility] 00:00:00 00:00:00 [facility] 2021-04-23 2021-04-23 Abstract Kiah [facility] [id number] 00:00:00 00:00:00 [facility] 2021-04-23 2021-04-23 Telephone Philipp [facility] [id number] 00:00[facility]00 00:00:00 [facility] 2021-04-13 2021-04-13 Telephone Shlomo [facility] [id number] 00:00[facility]00 00:00:00 [facility] 2021-04-10 2021-04-10 Telephone Philipp [facility] [id number] 00:00[facility]00 00:00:00 [facility] 2021-04-10 2021-04-10 Telephone Luis Alberto [facility] [id number] 00:00:00 00:00:00 [facility] 2021-02-05 2021-02-05 Abstract Kiah [facility] [id number] 00:00:00 00:00:00 [facility] 2021-02-05 2021-02-05 Orders Kiah [facility] [id number] 00:00:00 00:00:00 Only [facility] 2020-11-13 2020-11-13 Tyrese Sahu [facility] [id number] 00:00:00 00:00:00 ion [facility] 2020-11-06 2020-11-06 Abstract Luis Alberto [facility] [id number] 00:00:00 00:00:00 [facility] 2020-11-06 2020-11-06 [facility] [id number] 00:00:00 00:00:00 ion [facility] 2020-11-05 2020-11-05 Documentmaikel Sahu [facility] [id number] 00:00:00 00:00:00 ion [facility] 2020-11-05 2020-11-05 Abstract [facility] [id number] 00:00:00 00:00:00 [facility] 2020-11-05 2020-11-05 Documentat [facility] [id number] 00:00:00 00:00:00 ion [facility] 2020-11-05 2020-11-05 Telephone Luis Alberto [facility] [id number] 00:00:00 00:00:00 [facility] 2020-11-05 2020-11-05 [facility]at [facility] [id number] 00:00:00 00:00:00 [facility] 2020-10-27 2020-10-27 [facility] [id number] 00:00:00 00:00:00 [facility] 2020 2020 [facility] [id number] 00:00:00 00:00:00 [facility] 2020-02-06 2020-02-06 Orders Doctor WILMAN 1.2.840.114 [id number] Univers 00:00:00 00:00:00 Only Unassigned, RUTH 350.1.13.10 ity of [place] [facility] 4.2.7.2.686 Sanjay as [id number] [place] [address] Branch 2019-12-13 2019-12-13 Telephone Pob1, Acute [facility] 1.2.840.114 [id number] 00:00:00 00:00:00 [facility] 350.1.13.10 [place] 4.2.7.2.686 Professio [id number] nal [address] 2019-12-13 2019-12-13 Telephone Pob1, Acute [facility] 1.2.840.114 [id number] [facility] 00:00:00 00:00:00 [facility] 350.1.13.10 ity of [place] 4.2.7.2.686 Sanjay as Professio [id number] Or dical nal [address] 2019-12-09 2019-12-09 Telephone RandyWILMAN 1.2.840.114 [id number] 00:00:00 00:00:00 Shilpa LOY 350.1.13.10 [facility] 4.2.7.2.686 [id number] 2019-12-09 2019-12-09 Telephone Randy WILMAN 1.2.840.114 [id number] [facility] 00:00:00 00:00:00 Shilpa C RUTH 350.1.13.10 ity of [facility] 4.2.7.2.686 Sanjay as [id number] [address] 2019-12-08 2019-12-08 Outpatient Bell BENNETT [facility] [id number] Univers 12:40:00 12:40:00 SVETA ity [facility] 2019-12-08 2019-12-08 Telephone Stenstadcyndi WILMAN 1.2.840.114 [id number] 00:00:00 00:00:00 yaquelin Anastasia Haddad RUTH 350.1.13.10 [facility] 4.2.7.2.686 [id number] 2019-12-08 2019-12-08 Telephone Stenstmargot WILMAN 1.2.840.114 [id number] [facility] 00:00:00 00:00:00 yaquelin Anastasia Haddad RUTH 350.1.13.10 ity of [facility] 4.2.7.2.686 Sanjay as [id number] [address] 2019-12-07 2019-12-07 Digital Hardware Design Engineer Lab, [facility] 1.2.840.114 [id number] 15:00:09 15:10:09 Visit [facility] Pob I Health 350.1.13.10 [place] 4.2.7.2.686 Professio [id number] nal [facility] Office Building [facility] 2019-12-07 2019-12-07 Digital Hardware Design Engineer [facility] 1.2. 840.114 [id number] [facility] 15:00:09 15:10:09 Visit [facility] 350.1.13.10 ity of [place] 4.2.7.2.686 Sanjay as Rafita [phone] [address] Office [address] 2019-12-07 2019-12-07 Outpatient Bell CROW, [facility] [id number] Univers 15:10:00 15:10:00 CLAUDETTE ity [facility] Results Test Description Test Time Test Comments Results Result Comments Source SARS-COV2/RT-PCR ([facility]) 2020-01-29 04:24:00 Test Item Value Reference Range Interpretation Comme nts SARS-COV2/RT-PCR (test code = 2765805) Negative Not Detected, N egative, See external report for linked test SARS-COV-2 PERFORMING LAB (test code = [facility] [id number]) Negative results do not preclude SARS-CoV-2 infection [...] of the Act.Fact Sheet for Healthcare Pro viders:https://www.[employer].Altheos/Documents/Xpert%20Xpress%20SARS%20CoV-2/Fact%20Sh eets/302-1222%74RMLD-EED-1%20HEALTHCARE%20PROVIDERS%20FACT%20SHEET.pdfFact Sheet for Healthcare Patients:https://www.[employer].Altheos/Documents/Xpert%20Xpress%20SARS%20CoV-2/Fact%20Sheets/302-3801%20SARS-COV -2%20PATIENT%20FACT%20SHEET.pdfPerforming Laboratory:[facility] [place] [address]
[2023-02-23] MEDS ORDERED: SILVER NITRATE 1 APPL TOP ONE (08:53)
[2023-02-23] MEDS ORDERED: TRANEXAMIC ACID 1,000 MG/10 ML VIAL IV ONE (08:55)
--- NOTE | 2023-02-23 10:04 | ER ---
Nurse's Notes [facility] Name: Ben Muir Age: 57 yrs Sex: Male : 1965 Arrival Date: 02/23/2023 Time: 08:07 Bed 16 Private MD: Diagnosis: Acute gingivitis Presentation: 02/23 08:16 Chief complaint: Patient states: last night I was eating ice cream, thought I had food iw stuck in my gum and i pulled a big blood clot out and it has not stopped bleeding since then, he is not on blood thinners. Coronavirus screen: At this time, the client does not indicate any symptoms associated with coronavirus-19. Ebola Screen: Patient negative for fever greater than or equal to 101.5 degrees Fahrenheit, and additional compatible Ebola Virus Disease symptoms Patient denies exposure to infectious person. Patient denies travel to an Ebola-affected area in the 21 days before illness onset. No symptoms or risks identified at this time. Initial Sepsis Screen: Does the patient meet any 2 criteria? No. Patient's initial sepsis screen is negative. Does the patient have a suspected source of infection? No. Patient's initial sepsis screen is negative. Risk Assessment: Do you want to hurt yourself or someone else? Patient reports no desire to harm self or others. Onset of symptoms was February 22, 2023. 08:16 Method Of Arrival: Ambulatory iw 08:16 Acuity: KUSUM 3 iw 08:19 Chief complaint: Patient states: also has a spot on hi right ankle that he wants looked iw at, it started as a red dot a bot a month and half ago and now it;s the size of a quarter. Historical: - Allergies: 08:18 NKDA; iw - PMHx: 08:19 DIALYSIS MWF; Diabetes - IDDM; Stage 3 Kidney Disease; Hypertension; testicular cancer; iw Screenin:45 [facility] ED Fall Risk Assessment (Adult) History of falling in the last 3 months, kc6 including since admission No falls in past 3 months (0 pts) Confusion or Disorientation No (0 pts) Intoxicated or Sedated No (0 pts) Impaired Gait No (0 pts) Mobility Assist Device Used No (0 pt) Altered Elimination Yes (1 pt) Score/Fall Risk Level 0 - 2 = Low Risk. Abuse screen: Denies threats or abuse. Denies injuries from another. Nutritional screening: No deficits noted. Tuberculosis screening: No symptoms or risk factors identified. Assessment: 08:46 General: Appears in no apparent distress. comfortable, Behavior is calm, cooperative, kc6 appropriate for age. Pain: Denies pain. Neuro: Level of Consciousness is awake, alert, obeys commands, Oriented to person, place, time, situation, Appropriate for age. Cardiovascular: Denies chest pain, shortness of breath, Heart tones S1 S2 present Capillary refill < 3 seconds Dialysis shunt: in the left arm, with palpable thrill, with auscultated bruit, with no erythema, with no edema, no bleeding noted. Respiratory: Airway is patent Trachea midline Respiratory effort is even, unlabored, Respiratory pattern is regular, symmetrical. GI: No signs and/or symptoms were reported involving the gastrointestinal system. : No signs and/or symptoms were reported regarding the genitourinary system. EENT: gums appear to be bleeding. Derm: No signs and/or symptoms reported regarding the dermatologic system. Skin is intact, is healthy with good turgor, Skin is pink, warm \T\ dry. Musculoskeletal: No signs and/or symptoms reported regarding the musculoskeletal system. Circulation, motion, and sensation intact. Capillary refill < 3 seconds, Range of motion: intact in all extremities. 09:40 Reassessment: Patient appears in no apparent distress at this time. No changes from kc6 previously documented assessment. Patient and/or family updated on plan of care and expected duration. Pain level reassessed. Patient is alert, oriented x 3, equal unlabored respirations, skin warm/dry/pink. Vital Signs: 08:18 BP 225 / 105; Pulse 84; Resp 16; Temp 98; Pulse Ox 97% on R/A; Weight 70.31 kg; Height iw 5 ft. 7 in. ; 08:47 BP 217 / 111; Pulse 82; Resp 18 S; Pulse Ox 100% on R/A; kc6 09:40 BP 215 / 102; Pulse 81; Resp 19 S; Pulse Ox 98% on R/A; kc6 08:18 Body Mass Index 24.28 (70.31 kg, 170.18 cm) iw ED Course: 08:10 Patient arrived in ED. im 08:14 Christy Hills PA-C is PHCP. sb4 08:14 Dany Cui MD is Attending Physician. sb4 08:18 Triage completed. iw 08:19 Arm band placed on. iw 08:21 Rebecca Morse, RN is Primary Nurse. kc6 08:47 Patient has correct armband on for positive identification. Bed in low position. Call kc6 light in reach. Side rails up X 1. 10:13 No provider procedures requiring assistance completed. Patient did not have IV access kc6 during this emergency room visit. Administered Medications: 09:06 CANCELLED (Other Intervention Used): Tranexamic Acid 1000 ml Topical once sb4 09:07 Drug: Tranexamic Acid 4 ml Route: Topical; Site: affected area; sb4 09:51 Follow up: Response: No adverse reaction kc6 09:30 Drug: Silver Nitrate Applicators Topical 1 application {Note: mouth/gums.} Route: kc6 Topical; Site: affected area; 09:51 Follow up: Response: No adverse reaction kc6 Medication: 10:14 VIS not applicable for this client. kc6 Outcome: 10:03 Discharge ordered by . sb4 10:14 Discharged to home ambulatory. kc6 10:14 Condition: improved 10:14 Discharge instructions given to patient, Instructed on discharge instructions, follow up and referral plans. Demonstrated understanding of instructions, follow-up care. 10:14 Patient left the ED. kc6 Signatures: Stacey Duckworth RN RN iw Rebecca Morse RN RN kc6 Christy Hills PA-C PANila sb4 Jeri Schreiber Corrections: (The following items were deleted from the chart) 08:19 08:16 Chief complaint: Patient states: last night I was eating ice cream, thought I had iw food stuck in my gum and i pulled a big blood clot out and it has not stopped bleeding since then, on blood thinner iw 08:20 08:18 Pulse 84bpm; Resp 16bpm; Pulse Ox 97% RA; Temp 98F; 70.31 kg; Height 5 ft. 7 in.; iw BMI: 24.2; iw 09:06 08:49 Tranexamic Acid 500 ml Topical in affected area sb4 sb4
--- NOTE | 2023-02-23 10:04 | EDPHYS ---
Physician Documentation [facility] Name: Ben Muir Age: 57 yrs Sex: Male : 1965 Arrival Date: 02/23/2023 Time: 08:07 Bed 16 Private MD: ED Physician Dany Cui HPI: 02/23 11:32 This 57 yrs old Male presents to ER via Ambulatory with complaints of Bleeding sb4 Gums. 11:32 The patient presents with bleeding. The problem is located in the right buccal mucosa. sb4 Onset: The symptoms/episode began/occurred this morning. Duration: The symptoms are continuous, and are unchanged since they started. Modifying factors: The symptoms are alleviated by nothing, the symptoms are aggravated by nothing. Associated signs and symptoms: The patient has no apparent associated signs or symptoms. The patient has not experienced similar symptoms in the past. patient states he was eating ice cream last night when he felt something get lodged in the back of his mouth and pulled it out and realized it was a blood clot. states that it has been bleeding since and he cannot get it to stop. Historical: - Allergies: 08:18 NKDA; iw - PMHx: 08:19 DIALYSIS MWF; Diabetes - IDDM; Stage 3 Kidney Disease; Hypertension; testicular cancer; iw ROS: 11:32 Constitutional: Negative for fever, chills, and weight loss. sb4 11:32 ENT: Positive for bleeding gums. 11:32 Skin: Positive for lesions, of the left lateral ankle. 11:32 All other systems are negative. Exam: 11:32 Constitutional: This is a well developed, well nourished patient who is awake, alert, sb4 and in no acute distress. 11:32 ENT: Mouth: Gums: bleeding, on the right buccal mucosa. 11:32 Skin: lesion(s), noted, and can be described as flat, nontender, stage 1 ulcer, 2 cm circumfrential, located on the left lateral ankle. Vital Signs: 08:18 BP 225 / 105; Pulse 84; Resp 16; Temp 98; Pulse Ox 97% on R/A; Weight 70.31 kg; Height iw 5 ft. 7 in. ; 08:47 BP 217 / 111; Pulse 82; Resp 18 S; Pulse Ox 100% on R/A; kc6 09:40 BP 215 / 102; Pulse 81; Resp 19 S; Pulse Ox 98% on R/A; kc6 08:18 Body Mass Index 24.28 (70.31 kg, 170.18 cm) iw Procedures: 11:32 I applied TXA soaked gauze to bleeding area in mouth twice and a silver nitrate stick sb4 which decreased the bleeding. MDM: 08:14 Patient medically screened. sb4 11:32 Differential diagnosis: gingivitis, dental abscess, pericoronitis, gingivostomatitis. sb4 Data reviewed: vital signs, nurses notes, I have discussed the patient's presentation/case with the attending Emergency Department Physician; and as a result, I will discharge patient. Care significantly affected by the following chronic conditions: Diabetes, Chronic Kidney Disease. Counseling: I had a detailed discussion with the patient and/or guardian regarding the historical points, exam findings, and any diagnostic results supporting the discharge/admit diagnosis, the presence of at least one elevated blood pressure reading (>120/80) during this emergency department visit, the need for outpatient follow up, a dentist, to return to the emergency department if symptoms worsen or persist or if there are any questions or concerns that arise at home. ED course: bleeding has slowed down. patient has dialysis appt at 10:30. believe he is safe to attend the appt and to follow up CANDACE with a dentist. his BP was elevated but he had not taken his medications this morning. Administered Medications: 09:06 CANCELLED (Other Intervention Used): Tranexamic Acid 1000 ml Topical once sb4 09:07 Drug: Tranexamic Acid 4 ml Route: Topical; Site: affected area; sb4 09:51 Follow up: Response: No adverse reaction kc6 09:30 Drug: Silver Nitrate Applicators Topical 1 application {Note: mouth/gums.} Route: kc6 Topical; Site: affected area; 09:51 Follow up: Response: No adverse reaction kc6 Disposition: 11:54 Co-signature as Attending Physician, Dany Cui MD I reviewed the patient's care rt provided by the Advanced Practice Provider and agree with the diagnosis and treatment plan. Disposition Summary: 02/23/23 10:03 Discharge Ordered Location: Home sb4 Problem: new sb4 Symptoms: are resolved sb4 Condition: Stable sb4 Diagnosis - Acute gingivitis sb4 Followup: sb4 - With: Private Physician - When: As needed - Reason: Recheck today's complaints, Continuance of care, Re-evaluation by your physician Discharge Instructions: - Discharge Summary Sheet sb4 - Gingivitis, [id number] sb4 Forms: - Medication Reconciliation Form sb4 - Thank You Letter sb4 - Antibiotic Education sb4 - Prescription Opioid Use sb4 - Patient Portal Instructions sb4 - Leadership Thank You Letter sb4 Signatures: Stacey Duckworth, RN RN iw Rebecca Morse RN RN kc6 Christy Hills PA-C PA-C sb4 Dany Cui MD MD rt Corrections: (The following items were deleted from the chart) 09:06 08:49 Tranexamic Acid 1000 ml Topical once ordered. sb4 sb4 09:06 08:49 Tranexamic Acid 1000 ml Topical once given. sb4 sb4 09: 09:06 Tranexamic Acid 1000 ml Topical once ordered. sb4 sb4
[2023-02-23 10:18] VITALS: TEMP 98
[2023-02-23 10:20] VITALS: BP 215/102; O2SAT 98
== END 2023-02-23 10:14 | disposition home or self-care (01) ==
LOC: ER 08:07
DX: K05.00 Acute gingivitis, plaque induced (principal); E11.22 Type 2 diabetes mellitus with diabetic chronic kidney disease; I12.9 Hypertensive chronic kidney disease with stage 1 through stage 4 chronic kidney disease, or unspecified chronic kidney disease; N18.30 Chronic kidney disease, stage 3 unspecified

== ENCOUNTER 2023-10-24 08:09 | Emergency (ER) | payer OTHER ==
[2023-10-24] MEDS ORDERED: ONDANSETRON 4 MG/2 ML VIAL ONE (08:33)
[2023-10-24] MEDS ORDERED: IPRATROPIUM BROM 0.5MG/2.5ML ONE (08:33)
[2023-10-24] MEDS ORDERED: ALBUTEROL 2.5 MG/3 ML NEB SOL ONE (08:33)
[2023-10-24] MEDS ORDERED: HYDRALAZINE HCL 20 MG/ML VIAL ONE (08:33)
[2023-10-24 09:01] LABS: Absolute Basophils 0.1 K/uL (0-0.5); Absolute Eosinophils 0.1 K/uL (0-0.5); Absolute Lymphocytes (CBC) 1.3 K/uL (0.7-4.9); Absolute Monocytes 0.9 K/uL (0.1-1.3); Absolute Neutrophil 6.4 K/uL (1.8-8.0); Basophils % 0.6 % (0-1.3); Hematocrit 33.3 % (39.6-49.0); Hemoglobin 11.3 g/dL (13.6-17.9); Lymphocytes % 14.4 % (15.3-44.8); MCH 32.1 pg (27.0-35.0); MCV 94.4 fL (80-100); Monocytes % 10.2 % (3.3-12.3); Neutrophils % 73.8 % (41.7-73.7); Nucleated Red Blood Cells % 0.4 % (0-0); Platelets 146 thou/uL (152-406); RBC Red Blood Cell Count 3.52 M/uL (4.33-5.43); Red Cell Distribution Width 15.6 % (12.1-15.2)
[2023-10-24 09:02] LABS: Protime INR 1.19
[2023-10-24 09:18] LABS: Albumin 3.8 g/dL (3.4-5.0); Albumin/Globulin Ratio 0.8 (1.1-1.8); Anion Gap 11.9 mEq/L (5.0-15.0); Bilirubin Direct 0.7 mg/dL (0-0.2); Bilirubin Indirect, Calculated 0.4 mg/dL (0.2-0.8); Bilirubin Total 1.1 mg/dL (0.2-1.0); Globulin 4.6 g/dL (2.3-3.5); Magnesium 2.5 mg/dL (1.6-2.4); Potassium 4.9 mEq/L (3.5-5.1); Protein, Total 8.4 g/dL (6.4-8.2)
[2023-10-24] MEDS ORDERED: LABETALOL 20 MG/4ML SYRINGE IV ONE (09:21)
--- NOTE | 2023-10-24 10:03 | RAD REPORT ---
[facility]22 [facility] CLINICAL HISTORY: Cough;Dyspnea COMPARISON: Chest Pa And Lat (2 Views) dated 02/16/2023; Chest Pa And Lat (2 Views) dated 04/20/2022; Chest Single View dated 04/19/2022; Chest Pa And Lat (2 Views) dated 02/16/2022 TECHNIQUE: Portable AP view of the chest. FINDINGS: The lungs are clear apart from stable mild central interstitial prominence. Elevation of t he right hemidiaphragm again seen. No pneumothorax or effusion. The cardiomediastinal contours are u nremarkable. IMPRESSION: Stable mild central interstitial prominence, may indicate mild CHF.
--- NOTE | 2023-10-24 10:07 | ER ---
Nurse's Notes [facility] Name: Ben Muir Age: 57 yrs Sex: Male : 1965 Arrival Date: 10/24/2023 Time: 08:09 Bed 14 Private MD: Diagnosis: Acute bronchitis, unspecified;Atypical pneumonia Presentation: 10/23 08:16 Chief complaint: Patient states: "I've been having flu-like symptoms and have been rs5 short of breath for a few days". 08:16 Coronavirus screen: At this time, the client does not indicate any symptoms associated rs5 with coronavirus-19. Ebola Screen: No symptoms or risks identified at this time. Initial Sepsis Screen: Does the patient meet any 2 criteria? HR > 90 bpm. Yes Does the patient have a suspected source of infection? No. Patient's initial sepsis screen is negative. Risk Assessment: Do you want to hurt yourself or someone else? Patient reports no desire to harm self or others. Onset of symptoms was October 24, 2023. 08:16 Method Of Arrival: Wheelchair rs5 08:16 Acuity: KUSUM 3 rs5 Triage Assessment: 08:16 General: Appears in no apparent distress. uncomfortable, Behavior is calm, cooperative. rs5 Respiratory: Respiratory: Reports shortness of breath Onset: The symptoms/episode began/occurred pt states "I've been feeling sob for a few weeks now". 08:16 Pain: Denies pain. rs5 Historical: - Allergies: 09:18 NKDA; rs5 - PMHx: 09:18 Diabetes - IDDM; DIALYSIS MWF; Hypertension; Stage 3 Kidney Disease; testicular cancer; rs5 - Immunization history:: Adult Immunizations up to date. - Infectious Disease History:: Denies. - Social history:: Smoking status: Patient denies any tobacco usage or history of. Screenin:17 [facility] ED Fall Risk Assessment (Adult) History of falling in the last 3 months, rs5 including since admission No falls in past 3 months (0 pts) Confusion or Disorientation No (0 pts) Intoxicated or Sedated No (0 pts) Impaired Gait No (0 pts) Mobility Assist Device Used No (0 pt) Altered Elimination No (0 pt) Score/Fall Risk Level 0 - 2 = Low Risk Oriented to surroundings, Maintained a safe environment. Abuse screen: Denies threats or abuse. Nutritional screening: No deficits noted. Tuberculosis screening: No symptoms or risk factors identified. Assessment: 08:16 General: Appears in no apparent distress. uncomfortable, Behavior is calm, cooperative. rs5 Pain: Denies pain. Neuro: Level of Consciousness is awake, alert, obeys commands, Oriented to person, place, time, situation. 08:16 Cardiovascular: Patient's skin is warm and dry. Rhythm is regular. Respiratory: Airway rs5 is patent Respiratory effort is even, unlabored, Respiratory pattern is regular, symmetrical, GI: Abdomen is round non-distended, Abd is soft and non tender X 4 quads. : No signs and/or symptoms were reported regarding the genitourinary system. EENT: No signs and/or symptoms were reported regarding the EENT system. Derm: Skin is intact, Skin is dry, Skin is normal, Skin temperature is warm. Musculoskeletal: Range of motion: intact in all extremities. 08:16 Reassessment: Provider notified of elevated BP. rs5 09:02 Reassessment: Provider notified of elevated BP. rs5 10:08 Reassessment: Patient and/or family updated on plan of care and expected duration. Pain rs5 level reassessed. Patient is alert, oriented x 3, equal unlabored respirations, skin warm/dry/pink. Reassessment: Patient and/or family updated on plan of care and expected duration. Pain level reassessed. Patient is alert, oriented x 3, equal unlabored respirations, skin warm/dry/pink. Pain: Denies pain. Cardiovascular: Rhythm is regular. Respiratory: Respiratory effort is even, unlabored, Respiratory pattern is regular, symmetrical. 10:08 Reassessment: Provider notified of elevated blood pressure. rs5 Vital Signs: 08:16 BP 220 / 115; Pulse 98; Resp 19; Temp 98.7(O); Pulse Ox 99% on R/A; rs5 09:17 BP 210 / 110; Pulse 109; Resp 18; Pulse Ox 99% on R/A; rs5 09:33 BP 203 / 109; Pulse 93; Resp 18; Pulse Ox 98% on R/A; rs5 09:40 BP 197 / 103; Pulse 94; Resp 18; Pulse Ox 99% on R/A; rs5 10:08 BP 195 / 100; Pulse 90; Resp 19; Pulse Ox 98% on R/A; rs5 ED Course: 08:12 Patient arrived in ED. im 08:13 [facility]ar [facility] jh7 08:13 Fazal Castaneda DO is Attending Physician. jh7 08:16 Willie Downs, JEIMY is Primary Nurse. rs5 08:17 Patient has correct armband on for positive identification. Placed in gown. Bed in low rs5 position. Call light in reach. Side rails up X2. 08:17 No provider procedures requiring assistance completed. rs5 09:23 XRAY Chest (1 view) In Process Unspecified. EDMS 09:33 Triage completed. rs5 10:10 IV discontinued, intact, bleeding controlled, No redness/swelling at site. Pressure rs5 dressing applied. Administered Medications: 08:55 Drug: DuoNeb Nebulize (2.5 mg - 0.5 mg) 3 ml Nebulizer once Route: Nebulizer; rs5 09:10 Follow up: Response: No adverse reaction rs5 08:55 Drug: Ondansetron IVP 4 mg IVP once; over 2 minutes Route: IVP; Site: left antecubital; rs5 09:10 Follow up: Response: No adverse reaction rs5 08:55 Drug: hydrALAZINE IVP 10 mg IVP once Route: IVP; Site: left antecubital; rs5 09:10 Follow up: Response: No adverse reaction; Blood pressure is lowered rs5 09:25 Drug: Labetalol IV 10 mg IV at 1 calculated rate once Route: IV; Rate: 1 calculated rs5 rate; Site: left antecubital; 09:37 Follow up: Response: No adverse reaction rs5 Medication: 09:36 VIS not applicable for this client. rs5 Outcome: 10:07 Discharge ordered by . jh7 10:10 Discharged to home via wheelchair, rs5 10:10 Condition: stable 10:10 Discharge instructions given to patient, family, Instructed on discharge instructions, follow up and referral plans. medication usage, Demonstrated understanding of instructions, follow-up care, medications, Prescriptions given X 2, 10:16 Patient left the ED. rs5 Signatures: Dispatcher [employer] EDMS Farhana Alcantar FNP FNP [facility] Willie Downs, RN RN rs5 Jeri Schreiber Corrections: (The following items were deleted from the chart) 09:37 09:36 Response: No adverse reaction; Blood pressure is lowered rs5 rs5
--- NOTE | 2023-10-24 10:07 | EDPHYS ---
Physician Documentation [facility] Name: Ben Muir Age: 57 yrs Sex: Male : 1965 Arrival Date: 10/24/2023 Time: 08:09 Bed 14 Private MD: ED Physician Fazal Castaneda HPI: 10/23 08:13 This 57 yrs old Male presents to ER via Unassigned with complaints of Flu [facility] Symptoms, Shortness Of Breath. 08:20 57-year-old male with a past medical history of ESRD and dialysis on // presents to [facility] the ER for flulike symptoms and shortness of breath for the past 3 weeks. He reports that Dr. Madrid suggested that he get a chest x-ray to rule out pneumonia. He also reports intermittent nausea and vomiting and persistent cough. Denies chest pain, dizziness, syncope, visual changes, fever, or any other symptoms at this time.. Historical: - Allergies: 09:18 NKDA; rs5 - PMHx: 09:18 Diabetes - IDDM; DIALYSIS MWF; Hypertension; Stage 3 Kidney Disease; testicular cancer; rs5 - Immunization history:: Adult Immunizations up to date. - Infectious Disease History:: Denies. - Social history:: Smoking status: Patient denies any tobacco usage or history of. ROS: 08:20 Constitutional: Per [place] [id number] Exam: 08:20 Constitutional: This is a well developed, well nourished patient who is awake, alert, [facility] and in no acute distress. Head/Face: Normocephalic, atraumatic. Neck: Trachea midline, no thyromegaly or masses palpated, and no cervical lymphadenopathy. Supple, full range of motion without nuchal rigidity, or vertebral point tenderness. No Meningismus. Cardiovascular: Regular rate and rhythm with a normal S1 and S2. No gallops, murmurs, or rubs. Normal PMI, no JVD. No pulse deficits. 08:20 Back: No spinal tenderness. No costovertebral tenderness. Full range of motion. Skin: Warm, dry with normal turgor. Normal color with no rashes, no lesions, and no evidence of cellulitis. MS/ Extremity: Pulses equal, no cyanosis. Neurovascular intact. Full, normal range of motion. Neuro: Awake and alert, GCS 15, oriented to person, place, time, and situation. Motor strength 5/5 in all extremities. Sensory grossly intact. Normal gait. 08:20 ENT: TM's: are normal, Nose: is normal, Posterior pharynx: pooling of secretions, that are mild, 08:20 Respiratory: the patient does not display signs of respiratory distress, Respirations: normal, Breath sounds: decreased breath sounds, that are mild, are scattered, coughing on exam, 08:20 Abdomen/GI: Inspection: distension, that is moderate, Bowel sounds: normal, Abdominal distention due to patient needing dialysis today., Vital Signs: 08:16 BP 220 / 115; Pulse 98; Resp 19; Temp 98.7(O); Pulse Ox 99% on R/A; rs5 09:17 BP 210 / 110; Pulse 109; Resp 18; Pulse Ox 99% on R/A; rs5 09:33 BP 203 / 109; Pulse 93; Resp 18; Pulse Ox 98% on R/A; rs5 09:40 BP 197 / 103; Pulse 94; Resp 18; Pulse Ox 99% on R/A; rs5 10:08 BP 195 / 100; Pulse 90; Resp 19; Pulse Ox 98% on R/A; rs5 MDM: 08:13 Patient medically screened. [facility] 10:12 Differential diagnosis: viral Infection, bacterial infection, URI, bronchitis, [facility] pneumonia CHF exacerbation. Data reviewed: vital signs, nurses notes, lab test result(s), EKG, radiologic studies, plain films. Consideration of Admission/Observation Escalation of care including admission/observation considered. I considered the following discharge prescriptions or medication management in the emergency department Medications were administered in the Emergency Department. See MAR. Independent interpretation of the following test(s) in the Emergency Department EKG: See my EKG interpretation above. Care significantly affected by the following chronic conditions: Diabetes, Hypertension, ESRD. Counseling: I had a detailed discussion with the patient and/or guardian regarding the historical points, exam findings, and any diagnostic results supporting the discharge/admit diagnosis, to return to the emergency department if symptoms worsen or persist or if there are any questions or concerns that arise at home. Response to treatment: the patient's symptoms have mildly improved after treatment. ED course: Patient reports feeling better after breathing treatment. All labs and imaging was reviewed. Informed the patient that due to him being diabetic doxycycline would be prescribed to cover for atypical pneumonia. We will avoid steroids at this time due to the patient being diabetic. He reports that his dialysis is scheduled at 1030 and he will make that appointment. Although the patient exhibited a hacking cough throughout his ER visit he denied significant shortness of breath and he maintained a 98-99 O2 saturation throughout his visit. If he develops any new concerning symptoms, he will return to the ER for further eval.. 10/23 08:18 Order name: Basic Metabolic Panel; Complete Time: 09:35 [facility] 10/23 08:18 Order name: CBC with Diff; Complete Time: 09:13 [facility] 10/23 08:18 Order name: LFT's; Complete Time: :35 [facility] 10/23 08:18 Order name: Magnesium; Complete Time: :35 [facility] 10/23 08:18 Order name: NT PRO-BNP; Complete Time: :35 [facility] 10/23 08:18 Order name: PT-INR; Complete Time: 09:13 [facility] 10/23 08:18 Order name: XRAY Chest (1 view); Complete Time: 10:04 [facility] 10/23 08:18 Order name: Cardiac monitoring; Complete Time: 09:18 [facility] 10/23 08:18 Order name: EKG - Nurse/Tech; Complete Time: :18 [facility] 10/23 08:18 Order name: IV Saline Lock; Complete Time: 09:18 [facility] 10/23 08:18 Order name: Labs collected and sent; Complete Time: 09:18 [facility] 10/23 08:18 Order name: O2 Per Protocol; Complete Time: :18 [facility] 10/23 08:18 Order name: O2 Sat Monitoring; Complete Time: 09:18 [facility] EC:23 Rate is 116 beats/min. Rhythm is regular. QRS Butler is Normal. MI interval is normal at 7 136 msec. QRS interval is normal at 78 msec. QT interval is normal at 332 msec. No Q waves. T waves are Normal. No ST changes noted. Clinical impression: Sinus tachycardia. Administered Medications: 08:55 Drug: DuoNeb Nebulize (2.5 mg - 0.5 mg) 3 ml Nebulizer once Route: Nebulizer; rs5 09:10 Follow up: Response: No adverse reaction rs5 08:55 Drug: Ondansetron IVP 4 mg IVP once; over 2 minutes Route: IVP; Site: left antecubital; rs5 09:10 Follow up: Response: No adverse reaction rs5 08:55 Drug: hydrALAZINE IVP 10 mg IVP once Route: IVP; Site: left antecubital; rs5 09:10 Follow up: Response: No adverse reaction; Blood pressure is lowered rs5 09:25 Drug: Labetalol IV 10 mg IV at 1 calculated rate once Route: IV; Rate: 1 calculated rs5 rate; Site: left antecubital; 09:37 Follow up: Response: No adverse reaction rs5 Disposition: 17:28 I was immediately available on-site in the Emergency Department for consultation in the ks3 care of the patient. Disposition Summary: 10/24/23 10:07 Discharge Ordered Notes: Location: Home [facility] Problem: new [facility] Symptoms: are unchanged [facility] Condition: Stable [facility] Diagnosis - Acute bronchitis, unspecified [facility] - Atypical pneumonia [facility] Followup: [facility] - With: Private Physician - When: 2 - 3 days - Reason: Recheck today's complaints Discharge Instructions: - Discharge Summary Sheet [facility] - Acute Bronchitis, Adult [facility] - Community-Acquired Pneumonia, Adult [facility] Forms: - Medication Reconciliation Form [facility] - Thank You Letter [facility] - Antibiotic Education [facility] - Patient Portal Instructions [facility] - Leadership Thank You Letter [facility] Prescriptions: - Tessalon Perles 100 mg Oral Capsule - take 1 capsule ORAL route every 8 hours As needed; 15 capsule; Refills: 0, [facility] Product Selection Permitted - Doxycycline Hyclate 100 mg Oral Tablet - take 1 tablet ORAL route every 12 hours; 20 tablet; Refills: 0, Product [facility] Selection Permitted Signatures: Dispatcher [employer] EDFazal Sanchez DO DO ms3 Farhana Alcantar, AIR INTERCEPT CONTROLLER SUPERVISOR AIR INTERCEPT CONTROLLER SUPERVISOR 7 Willie Downs RN RN rs5
[2023-10-24 10:39] VITALS: BP 195/100; TEMP 98.7; O2SAT 98
== END 2023-10-24 10:16 | disposition home or self-care (01) ==
LOC: ER 08:09
DX: J18.9 Pneumonia, unspecified organism (principal); J20.9 Acute bronchitis, unspecified; E11.22 Type 2 diabetes mellitus with diabetic chronic kidney disease; I12.9 Hypertensive chronic kidney disease with stage 1 through stage 4 chronic kidney disease, or unspecified chronic kidney disease; N18.30 Chronic kidney disease, stage 3 unspecified
CPT/HCPCS: 93005; 85025; 80048; 36415; 83735; 85610; 80076; 83880; 71045; 94640; 96375; 96374; 99284; J0360; J7613; J7644; J2405

== ENCOUNTER 2024-11-07 10:52 | Inpatient (IN) | payer OTHER ==
[2024-11-07 11:42] LABS: Absolute Basophils 0.1 K/uL (0-0.5); Absolute Eosinophils 0.2 K/uL (0-0.5); Absolute Lymphocytes (CBC) 1.5 K/uL (0.7-4.9); Absolute Monocytes 0.8 K/uL (0.1-1.3); Absolute Neutrophil 5.9 K/uL (1.8-8.0); Basophils % 1.2 % (0-1.3); Hematocrit 36.6 % (39.6-49.0); Hemoglobin 13.1 g/dL (13.6-17.9); Lymphocytes % 18.1 % (15.3-44.8); MCH 34.3 pg (27.0-35.0); MCHC 35.8 g/dL (32.0-36.0); MCV 95.8 fL (80-100); MPV 7.5 fL (7.6-11.3); Monocytes % 8.9 % (3.3-12.3); Neutrophils % 69.8 % (41.7-73.7); Platelets 188 thou/uL (152-406); RBC Red Blood Cell Count 3.81 M/uL (4.33-5.43); Red Cell Distribution Width 15.4 % (12.1-15.2)
[2024-11-07 11:52] LABS: PT Prothrombin Time 11.5 SECONDS (10-13.0); Protime INR 1.01
[2024-11-07 12:17] LABS: Albumin 3.6 g/dL (3.4-5.0); Albumin/Globulin Ratio 0.8 (1.1-1.8); Anion Gap 13.7 mEq/L (5.0-15.0); Bilirubin Direct 0.2 mg/dL (0-0.2); Bilirubin Indirect, Calculated 0.4 mg/dL (0.2-0.8); Bilirubin Total 0.6 mg/dL (0.2-1.0); Globulin 4.7 g/dL (2.3-3.5); Magnesium 2.3 mg/dL (1.6-2.4); Potassium 3.7 mEq/L (3.5-5.1); Protein, Total 8.3 g/dL (6.4-8.2)
[2024-11-07 12:22] LABS: Troponin High Sensitivity 151.7 pg/mL (<58.9)
--- NOTE | 2024-11-07 12:25 | RAD REPORT ---
EXAMINATION: ONE VIEW CHEST XR CLINICAL INDICATION: Male, 59 years old.,COUGH TECHNIQUE: Frontal chest projection is submitted. Examination is limited by patient positioning and t echnique. COMPARISON: 01/21/2024 FINDINGS: The lungs are well inflated and clear. No pneumothorax or sizable effusion. The heart is normal in s ize. Mediastinal contours are unremarkable. IMPRESSION: No acute intrathoracic abnormalities.
--- NOTE | 2024-11-07 14:06 | EDPHYS ---
Physician Documentation [facility] Name: Ben Muir Age: 59 yrs Sex: Male : 1965 Arrival Date: 11/07/2024 Time: 10:52 Bed 6 Private MD: LANDON Physician Alexey Zuniga HPI: 11/07 14:00 This 59 yrs old Male presents to ER via Ambulatory with complaints of Blood lyn Pressure Problem. 14:00 The patient has elevated blood pressure and discovered this at home, with a home lyn device. Onset: The symptoms/episode began/occurred just prior to arrival, this morning. Modifying factors: The symptoms are aggravated by activity, The symptoms are alleviated by remaining still. low bp at dialysis, high now. Associated signs and symptoms: Pertinent positives: weakness. Severity of symptoms: At their worst the symptoms were mild in the emergency department the symptoms are unchanged. Severity of symptoms: At its worst the blood pressure was mild, in the emergency department the blood pressure is unchanged. The patient has experienced similar episodes in the past, several times. Historical: - Allergies: 11:07 NKDA; me1 - PMHx: 11:07 Diabetes - IDDM; DIALYSIS MWF; Hypertension; testicular cancer; me1 - PSHx: 11:07 AV fistula (Unknown); removal of testicle and ureter (testicular cancer); me1 - Immunization history:: Adult Immunizations up to date. - Infectious Disease History:: Denies. - Social history:: Smoking status: Patient reports the use of cigarette tobacco products, smokes one-half pack cigarettes per day. ROS: 14:01 Constitutional: Negative for fever, chills, and weight loss, Eyes: Negative for injury, lyn pain, redness, and discharge, ENT: Negative for injury, pain, and discharge, Neck: Negative for injury, pain, and swelling, Cardiovascular: Negative for chest pain, palpitations, and edema, Respiratory: Negative for shortness of breath, cough, wheezing, and pleuritic chest pain, Abdomen/GI: Negative for abdominal pain, nausea, vomiting, diarrhea, and constipation, Back: Negative for injury and pain, : Negative for injury, bleeding, discharge, and swelling, MS/Extremity: Negative for injury and deformity, Skin: Negative for injury, rash, and discoloration, Neuro: Negative for headache, weakness, numbness, tingling, and seizure, Psych: Negative for depression, anxiety, suicide ideation, homicidal ideation, and hallucinations, Allergy/Immunology: Negative for hives, rash, and allergies, Endocrine: Negative for neck swelling, polydipsia, polyuria, polyphagia, and marked weight changes, Hematologic/Lymphatic: Negative for swollen nodes, abnormal bleeding, and unusual bruising, Exam: 14:01 Constitutional: This is a well developed, well nourished patient who is awake, alert, lyn and in no acute distress. Head/Face: Normocephalic, atraumatic. Eyes: Pupils equal round and reactive to light, extra-ocular motions intact. Lids and lashes normal. Conjunctiva and sclera are non-icteric and not injected. Cornea within normal limits. Periorbital areas with no swelling, redness, or edema. ENT: Nares patent. No nasal discharge, no septal abnormalities noted. Tympanic membranes are normal and external auditory canals are clear. Oropharynx with no redness, swelling, or masses, exudates, or evidence of obstruction, uvula midline. Mucous membranes moist. Neck: Trachea midline, no thyromegaly or masses palpated, and no cervical lymphadenopathy. Supple, full range of motion without nuchal rigidity, or vertebral point tenderness. No Meningismus. Chest/axilla: Normal chest wall appearance and motion. Nontender with no deformity. No lesions are appreciated. Cardiovascular: Regular rate and rhythm with a normal S1 and S2. No gallops, murmurs, or rubs. Normal PMI, no JVD. No pulse deficits. Respiratory: Lungs have equal breath sounds bilaterally, clear to auscultation and percussion. No rales, rhonchi or wheezes noted. No increased work of breathing, no retractions or nasal flaring. Abdomen/GI: Soft, non-tender, with normal bowel sounds. No distension or tympany. No guarding or rebound. No evidence of tenderness throughout. Back: No spinal tenderness. No costovertebral tenderness. Full range of motion. Male : Normal genitalia with no discharge or lesions. Skin: Warm, dry with normal turgor. Normal color with no rashes, no lesions, and no evidence of cellulitis. MS/ Extremity: Pulses equal, no cyanosis. Neurovascular intact. Full, normal range of motion., bilateral aka Neuro: Awake and alert, GCS 15, oriented to person, place, time, and situation. Cranial nerves II-XII grossly intact. Motor strength 5/5 in all extremities. Sensory grossly intact. Cerebellar exam normal. Normal gait. Psych: Awake, alert, with orientation to person, place and time. Behavior, mood, and affect are within normal limits. 14:01 ECG was reviewed by the Attending Physician. 14:10 ECG was reviewed by the Attending Physician. [facility] Vital Signs: 11:03 BP 129 / 69; Pulse 82; Resp 18; Temp 98.1; Pulse Ox 98% ; Weight 77.11 kg; Height 5 ft. me1 7 in. ; Pain 0/10; 14:05 BP 165 / 78; Pulse 78; Resp 18; Pulse Ox 97% on R/A; ph 16:45 BP 195 / 93; Pulse 78; Resp 16; Pulse Ox 100% on R/A; jb4 18:00 BP 181 / 90; Pulse 80; Resp 16; Pulse Ox 99% on R/A; jb4 11:03 Body Mass Index 26.63 (77.11 kg, 170.18 cm) me1 11:03 Pain Scale: Adult me1 MDM: 11:02 Medical Screening Exam initiated lyn 14:03 Differential diagnosis: hypertensive crisis, Malignant HTN. Differential Diagnosis lyn altered mental status, sepsis. Data reviewed: vital signs, nurses notes, EMS record, lab test result(s), EKG, radiologic studies, plain films. Consideration of Admission/Observation Patient was admitted/placed on observation. Escalation of care including admission/observation considered. I considered the following discharge prescriptions or medication management in the emergency department Medications were administered in the Emergency Department. See MAR. Independent interpretation of the following test(s) in the Emergency Department EKG: See my EKG interpretation above. Test considered but Not performed: CT: no ct chest. Historians other than the Patient: pt well informed. Care significantly affected by the following chronic conditions: Diabetes, Hypertension, Cancer, Chronic Kidney Disease. Counseling: I had a detailed discussion with the patient and/or guardian regarding the historical points, exam findings, and any diagnostic results supporting the discharge/admit diagnosis, the presence of at least one elevated blood pressure reading (>120/80) during this emergency department visit, lab results, the need for further work-up and treatment in the hospital. 11/07 11:02 Order name: Basic Metabolic Panel; Complete Time: 13:53 [facility] 11/07 11:02 Order name: CBC with Diff; Complete Time: 13:53 [facility] 11/07 11:02 Order name: LFT's; Complete Time: 13:53 [facility] 11/07 11:02 Order name: Magnesium; Complete Time: 13:53 [facility] 11/07 11:02 Order name: NT PRO-BNP; Complete Time: 13:53 [facility] 11/07 11:02 Order name: PT-INR; Complete Time: 13:53 [facility] 11/07 11:02 Order name: Troponin HS; Complete Time: 13:53 [facility] 11/07 11:02 Order name: Lipase; Complete Time: 13:53 [facility] 11/07 15:11 Order name: Lactate w/ 2H reflex if indic. [facility] 11/07 15:11 Order name: Thyroid Stimulating Hormone [facility] 11/07 15:11 Order name: CBC with Automated Diff [facility] 11/07 15:11 Order name: CBC with Automated Diff [facility] 11/07 15:11 Order name: Comprehensive Metabolic Panel [facility] 11/07 15:11 Order name: Comprehensive Metabolic Panel [facility] 11/07 15:11 Order name: Blood Culture [facility] 11/07 11:02 Order name: XRAY Chest (1 view); Complete Time: 13:53 [facility] 11/07 13:59 Order name: Echo w/ Doppler [facility] 11/07 14:14 Order name: UPPER EXTREMITY VENOUS UNILATE [facility] 11/07 14:14 Order name: Upper Ext Artery Uni Raymundo [facility] 11/07 15:01 Order name: Hemodialysis Graft [facility] 11/07 11:02 Order name: EKG; Complete Time: 11:03 [facility] 11/07 15:11 Order name: CONS Physician Consult [facility] 11/07 11:02 Order name: Cardiac monitoring; Complete Time: 11:32 [facility] 11/07 11:02 Order name: EKG - Nurse/Tech; Complete Time: 12:10 [facility] 11/07 11:02 Order name: IV Saline Lock; Complete Time: 11:32 [facility] 11/07 11:02 Order name: Labs collected and sent; Complete Time: 11:32 [facility] 11/07 11:02 Order name: O2 Per Protocol; Complete Time: 11:32 [facility] 11/07 11:02 Order name: O2 Sat Monitoring; Complete Time: 11:32 lyn EC:10 Rate is 75 beats/min. Rhythm is regular. QRS [place] is Normal. NM interval is normal. QRS lyn interval is normal. QT interval is prolonged at 477 msec. No Q waves. T waves are Inverted in leads I, aVL, V5, V6. ST Segment is depressed in lead II. Clinical impression: Abnormal EKG without significant change. Interpreted by me. Reviewed by me. Administered Medications: 15:19 Drug: Aspirin PO Chewable Tablet 81 mg PO once Route: PO; jb4 17:27 Drug: hydrALAZINE IVP 10 mg IVP once Route: IVP; Site: right forearm; jb4 Disposition Summary: 11/07/24 14:06 Hospitalization Ordered Notes: Hospitalization Status: Inpatient Admission lyn Provider: Mesha Kendall cha Location: Telemetry/MedSurg (Inpatient) lyn Condition: Fair lyn Problem: new lyn Symptoms: have improved lyn Bed/Room Type: Standard lyn Room Assignment: 230(11/07/24 15:28) bd Diagnosis - Essential (primary) hypertension lyn - Dependence on renal dialysis lyn - Non ST elevation IA lyn Forms: - Medication Reconciliation Form lny - SBAR form lyn - Leadership Thank You Letter lyn Signatures: Dispatcher [employer] EDMS Clemencia Stone Corey, MD MD cha Bryson, James, RN RN jb4 Nayely Larsen, RN RN me1 Corrections: (The following items were deleted from the chart) 14:11 14:01 Rate is 75 beats/min. Rhythm is regular. QRS [place] is Normal. NM interval is lyn normal. QRS interval is normal. QT interval is normal. No Q waves. T waves are Normal. T waves are Inverted in leads I, aVL, V5, V6. ST Segment is depressed in lead II. Clinical impression: Abnormal EKG without significant change and No evidence of ischemia. lyn 15:28 14:06 lyn bd
--- NOTE | 2024-11-07 14:06 | ER ---
Nurse's Notes [facility] Name: Ben Muir Age: 59 yrs Sex: Male : 1965 Arrival Date: 11/07/2024 Time: 10:52 Bed 6 Private MD: Diagnosis: Essential (primary) hypertension;Dependence on renal dialysis;Non ST elevation ME Presentation: 11/07 11:03 Chief complaint: Patient states: Sent by [facility] today because yesterday and today me1 patient was unable to complete dialysis. When they take fluids off BP drops too low and they have to stop. After waiting some time his bp comes back up without intervention. Sent today by Dr Grove but his Dr is Dr Madrid. 129/69 in triage. Coronavirus screen: Vaccine status: Patient reports receiving the 2nd dose of the covid vaccine. Ebola Screen: No symptoms or risks identified at this time. Initial Sepsis Screen: Does the patient meet any 2 criteria? No. Patient's initial sepsis screen is negative. Does the patient have a suspected source of infection? No. Patient's initial sepsis screen is negative. Risk Assessment: Do you want to hurt yourself or someone else? Patient reports no desire to harm self or others. Onset of symptoms was November 06, 2024. 11:03 Method Of Arrival: Ambulatory wy1 11:03 Acuity: KUSUM 3 me1 Historical: - Allergies: 11:07 NKDA; me1 - PMHx: 11:07 Diabetes - IDDM; DIALYSIS MWF; Hypertension; testicular cancer; me1 - PSHx: 11:07 AV fistula (Unknown); removal of testicle and ureter (testicular cancer); me1 - Immunization history:: Adult Immunizations up to date. - Infectious Disease History:: Denies. - Social history:: Smoking status: Patient reports the use of cigarette tobacco products, smokes one-half pack cigarettes per day. Screenin:33 [facility] ED Fall Risk Assessment (Adult) History of falling in the last 3 months, jj7 including since admission No falls in past 3 months (0 pts) Confusion or Disorientation Yes (5 pts) Intoxicated or Sedated Yes (3 pts) Impaired Gait No (0 pts) Mobility Assist Device Used Yes (1 pt) Altered Elimination No (0 pt) Score/Fall Risk Level 0 - 2 = Low Risk Oriented to surroundings, Maintained a safe environment, Educated pt \T\ family on fall prevention, incl call for assistance when getting out of bed, Assessed \T\ reinforced patient's understanding of fall precautions. Abuse screen: Denies threats or abuse. Nutritional screening: No deficits noted. Tuberculosis screening: No symptoms or risk factors identified. Assessment: 11:33 General: Appears in no apparent distress. comfortable, Behavior is calm, cooperative, jj7 appropriate for age. Pain: Denies pain. Neuro: Reports dizziness, since YESTERDAY AFTER DIALYSIS. Cardiovascular: Denies chest pain, palpitations, shortness of breath, Capillary refill < 3 seconds Patient's skin is warm and dry. Dialysis shunt: in the left bicep, with no edema, no bleeding noted. 14:00 Reassessment: Patient appears in no apparent distress at this time. Patient and/or jb4 family updated on plan of care and expected duration. Pain level reassessed. Patient is alert, oriented x 3, equal unlabored respirations, skin warm/dry/pink. 15:00 Reassessment: Patient appears in no apparent distress at this time. Patient and/or jb4 family updated on plan of care and expected duration. Pain level reassessed. Patient is alert, oriented x 3, equal unlabored respirations, skin warm/dry/pink. 16:00 Reassessment: Patient appears in no apparent distress at this time. Patient and/or jb4 family updated on plan of care and expected duration. Pain level reassessed. Patient is alert, oriented x 3, equal unlabored respirations, skin warm/dry/pink. 17:00 Reassessment: Patient appears in no apparent distress at this time. Patient and/or jb4 family updated on plan of care and expected duration. Pain level reassessed. Patient is alert, oriented x 3, equal unlabored respirations, skin warm/dry/pink. 18:00 Reassessment: Patient appears in no apparent distress at this time. Patient and/or jb4 family updated on plan of care and expected duration. Pain level reassessed. Patient is alert, oriented x 3, equal unlabored respirations, skin warm/dry/pink. Vital Signs: 11:03 BP 129 / 69; Pulse 82; Resp 18; Temp 98.1; Pulse Ox 98% ; Weight 77.11 kg; Height 5 ft. me1 7 in. ; Pain 0/10; 14:05 BP 165 / 78; Pulse 78; Resp 18; Pulse Ox 97% on R/A; ph 16:45 BP 195 / 93; Pulse 78; Resp 16; Pulse Ox 100% on R/A; jb4 18:00 BP 181 / 90; Pulse 80; Resp 16; Pulse Ox 99% on R/A; jb4 11:03 Body Mass Index 26.63 (77.11 kg, 170.18 cm) me1 11:03 Pain Scale: Adult wy1 ED Course: 10:58 Patient arrived in ED. mr 11:02 Alexey Zuniga MD is Attending Physician. lyn 11:07 Triage completed. me1 11:07 Arm band placed on Patient placed in waiting room. me1 11:23 Kristan Vanegas, RN is Primary Nurse. jj7 11:32 Basic Metabolic Panel Sent. jj7 11:32 CBC with Diff Sent. jj7 11:32 LFT's Sent. jj7 11:32 Magnesium Sent. jj7 11:32 NT PRO-BNP Sent. jj7 11:32 PT-INR Sent. jj7 11:32 Troponin HS Sent. jj7 11:32 Lipase Sent. jj7 11:33 Patient has correct armband on for positive identification. Bed in low position. Call jj7 light in reach. Side rails up X 1. Provided Education on: USE OF CALL VALE. Client placed on continuous cardiac and pulse oximetry monitoring. NIBP monitoring applied. monitoring specialist on. Warm blanket given. 12:03 XRAY Chest (1 view) In Process Unspecified. EDMS 14:05 Mesha Kendall MD is Hospitalizing Provider. lyn 15:01 Upper Ext Artery Uni Raymundo In Process Unspecified. EDMS 15:01 Hemodialysis Graft In Process Unspecified. EDMS 15:10 UPPER EXTREMITY VENOUS UNILATE In Process Unspecified. EDMS 16:24 First set of blood cultures drawn by me. ty 16:38 Inserted saline lock: 20 gauge in right forearm, using aseptic technique. Blood ty collected. Flushed with 10 mL NS. 16:38 Initial lab(s) drawn, by me, sent to lab. Second set of blood cultures drawn. ty 18:27 No provider procedures requiring assistance completed. Patient admitted, IV remains in jb4 place. Administered Medications: 15:19 Drug: Aspirin PO Chewable Tablet 81 mg PO once Route: PO; jb4 17:27 Drug: hydrALAZINE IVP 10 mg IVP once Route: IVP; Site: right forearm; jb4 Medication: 11:33 VIS not applicable for this client. jj7 Outcome: 14:06 Decision to Hospitalize by Provider. lyn 18:27 Admitted to Med/surg accompanied by tech, via wheelchair, room 230, with chart, jb4 18:27 Condition: stable 18:27 Discharge instructions given to patient, Instructed on the need for admit, Demonstrated understanding of instructions, 18:32 Patient left the ED. Signatures: Dispatcher [employer] EDAlexey Jarrett MD MD cha Rivera, Mary, Reg Reg mr Zuri June, RN RN Ngoc Stroud, JEIMY RN Loco Mack RN RN jb4 Kristan Vanegas RN RN jj7 Nayely Larsen RN RN me1 Nacho Henriquez
[2024-11-07] MEDS ORDERED: ASPIRIN 81 MG CHEWABLE TABLET ONE (14:53)
[2024-11-07] MEDS ORDERED: ACETAMINOPHEN 325 MG TABLET PO PRN (15:05)
[2024-11-07] MEDS ORDERED: ONDANSETRON 4 MG/2 ML VIAL IV PRN (15:05)
--- NOTE | 2024-11-07 15:10 | P.HP ---
Patient History Date of Service: 11/07/24 History of Present Illness: 59-year-old male with a past medical history of ESRD on dialysis Tuesday, insulin-dependent diabetes, hypertension, testicular cancer presenting with episodes of hypotension and hypertension during his dialysis session. He states during his dialysis sessions he has variable readings with his blood pressure. Associated symptoms include dizziness. The variables in his blood pressure because the dialysis center to stop and start. His desk assistant was concerned there may be something wrong with his heart. He has a port in his upper chest wall. He denies fevers, chills, diarrhea or vomiting. No recent sick contacts. Workup in the emergency room revealed elevated blood pressure. Allergies No Known Drug Allergies Allergy (Verified 09/08/21 07:53) Unknown No Known Allergies Allergy (Uncoded 09/08/21 07:53) Unknown Home Medications: Amitriptyline HCl 10 mg PO BEDTIME PRN PRN 06/29/21 Amlodipine [Norvasc*] 10 mg PO DAILY 06/29/21 Tamsulosin [Flomax*] 0.4 mg PO DAILY 06/29/21 Carvedilol [Coreg] 25 mg PO BID 06/30/21 Sevelamer Carbonate 3,200 mg PO TIDWM 06/30/21 Hydralazine HCl 1 tab PO BID 08/08/21 Albuterol 2 puff IH Q4HR 09/08/21 Budesonide/Formoterol Fumarate [Symbicort 160-4.5 Mcg Inhaler] 1 puff IH BID 09/08/21 Fluticasone [Flonase 50MCG Nasal [place]*] 2 sprays IN BID 09/08/21 Losartan Potassium 1 tab PO DAILY 09/08/21 Sucroferric Oxyhydroxide [Velphoro] 2 tab PO TIDWM 09/08/21 Buspirone HCl [Buspar] 10 mg PO DAILY 04/19/22 Furosemide [Lasix] 40 mg PO BIDL 04/19/22 - Past Medical/Surgical History Diabetic: Yes -: Diabetes mellitus type 2insulin-dependent -: HTN -: high cholesterol -: testicular cancer -: ESRD on HD MWF -: Right ankle -: Left wrist Psychosocial/ Personal History: Patient lives at home with his family - Family History Father -: Diabetes Mother -: Heart disease - Social History Alcohol use: No CD- Drugs: No Caffeine use: No Review of Systems 10-point ROS is otherwise unremarkable General: Weakness, As per HPI Physical Examination - Physical Exam General: In no apparent distress HEENT: Normocephalic Neck: Supple, 2+ carotid pulse no bruit Respiratory: Clear to auscultation bilaterally, Normal air movement Cardiovascular: No edema, Normal pulses, Other (Port in upper chest wall) Capillary refill: <2 Seconds Gastrointestinal: Normal bowel sounds Musculoskeletal: No clubbing Integumentary: No rashes, Other (Left arm aVF) Neurological: Normal speech, Normal strength at 5/5 x4 extr Lymphatics: No axilla or inguinal lymphadenopathy - Studies Laboratory Data (last 24 hrs) 11/07/24 11/07/24 11/07/24 11:30 11:30 11:30 WBC 8.50 Hgb 13.1 L Hct 36.6 L Plt Count 188 PT 11.5 INR 1.01 Sodium 135 L Potassium 3.7 BUN 27 H Creatinine 5.96 H Glucose 142 H Magnesium 2.3 Total Bilirubin 0.6 AST 13 L ALT 28 Alkaline Phosphatase 222 H Lipase 81 H Assessment and Plan - Plan Essential hypertension ESRD Elevated BNP NSTEMI History of testicular cancer Admit to floor Start telemetry, EKG reviewed by me and no abnormalities or ischemic change Patient had hypotensive episode during dialysis, likely multifactorial from volume shifts possible overcorrection, or missed dry weight Check electrolytes, blood culturesx 2 Trend troponin Obtain mag and Phos CBC and CMP in the a.m. Consult nephrology DVT prophylaxis with SCDs - Advance Directives Does patient have a Living Will: No Does patient have a Durable POA for Healthcare: No
--- NOTE | 2024-11-07 16:04 | RAD REPORT ---
EXAMINATION: UPPER EXTREMITY VENOUS UNILATE CLINICAL INDICATION: Male, 59 years old.FISTULA LEFT- VENOUS AND ARTERIAL UPPER TECHNIQUE: Multiplanar grayscale and color Doppler images were obtained in a upper extremity venous ultrasound. Spectral analysis of the Doppler waveforms were performed.Multiplanar grayscale and color Doppler images were obtained for an upper extremity arterial ultrasound. Spectral analysis of t he Doppler waveforms were performed. The common carotid artery, subclavian artery, axillary artery, brachial artery, radial artery, and ulnar arteries were evaluated. The patient's left upper extremity dialysis graft was also evaluated. COMPARISON: No prior exams FINDINGS: The left internal jugular vein, subclavian vein, axillary vein, basilic vein, brachial vein, cephalic vein, radial vein, and ulnar vein were evaluated and patent. The brachial vein, cephalic vein, radial vein, and ulnar veins were compressible and patent. The common carotid artery, subclavian artery, axillary artery, brachial artery, radial artery, and ul thuan arteries were evaluated. Flow was documented on color Doppler. Subclavian artery PSV: 150 cm/s. Axillary artery PSV: 287 cm/s. Brachial artery PSV: 246 cm/2. Radial artery PSV: 45. Ulnar artery PS V: 27 cm/s The left upper extremity dialysis graft is patent. Peak systolic velocity at the anastomosis is 60 cm /s. At the outflow, the peak systolic velocity is 560 cm/s which is elevated.. IMPRESSION: Elevated peak systolic velocity at the distal end of the AV fistula consistent with an outflow stenos is. No evidence of left upper extremity deep venous thrombosis or arterial occlusion.
[2024-11-07] MEDS: HEPARIN 5000 UNIT/ML 1 ML VIAL SQ SCH (17:00)
[2024-11-07] MEDS ORDERED: HYDRALAZINE HCL 20 MG/ML VIAL ONE (17:20)
[2024-11-07] MEDS: INSULIN REGULAR (HUMAN) 100 UNIT/ML SQ SCH (22:40)
[2024-11-08 06:30] LABS: Absolute Basophils 0.1 K/uL (0-0.5); Absolute Eosinophils 0.2 K/uL (0-0.5); Absolute Lymphocytes (CBC) 2.5 K/uL (0.7-4.9); Absolute Monocytes 1.1 K/uL (0.1-1.3); Absolute Neutrophil 6.8 K/uL (1.8-8.0); Eosinophils % 1.6 % (0-4.4); Hemoglobin 14.4 g/dL (13.6-17.9); Lymphocytes % 23.7 % (15.3-44.8); MCH 33.9 pg (27.0-35.0); MCV 96.7 fL (80-100); MPV 7.5 fL (7.6-11.3); Monocytes % 9.9 % (3.3-12.3); Neutrophils % 63.8 % (41.7-73.7); Nucleated Red Blood Cells % 0.1 % (0-0); Platelets 208 thou/uL (152-406); RBC Red Blood Cell Count 4.24 M/uL (4.33-5.43); Red Cell Distribution Width 15.5 % (12.1-15.2)
[2024-11-08 06:53] LABS: Albumin 3.8 g/dL (3.4-5.0); Albumin/Globulin Ratio 0.8 (1.1-1.8); Anion Gap 15.5 mEq/L (5.0-15.0); Bilirubin Total 0.6 mg/dL (0.2-1.0); Globulin 4.8 g/dL (2.3-3.5); Potassium 4.5 mEq/L (3.5-5.1); Protein, Total 8.6 g/dL (6.4-8.2)
[2024-11-08] MEDS ORDERED: INSULIN REGULAR (HUMAN) 100 UNIT/ML SQ SCH (07:30)
[2024-11-08] MEDS: LABETALOL 20 MG/4ML SYRINGE IV ONE ×2 (08:45→17:09)
--- NOTE | 2024-11-08 11:43 | EKG ---
Test Date: 2024-11-07 Test Time: 11:36:12 Aviculturist: OPAL MEASUREMENT RESULTS: Intervals: Rate: 75 MI: 158 QRSD: 80 QT: 428 QTc: 477 [place]: P: 36 MI: 158 QRS: -5 T: 147 INTERPRETIVE STATEMENTS: Normal sinus rhythm Possible Left atrial enlargement ST & T wave abnormality, consider lateral ischemia Prolonged QT Abnormal ECG Compared to ECG 01/29/2024 14:31:43 ST (T wave) deviation now present Possible ischemia now present Prolonged QT interval now present T-wave abnormality no longer present Electronically Signed On 11-08-24 11:40:05 CDT by Marvin Nathan
--- NOTE | 2024-11-08 12:41 | P.CNS ---
Date of Consult: 11/08/24 Chief Complaint: chest pain History of Present Illness: Patient with PMH of ESRD on HD, HTN, presented with high/low BP during dialysis, patient report one episode of chest pain today left sided, no radiation, denies palpitations, no CARRIE, no syncope. Allergies No Known Drug Allergies Allergy (Verified 11/07/24 19:13) Unknown Home medications list reviewed: Yes Home Medications: Tamsulosin [Flomax*] 0.4 mg PO BEDTIME 06/29/21 Sevelamer Carbonate 800 mg PO TIDWM 06/30/21 Budesonide/Formoterol Fumarate [Symbicort 160-4.5 Mcg Inhaler] 2 puff IH BID 09/08/21 Sucroferric Oxyhydroxide [Velphoro] 2 tab PO TIDWM 09/08/21 Furosemide [Lasix] 40 mg PO BIDL 04/19/22 Albuterol Sulfate [Proair Respiclick] 1 puff IH Q4HP PRN 11/07/24 Bumetanide 1 tab PO DAILY 11/07/24 Carvedilol [Coreg] 12.5 mg PO BID 11/07/24 Cetirizine HCl [All Day Allergy Relief] 10 mg PO DAILY 11/07/24 Clonidine HCl [Catapres*] 1 tab PO BID 11/07/24 Hydralazine [Apresoline*] 100 mg PO BID 11/07/24 Insulin Glargine,Hum.rec.anlog [Lantus] 5 unit SQ PRN 11/07/24 Losartan Potassium [Cozaar] 1 tab PO DAILY 11/07/24 NIFEdipine [Nifedipine ER] 1 tab PO DAILY 11/07/24 Pravastatin [Pravachol*] 40 mg PO DAILY 11/07/24 - Past Medical/Surgical History Diabetic: Yes -: Diabetes mellitus type 2insulin-dependent -: HTN -: high cholesterol -: testicular cancer -: ESRD on HD MWF -: asthma -: Right ankle -: Left wrist Psychosocial/ Personal History: Patient lives at home with his family - Family History Father Medical History: Diabetes Mother Medical History: Heart disease - Social History Smoking Status: Current every day smoker Alcohol use: No CD- Drugs: No Caffeine use: Yes Place of Residence: [facility] Review of Systems 10-point ROS is otherwise unremarkable Physical Examination Temp Pulse Resp BP Pulse Ox 97.9 F 90 18 195/93 H 98 11/08/24 07:59 11/08/24 07:59 11/08/24 07:59 11/08/24 07:59 11/08/24 07:59 General: Alert, In no apparent distress HEENT: Atraumatic, PERRLA, Mucous membr. moist/pink, EOMI, Sclerae nonicteric Neck: Supple, 2+ carotid pulse no bruit, No LAD, Without JVD or thyroid abnormality Respiratory: Clear to auscultation bilaterally, Normal air movement Cardiovascular: Regular rate/rhythm, Normal S1 S2 Gastrointestinal: Normal bowel sounds, No tenderness Musculoskeletal: No tenderness Integumentary: No rashes Neurological: Normal gait, Normal speech, Normal tone, Normal affect Lymphatics: No axilla or inguinal lymphadenopathy - Problems (1) NSTEMI (non-ST elevated myocardial infarction) Current Visit: Yes Status: Acute Plan: Patient with multiple risk factors including ESRD, HTN. NPO after midnight for coronary angiogram in am ASA 81 mg daily Lipitor 40 mg daily Get echo (2) HTN (hypertension) Current Visit: Yes Status: Acute Plan: continue current medications (3) AV fistula stenosis Current Visit: Yes Status: Acute Plan: patient will need vascular surgery evaluation.
[2024-11-08] MEDS: SEVELAMER CARBONATE 800 MG TABLET PO SCH (13:12)
--- NOTE | 2024-11-08 14:20 | CON ---
Date of Consultation: 11/08/2024 Consulting Physician: Dr. Kendall. Reason For Consultation: Elevated BUN and creatinine, fluid management, end-stage renal disease. History Of Present Illness: This is a pleasant 59-year-old gentleman, well known to me from the dial ysis with significant past medical history of end-stage renal disease, on hemodialysis next Tuesday, W , Tuesday at [place] hemod[facility] unit. The patient came to the dialysis center complain ing of shortness of breath. The patient received extra treatment, but still feeling some chest tight ness and shortness of breath. For that reason, the patient was referred to the hospital. Upon arriv al to the ER, the patient found to have elevation in BUN and creatinine. The patient found to have e levation in troponin. For that reason, patient was admitted to the hospital. Chest x-ray did not show any over-volume. Past Medical History: Include, 1. Diabetes complicated with neuropathy and nephropathy. 2. Hypertension. 3. Hyperlipidemia. 4. Testicular cancer. Past Surgical History: Include, 1. AV fistula creation on the left upper arm. 2. Right ankle surgery. 3. Left breast surgery. Home Medications: Include amitriptyline, amlodipine, Flomax, carvedilol, Renvela, hydralazine, breat brenton treatment, losartan, Carafate, and Lasix. Allergies: NO KNOWN DRUG ALLERGY. Family History: Positive for diabetes and hypertension. Social History: Denied smoking. Denied drinking. Denied drugs abuse. Review of Systems: Head and Neck: No red eye. No ear pain. GI: No nausea, no vomiting. : No polyuria, no dysuria, no hematuria. BEEF CATTLE GRAZIER: Not applicable. Respiratory: Has shortness of breath. Has chest tightness. Cardiovascular: Has chest tightness. Endocrine: No polydipsia. Skin: No rash. Neuro: Has neuropathy. Musculoskeletal: No joint pain. Physical Examination: General: When I saw the patient, the patient is lying in bed. Vital Signs: Blood pressure 163/77, pulse of 91, afebrile. Chest: Clear to auscultation. Heart: S1, S2. Systolic murmur. Abdomen: Soft, nontender. Extremities: No edema. Neurologic: Alert. No focality. Laboratory Data: WBC 10.6, hemoglobin 14.4. Sodium 136, potassium 4.5, bicarb 23, BUN 50, creatinin e 8.4, calcium 9.7. Albumin 3.8. Troponin 119. Chest x-ray, cardiomegaly, no congestion. Current Medications: The patient on include heparin, labetalol, alprazolam. Assessment And Plan: 1. End-stage renal disease, normal volume. I am going to continue the patient on dialysis. We will schedule the patient for dialysis tomorrow. I do not see the need for urgent dialysis for the time amanda de la garza. 2. Hypertension, not controlled. We will utilize blood pressure for more ultrafiltration. I am sheldon g to go ahead and resume carvedilol and resume losartan. We will follow up response for the patient. 3. Anemia of chronic kidney disease. Hemoglobin on the goal with the current blood pressure. I do n ot see the need for any GWYN. 4. Secondary hyperparathyroidism. Resume Renvela. 5. Chest tightness, diabetes, and end-stage renal disease. Will follow up with primary considering C ardiology evaluation. TOBIN Voice ID: [id number] Report ID: [id number]
--- NOTE | 2024-11-08 14:22 | P.PN ---
Date of Service: 11/08/24 Subjective: Walking around his room on arrival. Denies fevers and chills. Blood pressure remains elevated overnight Review of Systems 10-point ROS is otherwise unremarkable General: Weakness, As per HPI Physical Examination - Physical Exam General: In no apparent distress HEENT: Normocephalic Neck: Supple, 2+ carotid pulse no bruit Respiratory: Clear to auscultation bilaterally, Normal air movement Cardiovascular: No edema, Normal pulses, Other (Port in upper chest wall) Capillary refill: <2 Seconds Gastrointestinal: Normal bowel sounds Musculoskeletal: No clubbing Integumentary: No rashes, Other (Left arm aVF) Neurological: Normal speech, Normal strength at 5/5 x4 extr Lymphatics: No axilla or inguinal lymphadenopathy - Studies Laboratory Data (last 24 hrs) 11/07/24 11/07/24 11/07/24 11:30 11:30 11:30 WBC 8.50 Hgb 13.1 L Hct 36.6 L Plt Count 188 PT 11.5 INR 1.01 Sodium 135 L Potassium 3.7 BUN 27 H Creatinine 5.96 H Glucose 142 H Magnesium 2.3 Total Bilirubin 0.6 AST 13 L ALT 28 Alkaline Phosphatase 222 H Lipase 81 H Assessment and Plan - Plan Hypertensive urgency Chest pain / NSTEMI AV fistula stenosis ESRD Elevated BNP NSTEMI Anemia of ESRD History of testicular cancer Going for coronary angiogram in the a.m. Start telemetry, EKG reviewed by me and no abnormalities or ischemic change Echo pending Continue aspirin and statin Consult vascular surgery for AV fistula stenosis Check electrolytes, blood culturesx 2 Trend troponins Obtain mag and Phos CBC and CMP in the a.m. DVT prophylaxis with SCDs - Advance Directives Does patient have a Living Will: No Does patient have a Durable POA for Healthcare: No
[2024-11-08] MEDS ORDERED: HOME MED 1 EA UNK (Albuterol Sulfate [Proair Respiclick] 90 MCG Aer.Pow.Ba) IH PRN (16:56)
[2024-11-08] MEDS: SUCROFERRIC OXYHYDROXIDE 500 MG PO SCH (17:00)
[2024-11-08] MEDS: FUROSEMIDE 40 MG TABLET PO SCH (17:10)
[2024-11-08 17:21] LABS: Hepatitis B surface AG Interp. Nonreactive (Nonreactive)
[2024-11-08 17:22] LABS: HBsAG Nonreactive Report Report
[2024-11-08] MEDS ORDERED: ALBUTEROL INHALER 200 PUFF/6.7 GM IH PRN (17:35)
[2024-11-08] MEDS: cloNIDine HCL 0.1 MG TAB PO SCH (18:44)
[2024-11-08] MEDS: HYDRALAZINE HCL 25 MG TABLET PO SCH (18:44)
[2024-11-08] MEDS: NIFEDIPINE XL 30 MG TABLET PO SCH (18:44)
[2024-11-08] MEDS: carvediloL 12.5 MG TAB PO SCH (18:45)
[2024-11-08] MEDS: LOSARTAN POTASSIUM 50 MG TABLET PO SCH (18:45)
[2024-11-08] MEDS: TAMSULOSIN 0.4 MG SR CAP PO SCH (20:34)
[2024-11-08] MEDS: HYDRALAZINE HCL 20 MG/ML VIAL IV ONE (20:34)
[2024-11-08] MEDS: ATORVASTATIN 10 MG TAB PO SCH (20:34)
[2024-11-08] MEDS: FORMOTEROL FUMARATE IH SCH (20:36)
[2024-11-08] MEDS: BUDESONIDE IH SCH (20:36)
[2024-11-08] MEDS ORDERED: HOME MED 1 EA UNK (Clonidine Hcl [Catapres*] 0.2 MG Tablet) PO SCH (21:00)
[2024-11-08] MEDS ORDERED: carvediloL 12.5 MG TAB PO SCH (21:00)
[2024-11-08] MEDS ORDERED: HYDRALAZINE HCL 25 MG TABLET PO SCH (21:00)
[2024-11-08] MEDS ORDERED: cloNIDine HCL 0.1 MG TAB PO SCH (21:00)
[2024-11-08] MEDS: AMLODIPINE 10 MG TAB PO ONE (21:03)
[2024-11-08] MEDS ORDERED: HYDRALAZINE HCL 20 MG/ML VIAL IV PRN (22:12)
[2024-11-09 06:30] VITALS: BMI 24.8
[2024-11-09] MEDS ORDERED: HEPA 1000U/500MLS 2,000 UNIT/1,000 ML BAG IV ONE ×2 (08:34→09:44)
[2024-11-09] MEDS ORDERED: HEPARIN 10,000 UNIT/10 ML VIAL IV ONE (08:34)
[2024-11-09] MEDS ORDERED: VERAPAMIL HCL 10 MG/4 ML VIAL IV ONE (08:35)
[2024-11-09] MEDS ORDERED: ATROPINE SULF 1 MG/10 ML SYR IV ONE (08:35)
[2024-11-09] MEDS ORDERED: HEPARIN 5000 UNIT/ML 1 ML VIAL ONE (08:35)
[2024-11-09] MEDS ORDERED: CLOPIDOGREL 75 MG TABLET ONE (08:35)
[2024-11-09] MEDS ORDERED: LIDOCAINE 1% 20 ML MDV ONE ×2 (08:35→09:44)
[2024-11-09] MEDS ORDERED: ASPIRIN 325 MG TAB ONE (08:36)
[2024-11-09] MEDS ORDERED: TICAGRELOR 90 MG TABLET PO ONE (08:36)
[2024-11-09] MEDS: NA CHLORIDE 0.9% 500 ML ONE (08:49)
[2024-11-09] MEDS ORDERED: HOME MED 1 EA UNK (Pravastatin [Pravachol*] 40 MG/TAB Tab) PO SCH (09:00)
[2024-11-09] MEDS ORDERED: HOME MED 1 EA UNK (Losartan Potassium [Cozaar] 25 MG Tablet) PO SCH (09:00)
[2024-11-09] MEDS ORDERED: NIFEDIPINE XL 30 MG TABLET PO SCH (09:00)
[2024-11-09] MEDS ORDERED: HOME MED 1 EA UNK (Bumetanide [Bumetanide] 2 MG Tablet) PO SCH (09:00)
[2024-11-09] MEDS ORDERED: LOSARTAN POTASSIUM 50 MG TABLET PO SCH (09:00)
[2024-11-09] MEDS ORDERED: FENTANYL CITR 100 MCG/2 ML ONE ×2 (09:11→10:22)
[2024-11-09] MEDS ORDERED: MIDAZOLAM HCL 2 MG/2 ML INJ ONE ×2 (09:11→10:21)
--- NOTE | 2024-11-09 09:59 | OP ---
Date of Procedure: 11/09/2024 Surgeon: GISELA LONGORIA Procedures Performed: 1. Selective coronary angiogram. 2. Left heart catheterization. Indication: Unstable angina. Access: Right radial artery 6-Palestinian, closed with TR band. Complications: None. Bleeding: Less than 50 mL. Total Sedation Time: 45 minutes, used fentanyl, Versed. Description Of Procedure: After risks, benefits, and alternatives were explained, the patient agreed to procedure and signed informed consent. The [facility], prepped and draped in sterile fashion. Then, I accessed right radial artery using pediatric micropuncture kit and placed 6-Palestinian Slender sheath and took 5-Palestinian [place] 4 catheter into the aort ic root over J-wire across the aortic valve, measured the LVEDP. Pullback did not record any gradien t, then engaged left main, took standard views, and then the RCA, took standard views and removed the catheter and the sheath, placed TR band with good hemostasis. Findings: 1. Left main, large and normal. 2. LAD is a long lesion in the mid LAD ranging between 40% to 50%, very long, heavily calcified, but no severe stenosis. Diagonal branches with luminal irregularities. 3. Left circumflex; moderate to large size vessel. OM branch then becomes small after the OM takes o ff and the OM has proximal 50% stenosis. 4. RCA; large and dominant, mid 40%, and the PDA has mid 40% to 50% stenosis. 5. LVEDP elevated at 25 mmHg. Conclusion: 1. Moderate coronary artery disease, diffuse. 2. Elevated LVEDP. Recommendation: Medical management. /RAE Voice ID: [id number] Report ID: [id number]
[2024-11-09] MEDS ORDERED: FLUMAZENIL 0.1 MG/ML (5 mL VIAL) IV ONE (10:22)
[2024-11-09] MEDS ORDERED: NALOXONE 0.4 MG/ML VIAL ONE (10:22)
[2024-11-09 14:12] VITALS: O2SAT 100
--- NOTE | 2024-11-09 14:47 | ECHO ---
HEIGHT: 5 ft 7 in WEIGHT: 158 lb 14.4 oz DATE OF STUDY: 11/08/[address]: Alexey Zuniga MD 2-DIMENSIONAL: YES M.MODE: YES DOPPLER: YES COLOR FLOW: YES TDS: NO PORTABLE: YES DEFINITY: NO BUBBLE STUDY: NO DIAGNOSIS: HYPERTENSION CARDIAC HISTORY: CATHERIZATION: SURGERY: PROSTHETIC VALVE: PACEMAKER: MEASUREMENTS (cm) DIASTOLIC (NORMALS) SYSTOLIC (NORMALS) IVSd 1.3 (0.6-1.2) LA Diam 4.3 (1.9-4.0) LVEF 74% LVIDd 4.0 (3.5-5.7) LVIDs 2.3 (2.0-3.5) %FS 43% LVPWd 1.7 (0.6-1.2) Ao Diam 2.5 (2.0-3.7) 2 DIMENSIONAL ASSESSMENT: RIGHT ATRIUM: NORMAL LEFT ATRIUM: ENLARGED RIGHT VENTRICLE: NORMAL LEFT VENTRICLE: LEFT VENTRICULAR HYPERTROPHY TRICUSPID VALVE: MILD TRICUSPID REGURGITATION MITRAL VALVE: MILD MITRAL REGURGITATION PULMONIC VALVE: NORMAL AORTIC VALVE: MILD AORTIC INSUFFICIENCY PERICARDIAL EFFUSION: NONE AORTIC ROOT: NORMAL LEFT VENTRICULAR WALL MOTION: NORMAL. DOPPLER/COLOR FLOW: SEE BELOW. COMMENTS: 1. NORMAL LEFT VENTRICULAR EJECTION FRACTION 60-65% WITH NORMALL WALL MOTION. 2. MODERATE CONCENTRIC LEFT VENTRICULAR HYPERTROPHY. 3. MODERATE DIASTOLIC DYSFUNCTION. 4. MILD (TRICUSPID AND MITRAL REGURGITATION, AORTIC INSUFFICIENCY) 5. LEFT ATRIAL ENLARGEMENT TECHNOLOGIST: ELSA OMON
--- NOTE | 2024-11-09 16:22 | P.PN ---
Date of Service: 11/09/24 Subjective: Seen resting in his chair after his procedures. No acute complaint. He states he feels fine. Blood pressure improved over Review of Systems 10-point ROS is otherwise unremarkable General: Weakness, As per HPI Physical Examination - Physical Exam General: In no apparent distress HEENT: Normocephalic Neck: Supple, 2+ carotid pulse no bruit Respiratory: Clear to auscultation bilaterally, Normal air movement Cardiovascular: No edema, Normal pulses, Other (Port in upper chest wall) Capillary refill: <2 Seconds Gastrointestinal: Normal bowel sounds Musculoskeletal: No clubbing Integumentary: No rashes, Other (Left arm aVF) Neurological: Normal speech, Normal strength at 5/5 x4 extr Lymphatics: No axilla or inguinal lymphadenopathy - Studies Laboratory Data (last 24 hrs) 11/07/24 11/07/24 11/07/24 11:30 11:30 11:30 WBC 8.50 Hgb 13.1 L Hct 36.6 L Plt Count 188 PT 11.5 INR 1.01 Sodium 135 L Potassium 3.7 BUN 27 H Creatinine 5.96 H Glucose 142 H Magnesium 2.3 Total Bilirubin 0.6 AST 13 L ALT 28 Alkaline Phosphatase 222 H Lipase 81 H Assessment and Plan - Plan Hypertensive urgency Chest pain / NSTEMI AV fistula stenosis ESRD Elevated BNP NSTEMI Anemia of ESRD History of testicular cancer Appreciate cardiology recommendations Drain Cleaner Plumber revealed moderate coronary artery disease and diffuse. With elevated LVEDP Start telemetry, EKG reviewed by me and no abnormalities or ischemic change Echo with 60 to 65% EF alongside moderate diastolic dysfunction Continue aspirin and statin AVF repair by vascular surgery. Appreciate help Hemodialysis per nephrology Troponin trend reviewed Magnesium within normal limits CBC and CMP in the a.m. As needed hydralazine and labetalol for elevated blood pressures Continue home amlodipine, Procardia, clonidine, carvedilol, hydrate for high blood pressure Continue sevelamer and Lasix DVT prophylaxis with heparin - Advance Directives Does patient have a Living Will: No Does patient have a Durable POA for Healthcare: No
--- NOTE | 2024-11-09 18:24 | P.OP ---
Date of Service: 11/09/24 Procedures performed 1. Left upper arm dialysis fistula study 2. Balloon angioplasty of arterial anastomosis and arterial segment of fistula 3. Balloon angioplasty of subclavian vein 4. Hemostasis with direct manual compression History The patient is a 59-year-old male with renal failure, who has very poor flow through left upper arm dialysis fistula. There is also swelling to the fistula. Venous ultrasound had demonstrated high-grade fistula stenosis. Patient presents for fistulography and intervention Dosimetry Sedation: Provided by the performing physician Drugs administered for sedation: 1 mg Versed IV, 50 mcg fentanyl IV Sedation time (minutes): 47 The performing physician was directly supervising a trained, independent observer, who was present throughout moderate sedation, and providing constant monitoring of the patient throughout moderate sedation, including monitoring the patient's level of consciousness as well as physiological status, including monitoring measurements of blood pressure, pulse oximetry, heart rhythm, and patient responsiveness. This observer had no other duties other than monitoring the patient. Estimated blood loss: Less than 10ml Procedure PREPROCEDURE DIAGNOSIS: End-stage renal disease. Poor flow through dialysis fistula. POSTPROCEDURE DIAGNOSIS: End-stage renal disease. Poor flow through dialysis fistula. PROCEDURES PERFORMED 1. Needle access of dialysis fistula with fistulogram. 2. Percutaneous transluminal angioplasty of fistula stenoses at the arterial se gment of the fistula 3. Percutaneous luminal angioplasty of subclavian vein 4. Hemostasis with direct manual compression COMPLICATIONS: None. CONDITION: Good. DISPOSITION: Home. ACCESS SITE: Left upper arm dialysis shunt. CONTRAST VOLUME: 30 mL. INDICATION FOR PROCEDURE: Patient has a left upper arm dialysis fistula. The patient was noted to have poor flow to the fistula, and the fistula was difficult to palpate. The patient presents today for fistulogram with intervention. The risks, benefits, and alternatives of the procedure were discussed with the patient and understands and in agreement to proceed. PROCEDURE DETAILS: The patient was brought to the angio suite and laid supine on the table. After sedation was administered, the left arm was then prepped and draped in a standard surgical fashion. Continuous pulse oximetry and cardiac monitoring were performed throughout the procedure. The left upper arm dialysis shunt was palpated. The skin overlying the vessel was injected with 1% lidocaine solution. The shunt then was cannulated with a 21g butterfly needle under ultrasound guidance. A fistulogram was performed which demonstrated a high-grade stenosis at the arterial anastomosis, as well as a separate stenosis at the junction of the subclavian vein and cephalic vein. Based on the results of the diagnostic shunt study, decision was then made to proceed with angioplasty. A second puncture was then made into the dialysis shunt using a 19g needle. A 0.035 glide type Zip wire was then obtained and advanced through the needle, across the area of stenoses. After crossing the area of stenosis, a 6mm x 40mm angioplasty balloon was placed over the glidewire into the area of stenosis and inflated to 14 mmHg pressure for 2 minutes and then deflated. The balloon was then removed over the wire and repeat fistulogram was performed which demonstrated significant improvement. However, there is still a severe stenosis in the subclavian vein at the junction with the cephalic vein. Second puncture was made with a 19-gauge needle pointing towards the venous outflow. A Glidewire advantage wire was advanced across the stenosis. 8 mm x 60 mm balloon catheter was introduced to the stenosis and angioplasty was performed with inflation to 10 bishop. Good results. Fistulogram of the venous outflow demonstrates excellent flow with patent central veins. There was no evidence of any contrast extravasation at the treatment sites. Impression 1. Severe stenosis in the dialysis fistula near the arterial anastomosis treated with 6 minute meter balloon angioplasty with good results 2. Severe subclavian vein stenosis at the cephalic vein junction treated with 8 mm balloon angioplasty with good results
--- NOTE | 2024-11-09 18:59 | PN ---
Date of Progress Note: 11/09/2024 Subjective: Seen by bedside. No further chest pain. Review of Systems: No chest pain, shortness of breath, orthopnea, cough. No nausea, vomiting, diarrhea. All other syst ems reviewed, they are negative. Physical Examination: Vital Signs: Reviewed. Head and Neck: Pupils are equal, reactive to light. Intact eye movements. No JVD, no cervical isa opathy. Neck: Supple. Thyroid is not enlarged. Lungs: Clear to auscultation bilaterally. No rhonchi, wheezing, or crackles. No accessory muscle u se. Heart: Regular rate and rhythm. No extra sounds. Abdomen: Soft, nontender. Bowel sounds positive. No organomegaly. No masses or hernia. No rigidi ty or rebound. Extremities: No edema, clubbing, cyanosis. Intact pulses. Skin: No rash. Neurologic: Alert, awake, and oriented x3. No acute focal deficits appreciated. Investigations: Troponin went down to 126. BUN 50, creatinine 8.4. Assessment/recommendation: 1. Elevated troponin with chest pain status post coronary angiogram. He has moderate coronary artery disease. Recommendation is baby aspirin, high-dose statin, Lipitor 40 mg at bedtime and follow up a s an outpatient basis. 2. Congestive heart failure exacerbation and diastolic dysfunction and likely it is due to fluid rete ntion from the end-stage renal disease. Recommend fluid management via dialysis. 3. Hypertension. Blood pressure is borderline elevated. Should improve with dialysis. Cardiology will sign off and patient is to be followed on an outpatient basis . /ASHLEYL Voice ID: [id number] Report ID: [id number]
[2024-11-09] MEDS: ALPRAZOLAM 0.25 MG TABLET PO PRN (21:15)
--- NOTE | 2024-11-10 00:29 | PN ---
Date of Progress Note: 11/09/2024 Chief Complaint: End-stage renal disease, fluid overload, chest pain, shortness of breath. Subjective: The patient is admitted to the hospital because of shortness of breath and he is undergo ing cardiac workup today. He is scheduled to have cardiac catheterization and dialysis will be done after procedure to prevent contrast-induced hyperkalemia. The patient will have ultrafiltration to t reat fluid overload and for management of congestive heart failure exacerbation. The patient has di abetes mellitus with renal complication, diabetic nephropathy, neuropathy, hypertension, hyperlipidem ia, and history of testicular cancer. Review of Systems: Denies fever, chills. Physical Examination: Lungs: Diminished breast sounds at bases. Heart: S1, S2. Abdomen: Soft, benign. Extremities: Slight edema. Impression And Plan: 1. End-stage renal disease. Dialysis will be done today to obtain negative fluid balance to control ultrafiltration. The patient had urgent dialysis done yesterday upon admission to control severe dys pnea and severe fatigue. 2. Hypertension, uncontrolled. Medications were changed and adjusted. The patient resumed carvedilo l and losartan. 3. Anemia of chronic disease. Hemoglobin level is stable. Monitor hemoglobin level. 4. Secondary hyperparathyroidism. Resume binders. Patient will continue low phosphorus diet and Olvin jean baptiste. 5. Diabetes mellitus. Continue insulin. 6. Congestive heart failure, chest discomfort. The patient is undergoing cardiac workup. Troponin l evel was 111. Chest x-ray showed cardiomegaly without significant congestion, although patient was c omplaining of severe dyspnea at rest and dyspnea on exertion. The patient underwent cardiac catheterization. Further recommendation from Cardiology. ESTELITA/RAE Voice ID: [id number] Report ID: [id number]
[2024-11-10 05:19] LABS: Absolute Eosinophils 0.1 K/uL (0-0.5); Absolute Lymphocytes (CBC) 1.3 K/uL (0.7-4.9); Absolute Monocytes 0.8 K/uL (0.1-1.3); Absolute Neutrophil 5.3 K/uL (1.8-8.0); Basophils % 0.6 % (0-1.3); Eosinophils % 1.9 % (0-4.4); Hematocrit 31.1 % (39.6-49.0); Hemoglobin 11.1 g/dL (13.6-17.9); Lymphocytes % 17.3 % (15.3-44.8); MCH 34.7 pg (27.0-35.0); MCHC 35.7 g/dL (32.0-36.0); MCV 97.3 fL (80-100); MPV 7.8 fL (7.6-11.3); Monocytes % 9.9 % (3.3-12.3); Neutrophils % 70.3 % (41.7-73.7); Platelets 140 thou/uL (152-406); Red Cell Distribution Width 15.3 % (12.1-15.2)
[2024-11-10 05:50] LABS: Albumin 3.2 g/dL (3.4-5.0); Albumin/Globulin Ratio 0.8 (1.1-1.8); Anion Gap 13.7 mEq/L (5.0-15.0); Bilirubin Total 0.4 mg/dL (0.2-1.0); Potassium 4.7 mEq/L (3.5-5.1); Protein, Total 7.2 g/dL (6.4-8.2)
--- NOTE | 2024-11-10 10:00 | PN ---
Date of Progress Note: 11/10/2024 The patient was admitted to the hospital with chest pain after dialysis with over volume, the patient dialyzed on a daily basis, recovered. The patient had angiogram with central stenosis angioplasty. Patient feeling better. Cardiology seen and cleared up the patient. Physical Examination: Vital Signs: Blood pressure 150/70, pulse of 85, afebrile. Chest: Clear to auscultation. Heart: S1 and S2 regular. Abdomen: Soft, nontender. Extremities: No edema. Neurologic: Alert, no focality. Laboratory Data: Hemoglobin 11.1. Sodium 135, potassium 4.7, bicarb 23, BUN 48, creatinine 7.9, hayder cium 9.4. Current Medications: The patient on include albuterol, Flomax, atorvastatin, carvedilol, clonidine, hydralazine, losartan, nifedipine, alprazolam. Assessment And Plan: 1. End-stage renal disease. We will continue the patient on dialysis Tuesday, Tuesday, Tuesday. 2. Secondary hyperparathyroidism, stable. Continue current treatment. 3. Hypertension, controlled optimal. Continue current treatment. 4. Central stenosis, status post angioplasty. Follow up with Vascular. 5. Chest pain, coronary artery disease, seen by Cardiology, cleared the patient, cleared from the renal standpoint for discharge planning. TOBIN Voice ID: [id number] Report ID: [id number]
[2024-11-10 12:43] VITALS: BP 146/69; TEMP 97.5
--- NOTE | 2024-11-10 14:46 | P.PN ---
Date of Service: 11/10/24 Subjective: Seen resting in bed. States he feels fine. We discussed following up with pulmonology if he continues to experience shortness of breath. He denies fevers, chills. Review of Systems 10-point ROS is otherwise unremarkable General: Weakness, As per HPI Physical Examination - Physical Exam General: In no apparent distress HEENT: Normocephalic Neck: Supple, 2+ carotid pulse no bruit Respiratory: Clear to auscultation bilaterally, Normal air movement Cardiovascular: No edema, Normal pulses, Other (Port in upper chest wall) Capillary refill: <2 Seconds Gastrointestinal: Normal bowel sounds Musculoskeletal: No clubbing Integumentary: No rashes, Other (Left arm aVF) Neurological: Normal speech, Normal strength at 5/5 x4 extr Lymphatics: No axilla or inguinal lymphadenopathy - Studies Laboratory Data (last 24 hrs) 11/07/24 11/07/24 11/07/24 11:30 11:30 11:30 WBC 8.50 Hgb 13.1 L Hct 36.6 L Plt Count 188 PT 11.5 INR 1.01 Sodium 135 L Potassium 3.7 BUN 27 H Creatinine 5.96 H Glucose 142 H Magnesium 2.3 Total Bilirubin 0.6 AST 13 L ALT 28 Alkaline Phosphatase 222 H Lipase 81 H Assessment and Plan - Plan Hypertensive urgency Chest pain / NSTEMI AV fistula stenosis ESRD Elevated BNP NSTEMI Anemia of ESRD History of testicular cancer Appreciate cardiology recommendations Professor Of Economics revealed moderate coronary artery disease and diffuse. With elevated LVEDP Start telemetry, EKG reviewed by me and no abnormalities or ischemic change Echo with 60 to 65% EF alongside moderate diastolic dysfunction Continue aspirin and statin AVF repair by vascular surgery. Appreciate help Hemodialysis per nephrology Troponin trend reviewed Magnesium within normal limits CBC and CMP in the a.m. As needed hydralazine and labetalol for elevated blood pressures Continue home amlodipine, Procardia, clonidine, carvedilol, hydrate for high blood pressure Continue sevelamer and Lasix DVT prophylaxis with heparin Disposition: Home after he completes his dialysis - Advance Directives Does patient have a Living Will: No Does patient have a Durable POA for Healthcare: No
--- NOTE | 2024-11-10 14:53 | P.DS ---
Admission Date: 11/07/24 Discharge Date: 11/10/24 Disposition: ROUTINE DISCHARGE Discharge Condition: GOOD Reason for Admission: chest pain Brief History of Present Illness: 59-year-old male with a past medical history of ESRD on dialysis Tuesday, insulin-dependent diabetes, hypertension, testicular cancer presenting with episodes of hypotension and hypertension during his dialysis session. He states during his dialysis sessions he has variable readings with his blood pressure. Associated symptoms include dizziness. The variables in his blood pressure because the dialysis center to stop and start. His nephro logist was concerned there may be something wrong with his heart. He has a port in his upper chest wall. He denies fevers, chills, diarrhea or vomiting. No recent sick contacts. Workup in the emergency room revealed elevated blood pressure. Hospital Course: 59-year-old male with a past medical history of ESRD presenting with chest pain during dialysis. Upon admission nephrology and cardiology was consulted. He was found to have malfunctioning left AV fistula. Vascular surgery was consulted and he was taken for AVF repair. Moreover cardiology took him to the [facility] for an angiogram. Angiogram revealed moderate CAD disease with elevated LVEDP, echo with 60 to 65% EF alongside moderate diastolic dysfunction. Furthermore he had some blood pressure history our address with restarting his medication and IV hydralazine. He is medically optimized for discharge. The remainder of his hospital course has been uncomplicated. Vital Signs/Physical Exam: Temp Pulse Resp BP Pulse Ox 97.5 F 86 16 146/69 H 97 11/10/24 12:00 11/10/24 12:00 11/10/24 12:00 11/10/24 12:00 11/10/24 12:00 General: In no apparent distress HEENT: Normocephalic Neck: Supple Respiratory: Clear to auscultation bilaterally, Normal air movement Cardiovascular: No edema Capillary refill: <2 Seconds Gastrointestinal: Normal bowel sounds, Soft and benign Musculoskeletal: No swelling Integumentary: No rashes, Other (Left arm aVF) Neurological: Normal speech, Normal strength at 5/5 x4 extr Lymphatics: No axilla or inguinal lymphadenopathy Laboratory Data at Discharge: WBC 7.60 thou/uL (4.3-10.9) 11/10/24 04:45 Hgb 11.1 g/dL (13.6-17.9) L 11/10/24 04:45 Hct 31.1 % (39.6-49.0) L 11/10/24 04:45 Plt Count 140 thou/uL (152-406) L 11/10/24 04:45 PT 11.5 SECONDS (10-13.0) 11/07/24 11:30 INR 1.01 11/07/24 11:30 Sodium 135 mEq/L (136-145) L 11/10/24 04:45 Potassium 4.7 mEq/L (3.5-5.1) 11/10/24 04:45 BUN 48 mg/dL (7-18) H 11/10/24 04:45 Creatinine 7.92 mg/dL (0.70-1.30) H 11/10/24 04:45 Glucose 183 mg/dL (74-106) H 11/10/24 04:45 Magnesium 2.3 mg/dL (1.6-2.4) 11/07/24 11:30 Total Bilirubin 0.4 mg/dL (0.2-1.0) 11/10/24 04:45 AST 16 U/L (15-37) 11/10/24 04:45 ALT 28 U/L (16-61) 11/10/24 04:45 Alkaline Phosphatase 225 U/L (45-117) H 11/10/24 04:45 Lipase 81 U/L (13-75) H 11/07/24 11:30 Home Medications: Tamsulosin [Flomax*] 0.4 mg PO BEDTIME 06/29/21 Sevelamer Carbonate 800 mg PO TIDWM 06/30/21 Budesonide/Formoterol Fumarate [Symbicort 160-4.5 Mcg Inhaler] 2 puff IH BID 09/08/21 Sucroferric Oxyhydroxide [Velphoro] 2 tab PO TIDWM 09/08/21 Furosemide [Lasix*] 40 mg PO BIDL 04/19/22 Albuterol Sulfate [Proair Respiclick] 1 puff IH Q4HP PRN 11/07/24 Bumetanide 1 tab PO DAILY 11/07/24 Carvedilol [Coreg] 12.5 mg PO BID 11/07/24 Cetirizine HCl [All Day Allergy Relief] 10 mg PO DAILY 11/07/24 Clonidine HCl [Catapres*] 1 tab PO BID 11/07/24 Hydralazine [Apresoline*] 100 mg PO BID 11/07/24 Insulin Glargine,Hum.rec.anlog [Lantus] 5 unit SQ PRN 11/07/24 Losartan Potassium [Cozaar] 1 tab PO DAILY 11/07/24 NIFEdipine [Nifedipine ER] 1 tab PO DAILY 11/07/24 Pravastatin [Pravachol*] 40 mg PO DAILY 11/07/24 Pharmacy Consult 1 ea XX DAILYPRN PRN ea 11/10/24 Followup: Amaya Ochoa MD [Primary Care Provider] -
== END 2024-11-10 18:01 | disposition home or self-care (01) | DRG 252 ==
LOC: ER 10:52 → ERHOLD 15:05 → 2ND 17:47
PROVIDERS: ADMIT Family Medicine; ATTEND Family Medicine
PROC: 5A1D70Z Performance of Urinary Filtration, Intermittent, Less than 6 Hours Per Day (ICD-10-PCS; 2024-11-07)
PROC: 05763ZZ Dilation of Left Subclavian Vein, Percutaneous Approach (ICD-10-PCS; principal; 2024-11-09)
PROC: 4A023N7 Measurement of Cardiac Sampling and Pressure, Left Heart, Percutaneous Approach (ICD-10-PCS; 2024-11-09)
PROC: B2111ZZ Fluoroscopy of Multiple Coronary Arteries using Low Osmolar Contrast (ICD-10-PCS; 2024-11-09)
PROC: B51W1ZZ Fluoroscopy of Dialysis Shunt/Fistula using Low Osmolar Contrast (ICD-10-PCS; 2024-11-09)
DX: T82.510A Breakdown (mechanical) of surgically created arteriovenous fistula, initial encounter (principal); I21.4 Non-ST elevation (NSTEMI) myocardial infarction; I50.33 Acute on chronic diastolic (congestive) heart failure; N18.6 End stage renal disease; I13.2 Hypertensive heart and chronic kidney disease with heart failure and with stage 5 chronic kidney disease, or end stage renal disease; Z59.00 Homelessness unspecified; N25.81 Secondary hyperparathyroidism of renal origin; E11.22 Type 2 diabetes mellitus with diabetic chronic kidney disease; E11.40 Type 2 diabetes mellitus with diabetic neuropathy, unspecified; D63.1 Anemia in chronic kidney disease; E87.5 Hyperkalemia; I16.0 Hypertensive urgency; E78.00 Pure hypercholesterolemia, unspecified; I25.10 Atherosclerotic heart disease of native coronary artery without angina pectoris; F17.210 Nicotine dependence, cigarettes, uncomplicated; Z99.2 Dependence on renal dialysis; Z79.4 Long term (current) use of insulin; Z85.47 Personal history of malignant neoplasm of testis; Z79.02 Long term (current) use of antithrombotics/antiplatelets; Z79.899 Other long term (current) drug therapy
CPT/HCPCS: 36415; 36902; 71045; 76937; 80048; 80053; 80076; 82947; 83605; 83690; 83735; 83880; 84443; 84484; 85025; 85610; 86706; 87040; 87340; 90935; 93005; 93306; 93458; 93931; 93971; 93990; 96374; 99152; 99285; C1725; C1769; C1893; J0360; J0461; J1644; J1815; J2003; J2250; J2310; J3010; J7040; Q9966